=== PATIENT | female | born 1970 | race Caucasian/White ===

== ENCOUNTER 2017-02-02 12:40 | Emergency (ER) | payer BC ==
[2017-02-02] MEDS ORDERED: MECLIZINE HCL 25 MG TABLET PO ONE (13:05)
--- NOTE | 2017-02-02 13:07 | ER Document Report ---
ED Medical Screen (RME) - General Chief Complaint: Dizziness Stated Complaint: WEAKNESS Notes: 46-year-old female patient who had an [place] and stent placed in September this past year comes emergency room complaining of feeling lethargic, drained, and dizziness with head position changes today. Cardiac exam shows some nystagmus which is made worse when the patient looks up and down left and right rapidly. She also complains of a multitude of minor symptoms which make her think she may have MS. I have greeted and performed a rapid initial assessment of this patient. A comprehensive ED assessment and evaluation of the patient, analysis of test results and completion of the medical decision making process will be conducted by additional ED providers. TRAVEL OUTSIDE OF THE [place] IN LAST 30 DAYS: No - Related Data Allergies/Adverse Reactions: No Known Allergies Allergy (Verified 02/02/17 13:01) Past Medical History - Past Medical History Cardiac Medical History: Reports: Hx Coronary Artery Disease, Hx Heart Attack, Hx Hypercholesterolemia, Hx Hypertension Pulmonary Medical History: Reports: Hx Bronchitis, Hx Pneumonia Denies: Hx Tuberculosis Neurological Medical History: Reports: Hx Migraine Endocrine Medical History: Reports: Hx Diabetes Mellitus Type 2 Renal/ Medical History: Denies: Hx Peritoneal Dialysis Musculoskeltal Medical History: Reports Hx Arthritis, Reports Hx Musculoskeletal Deformity Psychiatric Medical History: Reports: Hx Anxiety, Hx Bipolar Disorder, Hx Depression, Hx Post Traumatic Stress Disorder Past Surgical History: Reports: Hx Cardiac Catheterization, Hx Gynecologic Surgery - D&C, Hx Pacemaker, Hx Tubal Ligation - 2007 - Immunizations Immunizations up to date: Yes Hx Diphtheria, Pertussis, Tetanus Vaccination: Yes - unknown Physical Exam - Vital signs Vitals: Temp Pulse Resp BP Pulse Ox 98 F 72 18 103/71 98 02/02/17 12:49 02/02/17 12:49 02/02/17 12:49 02/02/17 12:49 02/02/17 12:49 Course - Vital Signs Vital signs: Temp Pulse Resp BP Pulse Ox 98 F 72 18 103/71 98 02/02/17 12:49 02/02/17 12:49 02/02/17 12:49 02/02/17 12:49 02/02/17 12:49
[2017-02-02] MEDS ORDERED: NORMAL SALINE 1000 ML 1,000 ML IV PRN (14:28)
--- NOTE | 2017-02-02 14:31 | ER Document Report ---
ED General - General Chief Complaint: Dizziness Stated Complaint: WEAKNESS Time seen by provider: 14:29 Mode of Arrival: Ambulatory Information source: Patient Notes: This is a 46-year-old female with a history of coronary artery disease (status post [place], RCA stent in September 2016), dyslipidemia, chronic low back pain, bipolar affective disorder. The patient presents to the emergency room with lethargy, feeling very drained, dizziness, nausea. Patient denies chest pain. She does admit to constipation. On review of systems, the patient has had complaints of bilateral ear sensitivity, episodes of vertigo with gait and balance. Also, the patient does state that her primary care doctor recently referred her to a neurologist for an outpatient workup for MS. TRAVEL OUTSIDE OF THE [place] IN LAST 30 DAYS: No - HPI Onset: Last week Onset/Duration: Gradual Quality of pain: No pain Severity: None Pain Level: Denies Associated symptoms: denies: Chills, Fever, Shortness of breath Exacerbated by: Denies Relieved by: Denies Similar symptoms previously: Yes Recently seen / treated by doctor: Yes - Related Data Allergies/Adverse Reactions: No Known Allergies Allergy (Verified 02/02/17 13:01) Past Medical History - General Information source: Patient - Social History Smoking Status: Former Smoker Cigarette use (# per day): No - patient quit 4 months ago Chew tobacco use (# tins/day): No Smoking Education Provided: No Frequency of alcohol use: None Drug Abuse: None Lives with: Family Family History: Arthritis, CAD, CVA, DM, Hyperlipidemia, Hypertension, Malignancy Patient has suicidal ideation: No Patient has homicidal ideation: No - Past Medical History Cardiac Medical History: Reports: Hx Coronary Artery Disease, Hx Heart Attack, Hx Hypercholesterolemia, Hx Hypertension Pulmonary Medical History: Reports: Hx Bronchitis, Hx Pneumonia Denies: Hx Tuberculosis Neurological Medical History: Reports: Hx Migraine Endocrine Medical History: Reports: Hx Diabetes Mellitus Type 2 Renal/ Medical History: Denies: Hx Peritoneal Dialysis Musculoskeltal Medical History: Reports Hx Arthritis, Reports Hx Musculoskeletal Deformity Psychiatric Medical History: Reports: Hx Anxiety, Hx Bipolar Disorder, Hx Depression, Hx Post Traumatic Stress Disorder Past Surgical History: Reports: Hx Cardiac Catheterization, Hx Gynecologic Surgery - D&C, Hx Pacemaker, Hx Tubal Ligation - 2007 - Immunizations Immunizations up to date: Yes Hx Diphtheria, Pertussis, Tetanus Vaccination: Yes - unknown Hx Pneumococcal Vaccination: 12/17/11 Review of Systems - Review of Systems Constitutional: See HPI, Weakness EENT: See HPI Cardiovascular: See HPI Respiratory: No symptoms reported Gastrointestinal: No symptoms reported Genitourinary: No symptoms reported Female Genitourinary: No symptoms reported Musculoskeletal: See HPI Skin: No symptoms reported Hematologic/Lymphatic: No symptoms reported Neurological/Psychological: See HPI Physical Exam - Vital signs Vitals: Temp Pulse Resp BP Pulse Ox 98 F 72 18 103/71 98 02/02/17 12:49 02/02/17 12:49 02/02/17 12:49 02/02/17 12:49 02/02/17 12:49 Notes: Physical exam: GENERAL: 46-year-old female, alert and oriented 3, no acute distress. HEAD: Atraumatic, normocephalic. EYES: Pupils equal round and reactive to light, extraocular movements intact, sclera anicteric, conjunctiva are normal. ENT: TMs normal, nares patent, oropharynx clear without exudates. Moist mucous membranes. NECK: Normal range of motion, supple without lymphadenopathy or JVD. LUNGS: Breath sounds clear to auscultation bilaterally and equal. No wheezes rales or rhonchi. HEART: Regular rate and rhythm without murmurs, rubs or gallops. ABDOMEN: Soft, normoactive bowel sounds. No tenderness to palpation. No guarding, no rebound. No masses appreciated. EXTREMITIES: Normal range of motion, no pitting or edema. No clubbing or cyanosis. NEUROLOGICAL: Cranial nerves II through XII grossly intact. Normal speech, normal gait. PSYCH: Normal mood, normal affect. SKIN: Warm, Dry, normal turgor, no rashes or lesions noted. Course - Vital Signs Vital signs: Temp Pulse Resp BP Pulse Ox 98 F 72 13 129/84 H 98 02/02/17 12:49 02/02/17 12:49 02/02/17 18:30 02/02/17 18:30 02/02/17 18:30 - Laboratory Result Diagrams: 02/02/17 14:18 02/02/17 14:18 Laboratory results interpreted by me: 02/02/17 02/02/17 02/02/17 14:18 14:18 14:18 RDW 14.8 H VBG pH 7.28 L Chloride 108 H - EKG Interpretation by Me Rate: Normal Rhythm: NSR Additional EKG results interpreted by me: 02/02/17 14:33 EKG shows normal sinus rhythm with a ventricular rate of 66, poor R-wave progression, no acute ST-T wave changes. Discharge - Discharge Clinical Impression: dizziness Condition: Stable Disposition: HOME, SELF-CARE Instructions: Vertigo ([facility]), Dizziness ([facility]), Meclizine ([facility]) Additional Instructions: Recommendations: Rest, drink plenty of fluids, continue current medicines. Your anemia studies were good, so he could stop taking the ER: It may be contributing to constipation. Follow-up with a primary care physician: Fl[facility] has a [facility] family [facility] care clinic on [address]: [address] [place] [address] Also, recommend you follow-up with an ENT specialist for the vertigo: [facility] [address] [place] [address] Toll Free: Prescriptions: Meclizine HCl [Antivert 12.5 mg Tablet] 12.5 mg PO BID PRN #14 tab PRN Reason:
[2017-02-02 14:32] LABS: ABSOLUTE EOSINOPHILS # (AUTO) 0.5 10^3/uL (0.0-0.6); ABSOLUTE LYMPHOCYTES (AUTO) 2.8 10^3/uL (0.5-4.7); ABSOLUTE MONOCYTES (AUTO) 0.5 10^3/uL (0.1-1.4); ABSOLUTE NEUT (AUTO) 4.7 10^3/uL (1.7-8.2); BASOPHILS % (AUTO) 0.4 % (0-2); EOSINOPHILS % (AUTO) 5.4 % (0-6); HEMOGLOBIN 12.5 g/dL (12.0-15.5); HGB HCT DIFFERENCE 0.5; MEAN CORPUSCULAR HGB CONC 33.8 g/dL (32.0-36.0); MEAN CORPUSCULAR VOLUME 89 fl (80-97); RED BLOOD COUNT 4.17 10^6/uL (3.72-5.28); RED CELL DISTRIBUTION WIDTH 14.8 % (11.5-14.0); SEGMENTED NEUTROPHILS % (AUTO) 55.2 % (42-78); WHITE BLOOD COUNT 8.5 10^3/uL (4.0-10.5)
[2017-02-02 14:46] LABS: VENOUS BLOOD BASE EXCESS -4.2 mmol/L; VENOUS BLOOD HCO3 22.9 mmol/L (20-32); VENOUS BLOOD PCO2 49.8 mmHg (35-63); VENOUS BLOOD PH 7.28 (7.30-7.42)
[2017-02-02 14:52] LABS: ALANINE AMINOTRANSFERASE 25 U/L (9-52); ALBUMIN 3.9 g/dL (3.5-5.0); ALKALINE PHOSPHATASE 63 U/L (38-126); ANION GAP 11 (5-19); ASPARTATE AMINO TRANSFERASE 22 U/L (14-36); BILIRUBIN,DIRECT 0.1 mg/dL (0.0-0.4); BILIRUBIN,TOTAL 0.3 mg/dL (0.2-1.3); BLOOD UREA NITROGEN 7 mg/dL (7-20); CARBON DIOXIDE 24 mmol/L (22-30); CHLORIDE 108 mmol/L (98-107); CREATINE KINASE 64 U/L (30-135); CREATININE RESULT 0.77 mg/dL (0.52-1.25); GLUCOSE 88 mg/dL (75-110); POTASSIUM 3.8 mmol/L (3.6-5.0); SODIUM 143.4 mmol/L (137-145); TOTAL PROTEIN 6.5 g/dL (6.3-8.2)
[2017-02-02 15:04] LABS: CREATINE KINASE MB 0.62 ng/mL (<4.55); TROPONIN I < 0.012 ng/mL
[2017-02-02 16:04] LABS: APPEARANCE,URINE SLIGHTLY-CLOUDY; BILIRUBIN,URINE NEGATIVE (NEGATIVE); GLUCOSE, URINE NEGATIVE (NEGATIVE); KETONES,URINE NEGATIVE (NEGATIVE); LEUKOCYTE ESTERASE,URINE NEGATIVE (NEGATIVE); NITRITE,URINE NEGATIVE (NEGATIVE); PROTEIN,URINE NEGATIVE (NEGATIVE); URINE SPECIFIC GRAVITY 1.009; UROBILINOGEN,URINE NEGATIVE mg/dL (<2.0)
[2017-02-02 18:34] VITALS: BP 129/84
--- NOTE | 2017-02-02 20:09 | EKG REPORT ---
SEVERITY:- BORDERLINE ECG - SINUS RHYTHM BORDERLINE R WAVE PROGRESSION, ANTERIOR LEADS : Confirmed by: Viji Mosher MD 02-Feb-2017 20:07:52
== END 2017-02-02 18:53 | disposition home or self-care (01) ==
LOC: ER 12:40
DX: R42 Dizziness and giddiness (principal); K59.00 Constipation, unspecified; R11.0 Nausea; R53.83 Other fatigue; R53.1 Weakness; I25.10 Atherosclerotic heart disease of native coronary artery without angina pectoris; I25.2 Old myocardial infarction; I10 Essential (primary) hypertension; E11.9 Type 2 diabetes mellitus without complications; Z98.61 Coronary angioplasty status; Z87.891 Personal history of nicotine dependence; Z95.0 Presence of cardiac pacemaker
CPT/HCPCS: 93005; 99285; 96360; 36415; 82553; 82550; 85025; 82272; 80053; 81001; 84484; 82803; 83605; 70450; 71275; 93010; J7030

== ENCOUNTER 2017-02-07 22:24 | Emergency (ER) | payer BC ==
--- NOTE | 2017-02-07 22:40 | ER Document Report ---
ED Cardiac - General Chief Complaint: Chest Pain > 30 Stated Complaint: CHEST PAIN Information source: Patient Notes: The patient is a 47-year-old female, past medical history CAD s/p 1 stent in , bipolar, presents with left upper chest pain 3 patient to her left shoulder that started while she was having a bowel movement. She took one of her Percocet tens and a nitroglycerin with relief of her pain. EMS arrived and she was given 324 mg aspirin and 1 sublingual nitroglycerin prior to arrival. Patient states the pain is a pressure. She was seen in the emergency room 2 days ago for vertiginous symptoms and had a normal head CT and CTA chest. Patient is also having constipation over the past few days that she says occurs when she takes her Percocet. Denies back pain, numbness, tingling, shortness of breath, leg swelling, cough, hemoptysis, fevers, nausea or vomiting. TRAVEL OUTSIDE OF THE [place] IN LAST 30 DAYS: No - Related Data Allergies/Adverse Reactions: No Known Allergies Allergy (Verified 02/02/17 13:01) Past Medical History - General Information source: Patient - Social History Smoking Status: Current Every Day Smoker Family History: Arthritis, CAD, CVA, DM, Hyperlipidemia, Hypertension, Malignancy - Past Medical History Cardiac Medical History: Reports: Hx Coronary Artery Disease, Hx Heart Attack, Hx Hypercholesterolemia, Hx Hypertension Pulmonary Medical History: Reports: Hx Bronchitis, Hx Pneumonia Denies: Hx Tuberculosis Neurological Medical History: Reports: Hx Migraine Endocrine Medical History: Reports: Hx Diabetes Mellitus Type 2 Renal/ Medical History: Denies: Hx Peritoneal Dialysis Musculoskeltal Medical History: Reports Hx Arthritis, Reports Hx Musculoskeletal Deformity Psychiatric Medical History: Reports: Hx Anxiety, Hx Bipolar Disorder, Hx Depression, Hx Post Traumatic Stress Disorder Past Surgical History: Reports: Hx Cardiac Catheterization, Hx Gynecologic Surgery - D&C, Hx Pacemaker, Hx Tubal Ligation - 2007 - Immunizations Immunizations up to date: Yes Hx Diphtheria, Pertussis, Tetanus Vaccination: Yes - unknown Hx Pneumococcal Vaccination: 12/17/11 Review of Systems - Review of Systems Notes: REVIEW OF SYSTEMS: CONSTITUTIONAL: -fevers, -chills EENT: -eye pain, -difficulty swallowing, -nasal congestion CARDIOVASCULAR: +chest pain, -syncope. RESPIRATORY: -cough, -SOB GASTROINTESTINAL: -abdominal pain, -nausea, -vomiting, -diarrhea GENITOURINARY: -dysuria, -hematuria MUSCULOSKELETAL: -back pain, -neck pain SKIN: -rash or skin lesions. HEMATOLOGIC: -easy bruising or bleeding. LYMPHATIC: -swollen, enlarged glands. NEUROLOGICAL: -altered mental status or loss of consciousness, -headache, - neurologic symptoms PSYCHIATRIC: -anxiety, -depression. ALL OTHER SYSTEMS REVIEWED AND NEGATIVE. Physical Exam - Vital signs Vitals: Pulse Ox 96 02/07/17 22:29 - Notes Notes: PHYSICAL EXAMINATION: GENERAL: Well-appearing, well-nourished and in no acute distress. HEAD: Atraumatic, normocephalic. EYES: Pupils equal round and reactive to light, extraocular movements intact, sclera anicteric, conjunctiva are normal. ENT: nares patent, oropharynx clear without exudates. Moist mucous membranes. NECK: Normal range of motion, supple without lymphadenopathy LUNGS: Breath sounds clear to auscultation bilaterally and equal. No wheezes rales or rhonchi. HEART: Regular rate and rhythm without murmurs ABDOMEN: Soft, nontender, normoactive bowel sounds. No guarding, no rebound. No masses appreciated. EXTREMITIES: Normal range of motion, no pitting or edema. No cyanosis. NEUROLOGICAL: Cranial nerves grossly intact. Normal speech, normal gait. Normal sensory, motor, and reflex exams. PSYCH: Normal mood, normal affect. SKIN: Warm, Dry, normal turgor, no rashes or lesions noted. Course - Re-evaluation Re-evalutation: Patient appears well. EKG and 2 troponins are negative for acute ischemia. HEART score 3. Symptoms atypical for PE and she is PERC negative. And is also atypical for aortic dissection. Told her that she must follow-up with her primary care physician and window shade estimator today or tomorrow to have her symptoms rechecked and further evaluation with stress test. She had a bowel movement after using the Fleet enema in the ER. Told her to start a stool softener since she is on chronic narcotics. Given strict return precautions and she understands. - Vital Signs Vital signs: Temp Pulse Resp BP Pulse Ox 98.6 F 17 140/96 H 99 02/08/17 00:01 02/08/17 02:36 02/08/17 02:36 02/08/17 02:36 - Laboratory Result Diagrams: 02/07/17 22:40 02/07/17 22:40 Laboratory results interpreted by me: 02/07/17 02/07/17 22:40 22:40 RDW 14.8 H Glucose 117 H - Diagnostic Test Radiology reviewed: Image reviewed, Reports reviewed - EKG Interpretation by Me EKG shows normal: Sinus rhythm, [place], Intervals, QRS Complexes, ST-T Waves When compared to previous EKG there are: No significant change Discharge - Discharge Clinical Impression: Chest pain Qualifiers: Chest pain type: unspecified Qualified Code(s): R07.9 - Chest pain, unspecified Condition: Stable Disposition: HOME, SELF-CARE Additional Instructions: CHEST PAIN OF UNCLEAR CAUSE: The exact cause of your chest pain isn't clear. Fortunately, there is no evidence of a dangerous medical condition. Further testing may be required to find the source of the pain. Most often, we find that this pain is coming from the chest wall -- the muscles or rib joints in the chest. But chest pain can come from the lung and lung lining, the esophagus, the heart valves or heart lining, and even the stomach or gallbladder. Rest. Eat lightly until the pain is gone. We may prescribe medicine for pain and inflammation. You should call the physician immediately if the pain radiates to the shoulder, jaw or arms; if you start to run a fever or develop a cough; or if you develop shortness of breath, or other new or alarming symptoms. NORMAL EXAM AND WORKUP: At this time, your examination and workup show no significant abnormality. No significant abnormal physical findings were noted. All laboratory, EKG, and imaging (x-ray, CT scans, ultrasound) studies that were ordered show no significant abnormality. Although your examination and all studies that were ordered showed no significant abnormal finding, there are no examinations and no studies that are 100% accurate. There is always the possibility that some abnormality could exist and not be detected with physical examination or within the limits and capabilities of laboratory and other studies. You should return or follow up as you were instructed on your visit today for further evaluation if your symptoms do not resolve. CHEST WALL PAIN: Your chest pain may be coming from the chest wall. This is often caused by straining the muscles or joints in the chest during physical activity, direct trauma, coughing, or vigorous vomiting. Persons with arthritis are especially prone to this type of pain, due to inflammation of the cartilage joints near the breast bone. Occasionally, no cause can be found. Rest from strenuous physical activity. This kind of chest pain is usually made worse by movement of the chest. Depending on the symptoms, we may prescribe medicine for pain, muscle relaxation, and antiinflammatory effects. If the pain is new, and seems to be due to muscle strain, cold packs can help. Otherwise, apply gentle warmth to the painful area for 15 minutes every hour or two. You should call contact the doctor immediately if things change. Further evaluation is needed if you develop a fever or cough, if the nature of the pain changes, or if you become short of breath. ANGINA EPISODE: Your physician has diagnosed the pain you experienced as an episode of angina. Angina occurs when a portion of the heart muscle temporarily lacks oxygen. It does not cause any permanent heart damage, but serves as a warning. Hospitalization is not necessary now. Evaluation of your cardiac condition , and medical therapy for angina will be necessary. It's important you be sure to keep all appointments and take medication exactly as prescribed. Angina is usually treated with a type of "nitrate" medication. This is available as ointment, pills, or sublingual (under the tongue) tablets. Depending on your clinical situation, other medications may be added to help control angina. These may include beta blockers or calcium blockers. If episodes of angina are occurring with increased frequency, or if chest pain lasts longer than 15 minutes or does not respond to nitroglycerin, you must seek emergency medical care immediately. ASPIRIN: Aspirin has been shown to have a beneficial effect on blood circulation by reducing the clotting effect of platelets in the blood. These beneficial effects can be achieved by taking just a single baby (81 mg) aspirin a day. It is recommended that any person over the age of forty take a single baby aspirin every day for heart and brain circulation, unless you are allergic to aspirin or have some significant bleeding disorder. It is strongly recommended that people who have proven cardiac or blood circulation disturbances should take a baby aspirin every day. NITRATES: Nitroglycerin and related longer-acting nitrate medications are used to prevent or treat attacks of angina. These medicines dilate blood vessels, decreasing the work of the heart, and improving its supply of oxygen. Many different forms are available, including sublingual tablets (used under the tongue), sprays, skin patches, and long-acting pills. If the particular form of medication you have been given is not working well for you, contact your doctor. Long-acting forms: Take exactly as prescribed. Sudden stopping of medication can provoke increased attacks. Sublingual tabs or spray: A headache will usually occur with use. Sit or lie while waiting for the pain to go away. If angina doesn't respond to three doses (five minutes apart), call for emergency assistance. FOLLOW-UP CARE: If you have been referred to a physician for follow-up care, call the physician s office for an appointment as you were instructed or within the next two days. If you experience worsening or a significant change in your symptoms, notify the physician immediately or return to the Emergency Department at any time for re-evaluation. Referrals: ESEQUIEL ORO MD [ACTIVE STAFF] - Follow up as needed
[2017-02-07 23:02] LABS: ABSOLUTE EOSINOPHILS # (AUTO) 0.4 10^3/uL (0.0-0.6); ABSOLUTE MONOCYTES (AUTO) 0.6 10^3/uL (0.1-1.4); ABSOLUTE NEUT (AUTO) 5.1 10^3/uL (1.7-8.2); BASOPHILS % (AUTO) 0.5 % (0-2); EOSINOPHILS % (AUTO) 4.4 % (0-6); HEMATOCRIT 36.3 % (36.0-47.0); HEMOGLOBIN 12.3 g/dL (12.0-15.5); HGB HCT DIFFERENCE 0.6; LYMPHOCYTES % (AUTO) 32.4 % (13-45); MEAN CORPUSCULAR HEMOGLOBIN 29.9 pg (27.0-33.4); MEAN CORPUSCULAR VOLUME 88 fl (80-97); RED BLOOD COUNT 4.13 10^6/uL (3.72-5.28); RED CELL DISTRIBUTION WIDTH 14.8 % (11.5-14.0); SEGMENTED NEUTROPHILS % (AUTO) 55.7 % (42-78); WHITE BLOOD COUNT 9.2 10^3/uL (4.0-10.5)
[2017-02-07 23:15] LABS: ALANINE AMINOTRANSFERASE 33 U/L (9-52); ALBUMIN 3.9 g/dL (3.5-5.0); ALKALINE PHOSPHATASE 63 U/L (38-126); ANION GAP 13 (5-19); ASPARTATE AMINO TRANSFERASE 34 U/L (14-36); BILIRUBIN,DIRECT 0.1 mg/dL (0.0-0.4); BILIRUBIN,TOTAL 0.3 mg/dL (0.2-1.3); BLOOD UREA NITROGEN 9 mg/dL (7-20); CARBON DIOXIDE 23 mmol/L (22-30); CHLORIDE 107 mmol/L (98-107); CREATINE KINASE 77 U/L (30-135); CREATININE RESULT 0.68 mg/dL (0.52-1.25); GLUCOSE 117 mg/dL (75-110); LIPASE 32.8 U/L (23-300); SODIUM 143.1 mmol/L (137-145); TOTAL PROTEIN 6.7 g/dL (6.3-8.2)
[2017-02-07 23:26] LABS: TROPONIN I < 0.012 ng/mL
[2017-02-08] MEDS ORDERED: NA PHOS,M-B/NA PHOS,DI-BA (ADULT) 133 ML ENEMA PR ONE (01:37)
[2017-02-08 07:20] VITALS: BP 121/88
--- NOTE | 2017-02-08 07:48 | EKG REPORT ---
SEVERITY:- ABNORMAL ECG - SINUS RHYTHM ABNRM R PROG, CONSIDER ASMI OR LEAD PLACEMENT : Confirmed by: Ronnell Mccurdy 08-Feb-2017 07:48:10
== END 2017-02-08 06:35 | disposition home or self-care (01) ==
LOC: ER 22:24
DX: R07.9 Chest pain, unspecified (principal); F31.9 Bipolar disorder, unspecified; M25.512 Pain in left shoulder; F17.200 Nicotine dependence, unspecified, uncomplicated
CPT/HCPCS: 93005; 99285; 36415; 82550; 83690; 85025; 80076; 80048; 84484; 83880; 71010; 93010; J3490

== ENCOUNTER 2017-03-20 21:54 | Emergency (ER) | payer BC ==
[2017-03-20 22:14] LABS: ABSOLUTE BASOPHILS # (AUTO) 0.1 10^3/uL (0.0-0.2); ABSOLUTE EOSINOPHILS # (AUTO) 0.5 10^3/uL (0.0-0.6); ABSOLUTE LYMPHOCYTES (AUTO) 3.4 10^3/uL (0.5-4.7); ABSOLUTE MONOCYTES (AUTO) 0.6 10^3/uL (0.1-1.4); EOSINOPHILS % (AUTO) 5.7 % (0-6); HEMATOCRIT 36.9 % (36.0-47.0); HGB HCT DIFFERENCE -0.9; LYMPHOCYTES % (AUTO) 39.9 % (13-45); MEAN CORPUSCULAR HGB CONC 32.6 g/dL (32.0-36.0); MEAN CORPUSCULAR VOLUME 89 fl (80-97); MONOCYTES % (AUTO) 6.8 % (3-13); RED BLOOD COUNT 4.15 10^6/uL (3.72-5.28); RED CELL DISTRIBUTION WIDTH 15.2 % (11.5-14.0); SEGMENTED NEUTROPHILS % (AUTO) 46.6 % (42-78); WHITE BLOOD COUNT 8.5 10^3/uL (4.0-10.5)
[2017-03-20 22:34] LABS: ALANINE AMINOTRANSFERASE 50 U/L (9-52); ALBUMIN 3.9 g/dL (3.5-5.0); ALKALINE PHOSPHATASE 87 U/L (38-126); ANION GAP 12 (5-19); ASPARTATE AMINO TRANSFERASE 40 U/L (14-36); BILIRUBIN,DIRECT 0.3 mg/dL (0.0-0.4); BILIRUBIN,TOTAL 0.4 mg/dL (0.2-1.3); BLOOD UREA NITROGEN 9 mg/dL (7-20); CALCIUM 9.3 mg/dL (8.4-10.2); CARBON DIOXIDE 25 mmol/L (22-30); CHLORIDE 104 mmol/L (98-107); CREATINE KINASE 65 U/L (30-135); CREATININE RESULT 0.78 mg/dL (0.52-1.25); GLUCOSE 108 mg/dL (75-110); POTASSIUM 3.7 mmol/L (3.6-5.0); SODIUM 140.8 mmol/L (137-145); TOTAL PROTEIN 7.2 g/dL (6.3-8.2)
[2017-03-20 22:44] LABS: CREATINE KINASE MB 1.13 ng/mL (<4.55)
[2017-03-20 22:45] LABS: TROPONIN I < 0.012 ng/mL
[2017-03-20] MEDS ORDERED: NITROGLYCERIN 2% OINTMENT 1 GM PACKET TP ONE (23:06)
--- NOTE | 2017-03-20 23:16 | RADIOLOGY REPORT (SQ) ---
EXAM DESCRIPTION: CHEST SINGLE VIEW COMPLETED DATE/TIME: 03/20/2017 10:31 pm REASON FOR STUDY: cp COMPARISON: January 2017 EXAM PARAMETERS: NUMBER OF VIEWS: One view. TECHNIQUE: Single frontal radiographic view of the chest acquired. RADIATION DOSE: NA LIMITATIONS: None. FINDINGS: LUNGS AND PLEURA: No opacities, masses or pneumothorax. No pleural effusion. MEDIASTINUM AND HILAR STRUCTURES: No masses. Contour normal. HEART AND VASCULAR STRUCTURES: Heart normal in size. Normal vasculature. BONES: No acute findings. HARDWARE: None in the chest. OTHER: No other significant finding. IMPRESSION: NO ACUTE RADIOGRAPHIC FINDING IN THE CHEST. TECHNICAL DOCUMENTATION: JOB ID: [id number]
--- NOTE | 2017-03-20 23:53 | EKG REPORT ---
SEVERITY:- BORDERLINE ECG - SINUS RHYTHM BORDERLINE R WAVE PROGRESSION, ANTERIOR LEADS : Confirmed by: Ronnell Mccurdy 20-Mar-2017 23:52:59
[2017-03-21 01:49] VITALS: BP 102/73
--- NOTE | 2017-03-21 01:55 | ER Document Report ---
ED Cardiac - General Chief Complaint: Chest Pain Stated Complaint: CHEST PAIN Time Seen by Provider: 03/20/17 22:43 Notes: The patient is a 47-year-old female, past medical history hypertension, CAD, diabetes, anxiety, bipolar, PTSD, presents with left upper chest pain that started when she was at rest earlier today. She has had multiple episodes of this since her stent 7 months ago. She cannot find her nitro, but did take 324 mg aspirin prior to arrival. Her chest pain improved with nitro by EMS. Denies leg swelling, cough, nausea, vomiting, numbness, tingling, neck pain or back pain TRAVEL OUTSIDE OF THE [place] IN LAST 30 DAYS: No - Related Data Allergies/Adverse Reactions: No Known Allergies Allergy (Verified 03/20/17 22:12) Past Medical History - General Information source: Patient - Social History Smoking Status: Former Smoker Chew tobacco use (# tins/day): No Frequency of alcohol use: None Drug Abuse: None Family History: Arthritis, CAD, CVA, DM, Hyperlipidemia, Hypertension, Malignancy - Past Medical History Cardiac Medical History: Reports: Hx Coronary Artery Disease, Hx Heart Attack, Hx Hypercholesterolemia, Hx Hypertension Pulmonary Medical History: Reports: Hx Bronchitis, Hx Pneumonia Denies: Hx Tuberculosis Neurological Medical History: Reports: Hx Migraine Endocrine Medical History: Reports: Hx Diabetes Mellitus Type 2 Renal/ Medical History: Denies: Hx Peritoneal Dialysis Musculoskeltal Medical History: Reports Hx Arthritis, Reports Hx Musculoskeletal Deformity Psychiatric Medical History: Reports: Hx Anxiety, Hx Bipolar Disorder, Hx Depression, Hx Post Traumatic Stress Disorder Past Surgical History: Reports: Hx Cardiac Catheterization - with stents, Hx Gynecologic Surgery - D&C, Hx Pacemaker, Hx Tubal Ligation - Immunizations Immunizations up to date: Yes Hx Diphtheria, Pertussis, Tetanus Vaccination: Yes - unknown Hx Pneumococcal Vaccination: 12/17/11 Review of Systems - Review of Systems Notes: REVIEW OF SYSTEMS: CONSTITUTIONAL: -fevers, -chills EENT: -eye pain, -difficulty swallowing, -nasal congestion CARDIOVASCULAR: +chest pain, -syncope. RESPIRATORY: -cough, -SOB GASTROINTESTINAL: -abdominal pain, - nausea, -vomiting, -diarrhea GENITOURINARY: -dysuria, -hematuria MUSCULOSKELETAL: -back pain, -neck pain SKIN: -rash or skin lesions. HEMATOLOGIC: -easy bruising or bleeding. LYMPHATIC: -swollen, enlarged glands. NEUROLOGICAL: -altered mental status or loss of consciousness, -headache, - neurologic symptoms PSYCHIATRIC: -anxiety, -depression. ALL OTHER SYSTEMS REVIEWED AND NEGATIVE. Physical Exam - Vital signs Vitals: Temp 98.3 F 03/20/17 22:00 - Notes Notes: PHYSICAL EXAMINATION: GENERAL: Well-appearing, well-nourished and in no acute distress. HEAD: Atraumatic, normocephalic. EYES: Pupils equal round and reactive to light, extraocular movements intact, sclera anicteric, conjunctiva are normal. ENT: nares patent, oropharynx clear without exudates. Moist mucous membranes. NECK: Normal range of motion, supple without lymphadenopathy LUNGS: Breath sounds clear to auscultation bilaterally and equal. No wheezes rales or rhonchi. HEART: Regular rate and rhythm without murmurs ABDOMEN: Soft, nontender, normoactive bowel sounds. No guarding, no rebound. No masses appreciated. EXTREMITIES: Normal range of motion, no pitting or edema. No cyanosis. NEUROLOGICAL: Cranial nerves grossly intact. Normal speech, normal gait. Normal sensory and motor exams. PSYCH: Anxious SKIN: Warm, Dry, normal turgor, no rashes or lesions noted. Course - Re-evaluation Re-evalutation: Patient's chest pain resolved after nitro. She has nitro at home. 2 sets of troponins are negative and her EKG is unchanged. Her HEART score is 3. Symptoms are atypical for pulmonary embolism or aortic dissection at this time. 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 and to return to the ER if she has any worsening symptoms - Vital Signs Vital signs: Temp Pulse Resp BP Pulse Ox 97.6 F 13 102/73 92 03/21/17 01:55 03/21/17 01:31 03/21/17 01:31 03/21/17 01:31 - Laboratory Result Diagrams: 03/20/17 22:00 03/20/17 22:00 Laboratory results interpreted by me: 03/20/17 03/20/17 22:00 22:00 RDW 15.2 H AST 40 H - Diagnostic Test Radiology reviewed: Image reviewed, Reports reviewed Radiology results interpreted by me: CXR: NAD - EKG Interpretation by Me EKG shows normal: Sinus rhythm, [place], Intervals, QRS Complexes, ST-T Waves Rate: Normal When compared to previous EKG there are: No significant change Discharge - Discharge Clinical Impression: Chest pain Qualifiers: Chest pain type: unspecified Qualified Code(s): R07.9 - Chest pain, unspecified Condition: Stable Disposition: HOME, SELF-CARE Additional Instructions: CHEST PAIN OF UNCLEAR CAUSE: The exact cause of your chest pain isn't clear. Fortunately, there is no evidence of a dangerous medical condition. Further testing may be required to find the source of the pain. Most often, we find that this pain is coming from the chest wall -- the muscles or rib joints in the chest. But chest pain can come from the lung and lung lining, the esophagus, the heart valves or heart lining, and even the stomach or gallbladder. Rest. Eat lightly until the pain is gone. We may prescribe medicine for pain and inflammation. You should call the physician immediately if the pain radiates to the shoulder, jaw or arms; if you start to run a fever or develop a cough; or if you develop shortness of breath, or other new or alarming symptoms. NORMAL EXAM AND WORKUP: At this time, your examination and workup show no significant abnormality. No significant abnormal physical findings were noted. All laboratory, EKG, and imaging (x-ray, CT scans, ultrasound) studies that were ordered show no significant abnormality. Although your examination and all studies that were ordered showed no significant abnormal finding, there are no examinations and no studies that are 100% accurate. There is always the possibility that some abnormality could exist and not be detected with physical examination or within the limits and capabilities of laboratory and other studies. You should return or follow up as you were instructed on your visit today for further evaluation if your symptoms do not resolve. CHEST WALL PAIN: Your chest pain may be coming from the chest wall. This is often caused by straining the muscles or joints in the chest during physical activity, direct trauma, coughing, or vigorous vomiting. Persons with arthritis are especially prone to this type of pain, due to inflammation of the cartilage joints near the breast bone. Occasionally, no cause can be found. Rest from strenuous physical activity. This kind of chest pain is usually made worse by movement of the chest. Depending on the symptoms, we may prescribe medicine for pain, muscle relaxation, and antiinflammatory effects. If the pain is new, and seems to be due to muscle strain, cold packs can help. Otherwise, apply gentle warmth to the painful area for 15 minutes every hour or two. You should call contact the doctor immediately if things change. Further evaluation is needed if you develop a fever or cough, if the nature of the pain changes, or if you become short of breath. ANGINA EPISODE: Your physician has diagnosed the pain you experienced as an episode of angina. Angina occurs when a portion of the heart muscle temporarily lacks oxygen. It does not cause any permanent heart damage, but serves as a warning. Hospitalization is not necessary now. Evaluation of your cardiac condition , and medical therapy for angina will be necessary. It's important you be sure to keep all appointments and take medication exactly as prescribed. Angina is usually treated with a type of "nitrate" medication. This is available as ointment, pills, or sublingual (under the tongue) tablets. Depending on your clinical situation, other medications may be added to help control angina. These may include beta blockers or calcium blockers. If episodes of angina are occurring with increased frequency, or if chest pain lasts longer than 15 minutes or does not respond to nitroglycerin, you must seek emergency medical care immediately. ASPIRIN: Aspirin has been shown to have a beneficial effect on blood circulation by reducing the clotting effect of platelets in the blood. These beneficial effects can be achieved by taking just a single baby (81 mg) aspirin a day. It is recommended that any person over the age of forty take a single baby aspirin every day for heart and brain circulation, unless you are allergic to aspirin or have some significant bleeding disorder. It is strongly recommended that people who have proven cardiac or blood circulation disturbances should take a baby aspirin every day. NITRATES: Nitroglycerin and related longer-acting nitrate medications are used to prevent or treat attacks of angina. These medicines dilate blood vessels, decreasing the work of the heart, and improving its supply of oxygen. Many different forms are available, including sublingual tablets (used under the tongue), sprays, skin patches, and long-acting pills. If the particular form of medication you have been given is not working well for you, contact your doctor. Long-acting forms: Take exactly as prescribed. Sudden stopping of medication can provoke increased attacks. Sublingual tabs or spray: A headache will usually occur with use. Sit or lie while waiting for the pain to go away. If angina doesn't respond to three doses (five minutes apart), call for emergency assistance. FOLLOW-UP CARE: If you have been referred to a physician for follow-up care, call the physician s office for an appointment as you were instructed or within the next two days. If you experience worsening or a significant change in your symptoms, notify the physician immediately or return to the Emergency Department at any time for re-evaluation. Referrals: LINO BOONE MD [ACTIVE STAFF] - Follow up as needed
== END 2017-03-21 02:20 | disposition home or self-care (01) ==
LOC: ER 21:54
DX: R07.9 Chest pain, unspecified (principal); I25.10 Atherosclerotic heart disease of native coronary artery without angina pectoris; I25.2 Old myocardial infarction; I10 Essential (primary) hypertension; E11.9 Type 2 diabetes mellitus without complications; Z98.61 Coronary angioplasty status; Z87.891 Personal history of nicotine dependence; Z82.49 Family history of ischemic heart disease and other diseases of the circulatory system; Z87.01 Personal history of pneumonia (recurrent); Z95.0 Presence of cardiac pacemaker
CPT/HCPCS: 36415; 71010; 80053; 82550; 82553; 84484; 85025; 93005; 93010; 99285

== ENCOUNTER 2017-07-10 08:46 | Emergency (ER) | payer BC ==
[2017-07-10] MEDS ORDERED: NORMAL SALINE 1000 ML 1,000 ML IV ONE (10:30)
--- NOTE | 2017-07-10 10:30 | ER Document Report ---
ED Blood Pressure Problem - General Mode of Arrival: Ambulatory Information source: Patient TRAVEL OUTSIDE OF THE [place] IN LAST 30 DAYS: No - HPI Patient complains to provider of: Low blood pressure Onset: Other - chronic Similar symptoms previously: Yes Recently seen / treated by doctor: Yes <FILEMON HALLMAN - Last Filed: 07/10/17 10:34> <[email or web address] - Last Filed: 07/10/17 15:07> - General Chief Complaint: Blood Pressure Problem Stated Complaint: BLOOD PRESSURE PROBLEM Time Seen by Provider: 07/10/17 10:08 Notes: Patient is a 47 year old female who presents to the emergency department today secondary to hypotension at her pain management appointment today. Patient and family at bedside states that the patient has frequently been hypotensive in the past. Patient states she was seen at Dr. Pedraza's office today prior to arrival here for routine blood work but he "did not listen to her" and she wishes to be referred to another neurologist for her condition. Patient has a bizarre disorder with slurred speech and random jerking motions that have been going on for several years with no diagnosis. Patient was seen here less than one month ago for same the complaints. Patient states she has had these symptoms off and on for several years however they are "a little worse today". Patient does take narcotic pain medication, isosorbide, and nitroglycerin as needed however she has not taken any nitroglycerin today. Patient mentions she has had "brain pain". Patient complains of constipation consistent with her opiate dependence. Patient denies any new medications. (FILEMON HALLMAN) - Related Data Allergies/Adverse Reactions: No Known Allergies Allergy (Verified 07/10/17 08:51) Past Medical History - General Information source: Patient, Emergency Med Personnel, [facility] Records - Social History Smoking Status: Former Smoker Cigarette use (# per day): No Frequency of alcohol use: None Drug Abuse: None Lives with: Family Family History: Reviewed & Not Pertinent, Arthritis, CAD, CVA, DM, Hyperlipidemia, Hypertension, Malignancy - Past Medical History Cardiac Medical History: Reports: Hx Coronary Artery Disease, Hx Heart Attack, Hx Hypercholesterolemia, Hx Hypertension Pulmonary Medical History: Reports: Hx Bronchitis, Hx Pneumonia Neurological Medical History: Reports: Hx Migraine Endocrine Medical History: Reports: Hx Diabetes Mellitus Type 2 Musculoskeltal Medical History: Reports Hx Arthritis, Reports Hx Musculoskeletal Deformity Psychiatric Medical History: Reports: Hx Anxiety, Hx Bipolar Disorder, Hx Depression, Hx Post Traumatic Stress Disorder Past Surgical History: Reports: Hx Cardiac Catheterization - with stents, Hx Gynecologic Surgery - D&C, Hx Pacemaker, Hx Tubal Ligation - Immunizations Immunizations up to date: Yes Hx Diphtheria, Pertussis, Tetanus Vaccination: Yes - unknown Hx Pneumococcal Vaccination: 12/17/11 <FILEMON HALLMAN - Last Filed: 07/10/17 10:34> Review of Systems - Review of Systems Constitutional: No symptoms reported EENT: No symptoms reported Cardiovascular: No symptoms reported Respiratory: No symptoms reported Gastrointestinal: See HPI, Constipation Genitourinary: No symptoms reported Female Genitourinary: No symptoms reported Musculoskeletal: No symptoms reported Skin: No symptoms reported Hematologic/Lymphatic: No symptoms reported Neurological/Psychological: See HPI, Headaches, Speech impairment - chronic off and on for years, Tremor - chronic off and on for years -: Yes All other systems reviewed and negative <FILEMON HALLMAN - Last Filed: 07/10/17 10:34> Physical Exam <FILEMON HALLMAN - Last Filed: 07/10/17 10:34> <HOLLI KNIGHT - Last Filed: 07/10/17 15:07> - Vital signs Vitals: Temp Pulse Resp BP Pulse Ox 98.5 F 71 16 104/71 98 07/10/17 08:51 07/10/17 08:51 07/10/17 08:51 07/10/17 08:51 07/10/17 08:51 - Notes Notes: PHYSICAL EXAM GENERAL: Alert, interacts at baseline. No acute distress. HEAD: Normocephalic, atraumatic. EYES: Pupils are dilated but equal, round, and reactive to light. Extraocular movements intact. ENT: Oral mucosa moist, tongue midline. Fasciculation of tongue. NECK: Full range of motion. Supple. Trachea midline. LUNGS: Clear to auscultation bilaterally, no wheezes, rales, or rhonchi. No respiratory distress. HEART: Regular rate and rhythm. No murmurs, gallops, or rubs. ABDOMEN: Soft, non-tender. Non-distended. Bowel sounds present in all 4 quadrants. EXTREMITIES: Moves all 4 extremities spontaneously. No edema, radial and dorsalis pedis pulses 2/4 bilaterally. No cyanosis. NEUROLOGICAL: Alert and oriented x3. Slurred speech with mild stutter. Cranial nerves II through XII grossly intact. Biceps and patellar DTRs 2+ bilaterally. No focal neurological deficits. Random jerking motion of right upper extremity. PSYCH: Normal affect, normal mood. SKIN: Warm, dry, normal turgor. No rashes or lesions noted. (FILEMON HALLMAN) Course <FILEMON HALLMAN - Last Filed: 07/10/17 10:34> - Laboratory Result Diagrams: 07/10/17 11:21 07/10/17 11:21 <HOLLI KNIGHT - Last Filed: 07/10/17 15:07> - Re-evaluation Re-evalutation: 07/10/17 12:53 CBC grossly unremarkable, CMP grossly unremarkable, cardiac enzymes negative, CT scan of the head shows no acute process, EKG is nonischemic nor is there any ectopy. Interestingly the patient's stutter and slurred speech appears to wax and wane, when I walked into the room initially there was no evidence of stuttering or slurred speech, got worse during the examination, when I left and then came back to give her her results her stuttering slurred speech had resolved entirely and then came back partway through discussing her results with me. Patient is in agreement that it is a good thing that I have found no abnormalities on her testing today as it means she has not had a stroke and is not in kidney failure at this time however she understands that she will need to follow-up with her primary care physician and possibly another neurologist for the symptoms that have been going on intermittently for years and constantly for the past month. Patient's blood pressure has returned to normal after a liter of normal saline. (HOLLI KNIGHT) - Vital Signs Vital signs: Temp Pulse Resp BP Pulse Ox 98.5 F 71 13 113/79 100 07/10/17 08:51 07/10/17 08:51 07/10/17 11:00 07/10/17 12:32 07/10/17 12:32 - Laboratory Laboratory results interpreted by me: 07/10/17 07/10/17 11:21 11:21 RDW 15.7 H Chloride 109 H AST 39 H - EKG Interpretation by Me Additional EKG results interpreted by me: 07/10/17 12:53 EKG shows sinus bradycardia at a rate of 56, slow R-wave progression, no ST segment elevations or depressions, no T-wave inversions per my interpretation. ( HOLLI KNIGHT) Discharge <FILEMON HALLMAN - Last Filed: 07/10/17 10:34> <HOLLI KNIGHT - Last Filed: 07/10/17 15:07> - Discharge Clinical Impression: Chronic fatigue, Slurred speech Hypotension Qualifiers: Hypotension type: unspecified hypotension type Qualified Code(s): I95.9 - Hypotension, unspecified Condition: Stable Disposition: HOME, SELF-CARE Additional Instructions: Today I do not know what has been causing your intermittently slurred speech, fatigue, tremor and low blood pressure on and off for years. Today we did not find anything abnormal on your CAT scan, EKG or blood work. There was no evidence of stroke, liver failure or kidney failure. Your blood pressure got better with fluids. It is very important that you follow-up with your primary care physician and consider seeing another neurologist for a second opinion. Referrals: ERIC DUNLAP MD [Primary Care Provider] - Follow up as needed PASTORA HORNE MD [NO LOCAL MD] - Follow up as needed Scribe Attestation: 07/10/17 15:06 I personally performed the services described in the documentation, reviewed and edited the documentation which was dictated to the scribe in my presence, and it accurately records my words and actions. (HOLLI KNIGHT) Scribe Documentation - Scribe Written by Rachel:: Rachel Alexander, 07/10/2017 1045 acting as scribe for :: Michelle <FILEOMN HALLMAN - Last Filed: 07/10/17 10:34>
[2017-07-10 11:41] LABS: ABSOLUTE BASOPHILS # (AUTO) 0.1 10^3/uL (0.0-0.2); ABSOLUTE EOSINOPHILS # (AUTO) 0.4 10^3/uL (0.0-0.6); ABSOLUTE LYMPHOCYTES (AUTO) 3.1 10^3/uL (0.5-4.7); ABSOLUTE MONOCYTES (AUTO) 0.6 10^3/uL (0.1-1.4); ABSOLUTE NEUT (AUTO) 5.1 10^3/uL (1.7-8.2); BASOPHILS % (AUTO) 0.7 % (0-2); EOSINOPHILS % (AUTO) 4.6 % (0-6); HEMATOCRIT 36.4 % (36.0-47.0); HEMOGLOBIN 12.4 g/dL (12.0-15.5); HGB HCT DIFFERENCE 0.8; MEAN CORPUSCULAR HEMOGLOBIN 29.9 pg (27.0-33.4); MEAN CORPUSCULAR VOLUME 88 fl (80-97); MONOCYTES % (AUTO) 6.8 % (3-13); RED BLOOD COUNT 4.14 10^6/uL (3.72-5.28); RED CELL DISTRIBUTION WIDTH 15.7 % (11.5-14.0); SEGMENTED NEUTROPHILS % (AUTO) 54.9 % (42-78); WHITE BLOOD COUNT 9.3 10^3/uL (4.0-10.5)
--- NOTE | 2017-07-10 11:56 | RADIOLOGY REPORT (SQ) ---
EXAM DESCRIPTION: CT HEAD WITHOUT COMPLETED DATE/TIME: 07/10/2017 11:40 am REASON FOR STUDY: slurred speech COMPARISON: [address] head exams since 04/25/2008, most recently 02/02/2017 TECHNIQUE: Axial images acquired through the brain without intravenous contrast. Images reviewed wi th bone, brain and subdural windows. Images stored on PACS. All CT scanners at this facility use dose modulation, iterative reconstruction, and/or weight based d osing when appropriate to reduce radiation dose to as low as reasonably achievable (ALARA). [facility]: Dose Right [facility]: CareDose [facility]: Dose Right [facility]: Teradose 4D [facility]: Smart [employer] RADIATION DOSE: Up-to-date CT equipment and radiation dose reduction techniques were employed. CTDIv ol: 49.0 mGy. DLP: 783 mGy-cm. mGy. LIMITATIONS: None. FINDINGS: VENTRICLES: Normal size and contour. CEREBRUM: No masses. No hemorrhage. No midline shift. No evidence for acute infarction. Normal gra y/white matter differentiation. No areas of low density in the white matter. CEREBELLUM: No masses. No hemorrhage. No alteration of density. No evidence for acute infarction. EXTRAAXIAL SPACES: No fluid collections. No masses. ORBITS AND GLOBE: No intra- or extraconal masses. Normal contour of globe without masses. CALVARIUM: No fracture. PARANASAL SINUSES: No fluid or mucosal thickening. SOFT TISSUES: No mass or hematoma. OTHER: No other significant finding. IMPRESSION: NORMAL BRAIN CT WITHOUT CONTRAST. EVIDENCE OF ACUTE STROKE: NO. COMMENT: Quality ID # [id number]: Final reports with documentation of one or more dose reduction techniques (e.g., Automated exposure control, adjustment of the mA and/or kV according to patient size, use of iterative reconstruction technique) TECHNICAL DOCUMENTATION: JOB ID: [id number] [employer]- All Rights Reserved
[2017-07-10 12:12] LABS: ALANINE AMINOTRANSFERASE 29 U/L (9-52); ALBUMIN 3.9 g/dL (3.5-5.0); ALKALINE PHOSPHATASE 74 U/L (38-126); ANION GAP 10 (5-19); ASPARTATE AMINO TRANSFERASE 39 U/L (14-36); BILIRUBIN,DIRECT 0.2 mg/dL (0.0-0.4); BILIRUBIN,TOTAL 0.2 mg/dL (0.2-1.3); BLOOD UREA NITROGEN 7 mg/dL (7-20); CALCIUM 9.2 mg/dL (8.4-10.2); CARBON DIOXIDE 24 mmol/L (22-30); CHLORIDE 109 mmol/L (98-107); CREATINE KINASE 51 U/L (30-135); CREATINE KINASE MB 0.72 ng/mL (<4.55); CREATININE RESULT 0.73 mg/dL (0.52-1.25); GLUCOSE 100 mg/dL (75-110); SODIUM 143.1 mmol/L (137-145); TOTAL PROTEIN 6.9 g/dL (6.3-8.2)
[2017-07-10 12:13] LABS: TROPONIN I < 0.012 ng/mL
[2017-07-10 12:59] VITALS: BP 113/79
--- NOTE | 2017-07-10 21:05 | EKG REPORT ---
SEVERITY:- BORDERLINE ECG - SINUS RHYTHM BORDERLINE R WAVE PROGRESSION, ANTERIOR LEADS : Confirmed by: Viji Mosher MD 10-Jul-2017 21:04:13
== END 2017-07-10 19:31 | disposition home or self-care (01) ==
LOC: ER 08:46
DX: R53.82 Chronic fatigue, unspecified (principal); R47.81 Slurred speech; I95.9 Hypotension, unspecified; I25.10 Atherosclerotic heart disease of native coronary artery without angina pectoris; E78.00 Pure hypercholesterolemia, unspecified; I10 Essential (primary) hypertension; E11.9 Type 2 diabetes mellitus without complications; I25.2 Old myocardial infarction; Z98.51 Tubal ligation status; Z87.891 Personal history of nicotine dependence
CPT/HCPCS: 93005; 99285; 36415; 82553; 82550; 85025; 80053; 84484; 70450; 93010; J7030

== ENCOUNTER 2018-01-01 11:36 | Emergency (ER) | payer BC ==
[2018-01-01] MEDS ORDERED: NORMAL SALINE 1000 ML 1,000 ML IV ONE ×2 (12:02→13:16)
[2018-01-01 12:14] LABS: ABSOLUTE EOSINOPHILS # (AUTO) 0.4 10^3/uL (0.0-0.6); ABSOLUTE LYMPHOCYTES (AUTO) 2.7 10^3/uL (0.5-4.7); ABSOLUTE MONOCYTES (AUTO) 0.5 10^3/uL (0.1-1.4); ABSOLUTE NEUT (AUTO) 3.7 10^3/uL (1.7-8.2); BASOPHILS % (AUTO) 0.4 % (0-2); EOSINOPHILS % (AUTO) 5.6 % (0-6); HEMATOCRIT 35.8 % (36.0-47.0); HEMOGLOBIN 11.7 g/dL (12.0-15.5); LYMPHOCYTES % (AUTO) 36.3 % (13-45); MEAN CORPUSCULAR HEMOGLOBIN 29.1 pg (27.0-33.4); MEAN CORPUSCULAR HGB CONC 32.8 g/dL (32.0-36.0); MEAN CORPUSCULAR VOLUME 89 fl (80-97); MONOCYTES % (AUTO) 7.2 % (3-13); PLATELET COUNT 203 10^3/uL (150-450); RED BLOOD COUNT 4.03 10^6/uL (3.72-5.28); SEGMENTED NEUTROPHILS % (AUTO) 50.5 % (42-78); TOTAL CELLS COUNTED % (AUTO) 100 %; WHITE BLOOD COUNT 7.4 10^3/uL (4.0-10.5)
--- NOTE | 2018-01-01 12:17 | ER Document Report ---
ED General - General Chief Complaint: Low Blood Pressure Stated Complaint: WEAKNESS Time Seen by Provider: 01/01/18 11:53 Mode of Arrival: Ambulatory Information source: Patient Notes: 47 yr old female presents with complaints of feeling weak. Pt notes that she takes metoprolol, noted her pressure was low and her heart rate was in the 50s- 60. Pt notes she had some sob when this happened whihc has since improved. pt notes that for the past month she has also had epigastric pain like a Gremlin was in her stomach. Pt dneies any fevers or chills. TRAVEL OUTSIDE OF THE [place] IN LAST 30 DAYS: No - HPI Onset: Other Onset/Duration: Intermittent Quality of pain: Burning Severity: Mild Pain Level: 1 Associated symptoms: Shortness of breath, Weakness, Other Exacerbated by: Other Relieved by: Denies Similar symptoms previously: Yes Recently seen / treated by doctor: Yes - Patient seen recently with similar complaints - Related Data Allergies/Adverse Reactions: No Known Allergies Allergy (Verified 07/10/17 08:51) Past Medical History - Social History Smoking Status: Current Every Day Smoker Cigarette use (# per day): Yes Chew tobacco use (# tins/day): No Smoking Education Provided: No Family History: Reviewed & Not Pertinent, Arthritis, CAD, CVA, DM, Hyperlipidemia, Hypertension, Malignancy - Past Medical History Cardiac Medical History: Reports: Hx Coronary Artery Disease, Hx Heart Attack, Hx Hypercholesterolemia, Hx Hypertension Pulmonary Medical History: Reports: Hx Bronchitis, Hx Pneumonia Denies: Hx Tuberculosis Neurological Medical History: Reports: Hx Migraine Endocrine Medical History: Reports: Hx Diabetes Mellitus Type 2 Renal/ Medical History: Denies: Hx Peritoneal Dialysis Musculoskeltal Medical History: Reports Hx Arthritis, Reports Hx Musculoskeletal Deformity Psychiatric Medical History: Reports: Hx Anxiety, Hx Bipolar Disorder, Hx Depression, Hx Post Traumatic Stress Disorder Past Surgical History: Reports: Hx Cardiac Catheterization - with stents, Hx Gynecologic Surgery - D&C, Hx Pacemaker, Hx Tubal Ligation - Immunizations Immunizations up to date: Yes Hx Diphtheria, Pertussis, Tetanus Vaccination: Yes - unknown Hx Pneumococcal Vaccination: 12/17/11 Review of Systems - Review of Systems Notes: REVIEW OF SYSTEMS: CONSTITUTIONAL : Denies fever, chills, or sweats. Denies recent illness. EENT: Denies eye, ear, throat, or mouth pain or symptoms. Denies nasal or sinus congestion or discharge. Denies throat, tongue, or mouth swelling or difficulty swallowing. CARDIOVASCULAR: Denies chest pain. Denies palpitations or racing or irregular heart beat. Denies ankle edema. RESPIRATORY: Admits to shortness of breath GASTROINTESTINAL: Admits to epigastric abdominal pain GENITOURINARY: Denies difficulty urinating, painful urination, burning, frequency, blood in urine, or discharge. FEMALE GENITOURINARY: Denies vaginal bleeding, heavy or abnormal periods, irregular periods. Denies vaginal discharge or odor. MUSCULOSKELETAL: Denies back or neck pain or stiffness. Denies joint pain or swelling. SKIN: Denies rash, lesions or sores. HEMATOLOGIC : Denies easy bruising or bleeding. LYMPHATIC: Denies swollen, enlarged glands. NEUROLOGICAL: Admits to weakness PSYCHIATRIC: Denies anxiety or stress. Denies depression, suicidal ideation, or homicidal ideation. ALL OTHER SYSTEMS REVIEWED AND NEGATIVE. PHYSICAL EXAMINATION: GENERAL: Well-appearing, well-nourished and in no acute distress. HEAD: Atraumatic, normocephalic. EYES: Pupils equal round and reactive to light, extraocular movements intact, conjunctiva are normal. ENT: Nares patent, oropharynx clear without exudates. Moist mucous membranes. NECK: Normal range of motion, supple without lymphadenopathy LUNGS: Breath sounds clear to auscultation bilaterally and equal. No wheezes rales or rhonchi. HEART: Regular rate and rhythm without murmurs ABDOMEN: Soft, nontender, nondistended abdomen. No guarding, no rebound. No masses appreciated. Female : deferred Musculoskeletal: Normal range of motion, no pitting or edema. No cyanosis. NEUROLOGICAL: Baseline speech PSYCH: Normal mood, normal affect. SKIN: Warm, Dry, normal turgor, no rashes or lesions noted. Dictation was performed using [employer] voice recognition software Physical Exam - Vital signs Vitals: Resp Pulse Ox 23 H 98 01/01/18 11:55 01/01/18 11:55 Course - Re-evaluation Re-evalutation: 01/01/18 12:17 Patient's presentation is quite benign, she was given IV fluids and a blood pressure is improved I will give her some further fluids here expect lab work to be quite benign as well 01/01/18 14:05 Patient's blood pressure is improved it is now 106/78, she will be treated for gastric reflux as well. It appears patient takes quite a bit of pain medication at home After performing a Medical Screening Examination, I estimate there is LOW risk for RUPTURED ESOPHAGUS, PNEUMOTHORAX, PULMONARY EMBOLISM, ACUTE CORONARY SYNDROME, OR THORACIC AORTIC DISSECTION, thus I consider the discharge disposition reasonable. I have reevaluated this patient multiple times and no significant life threatening changes are noted. The patient and I have discussed the diagnosis and risks, and we agree with discharging home with close follow-up. We also discussed returning to the Emergency Department immediately if new or worsening symptoms occur. We have discussed the symptoms which are most concerning (e.g., bloody sputum, worsening pain or shortness of breath) that necessitate immediate return. - Vital Signs Vital signs: Temp Pulse Resp BP Pulse Ox 98.8 F 15 91/71 L 98 01/01/18 12:01 01/01/18 13:15 01/01/18 13:15 01/01/18 13:15 - Laboratory Result Diagrams: 01/01/18 11:06 01/01/18 11:06 Laboratory results interpreted by me: 01/01/18 01/01/18 11:06 11:06 Hgb 11.7 L Hct 35.8 L RDW 15.0 H Est GFR (Non-Af Amer) 58 L AST 50 H Discharge - Discharge Clinical Impression: Hypotension Qualifiers: Hypotension type: unspecified hypotension type Qualified Code(s): I95.9 - Hypotension, unspecified GERD (gastroesophageal reflux disease) Qualifiers: Esophagitis presence: with esophagitis Qualified Code(s): K21.0 - Gastro- esophageal reflux disease with esophagitis Condition: Stable Disposition: HOME, SELF-CARE Instructions: Reflux Disease (GERD) ([facility]) Prescriptions: Famotidine [Pepcid 20 mg Tablet] 20 mg PO DAILY #30 tablet Referrals: LUIS EDUARDO HANNA MD [Primary Care Provider] - Follow up tomorrow
[2018-01-01 12:24] LABS: ALANINE AMINOTRANSFERASE 49 U/L (9-52); ALKALINE PHOSPHATASE 44 U/L (38-126); ANION GAP 9 (5-19); ASPARTATE AMINO TRANSFERASE 50 U/L (14-36); BILIRUBIN,DIRECT 0.3 mg/dL (0.0-0.4); BILIRUBIN,TOTAL 0.3 mg/dL (0.2-1.3); BLOOD UREA NITROGEN 12 mg/dL (7-20); CALCIUM 9.4 mg/dL (8.4-10.2); CARBON DIOXIDE 24 mmol/L (22-30); CHLORIDE 107 mmol/L (98-107); GLUCOSE 94 mg/dL (75-110); SODIUM 139.9 mmol/L (137-145); TOTAL PROTEIN 6.8 g/dL (6.3-8.2)
[2018-01-01 12:25] LABS: POTASSIUM 3.7 mmol/L (3.6-5.0)
[2018-01-01 14:57] VITALS: BP 118/80
== END 2018-01-01 15:08 | disposition home or self-care (01) ==
LOC: ER 11:36
DX: I95.9 Hypotension, unspecified (principal); K21.0 Gastro-esophageal reflux disease with esophagitis; R53.1 Weakness; R10.13 Epigastric pain; R06.02 Shortness of breath; F17.210 Nicotine dependence, cigarettes, uncomplicated; I25.10 Atherosclerotic heart disease of native coronary artery without angina pectoris; I25.2 Old myocardial infarction; E11.9 Type 2 diabetes mellitus without complications; I10 Essential (primary) hypertension; Z79.899 Other long term (current) drug therapy; Z95.5 Presence of coronary angioplasty implant and graft
CPT/HCPCS: 99285; 96360; 36415; 85025; 80053; J7030

== ENCOUNTER 2018-01-22 21:48 | Observation (INO) | payer BC ==
[2018-01-22] MEDS ORDERED: METOCLOPRAMIDE HCL ORAL SOLN 10 MG/10 ML UDCUP PO ONE (23:32)
[2018-01-22] MEDS ORDERED: MAG HYDROX/AL HYDROX/SIMETH SUSP 30 ML UDCUP PO ONE (23:32)
--- NOTE | 2018-01-22 23:35 | ER Document Report ---
ED Medical Screen (RME) - General Chief Complaint: Chest Pain Stated Complaint: CHEST PAIN Time Seen by Provider: 01/22/18 23:21 Notes: Patient is a 47-year-old female presents emergency department with chief complaint of chest pain 2 today. Patient states that she sitting still watching TV both occurrences. The first one happened earlier this afternoon with a sharp stabbing pain into her left chest lasting less than 5 seconds resolved on its own. She states then she had earlier this evening approximately 1 hour prior to arrival of sharp stabbing pain radiating into her whole left chest and her shoulder. States that she took 4 baby aspirin and received 3 sublingual nitro from EMS and states that she is now pain-free. Past medical history significant for previous STEMI in 2014 and patient states that she has a 75% blockage another 1 of her arteries. States that she had a stress test in September that was allegedly negative Patient states that she is also on antibiotics for bronchitis. She has been taking doxycycline that was prescribed by a tele-med physician TRAVEL OUTSIDE OF THE [place] IN LAST 30 DAYS: No - Related Data Allergies/Adverse Reactions: No Known Allergies Allergy (Verified 07/10/17 08:51) Past Medical History - Social History Chew tobacco use (# tins/day): No Frequency of alcohol use: None Drug Abuse: None - Past Medical History Cardiac Medical History: Reports: Hx Coronary Artery Disease, Hx Heart Attack, Hx Hypercholesterolemia, Hx Hypertension Pulmonary Medical History: Reports: Hx Bronchitis, Hx Pneumonia Denies: Hx Tuberculosis Neurological Medical History: Reports: Hx Migraine Endocrine Medical History: Reports: Hx Diabetes Mellitus Type 2 Renal/ Medical History: Denies: Hx Peritoneal Dialysis Musculoskeltal Medical History: Reports Hx Arthritis, Reports Hx Musculoskeletal Deformity Psychiatric Medical History: Reports: Hx Anxiety, Hx Bipolar Disorder, Hx Depression, Hx Post Traumatic Stress Disorder Past Surgical History: Reports: Hx Cardiac Catheterization - with stents, Hx Gynecologic Surgery - D&C, Hx Pacemaker, Hx Tubal Ligation - Immunizations Immunizations up to date: Yes Hx Diphtheria, Pertussis, Tetanus Vaccination: Yes - unknown Physical Exam - Vital signs Vitals: Temp Pulse Resp BP Pulse Ox 98.1 F 84 18 130/95 H 99 01/22/18 22:50 01/22/18 22:50 01/22/18 22:50 01/22/18 22:50 01/22/18 22:50 - Notes Notes: PHYSICAL EXAM GENERAL: Alert, interacts well. LUNGS: Clear to auscultation bilaterally, no wheezes, rales, or rhonchi. No respiratory distress. HEART: Regular rate and rhythm. No murmurs, gallops, or rubs. ABDOMEN: Soft, nondistended, epigastric tenderness. No guarding, rebound, or rigidity.. Bowel sounds present in all 4 quadrants. EXTREMITIES: Moves all 4 extremities spontaneously. No edema, radial and dorsalis pedis pulses 2/4 bilaterally. No cyanosis. NEUROLOGICAL: Alert and oriented x4. Normal speech. PSYCH: Normal affect, normal mood. SKIN: Warm, dry, normal turgor. No rashes or lesions noted. Course - Vital Signs Vital signs: Temp Pulse Resp BP Pulse Ox 98.1 F 84 18 130/95 H 99 01/22/18 22:50 01/22/18 22:50 01/22/18 22:50 01/22/18 22:50 01/22/18 22:50 Doctor's Discharge - Discharge Referrals: LUIS EDUARDO HANNA MD [Primary Care Provider] - Follow up as needed
--- NOTE | 2018-01-22 23:36 | RADIOLOGY REPORT (SQ) ---
EXAM DESCRIPTION: CHEST SINGLE VIEW CLINICAL HISTORY: 47 years Female, cp COMPARISON: 6.5.17 NUMBER OF VIEWS/TECHNIQUE: 1/AP LIMITATIONS: None. FINDINGS: Normal lung volume, clear parenchyma, normal cardiac silhouette, and intact bony thorax. IMPRESSION: No acute cardiopulmonary findings.
[2018-01-22 23:54] LABS: ABSOLUTE BASOPHILS # (AUTO) 0.1 10^3/uL (0.0-0.2); ABSOLUTE EOSINOPHILS # (AUTO) 0.4 10^3/uL (0.0-0.6); ABSOLUTE LYMPHOCYTES (AUTO) 3.8 10^3/uL (0.5-4.7); ABSOLUTE MONOCYTES (AUTO) 0.6 10^3/uL (0.1-1.4); ABSOLUTE NEUT (AUTO) 6.5 10^3/uL (1.7-8.2); BASOPHILS % (AUTO) 0.6 % (0-2); EOSINOPHILS % (AUTO) 3.9 % (0-6); HEMATOCRIT 37.8 % (36.0-47.0); HEMOGLOBIN 12.7 g/dL (12.0-15.5); LYMPHOCYTES % (AUTO) 33.2 % (13-45); MEAN CORPUSCULAR HEMOGLOBIN 29.1 pg (27.0-33.4); MEAN CORPUSCULAR HGB CONC 33.6 g/dL (32.0-36.0); MEAN CORPUSCULAR VOLUME 87 fl (80-97); PLATELET COUNT 228 10^3/uL (150-450); RED BLOOD COUNT 4.35 10^6/uL (3.72-5.28); RED CELL DISTRIBUTION WIDTH 14.9 % (11.5-14.0); SEGMENTED NEUTROPHILS % (AUTO) 57.3 % (42-78); TOTAL CELLS COUNTED % (AUTO) 100 %; WHITE BLOOD COUNT 11.3 10^3/uL (4.0-10.5)
[2018-01-23 00:08] LABS: ALANINE AMINOTRANSFERASE 48 U/L (9-52); ALBUMIN 4.4 g/dL (3.5-5.0); ALKALINE PHOSPHATASE 58 U/L (38-126); ANION GAP 10 (5-19); ASPARTATE AMINO TRANSFERASE 49 U/L (14-36); BILIRUBIN,DIRECT 0.3 mg/dL (0.0-0.4); BILIRUBIN,TOTAL 0.4 mg/dL (0.2-1.3); BLOOD UREA NITROGEN 19 mg/dL (7-20); CALCIUM 9.7 mg/dL (8.4-10.2); CARBON DIOXIDE 26 mmol/L (22-30); CHLORIDE 101 mmol/L (98-107); CREATINE KINASE 288 U/L (30-135); GLUCOSE 89 mg/dL (75-110); POTASSIUM 4.1 mmol/L (3.6-5.0); SODIUM 137.4 mmol/L (137-145); TOTAL PROTEIN 7.2 g/dL (6.3-8.2)
[2018-01-23 00:19] LABS: CREATINE KINASE MB 3.48 ng/mL (<4.55)
[2018-01-23 00:20] LABS: TROPONIN I < 0.012 ng/mL
--- NOTE | 2018-01-23 00:40 | ER Document Report ---
ED General - General Chief Complaint: Chest Pain Stated Complaint: CHEST PAIN Time Seen by Provider: 01/22/18 23:21 TRAVEL OUTSIDE OF THE [place] IN LAST 30 DAYS: No - HPI Notes: Patient is a 47-year-old female with a history of coronary artery disease with previous OR in 2016 with one stent placement, remaining 75% blockage of another vessel, type 2 diabetes, hypertension, and tremors who presents to the ED complaining of 2 episodes of sharp chest pain today. Patient states that she did have an initial chest pain that lasted for several seconds while she was watching TV. Patient states that her symptoms at that time resolved on their own. Patient states that thereafter about 1 hour prior to arrival she did have another episode of sharp chest pain that radiated to her left shoulder, but did not resolve until she had taken 4 baby aspirin as well as 3 sublingual nitro treatments by EMS. Patient states that she has not had any recurrence of that chest pain. She had been eating and drinking without difficulties otherwise prior. She is urinating normally and having normal bowel movements. Patient states that she was placed on doxycycline for possible bronchitis within the last week, but states that she only has a mild cough. This was prescribed by a tele-med provider. Patient also reports having a negative stress test in September 2017. She denies any drug allergies. No other concerns or complaints at this time. Patient denies any smoking, IV drug use, alcohol intake, prolonged immobilization, recent surgery/trauma, previous DVT/PE, or hormone replacement. Denies any headache, fever, URI, sore throat, palpitations, syncope, shortness of breath, wheeze, dyspnea, abdominal pain, nausea/vomiting/ diarrhea, urinary retention, dysuria, hematuria, back pain, loss of control of bowel or bladder, numbness/tingling, saddle anesthesia, muscle paralysis/ weakness, or rash. - Related Data Allergies/Adverse Reactions: No Known Allergies Allergy (Verified 07/10/17 08:51) Past Medical History - Social History Smoking Status: Former Smoker Chew tobacco use (# tins/day): No Frequency of alcohol use: None Drug Abuse: None Family History: Reviewed & Not Pertinent, Arthritis, CAD, CVA, DM, Hyperlipidemia, Hypertension, Malignancy Patient has suicidal ideation: No Patient has homicidal ideation: No - Past Medical History Cardiac Medical History: Reports: Hx Coronary Artery Disease, Hx Heart Attack, Hx Hypercholesterolemia, Hx Hypertension Pulmonary Medical History: Reports: Hx Bronchitis, Hx Pneumonia Denies: Hx Tuberculosis Neurological Medical History: Reports: Hx Migraine Endocrine Medical History: Reports: Hx Diabetes Mellitus Type 2 Renal/ Medical History: Denies: Hx Peritoneal Dialysis Musculoskeltal Medical History: Reports Hx Arthritis, Reports Hx Musculoskeletal Deformity Psychiatric Medical History: Reports: Hx Anxiety, Hx Bipolar Disorder, Hx Depression, Hx Post Traumatic Stress Disorder Past Surgical History: Reports: Hx Cardiac Catheterization - with stents, Hx Gynecologic Surgery - D&C, Hx Pacemaker, Hx Tubal Ligation - Immunizations Immunizations up to date: Yes Hx Diphtheria, Pertussis, Tetanus Vaccination: Yes - unknown Hx Pneumococcal Vaccination: 12/17/11 Review of Systems - Review of Systems -: Yes All other systems reviewed and negative Physical Exam - Vital signs Vitals: Temp Pulse Resp BP Pulse Ox 98.1 F 84 18 130/95 H 99 01/22/18 22:50 01/22/18 22:50 01/22/18 22:50 01/22/18 22:50 01/22/18 22:50 - Notes Notes: PHYSICAL EXAMINATION: GENERAL: Well-appearing, well-nourished and in no acute distress. A&Ox4. Answers questions appropriately. HEAD: Atraumatic, normocephalic. EYES: Pupils equal round and reactive to light, extraocular movements intact, sclera anicteric, conjunctiva are normal. ENT: EAC clear b/l. TM's intact b/l without erythema, fluid, or perforation. Nares patent and without discharge. oropharynx clear without exudates. No tonsilar hypertrophy or erythema. Moist mucous membranes. No sinus tenderness. NECK: Normal range of motion, supple without lymphadenopathy Chest: non-tender. no flail chest. LUNGS: Breath sounds clear to auscultation bilaterally and equal. No wheezes rales or rhonchi. HEART: Regular rate and rhythm without murmurs, rubs, gallops. ABDOMEN: Soft, nontender, nondistended abdomen. No guarding, no rebound. No masses appreciated. Normal bowel sounds present. No CVA tenderness bilaterally. Musculoskeletal: FROM to passive/active. Strength 5+/5. Pranav neg b/l. Extremities: No cyanosis, clubbing, or edema b/l. Peripheral pulses 2+. Capillary refill less than 3 seconds. NEUROLOGICAL: Normal speech, normal gait. Normal sensory, motor exams PSYCH: Normal mood, normal affect. SKIN: Warm, Dry, normal turgor, no rashes or lesions noted. Course - Re-evaluation Re-evalutation: 01/23/18 03:09 Patient is an afebrile, well-hydrated, 47-year-old female who presents to the ED with chest pain, unspecified, since resolved. Vitals are acceptable. PE is otherwise unremarkable. CBC, CMP, cardiac enzymes 2/EKG were unremarkable for any acute pathology. Patient is tolerating p.o. without any difficulties. Pt has a heart score of 4 and PERC 0. 01/23/18 03:[address] Vogel who accepted patient for chest pain obs. Pt is in agreement with admit/plan. - Vital Signs Vital signs: Temp Pulse Resp BP Pulse Ox 98.1 F 84 18 130/95 H 99 01/22/18 22:50 01/22/18 22:50 01/22/18 22:50 01/22/18 22:50 01/22/18 22:50 - Laboratory Result Diagrams: 01/22/18 23:35 01/22/18 23:35 Laboratory results interpreted by me: 01/22/18 01/22/18 23:35 23:35 WBC 11.3 H RDW 14.9 H AST 49 H Creatine Kinase 288 H Discharge - Discharge Clinical Impression: Chest pain Qualifiers: Chest pain type: unspecified Qualified Code(s): R07.9 - Chest pain, unspecified Condition: Stable Disposition: ADMITTED OBSERVATION Admitting Provider: Hospitalist - Dr. Vogel Unit Admitted: Telemetry Referrals: LUIS EDUARDO HANNA MD [Primary Care Provider] - Follow up as needed
[2018-01-23] MEDS ORDERED: GLUCAGON,HUMAN RECOMB 1 MG INJ SUBCUT PRN (03:34)
[2018-01-23] MEDS ORDERED: ONDANSETRON HCL INJ/PF 4 MG/2 ML SDV IV PRN (03:34)
[2018-01-23] MEDS ORDERED: OXYCODONE-ACETAMINOPHEN 5-325 MG TABLET PO PRN (03:34)
[2018-01-23] MEDS ORDERED: DEXTROSE 40% GEL 15 GM TUBE PO PRN ×2 (03:34)
[2018-01-23] MEDS ORDERED: DEXTROSE 50%-WATER 25 GM/50 ML DISP.SYRIN IV PRN ×2 (03:34)
[2018-01-23] MEDS ORDERED: ZOLPIDEM TARTRATE 5 MG TABLET PO PRN (03:34)
--- NOTE | 2018-01-23 03:53 | PDOC H&P ---
History of Present Illness Admission Date/PCP: 01/23/18 03:25 LUIS EDUARDO HANNA MD History of Present Illness: RUDDY HAWK is a 47 year old female patient presents with chief complaint of chest pain. She states she was in her usual baseline state of health up until yesterday when she started to have sudden onset chest pain described as stabbing which lasts for a few seconds and subsided by itself without any intervention. She had another episode of chest pain which happened while she was watching TV this time it lingers and resolved after she took 3 doses of nitro and aspirin given by EMS. Patient has history of PA in 2016 and treated with stent placement. Patient denies that the chest pain was not associated with shortness of breath cough or diaphoresis but she endorses tachycardia. She denied any nausea, vomiting, diarrhea or urinary complaints. No history of headache, dizziness, blurring of vision or any seizure activity. Her last stress test was done 4 months ago in September 2017. Past Medical History Cardiac Medical History: Reports: Coronary Artery Disease, Myocardial Infarction , Hyperlipidema, Hypertension Pulmonary Medical History: Reports: Bronchitis, Pneumonia Denies: Tuberculosis Neurological Medical History: Reports: Migraine Endocrine Medical History: Reports: Diabetes Mellitus Type 2 Musculoskeltal Medical History: Reports: Arthritis Psychiatric Medical History: Reports: Bipolar Disorder, Depression, Post Traumatic Stress Disorder Past Surgical History Past Surgical History: Reports: Cardiac Catheterization - with stents, Pacemaker , Tubal Ligation Social History Smoking Status: Former Smoker Hx Recreational Drug Use: No Hx Prescription Drug Abuse: No Family History Family History: Reviewed & Not Pertinent, Arthritis, CAD, CVA, DM, Hyperlipidemia, Hypertension, Malignancy Parental Family History Reviewed: Yes Children Family History Reviewed: Yes Sibling(s) Family History Reviewed.: Yes Medication/Allergy Home Medications: Amitriptyline HCl [Elavil 50 Mg Tablet] 50 mg PO QHS 05/27/12 Metoprolol Succinate [Toprol XL 25 mg Tablet] 25 mg PO BID 05/27/12 Ibuprofen [Motrin 800 Mg Tablet] 800 mg PO BID PRN 10/25/12 Metaxalone [Skelaxin 800 mg Tablet] 800 mg PO TID 10/25/12 Topiramate [Topamax 25 Mg Tablet] 100 mg PO BID 10/25/12 Albuterol Sulfate [Ventolin Hfa] 2 puff IH Q4HP PRN #17 gm 12/04/12 Albuterol Sulfate [Ventolin Hfa] 2 puff IH Q4HP PRN #17 gm 08/30/13 Prednisone [Deltasone 10 mg Tablet] 10 mg PO ASDIR PRN #21 tablet 08/30/13 Promethazine HCl [Phenergan 25 mg Tablet] 25 mg PO Q6H PRN #15 tablet 09/04/13 Albuterol Sulfate [Proair HFA Inhalation Aerosol 8.5 gm MDI] 2 puff IH Q3HP PRN #1 mdi 09/15/14 Azithromycin [Zithromax Tri-Josh] 500 mg PO DAILY #1 pkg 09/15/14 Prednisone [Deltasone 20 mg Tablet] 40 mg PO DAILY #8 tablet 09/15/14 Meclizine HCl [Antivert 12.5 mg Tablet] 12.5 mg PO BID PRN #14 tab 02/02/17 Famotidine [Pepcid 20 mg Tablet] 20 mg PO DAILY #30 tablet 01/01/18 Allergies/Adverse Reactions: No Known Allergies Allergy (Verified 07/10/17 08:51) Review of Systems Constitutional: PRESENT: as per HPI Eyes: PRESENT: as per HPI Cardiovascular: PRESENT: as per HPI Respiratory: PRESENT: as per HPI Gastrointestinal: PRESENT: as per HPI Neurological: PRESENT: as per HPI Physical Exam Vital Signs: Temp Pulse Resp BP Pulse Ox 98.1 F 84 18 130/95 H 99 01/22/18 22:50 01/22/18 22:50 01/22/18 22:50 01/22/18 22:50 01/22/18 22:50 General appearance: PRESENT: no acute distress, cooperative Teeth exam: PRESENT: dental caries Respiratory exam: PRESENT: clear to auscultation juma. ABSENT: rales, rhonchi, wheezes Cardiovascular exam: PRESENT: tachycardia GI/Abdominal exam: PRESENT: normal bowel sounds, soft. ABSENT: distended, guarding, mass, organolmegaly, rebound, tenderness Results Impressions: Chest X-Ray 01/22/18 21:49 IMPRESSION: No acute cardiopulmonary findings. Assessment & Plan - Diagnosis (1) Chest pain Qualifiers: Ischemic chest pain type: unstable angina pectoris Is this a current diagnosis for this admission?: Yes Plan: Since patient has multiple risk factor including PA and stent placement, diabetes mellitus, hypertension, hyperlipidemia I think is appropriate to admit the patient for observation and trend her cardiac enzymes and stress test is more pink. We will continue home medications (2) Coronary artery disease Qualifiers: Coronary Disease-Associated Artery/Lesion type: [place] artery [place] vs. transplanted heart: [place] heart Is this a current diagnosis for this admission?: Yes Plan: Continue her home medications. (3) Hypertension Qualifiers: Hypertension type: essential hypertension Qualified Code(s): I10 - Essential (primary) hypertension Is this a current diagnosis for this admission?: Yes Plan: Controlled. Continue her home medication. (4) Diabetes 1.5, managed as type 2 Is this a current diagnosis for this admission?: Yes Plan: We will put her on sliding scale. And monitor blood sugar. - Time Critical Time spent with patient: 25-34 minutes Within: within 48 hours
[2018-01-23] MEDS: LANSOPRAZOLE 30 MG TAB.RAP.DR PO SCH (06:19)
[2018-01-23] MEDS: DOCUSATE SODIUM 100 MG CAPSULE PO SCH (11:06)
[2018-01-23] MEDS: TOPIRAMATE 100 MG TABLET PO SCH ×2 (11:07→21:23)
[2018-01-23] MEDS: ENOXAPARIN SODIUM INJ 40 MG/0.4 ML DISP.SYRIN SUBCUT SCH (11:09)
[2018-01-23] MEDS ORDERED: OXYCODONE HCL IR 5 MG TABLET PO ONE (12:30)
--- NOTE | 2018-01-23 13:02 | EKG REPORT ---
SEVERITY:- ABNORMAL ECG - SINUS RHYTHM PROBABLE INFERIOR INFARCT, AGE INDETERMINATE BORDERLINE R WAVE PROGRESSION, ANTERIOR LEADS : Confirmed by: Burak Dickens MD 23-Jan-2018 13:01:34
[2018-01-23] MEDS ORDERED: TIZANIDINE HCL 4 MG TABLET PO PRN (13:31)
[2018-01-23] MEDS ORDERED: ISOSORBIDE MONONITRATE 30 MG TAB.ER.24H PO ONE (14:00)
[2018-01-23] MEDS ORDERED: (PENDING PHARMACY ID) (Oxycodone Hcl/Acetaminophen [Oxycodone-Acetaminophen 10-325] 1 TAB) PO SCH (16:00)
[2018-01-23] MEDS ORDERED: PRIMIDONE 50 MG TABLET PO ONE (16:00)
[2018-01-23] MEDS: OXYCODONE-ACETAMINOPHEN 5-325 MG TABLET PO PRN ×2 (16:57→21:24)
[2018-01-23] MEDS: OXYCODONE HCL IR 5 MG TABLET PO PRN ×2 (16:57→21:24)
--- NOTE | 2018-01-23 17:50 | Progress Note ---
Provider Note Provider Note: Saw and examined patient today. She was admitted for chest pain. Doing better. Work up included troponins negative * 3 and no EKG changes. Long discussion with patient today who discussed increased stress at home ( particularly with ). I told her this this may be contributing to her chest pain (anxiety/stress). Will keep on oil scout. Pharmacologic stress test ordered for 01/24. If no additional CP, would cancel stress test and she had one 3-4 months ago and was normal. Continue medical management. Would consider agent for anxiety/stress (SSRI?) Likely discharge to home on 01/24
[2018-01-23] MEDS: TICAGRELOR 90 MG TABLET PO SCH (21:23)
[2018-01-23] MEDS: METOPROLOL TARTRATE 25 MG TABLET PO SCH (21:24)
[2018-01-23] MEDS ORDERED: AMITRIPTYLINE HCL 50 MG TABLET PO SCH (22:00)
[2018-01-23] MEDS ORDERED: ATORVASTATIN CALCIUM 80 MG TABLET PO SCH (22:00)
[2018-01-23] MEDS ORDERED: (PENDING PHARMACY ID) (Amitriptyline Hcl [Elavil 100 Mg Tablet] 100 MG) PO SCH (22:00)
[2018-01-24] MEDS: OXYCODONE HCL IR 5 MG TABLET PO PRN ×3 (01:36→13:56)
[2018-01-24] MEDS: OXYCODONE-ACETAMINOPHEN 5-325 MG TABLET PO PRN ×3 (01:36→13:56)
[2018-01-24] MEDS: LANSOPRAZOLE 30 MG TAB.RAP.DR PO SCH (06:04)
[2018-01-24 08:29] LABS: ABSOLUTE BASOPHILS # (AUTO) 0.1 10^3/uL (0.0-0.2); ABSOLUTE EOSINOPHILS # (AUTO) 0.4 10^3/uL (0.0-0.6); ABSOLUTE LYMPHOCYTES (AUTO) 3.6 10^3/uL (0.5-4.7); ABSOLUTE MONOCYTES (AUTO) 0.6 10^3/uL (0.1-1.4); ABSOLUTE NEUT (AUTO) 4.1 10^3/uL (1.7-8.2); BASOPHILS % (AUTO) 0.8 % (0-2); EOSINOPHILS % (AUTO) 4.6 % (0-6); HEMATOCRIT 36.5 % (36.0-47.0); HEMOGLOBIN 12.2 g/dL (12.0-15.5); LYMPHOCYTES % (AUTO) 41.1 % (13-45); MEAN CORPUSCULAR HEMOGLOBIN 29.2 pg (27.0-33.4); MEAN CORPUSCULAR HGB CONC 33.5 g/dL (32.0-36.0); MEAN CORPUSCULAR VOLUME 87 fl (80-97); PLATELET COUNT 214 10^3/uL (150-450); RED BLOOD COUNT 4.19 10^6/uL (3.72-5.28); RED CELL DISTRIBUTION WIDTH 15.1 % (11.5-14.0); SEGMENTED NEUTROPHILS % (AUTO) 46.5 % (42-78); TOTAL CELLS COUNTED % (AUTO) 100 %; WHITE BLOOD COUNT 8.7 10^3/uL (4.0-10.5)
[2018-01-24] MEDS ORDERED: ISOSORBIDE MONONITRATE 30 MG TAB.ER.24H PO SCH (10:00)
[2018-01-24] MEDS ORDERED: PRIMIDONE 50 MG TABLET PO SCH (10:00)
[2018-01-24] MEDS: ENOXAPARIN SODIUM INJ 40 MG/0.4 ML DISP.SYRIN SUBCUT SCH (10:14)
[2018-01-24] MEDS: TICAGRELOR 90 MG TABLET PO SCH (10:14)
[2018-01-24] MEDS: TOPIRAMATE 100 MG TABLET PO SCH (10:15)
[2018-01-24] MEDS: DOCUSATE SODIUM 100 MG CAPSULE PO SCH (10:15)
[2018-01-24] MEDS: METOPROLOL TARTRATE 25 MG TABLET PO SCH (10:16)
[2018-01-24 11:56] VITALS: BP 106/76
--- NOTE | 2018-01-24 12:29 | DRAGON STRESS TEST REPORT ---
INTRAVENOUS LEXISCAN CARDIOLITE STRESS TEST USING SINGLE PHOTON EMMISION COMPUTERIZED TOMOGRAPHIC. DATE OF PROCEDURE: January 24, 2018, INDICATION : Chest pain CARDIAC RISK FACTORS: Diabetes, hypertension RESTING EKG: Sinus rhythm with minor nonspecific baseline ST segment changes STRESS EKG: Mild worsening of ST segment depression of about 1 mm additional noted with LexiScan bolus. REASON FOR TERMINATION: Protocol. PROCEDURE REPORT: Baseline heart rate 64 beats per minute with blood pressure of 113/78. Patient had no significant complaints. Patient was bolused with Lexiscan 0.4 mg intravenously followed by saline bolus. Heart rate at 2 minutes post bolus 115 with a blood pressure of 130/73. 3 minutes post bolus heart rate 107 with blood pressure of 132/78. No significant EKG changes were noted. Patient had no significant complaints during the procedure or postprocedure. Patient injected with Aminophyllin 75 mg at 3 minutes or later after Lexiscan bolus. CONCLUSIONS: Normal EKG and hemodynamic response to IV LexiScan. NUCLEAR DATA: At rest the patient was given 12.98 millicuries of technetium 99 sestamibi injected intravenously. As per protocol rest gated SPECT images were obtained. On day of stress test, the patient was given intravenous LexiScan at a dose of 0.4 mg in 5 mL intravenously, followed by flush with normal saline. Subsequently the stress dose of 38.1 millicuries of technetium 99 sestamibi was injected intravenously. As per protocol stress gated images were obtained. NUCLEAR INTERPRETATION: Both raw and processed data were used for interpretation. Visual, qualitative, computer-generated quantitative data was used. There was good myocardial uptake of technetium compound. Motion artifact and soft tissue attenuations were noted. Increased visceral uptake was noted. No definitive areas of transient perfusion defect noted except for a small area of borderline decreased uptake in the distal inferolateral wall, SDS of 1. There were no corresponding wall motion abnormalities noted. Therefore felt to be not significant, No definitive areas of fixed perfusion defect or scars noted. EKG gated imaging showed LV EF at 60 %, rest and stress gated EF similar visually. T. I D. ratio was 0.95. Lung heart ratio noted to be within normal limits 0.42. No significant extracardiac and abnormal radiotracer activities were noted. RV free wall uptake was noted to be WNL. IMPRESSION: Also refer to comments under nuclear interpretation. Also test results needs to be interpreted in the context of pretest probability. 1. No definitive areas of transient perfusion defect noted. 2. There is no definitive scintigraphic evidence of myocardial infarction/scar. 3. EKG gated imaging shows left ventricular ejection fraction of approx. 60 %. No wall motion abnormalities were noted. 4. Mild increased ST segment changes were noted with pharmacologic stress agent. This could be increased heart rate rate related but can sometimes indicate obstructive CAD. Clinical correlation requested as occasionally single vessel disease or balanced ischemia could be missed. RECOMMENDATIONS: Aggressive risk factor modification and medical management. Further evaluation may be needed if continued symptoms or other high risk indicators are noted on clinical evaluation. Close cardiology follow-up is also recommended. Clinical correlation with echocardiogram derived ejection fraction. Inability to exercise by itself can lead to increased cardiovascular event risks. Consider cardiology consultation and or follow-up if clinically indicated. I am available for cardiology evaluation and consultation if requested by the bank accountant, unless patient already has a clinical pathologist. HERO
[2018-01-24] MEDS ORDERED: REGADENOSON INJ 0.4 MG/5 ML DISP.SYRIN IV ONE (14:18)
[2018-01-24] MEDS ORDERED: AMINOPHYLLINE INJ/PF 250 MG/10 ML SDV IV ONE (14:18)
--- NOTE | 2018-01-25 21:15 | PDOC DISCHARGE SUMMARY ---
General - Admit/Disc Date/PCP Admission Date/Primary Care Provider: 01/23/18 03:25 LUIS EDUARDO HANNA MD Discharge Date: 01/24/18 - Discharge Diagnosis (2) Coronary artery disease Is this a current diagnosis for this admission?: Yes (3) Diabetes 1.5, managed as type 2 Is this a current diagnosis for this admission?: Yes (4) Hypertension Is this a current diagnosis for this admission?: Yes - Additional Information Resuscitation Status: Full Code Discharge Diet: As Tolerated, Cardiac, Diabetic Discharge Activity: Activity As Tolerated Prescriptions: Sertraline HCl [Zoloft 50 mg Tablet] 50 mg PO DAILY #30 tablet Home Medications: Amitriptyline HCl [Elavil 100 mg Tablet] 100 mg PO QHS 01/23/18 Atorvastatin Calcium [Lipitor 80 mg Tablet] 80 mg PO QHS 01/23/18 Fenofibrate,Micronized [Fenofibrate] 130 mg PO DAILY 01/23/18 Furosemide [Lasix 20 mg Tablet] 20 mg PO DAILY 01/23/18 Isosorbide Mononitrate [Isosorbide Mononitrate ER] 30 mg PO DAILY 01/23/18 Metformin HCl [Glucophage 500 mg Tablet] 500 mg PO BIDBS 01/23/18 Metoprolol Tartrate [Lopressor 25 mg Tablet] 25 mg PO Q12 01/23/18 Omeprazole 20 mg PO BIDACBS 01/23/18 Oxycodone HCl/Acetaminophen [Oxycodone-Acetaminophen 10-325] 1 tab PO 5XD Primidone [Mysoline 50 mg Tablet] 50 mg PO BID 01/23/18 Ticagrelor [Brilinta] 90 mg PO Q12 01/23/18 Topiramate [Topamax 100 mg Tablet] 100 mg PO QAM 01/23/18 Topiramate [Topamax 100 mg Tablet] 200 mg PO QHS 01/23/18 Sertraline HCl [Zoloft 50 mg Tablet] 50 mg PO DAILY #30 tablet 01/24/18 History of Present Illness History of Present Illness: Patient admitted to 24 hours observation after presentation as in HPI below: "RUDDY HAWK is a 47 year old female patient presents with chief complaint of chest pain. She states she was in her usual baseline state of health up until yesterday when she started to have sudden onset chest pain described as stabbing which lasts for a few seconds and subsided by itself without any intervention. She had another episode of chest pain which happened while she was watching TV this time it lingers and resolved after she took 3 doses of nitro and aspirin given by EMS. Patient has history of ME in 2016 and treated with stent placement. Patient denies that the chest pain was not associated with shortness of breath cough or diaphoresis but she endorses tachycardia. She denied any nausea, vomiting, diarrhea or urinary complaints. No history of headache, dizziness, blurring of vision or any seizure activity. Her last stress test was done 4 months ago in September 2017." Hospital Course Hospital Course: Patient was admitted to 24 hours observation. She ruled out for ME with serial troponin 3. He had stress Cardiolite done that was negative for reversible ischemia. Patient reports a lot of social stressors. States she has lots of anxiety and used to be on SSRI. She will like to try SSRI again. She is being discharged home in stable condition, and Zoloft 50 mg daily added to her medications. She is to follow-up with her primary care physician within 1 week. She is also to follow-up with community coordinator for high school as as soon as possible. Educated on and encouraged lifestyle modification for her cardiac and general health. Physical Exam Vital Signs: Temp Pulse Resp BP Pulse Ox 97.9 F 82 18 106/76 99 01/24/18 14:44 01/24/18 14:44 01/24/18 14:44 01/24/18 14:44 01/24/18 14:44 Intake & Output 01/23/18 01/24/18 01/25/18 06:59 06:59 06:59 Intake Total 563 Balance 563 Weight 83.8 kg GEN: NAD, well-developed, well-nourished CV: RRR, NL S1S2 LUNGS: CTA bilaterally ABDOMEN Soft, NT, +BS EXTERMITIES: No e/c/c NEURO: Alert, oriented 3, nonfocal. Results Laboratory Results: 01/24/18 03:52 01/24/18 03:52 WBC 8.7 RBC 4.19 Hgb 12.2 Hct 36.5 MCV 87 MCH 29.2 MCHC 33.5 RDW 15.1 H Plt Count 214 Seg Neutrophils % 46.5 Lymphocytes % 41.1 Monocytes % 7.0 Eosinophils % 4.6 Basophils % 0.8 Absolute Neutrophils 4.1 Absolute Lymphocytes 3.6 Absolute Monocytes 0.6 Absolute Eosinophils 0.4 Absolute Basophils 0.1 01/23/18 01/24/18 06:06 03:52 Troponin I < 0.012 < 0.012 Impressions: Chest X-Ray 01/22/18 21:49 IMPRESSION: No acute cardiopulmonary findings. Qualifiers - * PATEINT BEING DISCHARGED WITH ANY OF THE FOLLOWING DIAGNOSIS?: No
== END 2018-01-24 15:59 | disposition home or self-care (01) ==
LOC: ER 21:48 → EH 01-23 03:25 → 5 01-23 12:36
PROVIDERS: ADMIT Internal Medicine; ATTEND Internal Medicine
DX: I25.10 Atherosclerotic heart disease of native coronary artery without angina pectoris (principal); E11.9 Type 2 diabetes mellitus without complications; I10 Essential (primary) hypertension; R00.0 Tachycardia, unspecified; F41.9 Anxiety disorder, unspecified; Z79.899 Other long term (current) drug therapy; I25.2 Old myocardial infarction; R05 Cough; K02.9 Dental caries, unspecified; Z87.01 Personal history of pneumonia (recurrent); Z79.84 Long term (current) use of oral hypoglycemic drugs; Z95.5 Presence of coronary angioplasty implant and graft; Z95.0 Presence of cardiac pacemaker; Z87.891 Personal history of nicotine dependence; Z82.49 Family history of ischemic heart disease and other diseases of the circulatory system
CPT/HCPCS: 93005; 99285; 96372; 36415 ×3; 82553; 82962; 82550; 85025 ×2; 80053; 84484 ×3; 93017; 71045; 78452; 93010; G0378 ×3; A9500; J2785; J3490 ×9; J1650 ×2; J0280; Q9969

== ENCOUNTER 2018-05-22 02:32 | Emergency (ER) | payer BC ==
[2018-05-22] MEDS ORDERED: ASPIRIN 81 MG TABLET, CHEWABLE PO ONE (04:26)
--- NOTE | 2018-05-22 04:39 | ER Document Report ---
ED Medical Screen (RME) - General Chief Complaint: Chest Pain Stated Complaint: CHEST PAIN Time Seen by Provider: 05/22/18 04:25 Mode of Arrival: Wheelchair Information source: Patient Notes: 48-year-old female patient presents with chief complaint of chest pain started at 1 AM while she was watching television. Patient reports earlier in the evening she got into a verbal argument with her . Patient reports the pain radiates from the left side of her chest into her left shoulder. Patient reports associated nausea, shortness of breath and diaphoresis. Patient reports history of myocardial infarction in 2016, patient received one stent at this time. Exam: Lung sounds clear to auscultation bilaterally No tenderness to palpation to chest wall. I have greeted and performed a rapid initial assessment of this patient. A comprehensive ED assessment and evaluation of the patient, analysis of test results and completion of the medical decision making process will be conducted by additional ED providers. Dictation of this chart was performed using voice recognition software; therefore, there may be some unintended grammatical errors. TRAVEL OUTSIDE OF THE [place] IN LAST 30 DAYS: No - Related Data Allergies/Adverse Reactions: No Known Allergies Allergy (Verified 01/23/18 08:25) Past Medical History - Past Medical History Cardiac Medical History: Reports: Hx Coronary Artery Disease, Hx Heart Attack, Hx Hypercholesterolemia, Hx Hypertension Pulmonary Medical History: Reports: Hx Bronchitis, Hx Pneumonia Denies: Hx Tuberculosis Neurological Medical History: Reports: Hx Migraine Endocrine Medical History: Reports: Hx Diabetes Mellitus Type 2 Renal/ Medical History: Denies: Hx Peritoneal Dialysis Musculoskeltal Medical History: Reports Hx Arthritis, Reports Hx Musculoskeletal Deformity Psychiatric Medical History: Reports: Hx Anxiety, Hx Bipolar Disorder, Hx Depression, Hx Post Traumatic Stress Disorder Past Surgical History: Reports: Hx Cardiac Catheterization - with stents, Hx Gynecologic Surgery - D&C, Hx Pacemaker, Hx Tubal Ligation - Immunizations Immunizations up to date: Yes Hx Diphtheria, Pertussis, Tetanus Vaccination: Yes - unknown History of Influenza Vaccine for 07/2017 - 12/2017 Season: No Physical Exam - Vital signs Vitals: Temp Pulse Resp BP Pulse Ox 97.9 F 77 16 116/83 98 05/22/18 02:35 05/22/18 02:35 05/22/18 02:35 05/22/18 02:35 05/22/18 02:35 Course - Vital Signs Vital signs: Temp Pulse Resp BP Pulse Ox 97.9 F 77 16 116/83 98 05/22/18 02:35 05/22/18 02:35 05/22/18 02:35 05/22/18 02:35 05/22/18 02:35 Doctor's Discharge - Discharge Referrals: LUIS EDUARDO HANNA MD [Primary Care Provider] - Follow up as needed
--- NOTE | 2018-05-22 05:26 | RADIOLOGY REPORT (SQ) ---
EXAM DESCRIPTION: XR CHEST 1 VIEW COMPLETED DATE/TME: 05/22/2018 04:26 CLINICAL HISTORY: 48 years Female, chest pain COMPARISON: 4.9.18 FINDINGS: Adequate lung volume, clear parenchyma, normal cardiac silhouette, and grossly intact bony thorax. IMPRESSION: No acute cardiopulmonary findings.
[2018-05-22 07:05] LABS: ABSOLUTE BASOPHILS # (AUTO) 0.1 10^3/uL (0.0-0.2); ABSOLUTE EOSINOPHILS # (AUTO) 0.5 10^3/uL (0.0-0.6); ABSOLUTE MONOCYTES (AUTO) 0.5 10^3/uL (0.1-1.4); ABSOLUTE NEUT (AUTO) 3.7 10^3/uL (1.7-8.2); BASOPHILS % (AUTO) 0.9 % (0-2); EOSINOPHILS % (AUTO) 6.5 % (0-6); HEMATOCRIT 36.1 % (36.0-47.0); HEMOGLOBIN 12.1 g/dL (12.0-15.5); LYMPHOCYTES % (AUTO) 38.7 % (13-45); MEAN CORPUSCULAR HEMOGLOBIN 29.9 pg (27.0-33.4); MEAN CORPUSCULAR HGB CONC 33.6 g/dL (32.0-36.0); MEAN CORPUSCULAR VOLUME 89 fl (80-97); PLATELET COUNT 221 10^3/uL (150-450); RED BLOOD COUNT 4.06 10^6/uL (3.72-5.28); RED CELL DISTRIBUTION WIDTH 15.2 % (11.5-14.0); SEGMENTED NEUTROPHILS % (AUTO) 47.9 % (42-78); TOTAL CELLS COUNTED % (AUTO) 100 %; WHITE BLOOD COUNT 7.6 10^3/uL (4.0-10.5)
[2018-05-22 07:20] LABS: ALANINE AMINOTRANSFERASE 43 U/L (9-52); ALBUMIN 4.1 g/dL (3.5-5.0); ALKALINE PHOSPHATASE 51 U/L (38-126); ANION GAP 10 (5-19); ASPARTATE AMINO TRANSFERASE 64 U/L (14-36); BILIRUBIN,DIRECT 0.2 mg/dL (0.0-0.4); BILIRUBIN,TOTAL 0.2 mg/dL (0.2-1.3); BLOOD UREA NITROGEN 17 mg/dL (7-20); CALCIUM 8.9 mg/dL (8.4-10.2); CARBON DIOXIDE 26 mmol/L (22-30); CHLORIDE 107 mmol/L (98-107); CREATINE KINASE 106 U/L (30-135); GLUCOSE 91 mg/dL (75-110); POTASSIUM 3.6 mmol/L (3.6-5.0); SODIUM 143.1 mmol/L (137-145); TOTAL PROTEIN 7.4 g/dL (6.3-8.2)
[2018-05-22 07:31] LABS: CREATINE KINASE MB 1.15 ng/mL (<4.55)
[2018-05-22 07:33] LABS: TROPONIN I < 0.012 ng/mL
--- NOTE | 2018-05-22 08:57 | ER Document Report ---
ED Cardiac - General Chief Complaint: Chest Pain Stated Complaint: CHEST PAIN Time Seen by Provider: 05/22/18 04:25 Mode of Arrival: Wheelchair Notes: This is a 48-year-old female patient emergency department chief complaint of chest pain. Patient states that she had a stent placed in 2015 and has not smoked since that time. States that she gets frequent chest pain. Was admitted to the hospital in January of this year for chest pain. Had a stress test performed which was negative. States that she had chest pain earlier this morning. Chest pain has since resolved. Denies any nausea or vomiting. No shortness of breath. No leg pain. No recent long trips or travel. No prior history of DVT or pulmonary embolism. TRAVEL OUTSIDE OF THE [place] IN LAST 30 DAYS: No - HPI Patient complains to provider of: Chest pain Chest pain location: Substernal Quality of pain: Sharp Severity now: None Severity at worst: Moderate Pain level currently: 0 Positive cardiac history: Yes - Related Data Allergies/Adverse Reactions: No Known Allergies Allergy (Verified 01/23/18 08:25) Past Medical History - General Information source: Patient - Social History Smoking Status: Former Smoker Frequency of alcohol use: None Drug Abuse: None Lives with: Family Family History: Reviewed & Not Pertinent, Arthritis, CAD, CVA, DM, Hyperlipidemia, Hypertension, Malignancy Patient has suicidal ideation: No Patient has homicidal ideation: No - Past Medical History Cardiac Medical History: Reports: Hx Coronary Artery Disease, Hx Heart Attack, Hx Hypercholesterolemia, Hx Hypertension Pulmonary Medical History: Reports: Hx Bronchitis, Hx Pneumonia Denies: Hx Tuberculosis Neurological Medical History: Reports: Hx Migraine Endocrine Medical History: Reports: Hx Diabetes Mellitus Type 2 Renal/ Medical History: Denies: Hx Peritoneal Dialysis Musculoskeletal Medical History: Reports Hx Arthritis, Reports Hx Musculoskeletal Deformity Psychiatric Medical History: Reports: Hx Anxiety, Hx Bipolar Disorder, Hx Depression, Hx Post Traumatic Stress Disorder Past Surgical History: Reports: Hx Cardiac Catheterization - with stents, Hx Gynecologic Surgery - D&C, Hx Pacemaker, Hx Tubal Ligation - Immunizations Immunizations up to date: Yes Hx Diphtheria, Pertussis, Tetanus Vaccination: Yes - unknown Hx Pneumococcal Vaccination: 12/17/11 Review of Systems - Review of Systems Notes: Constitutional: denies: Chills, Diaphoresis, Fever, Malaise, Weakness EENT: denies: Eye discharge, Blurred vision, Tearing, Double vision, Nose congestion, Nose discharge, Throat swelling, Mouth pain Cardiovascular: denies: Palpitations, Heart racing, Orthopnea, Dyspnea. Review of systems in the cardiovascular system positive for chest pain Respiratory: denies: Cough, Hurts to breathe, Wheezing, Shortness of breath Gastrointestinal: denies: Abdominal pain, Diarrhea, Nausea, Vomiting, Black stools Genitourinary: denies: Burning, Dysuria, Discharge, Frequency, Flank pain, Hematuria Musculoskeletal: denies: Joint pain, Joint swelling, Muscle pain, Muscle stiffness, back pain Hematologic/Lymphatic: denies: Anemia, Easy bleeding, Easy bruising, Blood clots Neurological/Psychological: denies: Confusion, Dementia, Depression, Loss of consciousness Physical Exam - Vital signs Vitals: Temp Pulse Resp BP Pulse Ox 97.9 F 77 16 116/83 98 05/22/18 02:35 05/22/18 02:35 05/22/18 02:35 05/22/18 02:35 05/22/18 02:35 Interpretation: Normal - General General appearance: Appears well, Alert - HEENT Head: Normocephalic, Atraumatic Eyes: Normal Pupils: PERRL - Respiratory Respiratory status: No respiratory distress Chest status: Nontender Breath sounds: Normal Chest palpation: Normal - Cardiovascular Rhythm: Regular Heart sounds: Normal auscultation Murmur: No - Abdominal Inspection: Normal Distension: No distension Bowel sounds: Normal Tenderness: Nontender Organomegaly: No organomegaly - Back Back: Normal, Nontender - Extremities General upper extremity: Normal inspection, Nontender, Normal color, Normal ROM , Normal temperature General lower extremity: Normal inspection, Nontender, Normal color, Normal ROM , Normal temperature, Normal weight bearing. No: Pranav's sign - Neurological Neuro grossly intact: Yes Cognition: Normal Orientation: AAOx4 [place] Coma Scale Eye Opening: Spontaneous [place] Coma Scale Verbal: Oriented [place] Coma Scale Motor: Obeys Commands [place] Coma Scale Total: 15 Speech: Normal Motor strength normal: LUE, RUE, LLE, RLE Sensory: Normal - Psychological Associated symptoms: Normal affect, Normal mood - Skin Skin Temperature: Warm Skin Moisture: Dry Skin Color: Normal Course - Re-evaluation Re-evalutation: 05/22/18 08:57 Laboratory 05/22/18 05/22/18 05/22/18 06:40 06:40 06:40 WBC 7.6 RBC 4.06 Hgb 12.1 Hct 36.1 MCV 89 MCH 29.9 MCHC 33.6 RDW 15.2 H Plt Count 221 Seg Neutrophils % 47.9 Lymphocytes % 38.7 Monocytes % 6.0 Eosinophils % 6.5 H Basophils % 0.9 Absolute Neutrophils 3.7 Absolute Lymphocytes 3.0 Absolute Monocytes 0.5 Absolute Eosinophils 0.5 Absolute Basophils 0.1 Sodium 143.1 Potassium 3.6 Chloride 107 Carbon Dioxide 26 Anion Gap 10 BUN 17 Creatinine 0.97 Est GFR ( Amer) > 60 Est GFR (Non-Af Amer) > 60 Glucose 91 Calcium 8.9 Total Bilirubin 0.2 Direct Bilirubin 0.2 Neonat Total Bilirubin Not Reportable Neonat Direct Bilirubin Not Reportable Neonat Indirect Bili Not Reportable AST 64 H ALT 43 Alkaline Phosphatase 51 Creatine Kinase 106 CK-MB (CK-2) 1.15 Troponin I < 0.012 Total Protein 7.4 Albumin 4.1 Chest X-Ray 05/22/18 04:26 IMPRESSION: No acute cardiopulmonary findings. 05/22/18 10:23 Patient has no chest pain at this time. 2 sets of cardiac troponins negative. Recent stress test 3 months ago which was normal. At this time will recommend following up with her talent acquisition coordinator. Will discharge at this time in stable condition. - Vital Signs Vital signs: Temp Pulse Resp BP Pulse Ox 97.9 F 77 25 H 105/74 94 05/22/18 08:01 05/22/18 02:35 05/22/18 08:01 05/22/18 07:01 05/22/18 08:01 - Laboratory Result Diagrams: 05/22/18 06:40 05/22/18 06:40 Laboratory results interpreted by me: 05/22/18 05/22/18 06:40 06:40 RDW 15.2 H Eosinophils % 6.5 H AST 64 H - EKG Interpretation by [place] EKG shows normal: Sinus rhythm, [place], Intervals, QRS Complexes, ST-T Waves When compared to previous EKG there are: No significant change Discharge - Discharge Clinical Impression: Stable angina Condition: Good Disposition: HOME, SELF-CARE Instructions: Angina Episode ([facility]), Nitrates ([facility]) Referrals: LUIS EDUARDO HANNA MD [Primary Care Provider] - Follow up as needed
[2018-05-22 10:42] VITALS: BP 107/80
--- NOTE | 2018-05-22 13:46 | EKG REPORT ---
SEVERITY:- BORDERLINE ECG - SINUS RHYTHM BORDERLINE R WAVE PROGRESSION, ANTERIOR LEADS BORDERLINE T WAVE ABNORMALITIES : Confirmed by: Viji Mosher MD 22-May-2018 13:45:34
== END 2018-05-22 10:44 | disposition home or self-care (01) ==
LOC: ER 02:32
DX: I25.119 Atherosclerotic heart disease of native coronary artery with unspecified angina pectoris (principal); R07.9 Chest pain, unspecified; Z95.5 Presence of coronary angioplasty implant and graft; Z87.891 Personal history of nicotine dependence; I25.2 Old myocardial infarction; I10 Essential (primary) hypertension; E11.9 Type 2 diabetes mellitus without complications
CPT/HCPCS: 36415; 71045; 80053; 82550; 82553; 84484; 85025; 93005; 93010; 99285

== ENCOUNTER 2018-09-14 02:14 | Observation (INO) | payer BC ==
[2018-09-14] MEDS ORDERED: NORMAL SALINE 1000 ML 1,000 ML IV ONE (02:45)
--- NOTE | 2018-09-14 02:54 | ER Document Report ---
ED General - General Chief Complaint: General Weakness Stated Complaint: DIZZY, PAINS IN RIGHT SHOULDER Time Seen by Provider: 09/14/18 02:31 TRAVEL OUTSIDE OF THE [place] IN LAST 30 DAYS: No - HPI Patient complains to provider of: "feeling off, dizzy" Notes: 48-year-old female with past medical history of acute myocardial infarction in 2016 status post stent placement, hypertension, coronary artery disease, type 2 diabetes, and tremors presents to the emergency department for dizziness and weakness that started this evening. States "I am not feeling myself", endorses dizziness times 3 days, endorses pain in her right shoulder blade consistent with her previous [place] that has subsided, heavy breathing not related to anxiety/ chest heaviness. She denies nausea, diaphoresis, chest pain. She also endorses decreased appetite, recent weight loss, and also dysuria. Last stress test was in January 2018 and was negative. Denies pain [address] Duran at [facility] is her caving guide. - Related Data Allergies/Adverse Reactions: No Known Allergies Allergy (Verified 09/14/18 02:27) Past Medical History - Social History Smoking Status: Unknown if Ever Smoked Chew tobacco use (# tins/day): No Frequency of alcohol use: None Drug Abuse: None Family History: Reviewed & Not Pertinent, Arthritis, CAD, CVA, DM, Hyperlipidemia, Hypertension, Malignancy Patient has suicidal ideation: No Patient has homicidal ideation: No - Past Medical History Cardiac Medical History: Reports: Hx Coronary Artery Disease, Hx Heart Attack, Hx Hypercholesterolemia, Hx Hypertension Pulmonary Medical History: Reports: Hx Bronchitis, Hx Pneumonia Denies: Hx Tuberculosis Neurological Medical History: Reports: Hx Migraine Endocrine Medical History: Reports: Hx Diabetes Mellitus Type 2 Renal/ Medical History: Denies: Hx Peritoneal Dialysis Musculoskeletal Medical History: Reports Hx Arthritis, Reports Hx Musculoskeletal Deformity Psychiatric Medical History: Reports: Hx Anxiety, Hx Bipolar Disorder, Hx Depression, Hx Post Traumatic Stress Disorder Past Surgical History: Reports: Hx Cardiac Catheterization - with stents, Hx Gynecologic Surgery - D&C, Hx Pacemaker, Hx Tubal Ligation - Immunizations Immunizations up to date: Yes Hx Diphtheria, Pertussis, Tetanus Vaccination: Yes - unknown Hx Pneumococcal Vaccination: 12/17/11 Review of Systems - Review of Systems Constitutional: See HPI EENT: See HPI Cardiovascular: See HPI Respiratory: See HPI Gastrointestinal: See HPI Genitourinary: See HPI Female Genitourinary: No symptoms reported Musculoskeletal: No symptoms reported Skin: No symptoms reported Hematologic/Lymphatic: No symptoms reported Neurological/Psychological: No symptoms reported Physical Exam - Vital signs Vitals: Temp 98.1 F 09/14/18 02:22 - Notes Notes: Reviewed vital signs and nursing note as charted by RN. CONSTITUTIONAL: Well-appearing, well-nourished, acting appropriately for age HEAD: Normocephalic, atraumatic, no swelling EYES: PERRL, Conjunctivae clear, no drainage, EOMI, no scleral icterus ENT: External ears without lesions, External auditory canal is patent, TMs without erythema, landmarks clear and well visualized, no rhinorrhea, Pharynx without erythema or lesions, no tonsillar hypertrophy, airway patent, mucous membranes pink and moist NECK: Supple, no cervical lymphadenopathy, no masses CARD: Regular rate and rhythm, no murmurs, no rubs, no gallops, capillary refill < 2 seconds, symmetric pulses RESP: The lungs are clear to auscultation bilaterally, no wheezing, no rales, no rhonchi. Respiratory rate and effort are normal, normal chest excursion. No respiratory distress, no retractions, no stridor, no nasal flaring, no accessory muscle use. ABD/GI: Normal bowel sounds, non-distended, soft, non-tender, no rebound, no guarding, no palpable organomegaly EXT: Normal ROM in all joints, non-tender to palpation, no effusions, no edema SKIN: Normal color for age and race, warm, dry, good turgor, no acute lesions noted NEURO: No facial asymmetry, moves all extremities equally, motor and sensory function intact Course - Re-evaluation Re-evalutation: 09/14/18 02:53 Patient is concerned because she has had a previous myocardial infarction in 2016 and her shoulder pain, dizziness, and overall is fatigued. Basic labs, urinalysis, chest x-ray, and a troponin has been ordered. Patient denied being in pain. 09/14/18 03:15 Chest x-ray reviewed patient rotated, no evidence of acute pathology. 09/14/18 03:40 Initial EKG negative, chest x-ray as above, initial troponin negative, heart score 4. Because of the patient's concerning history, her symptoms consistent with her previous [place], and a known lesion this patient is too high risk just to discharge home and I will request observation by the hospitalist. 09/14/18 03:[address] Mccabe hospitalist on-call. She agrees to admit the patient for observation. 09/14/18 03:52 - Vital Signs Vital signs: Temp Pulse Resp BP Pulse Ox 98.1 F 15 107/75 96 09/14/18 02:22 09/14/18 03:01 09/14/18 03:01 09/14/18 03:01 - Laboratory Result Diagrams: 09/14/18 02:51 09/14/18 02:25 Laboratory results interpreted by me: 09/14/18 02:25 RDW 15.0 H Discharge - Discharge Clinical Impression: Dizziness, Pain of left scapula, Chest discomfort Condition: Stable Disposition: ADMITTED OBSERVATION Admitting Provider: Hospitalist - Spoke with Dr. Mccabe Unit Admitted: Telemetry Referrals: LUIS EDAURDO HANNA MD [Primary Care Provider] - Follow up as needed
[2018-09-14 03:10] LABS: ABSOLUTE EOSINOPHILS # (AUTO) 0.3 10^3/uL (0.0-0.6); ABSOLUTE LYMPHOCYTES (AUTO) 2.9 10^3/uL (0.5-4.7); ABSOLUTE MONOCYTES (AUTO) 0.4 10^3/uL (0.1-1.4); ABSOLUTE NEUT (AUTO) 3.2 10^3/uL (1.7-8.2); BASOPHILS % (AUTO) 0.5 % (0-2); EOSINOPHILS % (AUTO) 3.8 % (0-6); HEMATOCRIT 36.3 % (36.0-47.0); HEMOGLOBIN 12.3 g/dL (12.0-15.5); LYMPHOCYTES % (AUTO) 42.8 % (13-45); MEAN CORPUSCULAR HEMOGLOBIN 30.1 pg (27.0-33.4); MEAN CORPUSCULAR HGB CONC 33.8 g/dL (32.0-36.0); MEAN CORPUSCULAR VOLUME 89 fl (80-97); MONOCYTES % (AUTO) 6.6 % (3-13); PLATELET COUNT 218 10^3/uL (150-450); RED BLOOD COUNT 4.08 10^6/uL (3.72-5.28); SEGMENTED NEUTROPHILS % (AUTO) 46.3 % (42-78); TOTAL CELLS COUNTED % (AUTO) 100 %; WHITE BLOOD COUNT 6.8 10^3/uL (4.0-10.5)
[2018-09-14 03:13] LABS: AMORPHOUS SEDIMENT,URINE TRACE /HPF; APPEARANCE,URINE SLIGHTLY-CLOUDY; BILIRUBIN,URINE NEGATIVE (NEGATIVE); COLOR,URINE STRAW; GLUCOSE, URINE NEGATIVE (NEGATIVE); KETONES,URINE NEGATIVE (NEGATIVE); LEUKOCYTE ESTERASE,URINE NEGATIVE (NEGATIVE); NITRITE,URINE NEGATIVE (NEGATIVE); PROTEIN,URINE NEGATIVE (NEGATIVE); URINE SPECIFIC GRAVITY 1.005; UROBILINOGEN,URINE NEGATIVE mg/dL (<2.0)
[2018-09-14 03:24] LABS: ALANINE AMINOTRANSFERASE 28 U/L (9-52); ALBUMIN 3.9 g/dL (3.5-5.0); ALKALINE PHOSPHATASE 52 U/L (38-126); ANION GAP 12 (5-19); ASPARTATE AMINO TRANSFERASE 33 U/L (14-36); BILIRUBIN,DIRECT 0.3 mg/dL (0.0-0.4); BILIRUBIN,TOTAL 0.3 mg/dL (0.2-1.3); BLOOD UREA NITROGEN 12 mg/dL (7-20); CALCIUM 9.6 mg/dL (8.4-10.2); CARBON DIOXIDE 25 mmol/L (22-30); CHLORIDE 106 mmol/L (98-107); GLUCOSE 96 mg/dL (75-110); LIPASE 26.3 U/L (23-300); POTASSIUM 3.9 mmol/L (3.6-5.0); TOTAL PROTEIN 6.6 g/dL (6.3-8.2)
--- NOTE | 2018-09-14 03:33 | RADIOLOGY REPORT (SQ) ---
EXAM DESCRIPTION: XR CHEST 1 VIEW COMPLETED DATE/TME: 09/14/2018 02:51 CLINICAL HISTORY: 48 years, Female, heavy breathing COMPARISON: 05/22/2018 chest x-ray NUMBER OF VIEWS: 1 TECHNIQUE: Portable upright chest LIMITATIONS: None. FINDINGS: Heart size is normal. Lungs are clear. No pneumothorax IMPRESSION: Negative chest copyright 2010 [employer] All Rights Reserved
[2018-09-14] MEDS ORDERED: NITROGLYCERIN 0.4 MG/TAB 25 TAB/BOTTLE SL ONE (03:38)
[2018-09-14] MEDS ORDERED: TEMAZEPAM 7.5 MG CAPSULE PO PRN (04:31)
[2018-09-14] MEDS ORDERED: PROMETHAZINE HCL INJ 25 MG/1 ML VIAL IV PRN (04:31)
[2018-09-14] MEDS ORDERED: GLUCAGON,HUMAN RECOMB 1 MG INJ SUBCUT PRN (04:31)
[2018-09-14] MEDS ORDERED: ACETAMINOPHEN 325 MG TABLET PO PRN (04:31)
[2018-09-14] MEDS ORDERED: DEXTROSE 40% GEL 15 GM TUBE PO PRN ×4 (04:31→04:39)
[2018-09-14] MEDS ORDERED: DEXTROSE 50%-WATER 25 GM/50 ML DISP.SYRIN IV PRN ×4 (04:31→04:39)
[2018-09-14] MEDS ORDERED: PROMETHAZINE HCL 25 MG SUPP.RECT PR PRN (04:31)
[2018-09-14] MEDS ORDERED: MAG HYDROX/AL HYDROX/SIMETH SUSP 30 ML UDCUP PO PRN (04:31)
[2018-09-14] MEDS ORDERED: NITROGLYCERIN 0.4 MG/TAB 25 TAB/BOTTLE SL PRN (04:35)
[2018-09-14] MEDS ORDERED: INSULIN LISPRO 100 UNIT/ML 3 ML VIAL SUBCUT PRN (04:39)
[2018-09-14] MEDS ORDERED: GLUCAGON,HUMAN RECOMB 1 MG INJ IM PRN (04:39)
--- NOTE | 2018-09-14 04:59 | PDOC H&P ---
History of Present Illness Admission Date/PCP: 09/14/18 03:59 LUIS EDUARDO HANNA MD Patient complains of: Chest pain History of Present Illness: RUDDY HAWK is a 48 year old female with medical history remarkable for myocardial infarction in 2016 with stent placed, diabetes mellitus, hypertension, hyperlipidemia. The patient tells me that she was laying in her bed the room were in the morning watching TV when suddenly started with right shoulder blade pain, felt like a bee sting, shortly after that he started with the left side chest pain, dull in nature, 5/10 in intensity, she tells me that the pain was not intense but she was afraid as when she had the GA she started feeling the same sensation in her shoulder blade. Symptoms were associated with shortness of breath, dizziness and generalized weakness. Denies nausea, vomiting, diaphoresis, abdominal pain, changes in her bowel movements or urine. Has decreased exertional tolerance secondary to shortness of breath and back pain, lower extremities edema for which she takes Lasix. Tells me Dr. Duran place her stent and she follows with aerospace stress engineer that does not remember the name. Last stress test was January 2018 back negative, and at that time she also came in with chest pain and was felt that was secondary to anxiety as she had many stressors at home. First set of troponins negative. Chest x-ray negative. EKG sinus rhythm with a ventricular rate of 67 bpm, acute ST elevations, ST depressions or T wave inversions. Past Medical History Cardiac Medical History: Reports: Coronary Artery Disease, Myocardial Infarction , Hyperlipidema, Hypertension Pulmonary Medical History: Reports: Bronchitis, Pneumonia Denies: Tuberculosis Neurological Medical History: Reports: Migraine Endocrine Medical History: Reports: Diabetes Mellitus Type 2 Musculoskeltal Medical History: Reports: Arthritis Psychiatric Medical History: Reports: Bipolar Disorder, Depression, Post Traumatic Stress Disorder Past Surgical History Past Surgical History: Reports: Cardiac Catheterization - with stents, Pacemaker , Tubal Ligation Social History Smoking Status: Unknown if Ever Smoked Frequency of Alcohol Use: None Hx Recreational Drug Use: No Drugs: None Hx Prescription Drug Abuse: No Family History Family History: Reviewed & Not Pertinent, Arthritis, CAD, CVA, DM, Hyperlipidemia, Hypertension, Malignancy Parental Family History Reviewed: Yes - As above Children Family History Reviewed: Yes Sibling(s) Family History Reviewed.: Yes Medication/Allergy Home Medications: Amitriptyline HCl [Elavil 100 mg Tablet] 100 mg PO QHS 01/23/18 Atorvastatin Calcium [Lipitor 80 mg Tablet] 80 mg PO QHS 01/23/18 Fenofibrate,Micronized [Fenofibrate] 130 mg PO DAILY 01/23/18 Furosemide [Lasix 20 mg Tablet] 20 mg PO DAILY 01/23/18 Isosorbide Mononitrate [Isosorbide Mononitrate ER] 30 mg PO DAILY 01/23/18 Metformin HCl [Glucophage 500 mg Tablet] 500 mg PO BIDBS 01/23/18 Metoprolol Tartrate [Lopressor 25 mg Tablet] 25 mg PO Q12 01/23/18 Omeprazole 20 mg PO BIDACBS 01/23/18 Oxycodone HCl/Acetaminophen [Oxycodone-Acetaminophen 10-325] 1 tab PO 5XD Primidone [Mysoline 50 mg Tablet] 50 mg PO BID 01/23/18 Ticagrelor [Brilinta] 90 mg PO Q12 01/23/18 Topiramate [Topamax 100 mg Tablet] 100 mg PO QAM 01/23/18 Topiramate [Topamax 100 mg Tablet] 200 mg PO QHS 01/23/18 Sertraline HCl [Zoloft 50 mg Tablet] 50 mg PO DAILY #30 tablet 01/24/18 Allergies/Adverse Reactions: No Known Allergies Allergy (Verified 09/14/18 02:27) Review of Systems Review of Systems: As outlined in the HPI, all others negative Physical Exam Vital Signs: Temp Pulse Resp BP Pulse Ox 98.1 F 15 107/75 96 09/14/18 02:22 09/14/18 03:01 09/14/18 03:01 09/14/18 03:01 Additional comments: General appearance: Well-developed, obese, alert and cooperative, and appears to be in no acute distress Head: Normocephalic Eyes: PEERL, EOMI, vision is grossly intact. Ears: External auditory canal and tympanic membranes clear, hearing grossly intact. Nose: No nasal discharge. Throat: Oral cavity and pharynx normal. No inflammation, swelling, exudate or lesions. Neck: Neck supple, nontender without lymphadenopathy, masses or thyromegaly. Cardiac: Normal S1 and S2. No S3, S4 or murmurs. Rhythm is regular. There is no cyanosis or pallor. Extremities are warm and well perfused. Capillary refill is less than 2 seconds. No carotid bruits. Thorax: No reproducible tenderness to palpation. Lungs: Clear to auscultation and percussion without rales, rhonchi, wheezing or diminished breath sounds. Not using accessory muscles. Abdomen: Positive bowel sounds. Soft. Nondistended, nontender. No guarding or rebound. No masses. No hepatosplenomegaly Extremities: No significant deformity or joint abnormality. No edema. Peripheral pulses intact. No varicosities. Neurological: Cranial nerves II through XII grossly intact. Strength and sensation symmetric and intact throughout. Reflexes 2+ throughout. Skin: Skin normal color, texture and turgor with no lesions or eruptions, warm and dry. Psychiatric: The mental examination revealed the patient was oriented to person , place, and time. The patient was able to demonstrate good judgment on recent , without hallucinations, abnormal affect or abnormal behaviors. Results Laboratory Results: 09/14/18 09/14/18 09/14/18 02:25 02:25 02:25 WBC 6.8 RBC 4.08 Hgb 12.3 Hct 36.3 MCV 89 MCH 30.1 MCHC 33.8 RDW 15.0 H Plt Count 218 Seg Neutrophils % 46.3 Lymphocytes % 42.8 Monocytes % 6.6 Eosinophils % 3.8 Basophils % 0.5 Absolute Neutrophils 3.2 Absolute Lymphocytes 2.9 Absolute Monocytes 0.4 Absolute Eosinophils 0.3 Absolute Basophils 0.0 Sodium 143.0 Potassium 3.9 Chloride 106 Carbon Dioxide 25 Anion Gap 12 BUN 12 Creatinine 0.89 Est GFR ( Amer) > 60 Est GFR (Non-Af Amer) > 60 Glucose 96 Calcium 9.6 Magnesium 1.7 Total Bilirubin 0.3 Direct Bilirubin 0.3 AST 33 ALT 28 Alkaline Phosphatase 52 Troponin I < 0.012 Total Protein 6.6 Albumin 3.9 Lipase 26.3 Urine Color Urine Appearance Urine pH Ur Specific [place] Urine Protein Urine Glucose (UA) Urine Blood Urine Nitrite Urine Bilirubin Urine Urobilinogen Ur Leukocyte Esterase Urine WBC (Auto) Urine RBC (Auto) Urine Bacteria (Auto) Squamous Epi Cells Auto Amorphous Sediment Auto Urine Mucus (Auto) Urine Ascorbic Acid 09/14/18 02:55 WBC RBC Hgb Hct MCV MCH MCHC RDW Plt Count Seg Neutrophils % Lymphocytes % Monocytes % Eosinophils % Basophils % Absolute Neutrophils Absolute Lymphocytes Absolute Monocytes Absolute Eosinophils Absolute Basophils Sodium Potassium Chloride Carbon Dioxide Anion Gap BUN Creatinine Est GFR ( Amer) Est GFR (Non-Af Amer) Glucose Calcium Magnesium Total Bilirubin Direct Bilirubin AST ALT Alkaline Phosphatase Troponin I Total Protein Albumin Lipase Urine Color STRAW Urine Appearance SLIGHTLY-CLOUDY Urine pH 8.0 Ur Specific [place] 1.005 Urine Protein NEGATIVE Urine Glucose (UA) NEGATIVE Urine Blood NEGATIVE Urine Nitrite NEGATIVE Urine Bilirubin NEGATIVE Urine Urobilinogen NEGATIVE Ur Leukocyte Esterase NEGATIVE Urine WBC (Auto) 1 Urine RBC (Auto) 0 Urine Bacteria (Auto) TRACE Squamous Epi Cells Auto 3 Amorphous Sediment Auto TRACE Urine Mucus (Auto) RARE Urine Ascorbic Acid NEGATIVE EKG Comments: Normal sinus rhythm with a ventricular rate of 67 bpm, no acute ST elevations, ST depressions or T wave inversions Impressions: Chest X-Ray 09/14/18 02:51 IMPRESSION: Negative chest copyright 2011 [employer]- All Rights Reserved Assessment & Plan - Diagnosis (1) Chest pain Qualifiers: Ischemic chest pain type: unstable angina pectoris Is this a current diagnosis for this admission?: Yes Plan: Patient comes with chest pain, concerns for unstable angina. Patient has multiple risk factors with a heart score of 4 and similar right shoulder blade pain than when she had a prior GA. We will keep the patient on telemetry monitoring, cycle cardiac enzymes x3, IV morphine and sublingual nitroglycerin as needed for chest pain. I will order pharmacological stress test as the patient is unable to do the treadmill. History of coronary artery disease with GA in 2016. (2) Diabetes 1.5, managed as type 2 Is this a current diagnosis for this admission?: Yes Plan: As patient will be n.p.o., keep Accu-Cheks every 6 hours with insulin lispro sliding scale and hypoglycemia protocol. (3) Hypertension Qualifiers: Hypertension type: essential hypertension Qualified Code(s): I10 - Essential (primary) hypertension Is this a current diagnosis for this admission?: Yes Plan: Resume home antihypertensive, patient on metoprolol. (4) DVT prophylaxis Is this a current diagnosis for this admission?: Yes Plan: Lovenox - Time Time Spent: 50 to 70 Minutes - Plan Summary Plan Summary: Case discussed with patient, agree with plan
[2018-09-14] MEDS: MORPHINE SULFATE 10 MG/ML INJ IV PRN ×4 (07:30→23:08)
[2018-09-14] MEDS: LANSOPRAZOLE 15 MG TAB.RAP.DR PO SCH ×2 (07:51→16:36)
[2018-09-14] MEDS: TOPIRAMATE 100 MG TABLET PO SCH (07:55)
--- NOTE | 2018-09-14 07:56 | EKG REPORT ---
SEVERITY:- BORDERLINE ECG - SINUS RHYTHM BORDERLINE R WAVE PROGRESSION, ANTERIOR LEADS : Confirmed by: Burak Dickens MD 14-Sep-2018 07:55:54
[2018-09-14] MEDS: OXYCODONE-ACETAMINOPHEN 5-325 MG TABLET PO PRN ×4 (08:31→20:55)
[2018-09-14] MEDS ORDERED: PRIMIDONE 50 MG TABLET PO SCH (10:00)
[2018-09-14] MEDS ORDERED: SERTRALINE HCL 50 MG TABLET PO SCH (10:00)
[2018-09-14] MEDS: FUROSEMIDE 20 MG TABLET PO SCH (10:00)
[2018-09-14] MEDS: METOPROLOL TARTRATE 25 MG TABLET PO SCH ×2 (11:55→21:57)
[2018-09-14] MEDS: ISOSORBIDE MONONITRATE 30 MG TAB.ER.24H PO SCH (12:15)
[2018-09-14] MEDS: PRIMIDONE 250 MG TABLET PO SCH ×3 (12:16→23:09)
[2018-09-14] MEDS: FENOFIBRATE NANOCRYSTALLIZED 145 MG TABLET PO SCH (12:20)
[2018-09-14] MEDS: TICAGRELOR 90 MG TABLET PO SCH ×2 (12:20→21:57)
[2018-09-14] MEDS: ENOXAPARIN SODIUM INJ 40 MG/0.4 ML DISP.SYRIN SUBCUT SCH (12:22)
--- NOTE | 2018-09-14 13:27 | PDOC PROGRESS REPORT ---
Subjective Progress Note for:: 09/14/18 Subjective:: 09/14/2018 1-year-old female with history of coronary artery disease status post SC in 2016, stent placement, diabetes mellitus hypertension hyperlipidemia came to the emergency room with complaints of sudden onset of right shoulder blade pain shortly after that she started having left-sided chest pain came to the emergency room for further evaluation right now she is complaining of severe back pain her main concern is the back pain at this moment she is requesting her Percocets. Reason For Visit: CHEST PAIN Physical Exam Vital Signs: Temp Pulse Resp BP Pulse Ox 98.4 F 53 L 17 100/70 99 09/14/18 11:30 09/14/18 11:30 09/14/18 11:30 09/14/18 11:30 09/14/18 11:30 Intake & Output 09/13/18 09/14/18 09/15/18 06:59 06:59 06:59 Weight 81.2 kg General appearance: PRESENT: no acute distress, mild distress Head exam: PRESENT: atraumatic Eye exam: PRESENT: PERRLA Mouth exam: PRESENT: moist Respiratory exam: PRESENT: clear to auscultation juma. ABSENT: rales, rhonchi, wheezes Cardiovascular exam: PRESENT: RRR. ABSENT: diastolic murmur, rubs, systolic murmur GI/Abdominal exam: PRESENT: normal bowel sounds, soft. ABSENT: distended, guarding, mass, organolmegaly, rebound, tenderness Neurological exam: PRESENT: alert, awake, oriented to person, oriented to place , oriented to time, oriented to situation, CN II-XII grossly intact. ABSENT: motor sensory deficit Psychiatric exam: PRESENT: appropriate affect, normal mood. ABSENT: homicidal ideation, suicidal ideation Results Laboratory Results: 09/14/18 09:20 Troponin I < 0.012 Impressions: Chest X-Ray 09/14/18 02:51 IMPRESSION: Negative chest copyright 2010 [employer]- All Rights Reserved Assessment & Plan - Diagnosis (1) Chest pain Qualifiers: Ischemic chest pain type: unstable angina pectoris Is this a current diagnosis for this admission?: Yes Plan: 09/14/2018 admitted for chest pain patient has multiple risk factors. Cardiac enzymes are negative so far she was scheduled for the stress test tomorrow. the troponin is 0.12. (2) Diabetes 1.5, managed as type 2 Is this a current diagnosis for this admission?: Yes Plan: 09/14/2018 I am going to put her on a cardiac/diabetic diet today. Because we are unable to do the stress test today. She is on Accu-Cheks every 6 hours with the lispro sliding scale and hypoglycemia protocol. Latest blood sugar is 96. (3) Hypertension Qualifiers: Hypertension type: essential hypertension Qualified Code(s): I10 - Essential (primary) hypertension Is this a current diagnosis for this admission?: Yes Plan: 09/14/2018 patient is on metoprolol at home. Patient's latest blood pressure is 100/50. She is also on Imdur. And is asymptomatic. - Time Time Spent with patient: 15-24 minutes Medications reviewed and adjusted accordingly: Yes Anticipated discharge: Home
[2018-09-14] MEDS ORDERED: OXYCODONE HCL IR 5 MG TABLET PO ONE (14:30)
[2018-09-14] MEDS: OXYCODONE HCL IR 5 MG TABLET PO PRN (20:54)
[2018-09-14] MEDS ORDERED: ATORVASTATIN CALCIUM 80 MG TABLET PO SCH (22:00)
[2018-09-14] MEDS ORDERED: AMITRIPTYLINE HCL 50 MG TABLET PO SCH (22:00)
[2018-09-14] MEDS ORDERED: TOPIRAMATE 100 MG TABLET PO SCH (22:00)
[2018-09-15] MEDS: OXYCODONE HCL IR 5 MG TABLET PO PRN ×4 (02:35→16:34)
[2018-09-15] MEDS: OXYCODONE-ACETAMINOPHEN 5-325 MG TABLET PO PRN ×4 (02:36→16:34)
[2018-09-15] MEDS: PRIMIDONE 250 MG TABLET PO SCH ×2 (06:37→12:15)
[2018-09-15] MEDS: LANSOPRAZOLE 15 MG TAB.RAP.DR PO SCH ×2 (08:24→16:34)
[2018-09-15] MEDS: TOPIRAMATE 100 MG TABLET PO SCH (08:24)
[2018-09-15] MEDS: ISOSORBIDE MONONITRATE 30 MG TAB.ER.24H PO SCH (10:08)
[2018-09-15] MEDS: FUROSEMIDE 20 MG TABLET PO SCH (10:08)
[2018-09-15] MEDS: TICAGRELOR 90 MG TABLET PO SCH (10:08)
[2018-09-15] MEDS: ENOXAPARIN SODIUM INJ 40 MG/0.4 ML DISP.SYRIN SUBCUT SCH (10:09)
[2018-09-15] MEDS: METOPROLOL TARTRATE 25 MG TABLET PO SCH (10:09)
[2018-09-15] MEDS: FENOFIBRATE NANOCRYSTALLIZED 145 MG TABLET PO SCH (10:09)
[2018-09-15] MEDS: MORPHINE SULFATE 10 MG/ML INJ IV PRN ×2 (10:17→14:12)
--- NOTE | 2018-09-15 15:04 | PDOC DISCHARGE SUMMARY ---
General - Admit/Disc Date/PCP Admission Date/Primary Care Provider: 09/14/18 03:59 LUIS EDUARDO HANNA MD Discharge Date: 09/15/18 - Discharge Diagnosis (1) Chest pain Is this a current diagnosis for this admission?: Yes Summary: 09/14/2018 admitted for chest pain patient has multiple risk factors. Cardiac enzymes are negative so far she was scheduled for the stress test tomorrow. the troponin is 0.12. 09/15/2018 patient was admitted with chest pain she has multiple risk factors cardiac enzymes are negative cardiology consult was done Dr. Mosher spoke to me and he advised to discharge the patient he is going to see the patient in his office in 1 week time. (2) Diabetes 1.5, managed as type 2 Is this a current diagnosis for this admission?: Yes Summary: 09/14/2018 I am going to put her on a cardiac/diabetic diet today. Because we are unable to do the stress test today. She is on Accu-Cheks every 6 hours with the lispro sliding scale and hypoglycemia protocol. Latest blood sugar is 96. 09/15/2018 patient is on a diabetic diet because of the week and unable to do the stress test. Her Accu-Cheks are stable. Latest blood sugar is 111. (3) Hypertension Is this a current diagnosis for this admission?: Yes Summary: 09/14/2018 patient is on metoprolol at home. Patient's latest blood pressure is 100/50. She is also on Imdur. And is asymptomatic. 09/15/2018 blood pressure today is 124/93. Patient is taking metoprolol at home. She is also him on Imdur. Advised her to continue the present medications at home. - Additional Information Resuscitation Status: Full Code Discharge Diet: As Tolerated, Cardiac Discharge Activity: Activity As Tolerated Home Medications: Amitriptyline HCl [Elavil 100 mg Tablet] 150 mg PO QHS 01/23/18 Atorvastatin Calcium [Lipitor 80 mg Tablet] 80 mg PO QHS 01/23/18 Fenofibrate,Micronized [Fenofibrate] 130 mg PO DAILY 01/23/18 Furosemide [Lasix 20 mg Tablet] 20 mg PO DAILY 01/23/18 Isosorbide Mononitrate [Isosorbide Mononitrate ER] 30 mg PO DAILY 01/23/18 Metformin HCl [Glucophage 500 mg Tablet] 500 mg PO BID 01/23/18 Metoprolol Tartrate [Lopressor 25 mg Tablet] 25 mg PO Q12 01/23/18 Omeprazole 20 mg PO BID 01/23/18 Oxycodone HCl/Acetaminophen [Oxycodone-Acetaminophen 10-325] 1 tab PO 5XDP PRN 01/23/18 Ticagrelor [Brilinta] 90 mg PO Q12 01/23/18 Topiramate [Topamax 100 mg Tablet] 100 mg PO QAM 01/23/18 Topiramate [Topamax 100 mg Tablet] 200 mg PO QHS 01/23/18 Primidone [Mysoline 250 mg Tablet] 125 mg PO QID 09/14/18 Tizanidine HCl [Zanaflex 4 mg Tablet] 2 mg PO Q8HP PRN 09/14/18 History of Present Illness History of Present Illness: RUDDY HAWK is a 48 year old female with medical history remarkable for myocardial infarction in 2016 with stent placed, diabetes mellitus, hypertension, hyperlipidemia. The patient tells me that she was laying in her bed the room were in the morning watching TV when suddenly started with right shoulder blade pain, felt like a bee sting, shortly after that he started with the left side chest pain, dull in nature, 5/10 in intensity, she tells me that the pain was not intense but she was afraid as when she had the ND she started feeling the same sensation in her shoulder blade. Symptoms were associated with shortness of breath, dizziness and generalized weakness. Denies nausea, vomiting, diaphoresis, abdominal pain, changes in her bowel movements or urine. Has decreased exertional tolerance secondary to shortness of breath and back pain, lower extremities edema for which she takes Lasix. Tells me Dr. Duran place her stent and she follows with heel pricker that does not remember the name. Last stress test was January 2018 back negative, and at that time she also came in with chest pain and was felt that was secondary to anxiety as she had many stressors at home. First set of troponins negative. Chest x-ray negative. EKG sinus rhythm with a ventricular rate of 67 bpm, acute ST elevations, ST depressions or T wave inversions. Physical Exam Vital Signs: Temp Pulse Resp BP Pulse Ox 97.4 F 85 20 124/93 H 98 09/15/18 12:54 09/15/18 12:54 09/15/18 12:54 09/15/18 12:54 09/15/18 12:54 Intake & Output 09/14/18 09/15/18 09/16/18 06:59 06:59 06:59 Intake Total 1120 Output Total 500 Balance 620 Weight 81.2 kg 82.5 kg General appearance: PRESENT: no acute distress Head exam: PRESENT: atraumatic Eye exam: PRESENT: PERRLA Mouth exam: PRESENT: moist Neck exam: PRESENT: carotid bruit Respiratory exam: PRESENT: clear to auscultation juma. ABSENT: rales, rhonchi, wheezes Cardiovascular exam: PRESENT: RRR. ABSENT: diastolic murmur, rubs, systolic murmur GI/Abdominal exam: PRESENT: normal bowel sounds, soft. ABSENT: distended, guarding, mass, organolmegaly, rebound, tenderness Rectal exam: PRESENT: deferred Extremities exam: PRESENT: full ROM. ABSENT: calf tenderness, clubbing, pedal edema Neurological exam: PRESENT: alert, altered, awake, oriented to time, oriented to situation Psychiatric exam: PRESENT: appropriate affect, normal mood. ABSENT: homicidal ideation, suicidal ideation Results Laboratory Results: 09/14/18 09/14/18 09/14/18 09:20 15:00 20:50 Troponin I < 0.012 < 0.012 < 0.012 Impressions: Chest X-Ray 09/14/18 02:51 IMPRESSION: Negative chest copyright 2011 [employer]- All Rights Reserved Qualifiers - * PATIENT BEING DISCHARGED WITH ANY OF THE FOLLOWING DIAGNOSIS: No VTE patient discharged on overlapping Therapy?: Yes
[2018-09-15 16:19] VITALS: BP 123/84
== END 2018-09-15 17:49 | disposition home or self-care (01) ==
LOC: ER 02:14 → EH 03:59 → 4N 06:24
PROVIDERS: ADMIT Internal Medicine; ATTEND Internal Medicine
DX: R07.9 Chest pain, unspecified (principal); E11.9 Type 2 diabetes mellitus without complications; I10 Essential (primary) hypertension; M25.511 Pain in right shoulder; E78.5 Hyperlipidemia, unspecified; I25.110 Atherosclerotic heart disease of native coronary artery with unstable angina pectoris; R06.02 Shortness of breath; M54.9 Dorsalgia, unspecified; R60.0 Localized edema; R42 Dizziness and giddiness; R53.1 Weakness; I25.2 Old myocardial infarction; E66.9 Obesity, unspecified; R25.1 Tremor, unspecified; R30.0 Dysuria; Z79.899 Other long term (current) drug therapy; Z79.84 Long term (current) use of oral hypoglycemic drugs; Z79.02 Long term (current) use of antithrombotics/antiplatelets; Z95.5 Presence of coronary angioplasty implant and graft; Z95.0 Presence of cardiac pacemaker; R63.4 Abnormal weight loss; R63.0 Anorexia; Z82.49 Family history of ischemic heart disease and other diseases of the circulatory system; Z68.33 Body mass index [BMI] 33.0-33.9, adult; Z23 Encounter for immunization
CPT/HCPCS: 93005; 99285; 96360; 36415; 82962 ×2; 83690; 83735; 85025; 80053; 81001; 84484; 71045; 90686; 93010; G0378 ×3; G0008; J3490 ×9; J2270 ×2; J1650 ×2; J7030; 90471

== ENCOUNTER 2018-09-22 17:02 | Observation (INO) | payer BC ==
[2018-09-22 17:15] LABS: ABSOLUTE EOSINOPHILS # (AUTO) 0.4 10^3/uL (0.0-0.6); ABSOLUTE LYMPHOCYTES (AUTO) 3.2 10^3/uL (0.5-4.7); ABSOLUTE MONOCYTES (AUTO) 0.5 10^3/uL (0.1-1.4); ABSOLUTE NEUT (AUTO) 3.5 10^3/uL (1.7-8.2); BASOPHILS % (AUTO) 0.6 % (0-2); EOSINOPHILS % (AUTO) 4.7 % (0-6); HEMATOCRIT 36.9 % (36.0-47.0); HEMOGLOBIN 12.5 g/dL (12.0-15.5); LYMPHOCYTES % (AUTO) 41.6 % (13-45); MEAN CORPUSCULAR HEMOGLOBIN 30.1 pg (27.0-33.4); MEAN CORPUSCULAR HGB CONC 33.9 g/dL (32.0-36.0); MEAN CORPUSCULAR VOLUME 89 fl (80-97); PLATELET COUNT 224 10^3/uL (150-450); RED BLOOD COUNT 4.16 10^6/uL (3.72-5.28); RED CELL DISTRIBUTION WIDTH 15.1 % (11.5-14.0); SEGMENTED NEUTROPHILS % (AUTO) 46.1 % (42-78); TOTAL CELLS COUNTED % (AUTO) 100 %; WHITE BLOOD COUNT 7.6 10^3/uL (4.0-10.5)
[2018-09-22 17:30] LABS: ALANINE AMINOTRANSFERASE 51 U/L (9-52); ALBUMIN 4.2 g/dL (3.5-5.0); ALKALINE PHOSPHATASE 53 U/L (38-126); ANION GAP 15 (5-19); ASPARTATE AMINO TRANSFERASE 63 U/L (14-36); BILIRUBIN,DIRECT 0.3 mg/dL (0.0-0.4); BILIRUBIN,TOTAL 0.4 mg/dL (0.2-1.3); BLOOD UREA NITROGEN 17 mg/dL (7-20); CALCIUM 9.4 mg/dL (8.4-10.2); CARBON DIOXIDE 22 mmol/L (22-30); CHLORIDE 104 mmol/L (98-107); CREATINE KINASE 92 U/L (30-135); GLUCOSE 99 mg/dL (75-110); POTASSIUM 4.4 mmol/L (3.6-5.0); SODIUM 140.8 mmol/L (137-145); TOTAL PROTEIN 7.4 g/dL (6.3-8.2)
[2018-09-22] MEDS ORDERED: NITROGLYCERIN 2% OINTMENT 1 GM PACKET TP ONE (17:30)
[2018-09-22] MEDS ORDERED: MORPHINE SULFATE 10 MG/ML INJ IV ONE (17:30)
[2018-09-22] MEDS ORDERED: ONDANSETRON HCL INJ/PF 4 MG/2 ML SDV IV ONE (17:30)
--- NOTE | 2018-09-22 17:32 | ER Document Report ---
ED General - General Chief Complaint: Chest Pain Stated Complaint: CHEST PAIN Time Seen by Provider: 09/22/18 17:18 Mode of Arrival: Medic Information source: Patient Notes: This is a 48-year-old female with a history of coronary artery disease (RCA stent, 2016), diabetes, hypertension who presents to the emergency room with left-sided chest pain associated with shortness of breath. Patient does have a recent admission for chest pain. She does have an appointment with her hay baler on November 05 (Dr. Duran in [place]). TRAVEL OUTSIDE OF THE [place] IN LAST 30 DAYS: No - HPI Onset: Just prior to arrival Onset/Duration: Sudden Quality of pain: Sharp Severity: Moderate Pain Level: 2 Associated symptoms: Chest pain, Shortness of breath. denies: Fever Exacerbated by: Denies Relieved by: Denies Similar symptoms previously: Yes Recently seen / treated by doctor: Yes - Related Data Allergies/Adverse Reactions: No Known Allergies Allergy (Verified 09/14/18 02:27) Past Medical History - General Information source: Patient - Social History Smoking Status: Never Smoker Cigarette use (# per day): No Chew tobacco use (# tins/day): No Frequency of alcohol use: None Drug Abuse: None Lives with: Family Family History: Reviewed & Not Pertinent, Arthritis, CAD, CVA, DM, Hyperlipidemia, Hypertension, Malignancy Patient has suicidal ideation: No Patient has homicidal ideation: No - Past Medical History Cardiac Medical History: Reports: Hx Coronary Artery Disease, Hx Heart Attack - 2016, Hx Hypercholesterolemia, Hx Hypertension Pulmonary Medical History: Reports: Hx Asthma - not sure, Hx Bronchitis, Hx Pneumonia Denies: Hx Tuberculosis Neurological Medical History: Reports: Hx Migraine, Hx Seizures Endocrine Medical History: Reports: Hx Diabetes Mellitus Type 2 Renal/ Medical History: Denies: Hx Peritoneal Dialysis GI Medical History: Reports: Hx Gastroesophageal Reflux Disease Musculoskeletal Medical History: Reports Hx Arthritis, Reports Hx Musculoskeletal Deformity Psychiatric Medical History: Reports: Hx Anxiety, Hx Bipolar Disorder, Hx Depression, Hx Post Traumatic Stress Disorder Past Surgical History: Reports: Hx Cardiac Catheterization - with stents, Hx Gynecologic Surgery - D&C, Hx Pacemaker, Hx Tubal Ligation - Immunizations Immunizations up to date: Yes Hx Diphtheria, Pertussis, Tetanus Vaccination: Yes - unknown Hx Pneumococcal Vaccination: 12/17/11 Review of Systems - Review of Systems Constitutional: denies: Chills, Fever EENT: No symptoms reported Cardiovascular: See HPI Respiratory: No symptoms reported Gastrointestinal: No symptoms reported Genitourinary: No symptoms reported Female Genitourinary: No symptoms reported Musculoskeletal: No symptoms reported Skin: No symptoms reported Hematologic/Lymphatic: No symptoms reported Neurological/Psychological: No symptoms reported Physical Exam - Vital signs Vitals: BP 102/79 09/22/18 17:05 Notes: Physical exam: GENERAL: She is alert and oriented x3, no acute distress. HEAD: Atraumatic, normocephalic. EYES: Pupils equal round and reactive to light, extraocular movements intact, sclera anicteric, conjunctiva are normal. ENT: TMs normal, nares patent, oropharynx clear without exudates. Moist mucous membranes. NECK: Normal range of motion, supple without obvious mass or JVD. LUNGS: Breath sounds clear to auscultation bilaterally and equal. No wheezes rales or rhonchi. HEART: Regular rate and rhythm without murmurs, rubs or gallops. ABDOMEN: Soft, normoactive bowel sounds. No tenderness to palpation. No guarding, no rebound. No masses appreciated. EXTREMITIES: Normal range of motion, no pitting or edema. No clubbing or cyanosis. NEUROLOGICAL: Cranial nerves II through XII grossly intact. Normal speech, moving all extremities. PSYCH: Normal mood, normal affect. SKIN: Warm, Dry, normal turgor, no rashes or lesions noted. Course - Vital Signs Vital signs: Temp Pulse Resp BP Pulse Ox 98.1 F 71 24 H 123/79 99 09/22/18 20:28 09/22/18 20:34 09/22/18 20:28 09/22/18 20:28 09/22/18 20:28 - Laboratory Result Diagrams: 09/22/18 16:40 09/22/18 16:40 Laboratory results interpreted by me: 09/22/18 09/22/18 16:40 16:40 RDW 15.1 H AST 63 H - Diagnostic Test Radiology reviewed: Image reviewed, Reports reviewed - Chest x-ray shows no infiltrates or effusions - EKG Interpretation by Me Rate: Normal Rhythm: NSR - EKG shows normal sinus rhythm with a ventral the rate of 63, no acute changes compared to EKG September 14, 2018 Discharge - Discharge Clinical Impression: chest pain Condition: Stable Disposition: ADMITTED INPATIENT Admitting Provider: Hospitalist - Dr Naylor Unit Admitted: Telemetry
--- NOTE | 2018-09-22 17:37 | RADIOLOGY REPORT (SQ) ---
EXAM DESCRIPTION: CHEST SINGLE VIEW COMPLETED DATE/TIME: 09/22/2018 5:26 pm REASON FOR STUDY: cp COMPARISON: 09/14/2018 EXAM PARAMETERS: NUMBER OF VIEWS: One view. TECHNIQUE: Single frontal radiographic view of the chest acquired. RADIATION DOSE: NA LIMITATIONS: None. FINDINGS: LUNGS AND PLEURA: No opacities, masses or pneumothorax. No pleural effusion. MEDIASTINUM AND HILAR STRUCTURES: No masses. Contour normal. HEART AND VASCULAR STRUCTURES: Heart normal in size. Normal vasculature. BONES: No acute findings. HARDWARE: None in the chest. OTHER: No other significant finding. IMPRESSION: NO ACUTE RADIOGRAPHIC FINDING IN THE CHEST. TECHNICAL DOCUMENTATION: JOB ID: [id number] [employer]- All Rights Reserved Reading location - IP/workstation name: [email or web address]
[2018-09-22 17:42] LABS: CREATINE KINASE MB 0.86 ng/mL (<4.55)
[2018-09-22 17:45] LABS: TROPONIN I < 0.012 ng/mL
[2018-09-22] MEDS ORDERED: IPRATROPIUM/ALBUTEROL 0.5-2.5 MG/3 ML AMPUL NEB PRN (18:04)
[2018-09-22] MEDS ORDERED: ACETAMINOPHEN 325 MG TABLET PO PRN (18:04)
[2018-09-22] MEDS: FUROSEMIDE 20 MG TABLET PO SCH (19:20)
[2018-09-22] MEDS: FENOFIBRATE NANOCRYSTALLIZED 145 MG TABLET PO SCH (19:20)
[2018-09-22] MEDS: FAMOTIDINE 20 MG TABLET PO SCH (21:43)
[2018-09-22] MEDS: GUAIFENESIN 600 MG TABLET.SA PO SCH (21:44)
[2018-09-22] MEDS: METOPROLOL TARTRATE 25 MG TABLET PO SCH (21:44)
[2018-09-22] MEDS: AMITRIPTYLINE HCL 50 MG TABLET PO SCH (21:44)
[2018-09-22] MEDS: ATORVASTATIN CALCIUM 20 MG TABLET PO SCH (21:45)
[2018-09-22] MEDS: TOPIRAMATE 100 MG TABLET PO SCH (21:46)
[2018-09-22] MEDS ORDERED: OXYCODONE HCL IR 5 MG TABLET PO ONE (23:00)
[2018-09-22] MEDS ORDERED: OXYCODONE-ACETAMINOPHEN 5-325 MG TABLET PO ONE (23:00)
[2018-09-23 05:53] LABS: HEMATOCRIT 36.1 % (36.0-47.0); HEMOGLOBIN 12.3 g/dL (12.0-15.5); MEAN CORPUSCULAR HEMOGLOBIN 30.2 pg (27.0-33.4); MEAN CORPUSCULAR HGB CONC 34.1 g/dL (32.0-36.0); MEAN CORPUSCULAR VOLUME 89 fl (80-97); PLATELET COUNT 204 10^3/uL (150-450); RED BLOOD COUNT 4.08 10^6/uL (3.72-5.28); WHITE BLOOD COUNT 6.5 10^3/uL (4.0-10.5)
[2018-09-23 06:16] LABS: ALANINE AMINOTRANSFERASE 39 U/L (9-52); ALBUMIN 3.8 g/dL (3.5-5.0); ALKALINE PHOSPHATASE 53 U/L (38-126); ANION GAP 10 (5-19); ASPARTATE AMINO TRANSFERASE 49 U/L (14-36); BILIRUBIN,DIRECT 0.3 mg/dL (0.0-0.4); BILIRUBIN,TOTAL 0.3 mg/dL (0.2-1.3); BLOOD UREA NITROGEN 17 mg/dL (7-20); CALCIUM 9.4 mg/dL (8.4-10.2); CARBON DIOXIDE 27 mmol/L (22-30); CHLORIDE 107 mmol/L (98-107); GLUCOSE 112 mg/dL (75-110); POTASSIUM 4.4 mmol/L (3.6-5.0); SODIUM 144.3 mmol/L (137-145); TOTAL PROTEIN 6.8 g/dL (6.3-8.2)
[2018-09-23] MEDS: ISOSORBIDE MONONITRATE 30 MG TAB.ER.24H PO SCH (09:16)
[2018-09-23] MEDS: FUROSEMIDE 20 MG TABLET PO SCH (09:16)
[2018-09-23] MEDS: METOPROLOL TARTRATE 25 MG TABLET PO SCH ×2 (09:16→21:04)
[2018-09-23] MEDS: FAMOTIDINE 20 MG TABLET PO SCH ×2 (09:17→21:05)
[2018-09-23] MEDS: ENOXAPARIN SODIUM INJ 40 MG/0.4 ML DISP.SYRIN SUBCUT SCH (09:17)
[2018-09-23] MEDS: GUAIFENESIN 600 MG TABLET.SA PO SCH ×2 (09:17→21:05)
[2018-09-23] MEDS: FENOFIBRATE NANOCRYSTALLIZED 145 MG TABLET PO SCH (09:17)
--- NOTE | 2018-09-23 09:50 | Progress Note ---
Provider Note Provider Note: This is a progress note for Ms. Stahl dictated by Subjective : Patient is a 48-year-old female, has a past medical history of coronary artery disease, had a stent placement in 2016, her instructor creeler in [place]. Patient admitted yesterday with chest pain to rule out VT He is feeling better today, no chest pain Physical exam: Patient looks well not in distress Vital signs : Blood pressure is 120/70, heart rate in 80s, pressure is 97.4 HEENT : Head normocephalic atraumatic equal round reactive to light and accommodation bilaterally Neck supple, good JVD, no megaly CVS : Regular rate and rhythm, murmur Chest : Lungs clear Abdomen : Soft nontender, no rebound organomegaly LL : Lower extremity no edema Lab : Reviewed ASSESMENT : 1. Chest pain rule out VT 2. CAD S/P stent placement 3. HTN : Controlled 4. Bipolar disorder PLAN : - Cardiac stress test on monday
[2018-09-23] MEDS ORDERED: PRIMIDONE 250 MG TABLET PO SCH (10:00)
--- NOTE | 2018-09-23 10:54 | EKG REPORT ---
SEVERITY:- ABNORMAL ECG - SINUS RHYTHM PROBABLE INFERIOR INFARCT, AGE INDETERMINATE BORDERLINE R WAVE PROGRESSION, ANTERIOR LEADS : Confirmed by: Ronnell Mccurdy 23-Sep-2018 10:53:38
[2018-09-23] MEDS: OXYCODONE HCL IR 5 MG TABLET PO PRN ×4 (10:55→20:43)
[2018-09-23] MEDS: OXYCODONE-ACETAMINOPHEN 5-325 MG TABLET PO PRN ×4 (10:56→20:44)
[2018-09-23] MEDS: TICAGRELOR 90 MG TABLET PO SCH ×2 (10:57→17:49)
[2018-09-23] MEDS: TIZANIDINE HCL 4 MG TABLET PO SCH (10:57)
[2018-09-23] MEDS: TOPIRAMATE 100 MG TABLET PO SCH ×2 (10:57→21:00)
--- NOTE | 2018-09-23 13:17 | HISTORY AND PHYSICAL E ---
History and Physical NAME: RUDDY HAWK : 1970 AGE: 48Y ADMITTED: 09/22/2018 ROOM: 317 CHIEF COMPLAINT: Chest pain. HISTORY OF THE PRESENT ILLNESS: The patient is a 48-year-old female who has a past medical history of myocardial infarction in 2016 status post stent placement, diabetes, hypertension, hyperlipidemia. She comes to the emergency room with chest pain and sternal pain radiating to her left jaw, acute shortness of breath, no nausea or vomiting. No alleviating or aggravating factors. Initial EKG did not show any ST elevation. Cardiac enzymes also unremarkable. Chest x-ray unremarkable. REVIEW OF SYSTEMS: GENERAL: No fever or chills. No nausea, no vomiting. HEENT: No headache or dizziness. EYES: No blurring of vision. EARS: He has no tinnitus, no vertigo. NOSE: No discharge from the nose. NECK: No pain or difficulty swallowing. RESPIRATORY: No cough. No wheezing. No hemoptysis. CARDIOVASCULAR: As in history of present illness. GASTROINTESTINAL: No nausea, no vomiting, no diarrhea, no constipation. GENITOURINARY: No urgency, no frequency, no dysuria, no hematuria. ENDOCRINE: No polyuria, polyphagia, polydipsia. HEMATOLOGIC: No anemia. No easy bruising. PAST MEDICAL HISTORY: Coronary artery disease with stent placement, hyperlipidemia, diabetes, depression, posttraumatic stress disorder. PAST SURGICAL HISTORY: Cardiac catheterization and stent placement, pacemaker placement, tubal ligation. SOCIAL HISTORY: Not a smoker or drinker. . Lives with her . FAMILY HISTORY: A strong family history of heart disease. HOME MEDICATION: 1. Amitriptyline 100 mg nightly. 2. Lipitor 80 mg daily. 3. Fenofibrate 150 mg daily. 4. Lasix 20 mg p.o. daily. 5. Imdur 50 mg p.o. daily. 6. Metformin 500 twice a day. 7. Metoprolol 25 twice a day. 8. Omeprazole 25 twice a day. 9. Oxycodone. 10. Brilinta 90 mg q. 12 hours. 11. Topamax 100 mg q. a.m. and 200 in p.m. 12. Sertraline (Zoloft) 50 mg daily. ALLERGIES: Not allergic to medications. PHYSICAL EXAMINATION: GENERAL: Patient lying in bed. Comfortable. Not in distress. VITAL SIGNS: Blood pressure 102/79, heart rate 70, saturation 99%, afebrile. HEENT: Normocephalic, atraumatic. Pupils equal, round, reactive to light and accommodation bilaterally. Extraocular movements intact. Ears: Tympanic membranes intact bilaterally. No discharge from the ears. No discharge from the nose. NECK: Supple. No increased JVD. No thyromegaly. No lymphadenopathy. CARDIOVASCULAR: Normal S1, S2. Regular rate. No murmur, no gallop. RESPIRATORY: Lungs clear. ABDOMEN: Soft. MUSCULOSKELETAL: No edema. NEUROLOGICAL: Awake, alert. SKIN: No rash. LABORATORY DATA: Sodium 140, potassium 4.4, chloride 104, white blood count 7.6, hemoglobin 12.5. ASSESSMENT AND PLAN: 1. Chest pain, rule out [place]. 2. History of coronary artery disease status post stent placement. 3. Diabetes. 4. Hypertension. 5. Hyperlipidemia. 6. Posttraumatic stress disorder. PLAN: 1. We will admit the patient to Telemetry. 2. Serial cardiac enzymes. 3. Continue beta dawn, metoprolol 25 twice a day, Brilinta, aspirin, nitroglycerine, morphine for pain. 4. We will order stress test on Monday. The patient already had stress test scheduled by Dr. Mosher in his office next week. 5. Code status FULL CODE. MEDICAL NECESSITY: Needs to stay for work up chest pain. TIME SPENT: 50 minutes. DICTATING PHYSICIAN: MARLON SEN M.D. [id number] PHY#: [id number] ID: [id number] JOB#: [id number] ACCT: [id number] cc:LUIS EDUARDO HANNA M.D. >
[2018-09-23] MEDS: PRIMIDONE 250 MG TABLET PO SCH ×2 (18:55→23:22)
[2018-09-23] MEDS: HALOPERIDOL LACTATE INJ 5 MG/1 ML VIAL IV PRN (20:44)
[2018-09-23] MEDS: AMITRIPTYLINE HCL 50 MG TABLET PO SCH (21:00)
[2018-09-23] MEDS: ATORVASTATIN CALCIUM 20 MG TABLET PO SCH (21:05)
[2018-09-23] MEDS ORDERED: PRIMIDONE 250 MG TABLET ONE (21:39)
[2018-09-24] MEDS: OXYCODONE-ACETAMINOPHEN 5-325 MG TABLET PO PRN ×4 (08:11→22:33)
[2018-09-24] MEDS: OXYCODONE HCL IR 5 MG TABLET PO PRN ×4 (08:11→22:33)
[2018-09-24] MEDS: ENOXAPARIN SODIUM INJ 40 MG/0.4 ML DISP.SYRIN SUBCUT SCH (10:17)
[2018-09-24] MEDS: METOPROLOL TARTRATE 25 MG TABLET PO SCH ×2 (10:17→21:31)
[2018-09-24] MEDS: FUROSEMIDE 20 MG TABLET PO SCH (10:17)
[2018-09-24] MEDS: ISOSORBIDE MONONITRATE 30 MG TAB.ER.24H PO SCH (10:17)
[2018-09-24] MEDS: GUAIFENESIN 600 MG TABLET.SA PO SCH ×2 (10:17→21:31)
[2018-09-24] MEDS: FENOFIBRATE NANOCRYSTALLIZED 145 MG TABLET PO SCH (10:17)
[2018-09-24] MEDS: FAMOTIDINE 20 MG TABLET PO SCH ×2 (10:17→21:31)
[2018-09-24] MEDS: PRIMIDONE 250 MG TABLET PO SCH ×4 (10:18→21:33)
[2018-09-24] MEDS: TIZANIDINE HCL 4 MG TABLET PO SCH (10:19)
[2018-09-24] MEDS: TICAGRELOR 90 MG TABLET PO SCH ×2 (10:19→17:39)
[2018-09-24] MEDS: TOPIRAMATE 100 MG TABLET PO SCH ×2 (10:19→21:33)
[2018-09-24] MEDS ORDERED: REGADENOSON INJ 0.4 MG/5 ML DISP.SYRIN IV ONE (14:44)
--- NOTE | 2018-09-24 17:01 | DRAGON STRESS TEST REPORT ---
Intravenous Lexiscan Cardiolite stress test using single photon emmision computerized tomography. Date of procedure: 09/24/2018. Ordering Provider: .Patient's status: Inpatient. Indication: Chest pain. Coronary risk factors: Age, diabetes mellitus, hypertension, dyslipidemia, and family history of coronary artery disease. Resting EKG: Sinus Rhythm. Diffuse minor nonspecific ST-T changes. Stress EKG: No changes of ischemia. The patient had no chest pain or discomfort, and there is no arrhythmias seen. Reason for termination: Protocol. Conclusions: Normal EKG and hemodynamic response to IV Lexiscan. Nuclear data: At rest the patient was given 12.09 millicuries of technetium 99m sestamibi injected intravenously. As per protocol rest non gated SPECT images were obtained. Subsequently the patient was given intravenous Lexiscan at a dose of 0.4 mg in 5 mL intravenously, followed by flush with normal saline. Subsequently the stress dose of 37.1 millicuries of technetium 99m sestamibi was injected intravenously. As per protocol stress gated images were obtained. Nuclear interpretation: Review of images showed that all segments of the myocardium had normal perfusion at rest, and normal perfusion post stress with IV Lexiscan. All segments of the myocardium had normal motion, contraction, and thickening by gated study. T. I D. ratio was normal at 1.11. Computer read rest, and stress left ventricular ejection fraction were 63 %, and 62 %, respectively. Conclusion: 1. There is no scintigraphic evidence of Lexiscan induced myocardial ischemia. 2. There is no scintigraphic evidence of myocardial infarction/scar. Recommendations: Aggressive risk factor modification, and treating the underlying co- morbidities. MTDD
[2018-09-24] MEDS: ATORVASTATIN CALCIUM 20 MG TABLET PO SCH (21:31)
[2018-09-24] MEDS: AMITRIPTYLINE HCL 50 MG TABLET PO SCH (21:31)
[2018-09-25] MEDS: HALOPERIDOL LACTATE INJ 5 MG/1 ML VIAL IV PRN (02:51)
[2018-09-25] MEDS: OXYCODONE HCL IR 5 MG TABLET PO PRN (09:16)
[2018-09-25] MEDS: OXYCODONE-ACETAMINOPHEN 5-325 MG TABLET PO PRN (09:16)
[2018-09-25] MEDS: FAMOTIDINE 20 MG TABLET PO SCH (09:17)
[2018-09-25] MEDS: TICAGRELOR 90 MG TABLET PO SCH (09:17)
[2018-09-25] MEDS: FENOFIBRATE NANOCRYSTALLIZED 145 MG TABLET PO SCH (09:17)
[2018-09-25] MEDS: GUAIFENESIN 600 MG TABLET.SA PO SCH (09:17)
[2018-09-25] MEDS: METOPROLOL TARTRATE 25 MG TABLET PO SCH (09:17)
[2018-09-25] MEDS: PRIMIDONE 250 MG TABLET PO SCH (09:17)
[2018-09-25] MEDS: FUROSEMIDE 20 MG TABLET PO SCH (09:17)
[2018-09-25] MEDS: TOPIRAMATE 100 MG TABLET PO SCH (09:17)
[2018-09-25] MEDS: ISOSORBIDE MONONITRATE 30 MG TAB.ER.24H PO SCH (09:17)
[2018-09-25] MEDS: ENOXAPARIN SODIUM INJ 40 MG/0.4 ML DISP.SYRIN SUBCUT SCH (09:18)
[2018-09-25] MEDS: TIZANIDINE HCL 4 MG TABLET PO SCH (09:18)
[2018-09-25 09:31] VITALS: BP 109/76
--- NOTE | 2018-09-25 14:37 | PDOC PROGRESS REPORT ---
Subjective Progress Note for:: 09/24/18 Subjective:: 48-year-old female admitted for chest pain going for the stress test today. Reason For Visit: CHEST PAIN Physical Exam Vital Signs: Temp Pulse Resp BP Pulse Ox 98.0 F 60 16 109/76 99 09/25/18 09:30 09/25/18 09:30 09/25/18 09:30 09/25/18 09:30 09/25/18 09:30 Intake & Output 09/24/18 09/25/18 09/26/18 06:59 06:59 06:59 Intake Total 1419 2964 Balance 1419 2964 Weight 81.3 kg 81.8 kg General appearance: PRESENT: no acute distress Head exam: PRESENT: atraumatic Eye exam: PRESENT: PERRLA Mouth exam: PRESENT: moist Neck exam: ABSENT: carotid bruit, JVD, lymphadenopathy, thyromegaly Respiratory exam: PRESENT: clear to auscultation juma. ABSENT: rales, rhonchi, wheezes Pulses: PRESENT: normal dorsalis pedis pul GI/Abdominal exam: PRESENT: normal bowel sounds, soft. ABSENT: distended, guarding, mass, organolmegaly, rebound, tenderness Extremities exam: PRESENT: full ROM. ABSENT: calf tenderness, clubbing, pedal edema Neurological exam: PRESENT: alert, awake, oriented to person, oriented to place , oriented to time, oriented to situation, CN II-XII grossly intact. ABSENT: motor sensory deficit Psychiatric exam: PRESENT: appropriate affect, normal mood. ABSENT: homicidal ideation, suicidal ideation Results Laboratory Results: 09/23/18 05:16 09/23/18 05:16 09/22/18 09/24/18 21:10 06:50 Troponin I < 0.012 < 0.012 Impressions: Chest X-Ray 09/22/18 17:03 IMPRESSION: NO ACUTE RADIOGRAPHIC FINDING IN THE CHEST. Assessment & Plan - Diagnosis (1) Chest pain Is this a current diagnosis for this admission?: Yes Plan: 09/24/2018 patient came in with chest pain cardiac enzymes are negative. She is going for the stress test today. (2) Coronary artery disease Is this a current diagnosis for this admission?: Yes Plan: 09/24/2018-patient has history of coronary artery disease status post stent placement. (3) Diabetes 1.5, managed as type 2 Is this a current diagnosis for this admission?: Yes Plan: 09/25/2018-patient's blood sugars are relatively controlled during this hospital stay. She is on insulin sliding scale. - Time Time Spent with patient: 15-24 minutes Medications reviewed and adjusted accordingly: Yes Anticipated discharge: Home
--- NOTE | 2018-09-25 14:56 | PDOC DISCHARGE SUMMARY ---
General - Admit/Disc Date/PCP Admission Date/Primary Care Provider: 09/22/18 18:04 LUIS EDUARDO HANNA MD Discharge Date: 09/25/18 - Discharge Diagnosis (1) Chest pain Is this a current diagnosis for this admission?: Yes Summary: 09/25/2018 patient was admitted for chest pain to rule out [place] patient has history of coronary artery disease with status post stent placement stress test was done yesterday was negative. (2) Coronary artery disease Is this a current diagnosis for this admission?: Yes Summary: 09/25/2018 patient has history of coronary artery disease status post stent. Stress test was negative. (3) Diabetes 1.5, managed as type 2 Is this a current diagnosis for this admission?: Yes Summary: 09/25/2018-patient has history of diabetes mellitus type 2 blood pressures are relatively stable during the hospital stay. (4) Hypertension Is this a current diagnosis for this admission?: Yes Summary: 09/25/2018 patient has history of hypertension and blood pressure today is 109/ 76. Stable hospital stay. - Additional Information Resuscitation Status: Full Code Discharge Diet: Cardiac Discharge Activity: Activity As Tolerated Home Medications: Amitriptyline HCl [Elavil 100 mg Tablet] 100 mg PO QHS 09/23/18 Aspirin [Aspirin 81 mg Chewable Tablet] 81 mg PO DAILY 09/23/18 Atorvastatin Calcium [Lipitor 80 mg Tablet] 80 mg PO DAILY 09/23/18 Cholecalciferol (Vitamin D3) [Vitamin D3] 400 unit PO DAILY 09/23/18 Cyanocobalamin (Vitamin B-12) [Vitamin B12] 1,000 mcg PO DAILY 09/23/18 Fenofibrate,Micronized [Fenofibrate] 130 mg PO DAILY 09/23/18 Furosemide [Lasix 20 mg Tablet] 20 mg PO DAILY 09/23/18 Iron 65 mg PO DAILY 09/23/18 Isosorbide Mononitrate [Imdur 30 mg Tablet.er] 30 mg PO DAILY 09/23/18 Meclizine HCl [Motion Sickness Relief] 25 mg PO DAILYP PRN 09/23/18 Metformin HCl [Glucophage 500 mg Tablet] 500 mg PO Q12 09/23/18 Metoprolol Tartrate [Lopressor 25 mg Tablet] 25 mg PO Q12 09/23/18 Omeprazole 20 mg PO BID 09/23/18 Oxycodone HCl/Acetaminophen [Oxycodone-Acetaminophen 10-325] 1 each PO 5XDP PRN 09/23/18 Polyethylene Glycol 3350 [Clearlax] 17 gm PO DAILYP PRN 09/23/18 Primidone [Mysoline 250 mg Tablet] 125 mg PO QID 09/23/18 Sennosides/Docusate Sodium [Stool Softener-Laxative Tablet] 1 each PO DAILYP PRN 09/23/18 Ticagrelor [Brilinta 90 mg Tablet] 90 mg PO Q12 09/23/18 Tizanidine HCl [Zanaflex 4 mg Tablet] 4 mg PO TIDP PRN 09/23/18 Topiramate [Topamax 100 Mg Tablet] 200 mg PO QPM 09/23/18 Topiramate [Topamax 100 mg Tablet] 100 mg PO QAM 09/23/18 History of Present Illness History of Present Illness: RUDDY HAWK is a 48 year old female With history of [place] in 2016 status post stent placement, diabetes mellitus, hypertension, hyperlipidemia, came to the emergency room with chest pain and sternal pain radiating to the left jaw associated with acute shortness of breath. Initial EKG showed did not show any ST elevation. Cardiac enzymes are negative. Chest x-ray was negative. Physical Exam Vital Signs: Temp Pulse Resp BP Pulse Ox 98.0 F 60 16 109/76 99 09/25/18 09:30 09/25/18 09:30 09/25/18 09:30 09/25/18 09:30 09/25/18 09:30 Intake & Output 09/24/18 09/25/18 09/26/18 06:59 06:59 06:59 Intake Total 1419 2964 Balance 1419 2964 Weight 81.3 kg 81.8 kg General appearance: PRESENT: no acute distress Head exam: PRESENT: atraumatic Eye exam: PRESENT: PERRLA Respiratory exam: PRESENT: clear to auscultation juma. ABSENT: rales, rhonchi, wheezes Cardiovascular exam: PRESENT: RRR. ABSENT: diastolic murmur, rubs, systolic murmur GI/Abdominal exam: PRESENT: normal bowel sounds, soft. ABSENT: distended, guarding, mass, organolmegaly, rebound, tenderness Neurological exam: PRESENT: alert, awake, oriented to person, oriented to place , oriented to time, oriented to situation, CN II-XII grossly intact. ABSENT: motor sensory deficit Psychiatric exam: PRESENT: appropriate affect, normal mood. ABSENT: homicidal ideation, suicidal ideation Results Laboratory Results: 09/23/18 05:16 09/23/18 05:16 09/22/18 09/24/18 21:10 06:50 Troponin I < 0.012 < 0.012 Impressions: Chest X-Ray 09/22/18 17:03 IMPRESSION: NO ACUTE RADIOGRAPHIC FINDING IN THE CHEST. Qualifiers - * PATIENT BEING DISCHARGED WITH ANY OF THE FOLLOWING DIAGNOSIS: No VTE patient discharged on overlapping Therapy?: Yes
== END 2018-09-25 11:26 | disposition home or self-care (01) ==
LOC: ER 17:02 → UNDOADMIN 17:50 → EH 17:50 → INTOOBSV 18:04 → EH 18:04 → 3W 20:21
PROVIDERS: ADMIT Internal Medicine; ATTEND Internal Medicine
DX: R07.9 Chest pain, unspecified (principal); I25.10 Atherosclerotic heart disease of native coronary artery without angina pectoris; E11.9 Type 2 diabetes mellitus without complications; I10 Essential (primary) hypertension; E78.5 Hyperlipidemia, unspecified; F31.9 Bipolar disorder, unspecified; I25.2 Old myocardial infarction; R06.02 Shortness of breath; F43.10 Post-traumatic stress disorder, unspecified; Z95.5 Presence of coronary angioplasty implant and graft; Z79.82 Long term (current) use of aspirin; Z79.899 Other long term (current) drug therapy; Z79.84 Long term (current) use of oral hypoglycemic drugs; Z95.0 Presence of cardiac pacemaker; Z82.49 Family history of ischemic heart disease and other diseases of the circulatory system
CPT/HCPCS: 93005; 99285; 36415 ×3; 82553; 82550; 85025; 85027; 80053 ×2; 84484 ×2; 93017; 71045; 78452; 93010; G0378 ×5; A9500; J2785; J3490 ×21; J1630 ×2; J2270; J1650 ×2; J2405; Q9969

== ENCOUNTER 2018-11-14 20:02 | Emergency (ER) | payer BC ==
[2018-11-14] MEDS ORDERED: ASPIRIN 81 MG TABLET, CHEWABLE PO ONE (21:29)
--- NOTE | 2018-11-14 21:54 | ER Document Report ---
ED Medical Screen (RME) - General Chief Complaint: Chest Pain Stated Complaint: CHEST PAIN Time Seen by Provider: 11/14/18 21:50 Primary Care Provider: LUIS EDUARDO HANNA MD [Primary Care Provider] - Follow up as needed Mode of Arrival: Ambulatory Information source: Patient Notes: 48-year-old female presented to ED for complaint of chest pain to the left-sided substernal going down the left arm. She states she was seen here in September and told that she had a negative EKG and then she went to follow-up at [facility] on 06 November and they placed a cardiac stent at that time. She states she started having chest pain again today with shortness of breath and difficulty breathing pain going down the left arm. She states she is very concerned because they stated last time that her EKG was okay and she still needed the stent. She states that the chest pain is getting worse to her central towards the left and down the left arm. Patient is alert and oriented speaking in full sentences respirations are regular and unlabored lungs are clear to auscultation O2 sat is 98%. I have greeted and performed a rapid initial assessment of this patient. A comprehensive ED assessment and evaluation of the patient, analysis of test results and completion of medical decision making process will be conducted by an additional ED providers. TRAVEL OUTSIDE OF THE [place] IN LAST 30 DAYS: No - Related Data Allergies/Adverse Reactions: No Known Allergies Allergy (Verified 09/14/18 02:27) Past Medical History - Past Medical History Cardiac Medical History: Reports: Hx Coronary Artery Disease, Hx Heart Attack - 2016, Hx Hypercholesterolemia, Hx Hypertension Pulmonary Medical History: Reports: Hx Asthma - not sure, Hx Bronchitis, Hx Pneumonia Denies: Hx Tuberculosis Neurological Medical History: Reports: Hx Migraine, Hx Seizures Endocrine Medical History: Reports: Hx Diabetes Mellitus Type 2 Renal/ Medical History: Denies: Hx Peritoneal Dialysis GI Medical History: Reports: Hx Gastroesophageal Reflux Disease Musculoskeltal Medical History: Reports Hx Arthritis, Reports Hx Musculoskeletal Deformity Psychiatric Medical History: Reports: Hx Anxiety, Hx Bipolar Disorder, Hx Depression, Hx Post Traumatic Stress Disorder Past Surgical History: Reports: Hx Cardiac Catheterization - with stents, Hx Gynecologic Surgery - D&C, Hx Pacemaker, Hx Tubal Ligation - Immunizations Immunizations up to date: Yes Hx Diphtheria, Pertussis, Tetanus Vaccination: Yes - unknown History of Influenza Vaccine for 07/2017 - 12/2017 Season: No Physical Exam - Vital signs Vitals: Temp Pulse Resp BP Pulse Ox 98.0 F 89 20 123/87 H 98 11/14/18 20:23 11/14/18 20:23 11/14/18 20:23 11/14/18 20:23 11/14/18 20:23 Course - Vital Signs Vital signs: Temp Pulse Resp BP Pulse Ox 98.0 F 89 20 123/87 H 98 11/14/18 20:23 11/14/18 20:23 11/14/18 20:23 11/14/18 20:23 11/14/18 20:23 Doctor's Discharge - Discharge Referrals: LUIS EDUARDO HANNA MD [Primary Care Provider] - Follow up as needed
[2018-11-14 22:22] LABS: ABSOLUTE BASOPHILS # (AUTO) 0.1 10^3/uL (0.0-0.2); ABSOLUTE EOSINOPHILS # (AUTO) 0.4 10^3/uL (0.0-0.6); ABSOLUTE MONOCYTES (AUTO) 0.4 10^3/uL (0.1-1.4); ABSOLUTE NEUT (AUTO) 4.6 10^3/uL (1.7-8.2); BASOPHILS % (AUTO) 0.9 % (0-2); EOSINOPHILS % (AUTO) 4.5 % (0-6); HEMATOCRIT 34.6 % (36.0-47.0); HEMOGLOBIN 11.8 g/dL (12.0-15.5); LYMPHOCYTES % (AUTO) 35.2 % (13-45); MEAN CORPUSCULAR HEMOGLOBIN 30.1 pg (27.0-33.4); MEAN CORPUSCULAR HGB CONC 34.3 g/dL (32.0-36.0); MEAN CORPUSCULAR VOLUME 88 fl (80-97); MONOCYTES % (AUTO) 5.2 % (3-13); PLATELET COUNT 235 10^3/uL (150-450); RED BLOOD COUNT 3.93 10^6/uL (3.72-5.28); RED CELL DISTRIBUTION WIDTH 15.2 % (11.5-14.0); SEGMENTED NEUTROPHILS % (AUTO) 54.2 % (42-78); TOTAL CELLS COUNTED % (AUTO) 100 %; WHITE BLOOD COUNT 8.6 10^3/uL (4.0-10.5)
[2018-11-14 22:41] LABS: ALANINE AMINOTRANSFERASE 30 U/L (9-52); ALBUMIN 4.3 g/dL (3.5-5.0); ALKALINE PHOSPHATASE 57 U/L (38-126); ANION GAP 10 (5-19); ASPARTATE AMINO TRANSFERASE 36 U/L (14-36); BILIRUBIN,DIRECT 0.2 mg/dL (0.0-0.4); BILIRUBIN,TOTAL 0.2 mg/dL (0.2-1.3); BLOOD UREA NITROGEN 16 mg/dL (7-20); CALCIUM 8.9 mg/dL (8.4-10.2); CARBON DIOXIDE 24 mmol/L (22-30); CHLORIDE 106 mmol/L (98-107); CREATINE KINASE 48 U/L (30-135); GLUCOSE 113 mg/dL (75-110); POTASSIUM 3.6 mmol/L (3.6-5.0); SODIUM 139.6 mmol/L (137-145); TOTAL PROTEIN 7.1 g/dL (6.3-8.2)
--- NOTE | 2018-11-14 22:47 | RADIOLOGY REPORT (SQ) ---
EXAM DESCRIPTION: XR CHEST 1 VIEW COMPLETED DATE/TME: 11/14/2018 21:29 CLINICAL HISTORY: 48 years Female, cp COMPARISON: None. NUMBER OF VIEWS/TECHNIQUE: 1/AP FINDINGS: Adequate lung volume, clear parenchyma, normal cardiac silhouette, and intact bony thorax. IMPRESSION: No acute cardiopulmonary findings.
[2018-11-14 22:53] LABS: CREATINE KINASE MB 0.25 ng/mL (<4.55)
[2018-11-14 22:54] LABS: TROPONIN I < 0.012 ng/mL
[2018-11-14] MEDS ORDERED: NITROGLYCERIN 2% OINTMENT 1 GM PACKET TP ONE (23:15)
--- NOTE | 2018-11-14 23:16 | ER Document Report ---
ED Cardiac - General Chief Complaint: Chest Pain Stated Complaint: CHEST PAIN Time Seen by Provider: 11/14/18 21:50 Primary Care Provider: LUIS EDUARDO HANNA MD [Primary Care Provider] - Follow up as needed Mode of Arrival: Ambulatory Notes: 48-year-old female to emergency department chief complaint of chest pain. Patient is one-week post stent placement by Dr. Duran at [facility]. Patient has another stent as well. First stent was in 2001. Patient states she has centralized chest pain. No shortness of breath. No fever no cough or other issues at this time. Patient states that she actually feels a little bit better at this time. TRAVEL OUTSIDE OF THE [place] IN LAST 30 DAYS: No - HPI Patient complains to provider of: Chest pain, Chest tightness Is the pain a: Chronic problem Quality of pain: Intermittent Severity now: Moderate Severity at worst: Moderate Cardiac risk factors: Hx MS Positive cardiac history: Yes Associated symptoms: None - Related Data Allergies/Adverse Reactions: No Known Allergies Allergy (Verified 09/14/18 02:27) Past Medical History - General Information source: Patient - Social History Smoking Status: Former Smoker Chew tobacco use (# tins/day): No Drug Abuse: None Family History: Reviewed & Not Pertinent, Arthritis, CAD, CVA, DM, Hyperlipidemia, Hypertension, Malignancy Patient has suicidal ideation: No Patient has homicidal ideation: No - Past Medical History Cardiac Medical History: Reports: Hx Coronary Artery Disease, Hx Heart Attack - 2016, Hx Hypercholesterolemia, Hx Hypertension Pulmonary Medical History: Reports: Hx Asthma - not sure, Hx Bronchitis, Hx Pneumonia Denies: Hx Tuberculosis Neurological Medical History: Reports: Hx Migraine, Hx Seizures Endocrine Medical History: Reports: Hx Diabetes Mellitus Type 2 Renal/ Medical History: Denies: Hx Peritoneal Dialysis GI Medical History: Reports: Hx Gastroesophageal Reflux Disease Musculoskeletal Medical History: Reports Hx Arthritis, Reports Hx Muscul oskeletal Deformity Psychiatric Medical History: Reports: Hx Anxiety, Hx Bipolar Disorder, Hx Depression, Hx Post Traumatic Stress Disorder Past Surgical History: Reports: Hx Cardiac Catheterization - with stents, Hx Gynecologic Surgery - D&C, Hx Pacemaker, Hx Tubal Ligation - Immunizations Immunizations up to date: Yes Hx Diphtheria, Pertussis, Tetanus Vaccination: Yes - unknown Hx Pneumococcal Vaccination: 12/17/11 Review of Systems - Review of Systems Notes: Constitutional: denies: Chills, Diaphoresis, Fever, Malaise, Weakness EENT: denies: Eye discharge, Blurred vision, Tearing, Double vision, Nose congestion, Nose discharge, Throat swelling, Mouth pain Cardiovascular: denies: Palpitations, Heart racing, Orthopnea, Dyspnea, +Chest pain Respiratory: denies: Cough, Hurts to breathe, Wheezing, Shortness of breath Gastrointestinal: denies: Abdominal pain, Diarrhea, Nausea, Vomiting, Black stools, bright red blood in stool Genitourinary: denies: Burning, Dysuria, Discharge, Frequency, Flank pain, Hematuria Musculoskeletal: denies: Joint pain, Joint swelling, Muscle pain, Muscle stiffness, back pain Hematologic/Lymphatic: denies: Anemia, Easy bleeding, Easy bruising, Blood clots Neurological/Psychological: denies: Confusion, Dementia, Depression, Loss of consciousness Skin: No lesions, no masses, no skin breakdown, no abscesses Physical Exam - Vital signs Vitals: Temp Pulse Resp BP Pulse Ox 98.0 F 89 20 123/87 H 98 11/14/18 20:23 11/14/18 20:23 11/14/18 20:23 11/14/18 20:23 11/14/18 20:23 Interpretation: Normal - General General appearance: Appears well, Alert - HEENT Head: Normocephalic, Atraumatic Eyes: Normal Pupils: PERRL - Respiratory Respiratory status: No respiratory distress Chest status: Nontender Breath sounds: Normal Chest palpation: Normal - Cardiovascular Rhythm: Regular Heart sounds: Normal auscultation Murmur: No - Abdominal Inspection: Normal Distension: No distension Bowel sounds: Normal Tenderness: Nontender Organomegaly: No organomegaly - Back Back: Normal, Nontender - Extremities General upper extremity: Normal inspection, Nontender, Normal color, Normal ROM, Normal temperature General lower extremity: Normal inspection, Nontender, Normal color, Normal ROM, Normal temperature, Normal weight bearing. No: Pranav's sign - Neurological Neuro grossly intact: Yes Cognition: Normal Orientation: AAOx4 [place] Coma Scale Eye Opening: Spontaneous [place] Coma Scale Verbal: Oriented [place] Coma Scale Motor: Obeys Commands [place] Coma Scale Total: 15 Speech: Normal Motor strength normal: LUE, RUE, LLE, RLE Sensory: Normal - Psychological Associated symptoms: Normal affect, Normal mood - Skin Skin Temperature: Warm Skin Moisture: Dry Skin Color: Normal Course - Re-evaluation Re-evalutation: 11/15/18 02:15 Patient has 2 sets of cardiac labs which are 4 hours apart which were normal with a normal EKG. Had a recent cardiac catheterization done within the last week. I find no convincing evidence that there is any kind of stent occlusion or failure. Patient is followed by quality review trainer. I do not believe this chest pain represents cardiac. I review of the records also reveals that she has had stress test which were negative. I will discharge at this time in stable co ndition. - Vital Signs Vital signs: Temp Pulse Resp BP Pulse Ox 98.0 F 89 16 116/83 96 11/14/18 20:23 11/14/18 20:23 11/15/18 02:00 11/15/18 02:00 11/15/18 02:00 - Laboratory Result Diagrams: 11/14/18 22:19 11/14/18 22:19 Laboratory results interpreted by me: 11/14/18 11/14/18 22:19 22:19 Hgb 11.8 L Hct 34.6 L RDW 15.2 H Glucose 113 H - EKG Interpretation by Ga EKG shows normal: Sinus rhythm, [place], Intervals, QRS Complexes, ST-T Waves Discharge - Discharge Clinical Impression: Angina at rest Condition: Good Disposition: HOME, SELF-CARE Instructions: Angina Episode ([facility]), Nitrates ([facility]) Additional Instructions: Follow-up with your quality review trainer. Everything looked fine today. There is no evidence that you are having a heart attack. In the event you have worsening symptoms, feel free to return Referrals: LUIS EDUARDO HANNA MD [Primary Care Provider] - Follow up as needed
[2018-11-14] MEDS ORDERED: OXYCODONE-ACETAMINOPHEN 5-325 MG TABLET PO ONE (23:57)
[2018-11-15 02:08] VITALS: BP 116/83
--- NOTE | 2018-11-15 07:48 | EKG REPORT ---
SEVERITY:- ABNORMAL ECG - SINUS RHYTHM PROBABLE INFERIOR INFARCT, AGE INDETERMINATE BORDERLINE R WAVE PROGRESSION, ANTERIOR LEADS LATERAL LEADS ARE ALSO INVOLVED : Confirmed by: Burak Dickens MD 15-Nov-2018 07:47:23
== END 2018-11-15 02:29 | disposition home or self-care (01) ==
LOC: ER 20:02
DX: I20.9 Angina pectoris, unspecified (principal); R07.9 Chest pain, unspecified; E78.00 Pure hypercholesterolemia, unspecified; I10 Essential (primary) hypertension; E11.9 Type 2 diabetes mellitus without complications; Z98.51 Tubal ligation status; Z95.0 Presence of cardiac pacemaker; I25.2 Old myocardial infarction
CPT/HCPCS: 36415; 71045; 80053; 82550; 82553; 84484; 85025; 93005; 93010; 99284

== ENCOUNTER 2018-12-18 18:53 | Emergency (ER) | payer BC ==
[2018-12-18] MEDS ORDERED: ASPIRIN 81 MG TABLET, CHEWABLE PO ONE (21:17)
--- NOTE | 2018-12-18 21:20 | ER Document Report ---
ED Medical Screen (RME) - General Chief Complaint: Chest Pain Stated Complaint: CHEST PAIN Time Seen by Provider: 12/18/18 21:17 Primary Care Provider: LUIS EDUARDO HANNA MD [Primary Care Provider] - Follow up as needed Notes: Patient is a 48-year-old female well-known to this emergency department for generalized chest pain. Patient does have extensive cardiac history with stent placements by drum maker in [place] Dr. Duran. Patient states around 1700 hrs. this evening she developed chest pain in the center of her chest intermittent radiating to the left arm. Patient states she did take 3 of her at home nitro which has eased to the pain. Patient's denying take any aspirin. Patient is denying shortness of breath, diaphoresis. States "my back is also hurting." Patient does have chronic back pain seen by pain management on oxycodone for lower back pain. Patient stating back pain is nothing abnormal. GENERAL: Alert, interacts well. No acute distress. LUNGS: Clear to auscultation bilaterally, no wheezes, rales, or rhonchi. No respiratory distress. HEART: Regular rate and rhythm. No murmur SKIN: Warm, dry, normal turgor. No rashes or lesions noted. I have greeted and performed a rapid initial assessment of this patient. A comprehensive ED assessment and evaluation of the patient, analysis of test results and completion of the medical decision making process will be conducted by additional ED providers. TRAVEL OUTSIDE OF THE [place] IN LAST 30 DAYS: No - Related Data Allergies/Adverse Reactions: No Known Allergies Allergy (Verified 09/14/18 02:27) Past Medical History - Past Medical History Cardiac Medical History: Reports: Hx Coronary Artery Disease, Hx Heart Attack - 2016, Hx Hypercholesterolemia, Hx Hypertension Pulmonary Medical History: Reports: Hx Asthma - not sure, Hx Bronchitis, Hx Pneumonia Denies: Hx Tuberculosis Neurological Medical History: Reports: Hx Migraine, Hx Seizures Endocrine Medical History: Reports: Hx Diabetes Mellitus Type 2 Renal/ Medical History: Denies: Hx Peritoneal Dialysis GI Medical History: Reports: Hx Gastroesophageal Reflux Disease Musculoskeltal Medical History: Reports Hx Arthritis, Reports Hx Musculoskeletal Deformity Psychiatric Medical History: Reports: Hx Anxiety, Hx Bipolar Disorder, Hx Depression, Hx Post Traumatic Stress Disorder Past Surgical History: Reports: Hx Cardiac Catheterization - with stents, Hx Gynecologic Surgery - D&C, Hx Pacemaker, Hx Tubal Ligation - Immunizations Immunizations up to date: Yes Hx Diphtheria, Pertussis, Tetanus Vaccination: Yes - unknown History of Influenza Vaccine for 07/2017 - 12/2017 Season: No Physical Exam - Vital signs Vitals: Temp Pulse Resp BP Pulse Ox 98 F 88 24 H 130/89 H 99 12/18/18 19:14 12/18/18 19:14 12/18/18 19:14 12/18/18 19:14 12/18/18 19:14 Course - Vital Signs Vital signs: Temp Pulse Resp BP Pulse Ox 98 F 88 24 H 130/89 H 99 12/18/18 19:14 12/18/18 19:14 12/18/18 19:14 12/18/18 19:14 12/18/18 19:14 Doctor's Discharge - Discharge Referrals: LUIS EDUARDO HANNA MD [Primary Care Provider] - Follow up as needed
--- NOTE | 2018-12-18 21:56 | RADIOLOGY REPORT (SQ) ---
EXAM DESCRIPTION: XR CHEST 1 VIEW COMPLETED DATE/TME: 12/18/2018 21:17 EXAM DESCRIPTION: CLINICAL HISTORY: CP COMPARISON: November 14, 2018 FINDINGS: Cardiac silhouette is within normal limits. There is no focal parenchymal or pleural disease. There is no acute osseous process visualized. IMPRESSION: No evidence of acute cardiopulmonary disease.
[2018-12-18 22:31] LABS: ABSOLUTE BASOPHILS # (AUTO) 0.1 10^3/uL (0.0-0.2); ABSOLUTE EOSINOPHILS # (AUTO) 0.3 10^3/uL (0.0-0.6); ABSOLUTE LYMPHOCYTES (AUTO) 2.5 10^3/uL (0.5-4.7); ABSOLUTE MONOCYTES (AUTO) 0.3 10^3/uL (0.1-1.4); ABSOLUTE NEUT (AUTO) 3.3 10^3/uL (1.7-8.2); BASOPHILS % (AUTO) 1.2 % (0-2); EOSINOPHILS % (AUTO) 4.4 % (0-6); HEMATOCRIT 36.6 % (36.0-47.0); HEMOGLOBIN 12.4 g/dL (12.0-15.5); LYMPHOCYTES % (AUTO) 38.9 % (13-45); MEAN CORPUSCULAR HEMOGLOBIN 29.9 pg (27.0-33.4); MEAN CORPUSCULAR HGB CONC 33.8 g/dL (32.0-36.0); MEAN CORPUSCULAR VOLUME 88 fl (80-97); PLATELET COUNT 227 10^3/uL (150-450); RED BLOOD COUNT 4.15 10^6/uL (3.72-5.28); RED CELL DISTRIBUTION WIDTH 15.5 % (11.5-14.0); SEGMENTED NEUTROPHILS % (AUTO) 50.5 % (42-78); TOTAL CELLS COUNTED % (AUTO) 100 %; WHITE BLOOD COUNT 6.5 10^3/uL (4.0-10.5)
[2018-12-18 22:44] LABS: INTERNATIONAL RATION (INR) 0.89; PROTHROMBIN TIME 12.5 SEC (11.4-15.4)
[2018-12-18 22:50] LABS: ALANINE AMINOTRANSFERASE 47 U/L (9-52); ALBUMIN 4.5 g/dL (3.5-5.0); ALKALINE PHOSPHATASE 72 U/L (38-126); ANION GAP 13 (5-19); ASPARTATE AMINO TRANSFERASE 74 U/L (14-36); BILIRUBIN,DIRECT 0.3 mg/dL (0.0-0.4); BILIRUBIN,TOTAL 0.3 mg/dL (0.2-1.3); BLOOD UREA NITROGEN 11 mg/dL (7-20); CALCIUM 10.2 mg/dL (8.4-10.2); CARBON DIOXIDE 24 mmol/L (22-30); CHLORIDE 106 mmol/L (98-107); CREATINE KINASE 108 U/L (30-135); GLUCOSE 85 mg/dL (75-110); POTASSIUM 3.8 mmol/L (3.6-5.0); SODIUM 142.8 mmol/L (137-145); TOTAL PROTEIN 7.7 g/dL (6.3-8.2)
[2018-12-18 23:02] LABS: CREATINE KINASE MB 1.58 ng/mL (<4.55)
[2018-12-18 23:09] LABS: TROPONIN I < 0.012 ng/mL
--- NOTE | 2018-12-18 23:52 | ER Document Report ---
ED Cardiac - General Chief Complaint: Chest Pain Stated Complaint: CHEST PAIN Time Seen by Provider: 12/18/18 21:17 Primary Care Provider: LUIS EDUARDO HANNA MD [Primary Care Provider] - Follow up as needed Notes: Patient is a 48-year-old female well-known to this emergency department for generalized chest pain. Patient does have extensive cardiac history with stent placements by casino duty manager in [place] Dr. Duran. Patient states around 1700 hrs. this evening she developed chest pain in the center of her chest int ermittent radiating to the left arm. Patient states she did take 3 of her at home nitro which has eased to the pain. Patient's denying take any aspirin. Patient is denying shortness of breath, diaphoresis. States "my back is also hurting." Patient does have chronic back pain seen by pain management on oxycodone for lower back pain. Patient stating back pain is nothing abnormal. TRAVEL OUTSIDE OF THE [place] IN LAST 30 DAYS: No - Related Data Allergies/Adverse Reactions: No Known Allergies Allergy (Verified 09/14/18 02:27) Past Medical History - General Information source: Patient - Social History Smoking Status: Former Smoker Family History: Reviewed & Not Pertinent, Arthritis, CAD, CVA, DM, Hyperlipidemia, Hypertension, Malignancy Patient has suicidal ideation: No Patient has homicidal ideation: No - Past Medical History Cardiac Medical History: Reports: Hx Coronary Artery Disease, Hx Heart Attack - 2016, Hx Hypercholesterolemia, Hx Hypertension Pulmonary Medical History: Reports: Hx Asthma - not sure, Hx Bronchitis, Hx Pneumonia Denies: Hx Tuberculosis Neurological Medical History: Reports: Hx Migraine, Hx Seizures Endocrine Medical History: Reports: Hx Diabetes Mellitus Type 2 Renal/ Medical History: Denies: Hx Peritoneal Dialysis GI Medical History: Reports: Hx Gastroesophageal Reflux Disease Musculoskeletal Medical History: Reports Hx Arthritis, Reports Hx Musculoskeletal Deformity Psychiatric Medical History: Reports: Hx Anxiety, Hx Bipolar Disorder, Hx Depression, Hx Post Traumatic Stress Disorder Past Surgical History: Reports: Hx Cardiac Catheterization - with stents, Hx Gynecologic Surgery - D&C, Hx Pacemaker, Hx Tubal Ligation - Immunizations Immunizations up to date: Yes Hx Diphtheria, Pertussis, Tetanus Vaccination: Yes - unknown Hx Pneumococcal Vaccination: 12/17/11 Review of Systems - Review of Systems Constitutional: No symptoms reported EENT: No symptoms reported Cardiovascular: See HPI Respiratory: No symptoms reported Gastrointestinal: No symptoms reported Genitourinary: No symptoms reported Female Genitourinary: No symptoms reported Musculoskeletal: See HPI Skin: No symptoms reported Hematologic/Lymphatic: No symptoms reported Neurological/Psychological: No symptoms reported Physical Exam - Vital signs Vitals: Temp Pulse Resp BP Pulse Ox 98 F 88 24 H 130/89 H 99 12/18/18 19:14 12/18/18 19:14 12/18/18 19:14 12/18/18 19:14 12/18/18 19:14 - Notes Notes: GENERAL: Alert, interacts well. No acute distress. HEAD: Normocephalic, atraumatic. EYES: Pupils equal, round, and reactive to light. Extraocular movements intact. ENT: Oral mucosa moist, tongue midline. NECK: Full range of motion. Supple. Trachea midline. LUNGS: Clear to auscultation bilaterally, no wheezes, rales, or rhonchi. No respiratory distress. HEART: Regular rate and rhythm. No murmur ABDOMEN: Soft, non-tender. Non-distended. Bowel sounds present in all 4 quadrants. EXTREMITIES: Moves all 4 extremities spontaneously. No edema, normal radial and dorsalis pedis pulses bilaterally. No cyanosis. BACK: no cervical, thoracic, lumbar midline tenderness. No saddle anesthesia, normal distal neurovascular exam. NEUROLOGICAL: Alert and oriented x3. Normal speech. PSYCH: Normal affect, normal mood. SKIN: Warm, dry, normal turgor. No rashes or lesions noted. Course - Re-evaluation Re-evalutation: Patient has been to this facility multiple times. In past reports it appears that patient did have a cardiac catheterization with stent placed in the middle of October of this year. Discussed this results with my attending Dr. Mixon who suggests reaching out to the patient's casino duty manager Dr. Duran. 12/18/18 23:[address] Duran at [facility], waiting for return phone call. 12/19/18 00:[address] Duran's office, awaiting return phone call. 12/19/18 00:22 Spoke with Myriam ANDRES who was oncall for Dr. Duran who reviewed the Pts charts and noted that she was seen in the office on 11/29/2018 for generalized chest pain. Was referred to pulmonology on 12/10/2018 she did see [employer] boat crewman's placed on doxycycline for bronchitis and sent for outpatient pulmonary function testing. She is recommending a delta troponin. Should that be negative she is confident that the patient can follow-up in their office tomorrow. Repeat troponin ordered for 3 hours after initial. 12/19/18 02:12 Patient's repeat troponin is also negative. Discussed with her that I have spoken with MCKENNA Ramos at Dr. Duran's office and they would like to see her tomorrow. She is agreeable discharge and this follow-up plan. Patient continues without any chest pain or pressure and is stable for discharge. - Vital Signs Vital signs: Temp Pulse Resp BP Pulse Ox 98.4 F 88 21 H 107/72 97 12/19/18 02:15 12/18/18 19:14 12/19/18 01:01 12/19/18 02:00 12/19/18 02:01 - Laboratory Result Diagrams: 12/18/18 21:50 12/18/18 21:50 Laboratory results interpreted by me: 12/18/18 12/18/18 21:50 21:50 RDW 15.5 H AST 74 H Discharge - Discharge Clinical Impression: Chest pain Qualifiers: Chest pain type: unspecified Qualified Code(s): R07.9 - Chest pain, unspecified Condition: Stable Disposition: HOME, SELF-CARE Instructions: Chest Pain of Unclear Cause ([facility]) Additional Instructions: As we discussed you have been seen and treated in the emergency department for your chest pain. I have spoken with a provider that works with your casino duty manager Dr. Duran. They would like to see you in their office tomorrow. They state if you are unable to go to [place] you can follow-up in the [place] office. Please make sure you follow-up with them or return to the emergency room should you develop any other chest pains or any other concerning symptoms. Referrals: LUIS EDUARDO HANNA MD [Primary Care Provider] - Follow up as needed
--- NOTE | 2018-12-19 01:33 | EKG REPORT ---
SEVERITY:- BORDERLINE ECG - SINUS RHYTHM BORDERLINE R WAVE PROGRESSION, ANTERIOR LEADS BORDERLINE T ABNORMALITIES, ANTERIOR LEADS : Confirmed by: Viji Mosher MD 19-Dec-2018 01:31:48
[2018-12-19 02:23] VITALS: BP 107/72
== END 2018-12-19 02:20 | disposition home or self-care (01) ==
LOC: ER 18:53
DX: R07.9 Chest pain, unspecified (principal); I25.10 Atherosclerotic heart disease of native coronary artery without angina pectoris; E78.00 Pure hypercholesterolemia, unspecified; I10 Essential (primary) hypertension; E11.9 Type 2 diabetes mellitus without complications; Z98.51 Tubal ligation status; Z95.0 Presence of cardiac pacemaker; I25.2 Old myocardial infarction
CPT/HCPCS: 36415; 71045; 80053; 82550; 82553; 84484; 85025; 85610; 93005; 93010; 99285

== ENCOUNTER 2019-01-08 23:40 | Emergency (ER) | payer BC ==
[2019-01-09] MEDS ORDERED: RINGERS SOLUTION,LACTATED 1,000 ML IV ONE (01:31)
[2019-01-09 02:37] LABS: ABSOLUTE EOSINOPHILS # (AUTO) 0.3 10^3/uL (0.0-0.6); ABSOLUTE LYMPHOCYTES (AUTO) 2.6 10^3/uL (0.5-4.7); ABSOLUTE MONOCYTES (AUTO) 0.4 10^3/uL (0.1-1.4); ABSOLUTE NEUT (AUTO) 3.1 10^3/uL (1.7-8.2); BASOPHILS % (AUTO) 0.5 % (0-2); EOSINOPHILS % (AUTO) 4.4 % (0-6); HEMATOCRIT 34.7 % (36.0-47.0); HEMOGLOBIN 11.9 g/dL (12.0-15.5); LYMPHOCYTES % (AUTO) 41.1 % (13-45); MEAN CORPUSCULAR HEMOGLOBIN 30.1 pg (27.0-33.4); MEAN CORPUSCULAR HGB CONC 34.5 g/dL (32.0-36.0); MEAN CORPUSCULAR VOLUME 87 fl (80-97); MONOCYTES % (AUTO) 6.3 % (3-13); PLATELET COUNT 207 10^3/uL (150-450); RED BLOOD COUNT 3.97 10^6/uL (3.72-5.28); SEGMENTED NEUTROPHILS % (AUTO) 47.7 % (42-78); TOTAL CELLS COUNTED % (AUTO) 100 %; WHITE BLOOD COUNT 6.4 10^3/uL (4.0-10.5)
[2019-01-09 03:00] LABS: A TYPE INFLUENZA AG NEGATIVE (NEGATIVE); B INFLUENZA AG NEGATIVE (NEGATIVE)
[2019-01-09 03:21] LABS: ALANINE AMINOTRANSFERASE 33 U/L (9-52); ALBUMIN 3.5 g/dL (3.5-5.0); ALKALINE PHOSPHATASE 47 U/L (38-126); ANION GAP 8 (5-19); ASPARTATE AMINO TRANSFERASE 41 U/L (14-36); BILIRUBIN,DIRECT 0.2 mg/dL (0.0-0.4); BILIRUBIN,TOTAL 0.2 mg/dL (0.2-1.3); BLOOD UREA NITROGEN 12 mg/dL (7-20); CALCIUM 9.5 mg/dL (8.4-10.2); CARBON DIOXIDE 27 mmol/L (22-30); CHLORIDE 105 mmol/L (98-107); GLUCOSE 104 mg/dL (75-110); POTASSIUM 3.6 mmol/L (3.6-5.0); SODIUM 139.9 mmol/L (137-145); TOTAL PROTEIN 6.1 g/dL (6.3-8.2)
--- NOTE | 2019-01-09 03:35 | RADIOLOGY REPORT (SQ) ---
EXAM DESCRIPTION: XR CHEST 2 VIEWS COMPLETED DATE/TME: 01/09/2019 01:30 CLINICAL HISTORY: 48 years Female, sob COMPARISON:12/18/2018 NUMBER OF VIEWS/TECHNIQUE: 2, Frontal, Lateral FINDINGS: Adequate lung volume, clear parenchyma, normal cardiac silhouette, and intact bony thorax. IMPRESSION: No acute cardiopulmonary findings.
--- NOTE | 2019-01-09 04:57 | ER Document Report ---
ED General - General Chief Complaint: Chest Congestion Stated Complaint: COUGH,CHEST DISCOMFORT,SHOULDER PAIN Time Seen by Provider: 01/09/19 01:29 Primary Care Provider: LUIS EDUARDO HANNA MD [Primary Care Provider] - Follow up as needed Notes: Patient is a 48-year-old female presents to the emergency department for gener alized cough, congestion, subjective fever for the last 48 hours. Patient states intermittently when she has a deep cough she feels as though her mucus is blood-tinged. Patient states she has generalized chest pain when she takes a deep breath or coughs. Past medical history: Coronary artery disease, hypertension, GERD, diabetes, hyperlipidemia Medications: Zanaflex, oxycodone, primidone, amitriptyline, isosorbide, omeprazole, Topamax, fenofibrate Allergies: None TRAVEL OUTSIDE OF THE [place] IN LAST 30 DAYS: No - Related Data Allergies/Adverse Reactions: No Known Allergies Allergy (Verified 09/14/18 02:27) Past Medical History - General Information source: Patient - Social History Smoking Status: Current Every Day Smoker Family History: Reviewed & Not Pertinent, Arthritis, CAD, CVA, DM, Hyperlipidemia, Hypertension, Malignancy Patient has suicidal ideation: No Patient has homicidal ideation: No - Past Medical History Cardiac Medical History: Reports: Hx Coronary Artery Disease, Hx Heart Attack - 2016, Hx Hypercholesterolemia, Hx Hypertension Pulmonary Medical History: Reports: Hx Asthma - not sure, Hx Bronchitis, Hx Pneumonia Denies: Hx Tuberculosis Neurological Medical History: Reports: Hx Migraine, Hx Seizures Endocrine Medical History: Reports: Hx Diabetes Mellitus Type 2 Renal/ Medical History: Denies: Hx Peritoneal Dialysis GI Medical History: Reports: Hx Gastroesophageal Reflux Disease Musculoskeletal Medical History: Reports Hx Arthritis, Reports Hx Musculoskeletal Deformity Psychiatric Medical History: Reports: Hx Anxiety, Hx Bipolar Disorder, Hx Depression, Hx Post Traumatic Stress Disorder Past Surgical History: Reports: Hx Cardiac Catheterization - with stents, Hx G ynecologic Surgery - D&C, Hx Pacemaker, Hx Tubal Ligation - Immunizations Immunizations up to date: Yes Hx Diphtheria, Pertussis, Tetanus Vaccination: Yes - unknown Hx Pneumococcal Vaccination: 12/17/11 Review of Systems - Review of Systems Constitutional: See HPI EENT: See HPI Cardiovascular: See HPI Respiratory: See HPI Gastrointestinal: No symptoms reported Genitourinary: No symptoms reported Female Genitourinary: No symptoms reported Musculoskeletal: No symptoms reported Skin: No symptoms reported Hematologic/Lymphatic: No symptoms reported Neurological/Psychological: No symptoms reported Physical Exam - Vital signs Vitals: Temp Pulse Resp BP Pulse Ox 98.1 F 95 16 106/80 95 01/08/19 23:49 01/08/19 23:49 01/08/19 23:49 01/08/19 23:49 01/08/19 23:49 - Notes Notes: GENERAL: Alert, interacts well. No acute distress. HEAD: Normocephalic, atraumatic. No frontal or maxillary sinus tenderness noted EYES: Pupils equal, round, and reactive to light. Extraocular movements intact. ENT: Oral mucosa moist, tongue midline. Nares patent, TM's intact, non erythematous, nonbulging bilaterally. Pharynx within normal limits no palatal petechiae or exudate noted. NECK: Full range of motion. Supple. Trachea midline. No lymphadenopathy appreciated LUNGS: Clear to auscultation bilaterally, no wheezes, rales, or rhonchi. No respiratory distress. HEART: Regular rate and rhythm. No murmur Chest: No crepitus felt, no erythema or ecchymosis noted anterior posterior chest wall. ABDOMEN: Soft, non-tender. Non-distended. Bowel sounds present in all 4 quadrant s. EXTREMITIES: Moves all 4 extremities spontaneously. No edema, normal radial and dorsalis pedis pulses bilaterally. No cyanosis. BACK: no cervical, thoracic, lumbar midline tenderness. No saddle anesthesia, normal distal neurovascular exam. NEUROLOGICAL: Alert and oriented x3. Normal speech. cranial nerves II through XII grossly intact. PSYCH: Normal affect, normal mood. SKIN: Warm, dry, normal turgor. No rashes or lesions noted. Course - Re-evaluation Re-evalutation: 01/09/19 04:54 Patient's labs reveal no signs of leukocytosis, no signs of electrolyte abnormalities, patient's influenza testing was negative, chest x-ray also negative for pneumonia, pneumothorax, rib fracture. Patient's lung sounds are clear and equal in all caban. Discussed likely diagnosis of upper respiratory infection and potential bronchitis. Discussed supportive treatments at home and close follow-up with her primary care provider and return precautions. Patient stable for discharge. - Vital Signs Vital signs: Temp Pulse Resp BP Pulse Ox 98.1 F 95 16 118/85 96 01/08/19 23:49 01/08/19 23:49 01/08/19 23:49 01/09/19 04:03 01/09/19 04:03 - Laboratory Result Diagrams: 01/09/19 02:28 01/09/19 02:57 Laboratory results interpreted by me: 01/09/19 01/09/19 02:28 02:57 Hgb 11.9 L Hct 34.7 L RDW 15.0 H AST 41 H Total Protein 6.1 L Discharge - Discharge Clinical Impression: Upper respiratory infection Qualifiers: URI type: unspecified viral URI Qualified Code(s): J06.9 - Acute upper respiratory infection, unspecified Condition: Stable Disposition: HOME, SELF-CARE Instructions: Upper Respiratory Illness ([facility]), Viral Syndrome ([facility]) Additional Instructions: As we discussed you have been seen and treated in the emergency department for an upper respiratory infection. Unfortunately these are caused by viruses and do not respond to antibiotics. Please make sure you are taking [id number] Tylenol Motrin for generalized body aches and fevers. Please take Coricidin HBP. This is a medication that is safe with your hypertension history. Please use nasal sprays as prescribed and stay well-hydrated. Please follow-up with your primary care provider in the next 24-48 hours. Please return to the emergency room should you have any other concerning symptoms. Prescriptions: Mometasone Furoate [Nasonex] 1 spray NS Q12 #1 spray.pump Referrals: LUIS EDUARDO HANNA MD [Primary Care Provider] - Follow up as needed
[2019-01-09 05:12] VITALS: BP 119/88
== END 2019-01-09 05:10 | disposition home or self-care (01) ==
LOC: ER 23:40
DX: J06.9 Acute upper respiratory infection, unspecified (principal); R09.89 Other specified symptoms and signs involving the circulatory and respiratory systems; I10 Essential (primary) hypertension; K21.9 Gastro-esophageal reflux disease without esophagitis; F17.200 Nicotine dependence, unspecified, uncomplicated; E78.00 Pure hypercholesterolemia, unspecified; E11.9 Type 2 diabetes mellitus without complications; Z98.51 Tubal ligation status; Z95.0 Presence of cardiac pacemaker; I25.2 Old myocardial infarction
CPT/HCPCS: 99283; 36415; 85025; 80053; 87804; 71046; J7120

== ENCOUNTER 2019-06-08 23:27 | Emergency (ER) | payer BC ==
--- NOTE | 2019-06-09 02:24 | ER Document Report ---
ED Cardiac - General Chief Complaint: Chest Pain Stated Complaint: CHEST PAIN Time Seen by Provider: 06/09/19 02:05 Primary Care Provider: LUIS EDUARDO HANNA MD [Primary Care Provider] - Follow up as needed Notes: Patient is a 49-year-old female that comes emergency department for chief complaint of chest pain. She states pain is in the left mid to upper part of her chest, she states that she has felt this intermittently for a while but tonight 3 hours prior to arrival she started having more noticeable pain in the area. Pain does come and go. She denies shortness of breath, nausea or vomiting, fever/chills. She states she did slip in the shower but she states he did not hit her head/back/chest, she landed on her buttocks. Patient follows with roadway technician Dr. Duran in [place], states she had a negative stress test in September but then a cardiac catheterization with stent in October. She has 2 stents. Patient came by EMS, she was given 324 mg of aspirin, patient took 1 sublingual nitroglycerin at home and that she is reporting to be chest pain- free. TRAVEL OUTSIDE OF THE [place] IN LAST 30 DAYS: No - Related Data Allergies/Adverse Reactions: No Known Allergies Allergy (Verified 09/14/18 02:27) Past Medical History - General Information source: Patient - Social History Smoking Status: Never Smoker Frequency of alcohol use: None Drug Abuse: None Lives with: Family Family History: Reviewed & Not Pertinent, Arthritis, CAD, CVA, DM, Hyperlipidemia, Hypertension, Malignancy - Past Medical History Cardiac Medical History: Reports: Hx Coronary Artery Disease, Hx Heart Attack - 2016, Hx Hypercholesterolemia, Hx Hypertension Pulmonary Medical History: Reports: Hx Asthma - not sure, Hx Bronchitis, Hx Pneumonia Denies: Hx Tuberculosis Neurological Medical History: Reports: Hx Migraine, Hx Seizures Endocrine Medical History: Reports: Hx Diabetes Mellitus Type 2 Renal/ Medical History: Denies: Hx Peritoneal Dialysis GI Medical History: Reports: Hx Gastroesophageal Reflux Disease Musculoskeletal Medical History: Reports Hx Arthritis, Reports Hx Musculoskeletal Deformity Psychiatric Medical History: Reports: Hx Anxiety, Hx Bipolar Disorder, Hx Depression, Hx Post Traumatic Stress Disorder Past Surgical History: Reports: Hx Cardiac Catheterization - with stents, Hx Gynecologic Surgery - D&C, Hx Pacemaker, Hx Tubal Ligation - Immunizations Immunizations up to date: Yes Hx Diphtheria, Pertussis, Tetanus Vaccination: Yes - unknown Hx Pneumococcal Vaccination: 12/17/11 Review of Systems - Review of Systems Constitutional: No symptoms reported EENT: No symptoms reported Cardiovascular: See HPI Respiratory: No symptoms reported Gastrointestinal: No symptoms reported Genitourinary: No symptoms reported Female Genitourinary: No symptoms reported Musculoskeletal: No symptoms reported Skin: No symptoms reported Hematologic/Lymphatic: No symptoms reported Neurological/Psychological: No symptoms reported Physical Exam - Vital signs Vitals: Temp Pulse Resp BP Pulse Ox 98.1 F 64 14 134/85 H 98 06/08/19 23:30 06/08/19 23:30 06/08/19 23:30 06/08/19 23:30 06/08/19 23:30 - Notes Notes: GENERAL: Alert, interacts well. No acute distress. HEAD: Normocephalic, atraumatic. EYES: Pupils equal, round, and reactive to light. Extraocular movements intact. ENT: Oral mucosa moist, tongue midline. Oropharynx unremarkable. Airway patent. NECK: Full range of motion. Supple. Trachea midline. LUNGS: Clear to auscultation bilaterally, no wheezes, rales, or rhonchi. No respiratory distress. HEART: Regular rate and rhythm. No murmur ABDOMEN: Soft, non-tender. Non-distended. EXTREMITIES: Moves all 4 extremities spontaneously. No edema, normal radial and dorsalis pedis pulses bilaterally. No cyanosis. BACK: no cervical, thoracic, lumbar midline tenderness. No saddle anesthesia, normal distal neurovascular exam. NEUROLOGICAL: Alert and oriented x3. Normal speech. Cranial nerves II through XII grossly intact. PSYCH: Normal affect, normal mood. SKIN: Warm, dry, normal turgor. No rashes or lesions noted. Course - Re-evaluation Re-evalutation: Patient tells me she has been having this pain along time. She states she can never tell if it is some other chest pain, heart pain, or heart damage. She states she wants to check this out to be sure. She does have a long medical history including cardiac stents. However she has also had a cardiac catheterization and stent performed earlier this year. Symptoms come and go randomly. Patient does not have chest pain on my evaluation. Patient speaks with a strange sluggish pattern. Alcohol is negative. Apparently this is chronic. CBC, chemistry unremarkable. Initial troponin negative. EKG without any ischemic changes. Chest x-ray unremarkable. Reevaluated patient. Patient states she does not have pain now but she did have a twinge of pain since I last saw her. This was short-lived and resolved. She request something for pain in case it comes back. She was provided with this. I had a long discussion with patient about options. Patient states that she saw her roadway technician within the past week and they told her they wanted to schedule a stress test for her based on the symptoms she was having because of her long cardiac history. She states that she is supposed to be calling them tomorrow. Second troponin will be performed, afterwards because symptoms have been going on for a while and she has had recent catheterization, recent evaluation, unchanged symptoms from prior when she saw cardiology and they are ready plan to do a stress test, she will be discharged to follow-up with her stress test. Patient states understanding and agreement with this plan. - Vital Signs Vital signs: Temp Pulse Resp BP Pulse Ox 98.1 F 64 14 134/85 H 98 06/08/19 23:30 06/08/19 23:30 06/08/19 23:30 06/08/19 23:30 06/08/19 23:30 - Laboratory Result Diagrams: 06/09/19 02:48 06/09/19 02:48 Laboratory results interpreted by me: 06/09/19 06/09/19 02:48 02:48 RBC 3.71 L Hgb 11.6 L Hct 34.8 L RDW 17.1 H Sodium 136.9 L AST 54 H - EKG Interpretation by Me Additional EKG results interpreted by me: EKG shows sinus rhythm at a rate of 66, QTC of 432, normal axis, no T wave inversions or ST segment changes in consecutive leads. Borderline flattened T waves inferiorly but no significant change from prior. Discharge - Discharge Clinical Impression: Chest pain of uncertain etiology Condition: Stable Disposition: HOME, SELF-CARE Additional Instructions: Call your roadway technician tomorrow and follow-up with your planned stress test. Return for any concerning symptoms including passing out, difficulty breathing, return your severe symptoms, or something is not right. Referrals: LUIS EDUARDO HANNA MD [Primary Care Provider] - Follow up as needed
[2019-06-09 03:00] LABS: ABSOLUTE EOSINOPHILS # (AUTO) 0.3 10^3/uL (0.0-0.6); ABSOLUTE LYMPHOCYTES (AUTO) 2.4 10^3/uL (0.5-4.7); ABSOLUTE MONOCYTES (AUTO) 0.4 10^3/uL (0.1-1.4); BASOPHILS % (AUTO) 0.7 % (0-2); EOSINOPHILS % (AUTO) 5.1 % (0-6); HEMATOCRIT 34.8 % (36.0-47.0); HEMOGLOBIN 11.6 g/dL (12.0-15.5); LYMPHOCYTES % (AUTO) 38.3 % (13-45); MEAN CORPUSCULAR HEMOGLOBIN 31.3 pg (27.0-33.4); MEAN CORPUSCULAR HGB CONC 33.4 g/dL (32.0-36.0); MEAN CORPUSCULAR VOLUME 94 fl (80-97); MONOCYTES % (AUTO) 7.1 % (3-13); PLATELET COUNT 226 10^3/uL (150-450); RED BLOOD COUNT 3.71 10^6/uL (3.72-5.28); RED CELL DISTRIBUTION WIDTH 17.1 % (11.5-14.0); SEGMENTED NEUTROPHILS % (AUTO) 48.8 % (42-78); TOTAL CELLS COUNTED % (AUTO) 100 %; WHITE BLOOD COUNT 6.1 10^3/uL (4.0-10.5)
[2019-06-09 03:23] LABS: ALCOHOL < 10 mg/dL (NONE DETECTED); ALKALINE PHOSPHATASE 44 U/L (38-126); ANION GAP 9 (5-19); ASPARTATE AMINO TRANSFERASE 54 U/L (14-36); BILIRUBIN,DIRECT 0.2 mg/dL (0.0-0.4); BILIRUBIN,TOTAL 0.2 mg/dL (0.2-1.3); BLOOD UREA NITROGEN 14 mg/dL (7-20); CALCIUM 9.9 mg/dL (8.4-10.2); CARBON DIOXIDE 26 mmol/L (22-30); CHLORIDE 102 mmol/L (98-107); GLUCOSE 103 mg/dL (75-110); POTASSIUM 4.3 mmol/L (3.6-5.0); TOTAL PROTEIN 6.6 g/dL (6.3-8.2)
--- NOTE | 2019-06-09 03:30 | RADIOLOGY REPORT (SQ) ---
EXAM DESCRIPTION: XR CHEST 1 VIEW COMPLETED DATE/TME: 06/09/2019 02:22 CLINICAL HISTORY: 49 years, Female, chest pain COMPARISON: 01/09/2019 chest NUMBER OF VIEWS: 1 TECHNIQUE: Portable chest LIMITATIONS: None. FINDINGS: The heart size is normal. The lungs are clear. No pneumothorax IMPRESSION: Negative chest copyright 2010 [employer]- All Rights Reserved
[2019-06-09] MEDS ORDERED: MORPHINE SULFATE 10 MG/ML INJ IV ONE (04:21)
[2019-06-09] MEDS ORDERED: ONDANSETRON HCL INJ/PF 4 MG/2 ML SDV IV ONE (04:21)
[2019-06-09 08:15] VITALS: BP 129/94
--- NOTE | 2019-06-09 09:33 | EKG REPORT ---
SEVERITY:- NORMAL ECG - SINUS RHYTHM : Confirmed by: Viji Mosher MD 09-Jun-2019 09:32:20
== END 2019-06-09 07:40 | disposition home or self-care (01) ==
LOC: ER 23:27
DX: R07.9 Chest pain, unspecified (principal); W18.2XXA Fall in (into) shower or empty bathtub, initial encounter
CPT/HCPCS: 93005; 36415; 80307; 85025; 80053; 84484; 71045; 93010; J2270; J2405; 96374; 96375; 99285

== ENCOUNTER 2019-06-24 08:03 | Emergency (ER) | payer BC ==
[2019-06-24] MEDS ORDERED: ASPIRIN 81 MG TABLET, CHEWABLE PO ONE (08:07)
[2019-06-24 08:35] LABS: ABSOLUTE EOSINOPHILS # (AUTO) 0.3 10^3/uL (0.0-0.6); ABSOLUTE LYMPHOCYTES (AUTO) 2.3 10^3/uL (0.5-4.7); ABSOLUTE MONOCYTES (AUTO) 0.5 10^3/uL (0.1-1.4); ABSOLUTE NEUT (AUTO) 2.9 10^3/uL (1.7-8.2); BASOPHILS % (AUTO) 0.8 % (0-2); EOSINOPHILS % (AUTO) 5.6 % (0-6); HEMATOCRIT 33.5 % (36.0-47.0); HEMOGLOBIN 11.4 g/dL (12.0-15.5); LYMPHOCYTES % (AUTO) 37.7 % (13-45); MEAN CORPUSCULAR HEMOGLOBIN 32.2 pg (27.0-33.4); MEAN CORPUSCULAR HGB CONC 34.1 g/dL (32.0-36.0); MEAN CORPUSCULAR VOLUME 94 fl (80-97); MONOCYTES % (AUTO) 7.9 % (3-13); PLATELET COUNT 242 10^3/uL (150-450); RED BLOOD COUNT 3.55 10^6/uL (3.72-5.28); TOTAL CELLS COUNTED % (AUTO) 100 %
[2019-06-24] MEDS ORDERED: ONDANSETRON HCL INJ/PF 4 MG/2 ML SDV IV ONE (08:39)
[2019-06-24] MEDS ORDERED: MORPHINE SULFATE 10 MG/ML INJ IV ONE ×2 (08:39→10:22)
--- NOTE | 2019-06-24 08:43 | ER Document Report ---
ED Cardiac - General Chief Complaint: Chest Pain Stated Complaint: CHEST PAIN Time Seen by Provider: 06/24/19 08:31 Primary Care Provider: LUIS EDUARDO HANNA MD [Primary Care Provider] - Follow up as needed Notes: History of Present Illness Chief Complaint: Chest pain 49 years old female with multiple medical history including chronic pain syndrome, multiple ED visits, was here recently few days ago. Presents with le ft sided chest pain since this morning 6:00. States she took 3 sublingual nitroglycerin which partially relieved. Pain was not associated with any left arm numbness tingling sensation nausea vomiting palpitation or diaphoresis. Denies any difficulty in breathing. Prior to arrival she took her oxycodone 10/325. Denies any fever chills cough or other constitutional symptoms. History obtained from patient Symptoms began: Today Onset: Gradual Timing: Constant, now gone Quality: "pain" Intensity: Moderate Location: [Precordial Radiation: None Migration: None Aggravating factors: None Relieving factors: None Major PE risk factors: None Major aortic dissection risk factors: None Review of Systems: All other systems negative as reviewed. CONSTITUTIONAL No fever, No chills, No sweats. EYES No eye pain. ENT No URI symptoms, No sore throat, No ear pain. CARDIOVASCULAR + chest pain, No palpitations, No edema. RESPIRATORY No Cough, No SOB, No wheezing. GASTROINTESTINAL No abdominal pain, No nausea, No diarrhea, No vomiting, No GI Bleeding. GENITOURINARY No UTI symptoms. MUSCULOSKELETAL No back pain, No calf swelling, No calf pain. SKIN No Rash. NEUROLOGIC No Headache Physical Exam CONSTITUTIONAL Vital signs reviewed, Patient appears comfortable, Alert and oriented X 3, Normal stature. Not seems to be in any acute distress HEAD Atraumatic, Normocephalic. EYES Eyes are normal to inspection, No discharge from eyes, Extraocular muscles intact, Sclera are normal, Conjunctiva are normal. ENT Ears normal to inspection, Nose examination normal, Posterior pharynx normal, Mouth normal to inspection. NECK Normal ROM, No jugular venous distention, No meningeal signs, no carotid bruit. RESPIRATORY CHEST Chest is nontender, Breath sounds normal, No respiratory distress. CARDIOVASCULAR RRR, No murmurs, Normal S1 S2, No rub, No gallop. ABDOMEN Abdomen is nontender, No pulsatile masses, No other masses, Bowel sounds normal, No distension, No peritoneal signs, No hernias. BACK There is no CVA Tenderness, There is no tenderness to palpation, Normal inspection. UPPER EXTREMITY Inspection normal, No cyanosis, No clubbing, No edema, 2+ radial pulses. LOWER EXTREMITY Inspection normal, No cyanosis, No clubbing, No edema, No calf tenderness, 2+ femoral pulses. NEURO No focal motor deficits, No focal sensory deficits, Speech normal. SKIN Skin is warm, Skin is dry, Skin is normal color. LYMPHATIC No adenopathy in neck. PSYCHIATRIC Normal affect. TRAVEL OUTSIDE OF THE [place] IN LAST 30 DAYS: No - HPI Patient complains to provider of: Chest pain Notes: Dictated - Related Data Allergies/Adverse Reactions: No Known Allergies Allergy (Verified 09/14/18 02:27) Past Medical History - General Information source: Patient - Social History Smoking Status: Former Smoker Cigarette use (# per day): No Chew tobacco use (# tins/day): No Smoking Education Provided: No Frequency of alcohol use: Occasional Drug Abuse: None Family History: Reviewed & Not Pertinent, Arthritis, CAD, CVA, DM, Hyperlipidemia, Hypertension, Malignancy - Past Medical History Cardiac Medical History: Reports: Hx Coronary Artery Disease, Hx Heart Attack - 2016, Hx Hypercholesterolemia, Hx Hypertension Pulmonary Medical History: Reports: Hx Asthma - not sure, Hx Bronchitis, Hx Pneumonia Denies: Hx Tuberculosis Neurological Medical History: Reports: Hx Migraine, Hx Seizures Endocrine Medical History: Reports: Hx Diabetes Mellitus Type 2 Renal/ Medical History: Denies: Hx Peritoneal Dialysis Malignancy Medical History: Denies: None, Hx Bone Cancer, Hx Brain Cancer, Hx Breast Cancer, Hx Cervical Cancer, Hx Colorectal Cancer, Hx Leukemia, Hx Liver Cancer, Hx Lung Cancer, Hx Lymphoma, Hx Ovarian Cancer, Hx Pancreatic Cancer, Hx Renal (Kidney) Cancer, Hx Skin Cancer, Other GI Medical History: Reports: Hx Gastroesophageal Reflux Disease Musculoskeletal Medical History: Reports Hx Arthritis, Reports Hx Musculoskeletal Deformity Psychiatric Medical History: Reports: Hx Anxiety, Hx Bipolar Disorder, Hx Depression, Hx Post Traumatic Stress Disorder Past Surgical History: Reports: Hx Cardiac Catheterization - with stents, Hx Gynecologic Surgery - D&C, Hx Pacemaker, Hx Tubal Ligation - Immunizations Immunizations up to date: Yes Hx Diphtheria, Pertussis, Tetanus Vaccination: Yes - unknown Hx Pneumococcal Vaccination: 12/17/11 Review of Systems - Review of Systems Notes: Dictated Physical Exam - Notes Notes: Dictated Course - Laboratory Result Diagrams: 06/24/19 08:22 06/24/19 08:22 Laboratory results interpreted by me: 06/24/19 06/24/19 08:22 08:22 RBC 3.55 L Hgb 11.4 L Hct 33.5 L RDW 16.0 H Alkaline Phosphatase 34 L - EKG Interpretation by Me EKG shows normal: Sinus rhythm - Sinus rhythm at a rate of 51 bpm, normal axis, no acute ST elevation ST depression Discharge - Discharge Clinical Impression: Chest wall pain Condition: Fair Disposition: HOME, SELF-CARE Instructions: Chest Wall Pain ([facility]) Referrals: LUIS EDUARDO HANNA MD [Primary Care Provider] - Follow up as needed
[2019-06-24 08:58] LABS: APPEARANCE,URINE CLEAR; BILIRUBIN,URINE NEGATIVE (NEGATIVE); COLOR,URINE YELLOW; GLUCOSE, URINE NEGATIVE (NEGATIVE); KETONES,URINE NEGATIVE (NEGATIVE); LEUKOCYTE ESTERASE,URINE NEGATIVE (NEGATIVE); NITRITE,URINE NEGATIVE (NEGATIVE); PROTEIN,URINE NEGATIVE (NEGATIVE); URINE SPECIFIC GRAVITY 1.009; UROBILINOGEN,URINE NEGATIVE mg/dL (<2.0)
[2019-06-24 09:01] LABS: ALBUMIN 3.8 g/dL (3.5-5.0); ALKALINE PHOSPHATASE 34 U/L (38-126); ANION GAP 8 (5-19); ASPARTATE AMINO TRANSFERASE 35 U/L (14-36); BILIRUBIN,DIRECT 0.4 mg/dL (0.0-0.4); BILIRUBIN,TOTAL 0.4 mg/dL (0.2-1.3); BLOOD UREA NITROGEN 14 mg/dL (7-20); CALCIUM 9.4 mg/dL (8.4-10.2); CARBON DIOXIDE 24 mmol/L (22-30); CHLORIDE 107 mmol/L (98-107); CREATINE KINASE 55 U/L (30-135); GLUCOSE 99 mg/dL (75-110); POTASSIUM 4.4 mmol/L (3.6-5.0); TOTAL PROTEIN 6.7 g/dL (6.3-8.2)
[2019-06-24 09:16] LABS: CREATINE KINASE MB < 0.22 ng/mL (<4.55); TROPONIN I < 0.012 ng/mL
[2019-06-24] MEDS ORDERED: OXYCODONE-ACETAMINOPHEN 5-325 MG TABLET PO ONE (13:22)
[2019-06-24 14:26] VITALS: BP 152/97
--- NOTE | 2019-06-24 14:46 | EKG REPORT ---
SEVERITY:- BORDERLINE ECG - SINUS RHYTHM BORDERLINE R WAVE PROGRESSION, ANTERIOR LEADS : Confirmed by: Viji Mosher MD 24-Jun-2019 14:46:05
== END 2019-06-24 14:28 | disposition home or self-care (01) ==
LOC: ER 08:03
DX: R07.89 Other chest pain (principal); I25.10 Atherosclerotic heart disease of native coronary artery without angina pectoris; E78.00 Pure hypercholesterolemia, unspecified; I10 Essential (primary) hypertension; E11.9 Type 2 diabetes mellitus without complications; I25.2 Old myocardial infarction; Z95.0 Presence of cardiac pacemaker; Z98.51 Tubal ligation status
CPT/HCPCS: 93005; 96376; 99285; 96374; 96375; 36415; 82553; 82550; 85025; 80053; 81001; 84484; 93010; J2270; J2405

== ENCOUNTER 2019-06-25 15:42 | Emergency (ER) | payer BC ==
[2019-06-25] MEDS ORDERED: LORAZEPAM 0.5 MG TABLET PO ONE (16:00)
[2019-06-25 16:14] LABS: ABSOLUTE BASOPHILS # (AUTO) 0.1 10^3/uL (0.0-0.2); ABSOLUTE EOSINOPHILS # (AUTO) 0.3 10^3/uL (0.0-0.6); ABSOLUTE LYMPHOCYTES (AUTO) 2.1 10^3/uL (0.5-4.7); ABSOLUTE MONOCYTES (AUTO) 0.4 10^3/uL (0.1-1.4); ABSOLUTE NEUT (AUTO) 3.7 10^3/uL (1.7-8.2); BASOPHILS % (AUTO) 0.9 % (0-2); EOSINOPHILS % (AUTO) 4.5 % (0-6); HEMATOCRIT 35.1 % (36.0-47.0); HEMOGLOBIN 11.8 g/dL (12.0-15.5); LYMPHOCYTES % (AUTO) 31.9 % (13-45); MEAN CORPUSCULAR HEMOGLOBIN 31.6 pg (27.0-33.4); MEAN CORPUSCULAR HGB CONC 33.8 g/dL (32.0-36.0); MEAN CORPUSCULAR VOLUME 94 fl (80-97); MONOCYTES % (AUTO) 6.8 % (3-13); PLATELET COUNT 253 10^3/uL (150-450); RED BLOOD COUNT 3.75 10^6/uL (3.72-5.28); RED CELL DISTRIBUTION WIDTH 16.1 % (11.5-14.0); SEGMENTED NEUTROPHILS % (AUTO) 55.9 % (42-78); TOTAL CELLS COUNTED % (AUTO) 100 %; WHITE BLOOD COUNT 6.6 10^3/uL (4.0-10.5)
[2019-06-25 16:18] LABS: APPEARANCE,URINE CLEAR; BILIRUBIN,URINE NEGATIVE (NEGATIVE); COLOR,URINE STRAW; GLUCOSE, URINE NEGATIVE (NEGATIVE); KETONES,URINE NEGATIVE (NEGATIVE); LEUKOCYTE ESTERASE,URINE NEGATIVE (NEGATIVE); NITRITE,URINE NEGATIVE (NEGATIVE); PROTEIN,URINE NEGATIVE (NEGATIVE); URINE SPECIFIC GRAVITY 1.004; UROBILINOGEN,URINE NEGATIVE mg/dL (<2.0)
[2019-06-25 16:32] LABS: ALBUMIN 4.1 g/dL (3.5-5.0); ALKALINE PHOSPHATASE 49 U/L (38-126); ANION GAP 11 (5-19); ASPARTATE AMINO TRANSFERASE 37 U/L (14-36); BILIRUBIN,DIRECT 0.2 mg/dL (0.0-0.4); BILIRUBIN,TOTAL 0.2 mg/dL (0.2-1.3); BLOOD UREA NITROGEN 13 mg/dL (7-20); CALCIUM 9.5 mg/dL (8.4-10.2); CARBON DIOXIDE 25 mmol/L (22-30); CHLORIDE 102 mmol/L (98-107); GLUCOSE 88 mg/dL (75-110); POTASSIUM 4.2 mmol/L (3.6-5.0); TOTAL PROTEIN 6.9 g/dL (6.3-8.2)
--- NOTE | 2019-06-25 16:35 | RADIOLOGY REPORT (SQ) ---
EXAM DESCRIPTION: CT HEAD WITHOUT COMPLETED DATE/TIME: 06/25/2019 4:27 pm REASON FOR STUDY: ams COMPARISON: 07/10/2017 TECHNIQUE: Axial images acquired through the brain without intravenous contrast. Images reviewed wi th bone, brain and subdural windows. Additional sagittal and coronal reconstructions were generated. Images stored on PACS. All CT scanners at this facility use dose modulation, iterative reconstruction, and/or weight based d osing when appropriate to reduce radiation dose to as low as reasonably achievable (ALARA). [facility]: Dose Right [facility]: CareDose [facility]: Dose Right [facility]: Teradose 4D [facility]: [employer] RADIATION DOSE: CT Rad equipment meets quality standard of care and radiation dose reduction techniq ues were employed. CTDIvol: 53.2 mGy. DLP: 991 mGy-cm. mGy. LIMITATIONS: None. FINDINGS: VENTRICLES: Normal size and contour. CEREBRUM: No masses. No hemorrhage. No midline shift. No evidence for acute infarction. Normal gra y/white matter differentiation. No areas of low density in the white matter. CEREBELLUM: No masses. No hemorrhage. No alteration of density. No evidence for acute infarction. EXTRAAXIAL SPACES: No fluid collections. No masses. ORBITS AND GLOBE: No intra- or extraconal masses. Normal contour of globe without masses. CALVARIUM: No fracture. PARANASAL SINUSES: No fluid or mucosal thickening. SOFT TISSUES: No mass or hematoma. OTHER: No other significant finding. IMPRESSION: NORMAL BRAIN CT WITHOUT CONTRAST. EVIDENCE OF ACUTE STROKE: NO. COMMENT: Quality ID # [id number]: Final reports with documentation of one or more dose reduction techniques (e.g., Automated exposure control, adjustment of the mA and/or kV according to patient size, use of iterative reconstruction technique) TECHNICAL DOCUMENTATION: JOB ID: [id number] [employer]- All Rights Reserved Reading location - IP/workstation name: [email or web address]
[2019-06-25] MEDS ORDERED: LORAZEPAM 1 MG TABLET ONE (16:40)
--- NOTE | 2019-06-25 17:06 | ER Document Report ---
ED General - General Chief Complaint: Slurred Speech Stated Complaint: ALTERED MENTAL STATUS Time Seen by Provider: 06/25/19 15:59 Primary Care Provider: LUIS EDUARDO HANNA MD [Primary Care Provider] - Follow up as needed Mode of Arrival: Medic Information source: Patient TRAVEL OUTSIDE OF THE [place] IN LAST 30 DAYS: No - HPI Notes: Patient is brought in by ambulance for altered mental status. Patient accompanied a relative to a doctor's office today. Personnel at the doctor's office felt the patient's speech was slurred so they called an ambulance. Ambulance personnel state that once the patient was in the back of the ambulance she began to speak normally. Patient states she has been stressed out and had an altercation with family today. She denies any other new symptoms. No new medications. is in the room and states that she has had a similar reaction before with stress. Patient states that she is having trouble speaking. The symptoms are currently constant. They are moderate. There is no known radiation of the symptoms. They seem to be worse with stress and better without stress. Patient also states she is having a headache. - Related Data Allergies/Adverse Reactions: No Known Allergies Allergy (Verified 09/14/18 02:27) Past Medical History - General Information source: Patient - Social History Smoking Status: Never Smoker Frequency of alcohol use: None Drug Abuse: None Family History: Reviewed & Not Pertinent, Arthritis, CAD, CVA, DM, Hyperlipidemia, Hypertension, Malignancy Patient has suicidal ideation: No Patient has homicidal ideation: No - Past Medical History Cardiac Medical History: Reports: Hx Coronary Artery Disease, Hx Heart Attack - 2016, Hx Hypercholesterolemia, Hx Hypertension Pulmonary Medical History: Reports: Hx Asthma - not sure, Hx Bronchitis, Hx Pneumonia Denies: Hx Tuberculosis Neurological Medical History: Reports: Hx Migraine, Hx Seizures Endocrine Medical History: Reports: Hx Diabetes Mellitus Type 2 Renal/ Medical History: Denies: Hx Peritoneal Dialysis Malignancy Medical History: Denies: Hx Bone Cancer, Hx Brain Cancer, Hx Breast Cancer, Hx Cervical Cancer, Hx Colorectal Cancer, Hx Leukemia, Hx Liver Cancer, Hx Lung Cancer, Hx Lymphoma, Hx Ovarian Cancer, Hx Pancreatic Cancer, Hx Renal (Kidney) Cancer, Hx Skin Cancer GI Medical History: Reports: Hx Gastroesophageal Reflux Disease Musculoskeletal Medical History: Reports Hx Arthritis, Reports Hx Muscul oskeletal Deformity Psychiatric Medical History: Reports: Hx Anxiety, Hx Bipolar Disorder, Hx Depression, Hx Post Traumatic Stress Disorder Past Surgical History: Reports: Hx Cardiac Catheterization - with stents, Hx Gynecologic Surgery - D&C, Hx Pacemaker, Hx Tubal Ligation - Immunizations Immunizations up to date: Yes Hx Diphtheria, Pertussis, Tetanus Vaccination: Yes - unknown Hx Pneumococcal Vaccination: 12/17/11 Review of Systems - Review of Systems Constitutional: denies: Chills, Fever Cardiovascular: denies: Chest pain, Dyspnea Respiratory: denies: Cough, Short of breath Neurological/Psychological: Anxiety, Weakness -: Yes All other systems reviewed and negative Physical Exam - Vital signs Vitals: Resp 22 H 06/25/19 15:53 Interpretation: Normal - General General appearance: Appears well, Alert - HEENT Head: Normocephalic, Atraumatic Eyes: Normal Pupils: PERRL - Respiratory Respiratory status: No respiratory distress Chest status: Nontender Breath sounds: Normal Chest palpation: Normal - Cardiovascular Rhythm: Regular Heart sounds: Normal auscultation Murmur: No - Abdominal Inspection: Normal Distension: No distension Bowel sounds: Normal Tenderness: Nontender Organomegaly: No organomegaly - Back Back: Normal, Nontender - Extremities General upper extremity: Normal inspection, Nontender, Normal color, Normal ROM, Normal temperature General lower extremity: Normal inspection, Nontender, Normal color, Normal ROM, Normal temperature, Normal weight bearing. No: Pranav's sign - Neurological Neuro grossly intact: Yes Cognition: Normal Orientation: AAOx4 Terry Coma Scale Eye Opening: Spontaneous Terry Coma Scale Verbal: Oriented Palm Coma Scale Motor: Obeys Commands Terry Coma Scale Total: 15 Speech: Other - Patient speaks in a stuttering manner. There is no significant slurring of the speech is more stuttering. She also is speaking in a childlike manner such that she is omitting certain parts of speech that makes her sentences choppy. Motor strength normal: LUE, RUE, LLE, RLE Sensory: Normal - Psychological Associated symptoms: Normal affect, Normal mood - Skin Skin Temperature: Warm Skin Moisture: Dry Skin Color: Normal Course - Re-evaluation Re-evalutation: 06/25/19 17:04 Patient reexamined just now. Speech is better stuttering is essentially gone. Patient still does have a manner speaking that is somewhat childish omitting certain parts of speech in the sentences. Vital signs are stable. Exam is otherwise unremarkable. No other obvious neuro deficits. Imaging and laboratories are unremarkable. - Vital Signs Vital signs: Temp Pulse Resp BP Pulse Ox 98.4 F 14 124/91 H 98 06/25/19 16:30 06/25/19 16:30 06/25/19 16:30 06/25/19 16:30 - Laboratory Result Diagrams: 06/25/19 15:53 06/25/19 15:53 Laboratory results interpreted by me: 06/25/19 06/25/19 15:53 15:53 Hgb 11.8 L Hct 35.1 L RDW 16.1 H AST 37 H - Diagnostic Test Radiology reviewed: Image reviewed, Reports reviewed Discharge - Discharge Clinical Impression: Anxiety reaction Condition: Stable Disposition: HOME, SELF-CARE Instructions: Anxiety ([facility]) Additional Instructions: Please call your doctor first thing in the morning to arrange follow-up. Referrals: LUIS EDUARDO HANNA MD [Primary Care Provider] - Follow up as needed
[2019-06-25 17:13] VITALS: BP 125/89
== END 2019-06-25 17:20 | disposition home or self-care (01) ==
LOC: ER 15:42
DX: F41.1 Generalized anxiety disorder (principal); F80.81 Childhood onset fluency disorder; R51 Headache; R53.1 Weakness; I25.10 Atherosclerotic heart disease of native coronary artery without angina pectoris; I10 Essential (primary) hypertension; E11.9 Type 2 diabetes mellitus without complications; Z95.5 Presence of coronary angioplasty implant and graft
CPT/HCPCS: 36415; 70450; 80053; 81001; 85025; 99285

== ENCOUNTER 2019-09-16 04:42 | Emergency (ER) | payer BC ==
[2019-09-16 05:01] VITALS: BP 115/76
--- NOTE | 2019-09-16 06:38 | ER Document Report ---
HPI - HPI Time Seen by Provider: 09/16/19 06:07 Pain Level: 3 Context: 49-year-old female presents to the emergency department with chief complaint of right shoulder pain for the past 2 months. Patient states that she is unable to extend the shoulder beyond 10 degrees and has pain with abduction and flexion. Patient states that she did see an orthopedist who diagnosed her with bursitis but the patient does not believe that and states that she saw "some space in b etween the bones" and feels that there is an overlooked injury. Patient has normal sensation and normal strength, denies any acute weakness, denies any other symptoms - REPRODUCTIVE Reproductive: DENIES: : - MUSCULOSKELETAL Musculoskeletal: REPORTS: Extremity pain - BUE Past Medical History - Social History Smoking Status: Current Every Day Smoker Frequency of alcohol use: Social Family History: Reviewed & Not Pertinent, Arthritis, CAD, CVA, DM, Hyperlipidemia, Hypertension, Malignancy Patient has suicidal ideation: No Patient has homicidal ideation: No - Past Medical History Cardiac Medical History: Reports: Hx Coronary Artery Disease, Hx Heart Attack - 2016, Hx Hypercholesterolemia, Hx Hypertension Pulmonary Medical History: Reports: Hx Asthma - not sure, Hx Bronchitis, Hx Pneumonia Denies: Hx Tuberculosis Neurological Medical History: Reports: Hx Migraine, Hx Seizures Endocrine Medical History: Reports: Hx Diabetes Mellitus Type 2 Renal/ Medical History: Denies: Hx Peritoneal Dialysis Malignancy Medical History: Denies: Hx Bone Cancer, Hx Brain Cancer, Hx Breast Cancer, Hx Cervical Cancer, Hx Colorectal Cancer, Hx Leukemia, Hx Liver Cancer, Hx Lung Cancer, Hx Lymphoma, Hx Ovarian Cancer, Hx Pancreatic Cancer, Hx Renal (Kidney) Cancer, Hx Skin Cancer GI Medical History: Reports: Hx Gastroesophageal Reflux Disease Musculoskeletal Medical History: Reports Hx Arthritis, Reports Hx Musculoskeletal Deformity Psychiatric Medical History: Reports: Hx Anxiety, Hx Bipolar Disorder, Hx De pression, Hx Post Traumatic Stress Disorder Past Surgical History: Reports: Hx Cardiac Catheterization - with stents, Hx Gynecologic Surgery - D&C, Hx Pacemaker, Hx Tubal Ligation - Immunizations Immunizations up to date: Yes Hx Diphtheria, Pertussis, Tetanus Vaccination: Yes - unknown Hx Pneumococcal Vaccination: 12/17/11 Vertical Provider Document - CONSTITUTIONAL Notes: PHYSICAL EXAMINATION: Reviewed vital signs and charting by RN GENERAL: Alert, interacts well. No acute distress. HEAD: Normocephalic, atraumatic. EYES: Pupils equal and round. Extraocular movements intact. ENT: Oral mucosa moist, tongue midline. NECK: Full range of motion. Trachea midline. LUNGS: Clear to auscultation bilaterally, no wheezes, rales, or rhonchi. No respiratory distress. HEART: Regular rate and rhythm. No murmur ABDOMEN: soft, non-tender. No distention. Bowel sounds present EXTREMITIES: Moves all 4 extremities spontaneously. Mild tenderness to palpation over the anterior shoulder along the bicipital groove. Strength, 2+ radial pulse, brisk cap refill PSYCH: Normal affect, normal mood. SKIN: Warm, dry, normal turgor. No rashes or lesions noted. - INFECTION CONTROL TRAVEL OUTSIDE OF THE [place] IN LAST 30 DAYS: No Course - Re-evaluation Re-evalutation: 09/16/19 06:34 Patient presents requesting reevaluation of a chronic injury to her right arm. Patient states that an orthopedist diagnosed her with bursitis but she does not believe that and she is requesting an x-ray because she thinks that it is either dislocated or there is "too much space" between the bones. I suspect that the patient has some type of a tendinitis or chronic muscular or ligamentous injury. I will give her referral information for Dr. Xiong pending x-ray. Patient is otherwise stable for discharge if x-ray is normal. 09/16/19 07:48 X-ray unremarkable. Most likely soft tissue or ligamentous injury. She is stable for discharge. - Vital Signs Vital signs: Temp Pulse Resp BP Pulse Ox 97.5 F 76 17 115/76 98 09/16/19 04:56 09/16/19 04:56 09/16/19 04:56 09/16/19 04:56 09/16/19 04:56 Discharge - Discharge Clinical Impression: Right shoulder pain Qualifiers: Chronicity: chronic Qualified Code(s): M25.511 - Pain in right shoulder Condition: Good Disposition: HOME, SELF-CARE Additional Instructions: You were seen in the emergency department for right shoulder pain. The x-ray did not show any evidence of fracture, dislocation, or excessive joint space. I have given you a sling so please wear that for comfort but be sure to attempt range of motion exercises so you do not get a frozen shoulder. I have given you information for orthopedics so please follow-up with them at your convenience. Please return to the emergency department if you lose function of the shoulder completely, you develop paralysis, your fingers or hand starts to turn purple or blue, or you have any other concerning symptoms. Referrals: LUIS EDUARDO HANNA MD [Primary Care Provider] - Follow up as needed
--- NOTE | 2019-09-16 07:36 | RADIOLOGY REPORT (SQ) ---
EXAM: X-ray shoulder one view CLINICAL DATA: 49-year-old female with right shoulder pain TECHNICAL DATA: One x-ray view of the right shoulder was performed on 09/16/2019 at 6:42 AM. COMPARISONS: None FINDINGS: There is no evidence of fracture or dislocation. There is no significant arthritis or degenerative change. No focal lytic or sclerotic bone lesions are seen. Bone mineralization is normal. No focal soft tissue abnormalities are identified. IMPRESSION: No evidence of acute osseous injury involving the right shoulder on this single projection.
== END 2019-09-16 07:49 | disposition home or self-care (01) ==
LOC: ER 04:42
DX: M25.511 Pain in right shoulder (principal); F17.200 Nicotine dependence, unspecified, uncomplicated; I25.10 Atherosclerotic heart disease of native coronary artery without angina pectoris; I25.2 Old myocardial infarction; I10 Essential (primary) hypertension; J45.909 Unspecified asthma, uncomplicated; E11.9 Type 2 diabetes mellitus without complications
CPT/HCPCS: 99283

== ENCOUNTER 2019-10-23 16:08 | Emergency (ER) | payer BC ==
--- NOTE | 2019-10-23 16:26 | ER Document Report ---
ED Medical Screen (RME) - General Chief Complaint: Altered Mental Status Stated Complaint: ALTERED MENTAL STATUS Time Seen by Provider: 10/23/19 16:21 Primary Care Provider: LUIS EDUARDO HANNA MD [Primary Care Provider] - Follow up as needed Notes: Patient is a 49-year-old female with a history of stroke, [place], chronic tremor and chronic back pain who presents to the emergency department with a chief complaint of slurred speech. Patient reports she has had a history of slurred speech and that this has been ongoing for multiple days. Patient also reports having difficulty walking. Patient reports she did go to her pain management doctor this afternoon as the oxycodone was not helping with her discomfort and they sent here for an evaluation for possible stroke. Patient reports she has been taking her medications as prescribed. Patient denies recent illness or fever. TRAVEL OUTSIDE OF THE [place] IN LAST 30 DAYS: No - Related Data Allergies/Adverse Reactions: No Known Allergies Allergy (Verified 09/14/18 02:27) Past Medical History - Past Medical History Cardiac Medical History: Reports: Hx Coronary Artery Disease, Hx Heart Attack - 2016, Hx Hypercholesterolemia, Hx Hypertension Pulmonary Medical History: Reports: Hx Asthma - not sure, Hx Bronchitis, Hx Pneumonia Denies: Hx Tuberculosis Neurological Medical History: Reports: Hx Migraine, Hx Seizures Endocrine Medical History: Reports: Hx Diabetes Mellitus Type 2 Renal/ Medical History: Denies: Hx Peritoneal Dialysis Malignancy Medical History: Denies: Hx Bone Cancer, Hx Brain Cancer, Hx Breast Cancer, Hx Cervical Cancer, Hx Colorectal Cancer, Hx Leukemia, Hx Liver Cancer, Hx Lung Cancer, Hx Lymphoma, Hx Ovarian Cancer, Hx Pancreatic Cancer, Hx Renal (Kidney) Cancer, Hx Skin Cancer GI Medical History: Reports: Hx Gastroesophageal Reflux Disease Musculoskeltal Medical History: Reports Hx Arthritis, Reports Hx Musculoskeletal Deformity Psychiatric Medical History: Reports: Hx Anxiety, Hx Bipolar Disorder, Hx Depression, Hx Post Traumatic Stress Disorder Past Surgical History: Reports: Hx Cardiac Catheterization - with stents, Hx Gynecologic Surgery - D&C, Hx Pacemaker, Hx Tubal Ligation - Immunizations Immunizations up to date: Yes Hx Diphtheria, Pertussis, Tetanus Vaccination: Yes - unknown Course - Re-evaluation Re-evalutation: 10/23/19 16:25 Patient speech is mixture of stuttering, slurred and slowed speech. No facial droop noted. I have greeted and performed a rapid initial assessment of this patient. A comprehensive ED assessment and evaluation of the patient, analysis of test results and completion of the medical decision making process will be conducted by additional ED providers. Doctor's Discharge - Discharge Referrals: LUIS EDUARDO HANNA MD [Primary Care Provider] - Follow up as needed
--- NOTE | 2019-10-23 16:50 | RADIOLOGY REPORT (SQ) ---
EXAM DESCRIPTION: CT HEAD WITHOUT COMPLETED DATE/TIME: 10/23/2019 4:40 pm REASON FOR STUDY: AMS, slurred speech COMPARISON: 06/25/2019. TECHNIQUE: Axial images acquired through the brain without intravenous contrast. Images reviewed wi th bone, brain and subdural windows. Additional sagittal and coronal reconstructions were generated. Images stored on PACS. All CT scanners at this facility use dose modulation, iterative reconstruction, and/or weight based d osing when appropriate to reduce radiation dose to as low as reasonably achievable (ALARA). [facility]: Dose Right [facility]: CareDose [facility]: Dose Right [facility]: Teradose 4D [facility]: [employer] RADIATION DOSE: CT Rad equipment meets quality standard of care and radiation dose reduction techniq ues were employed. CTDIvol: 53.2 mGy. DLP: 991 mGy-cm. mGy. LIMITATIONS: None. FINDINGS: VENTRICLES: Normal size and contour. CEREBRUM: No masses. No hemorrhage. No midline shift. No evidence for acute infarction. Normal gra y/white matter differentiation. No areas of low density in the white matter. CEREBELLUM: No masses. No hemorrhage. No alteration of density. No evidence for acute infarction. EXTRAAXIAL SPACES: No fluid collections. No masses. ORBITS AND GLOBE: No intra- or extraconal masses. Normal contour of globe without masses. CALVARIUM: No fracture. PARANASAL SINUSES: No fluid or mucosal thickening. SOFT TISSUES: No mass or hematoma. OTHER: No other significant finding. IMPRESSION: NORMAL BRAIN CT WITHOUT CONTRAST. EVIDENCE OF ACUTE STROKE: NO. COMMENT: Quality ID # [id number]: Final reports with documentation of one or more dose reduction techniques (e.g., Automated exposure control, adjustment of the mA and/or kV according to patient size, use of iterative reconstruction technique) TECHNICAL DOCUMENTATION: JOB ID: [id number] [employer]- All Rights Reserved Reading location - IP/workstation name: [email or web address]
[2019-10-23 17:07] LABS: ABSOLUTE BASOPHILS # (AUTO) 0.1 10^3/uL (0.0-0.2); ABSOLUTE EOSINOPHILS # (AUTO) 0.3 10^3/uL (0.0-0.6); ABSOLUTE LYMPHOCYTES (AUTO) 2.5 10^3/uL (0.5-4.7); ABSOLUTE MONOCYTES (AUTO) 0.4 10^3/uL (0.1-1.4); ABSOLUTE NEUT (AUTO) 5.4 10^3/uL (1.7-8.2); BASOPHILS % (AUTO) 0.6 % (0-2); EOSINOPHILS % (AUTO) 2.9 % (0-6); HEMATOCRIT 37.3 % (36.0-47.0); HEMOGLOBIN 12.6 g/dL (12.0-15.5); LYMPHOCYTES % (AUTO) 29.2 % (13-45); MEAN CORPUSCULAR HEMOGLOBIN 30.8 pg (27.0-33.4); MEAN CORPUSCULAR HGB CONC 33.6 g/dL (32.0-36.0); MEAN CORPUSCULAR VOLUME 92 fl (80-97); MONOCYTES % (AUTO) 4.8 % (3-13); PLATELET COUNT 240 10^3/uL (150-450); RED BLOOD COUNT 4.08 10^6/uL (3.72-5.28); RED CELL DISTRIBUTION WIDTH 15.9 % (11.5-14.0); SEGMENTED NEUTROPHILS % (AUTO) 62.5 % (42-78); TOTAL CELLS COUNTED % (AUTO) 100 %; WHITE BLOOD COUNT 8.6 10^3/uL (4.0-10.5)
--- NOTE | 2019-10-23 17:07 | RADIOLOGY REPORT (SQ) ---
EXAM DESCRIPTION: CHEST SINGLE VIEW COMPLETED DATE/TIME: 10/23/2019 4:59 pm REASON FOR STUDY: AMS, slurred speech COMPARISON: 06/09/2019. EXAM PARAMETERS: NUMBER OF VIEWS: One view. TECHNIQUE: Single frontal radiographic view of the chest acquired. RADIATION DOSE: NA LIMITATIONS: None. FINDINGS: LUNGS AND PLEURA: No opacities, masses or pneumothorax. No pleural effusion. MEDIASTINUM AND HILAR STRUCTURES: No masses. Contour normal. HEART AND VASCULAR STRUCTURES: Heart normal in size. Normal vasculature. BONES: No acute findings. HARDWARE: None in the chest. OTHER: No other significant finding. IMPRESSION: NO ACUTE RADIOGRAPHIC FINDING IN THE CHEST. TECHNICAL DOCUMENTATION: JOB ID: [id number] [employer]- All Rights Reserved Reading location - IP/workstation name: [email or web address]
[2019-10-23 17:18] LABS: INTERNATIONAL RATION (INR) 0.93; PROTHROMBIN TIME 12.5 SEC (11.4-15.4)
[2019-10-23 17:19] LABS: PARTIAL THROMBOPLASTIN TIME 23.8 SEC (23.5-35.8)
[2019-10-23 17:26] LABS: ALBUMIN 4.1 g/dL (3.5-5.0); ALKALINE PHOSPHATASE 60 U/L (38-126); ANION GAP 9 (5-19); ASPARTATE AMINO TRANSFERASE 27 U/L (14-36); BILIRUBIN,DIRECT 0.2 mg/dL (0.0-0.4); BILIRUBIN,TOTAL 0.2 mg/dL (0.2-1.3); BLOOD UREA NITROGEN 17 mg/dL (7-20); CALCIUM 9.2 mg/dL (8.4-10.2); CARBON DIOXIDE 23 mmol/L (22-30); CHLORIDE 109 mmol/L (98-107); GLUCOSE 96 mg/dL (75-110); TOTAL PROTEIN 7.2 g/dL (6.3-8.2)
--- NOTE | 2019-10-23 17:26 | ER Document Report ---
ED General - General Chief Complaint: Altered Mental Status Stated Complaint: ALTERED MENTAL STATUS Time Seen by Provider: 10/23/19 16:21 Primary Care Provider: LUIS EDUARDO HANNA MD [Primary Care Provider] - Follow up as needed TRAVEL OUTSIDE OF THE [place] IN LAST 30 DAYS: No - HPI Notes: 49f h/o reported CVA LA, chronic tremor and chronic back pain who was sent from pain clinic for their concern for CVA. She reports to me she has had for few days now slurred speech and difficulty walking. she confirms she was worked up in past for same problems w/ her very slowed exaggerated speech which she points out to me. says she'd made appt w/ her pain mgmt doctor this afternoon as the prior dose of oxycodone not working. she says they increased dolores dose to 10mg (IR) and her is picking up from pharmacy. denies any falls. says she feels like burden and her supports her fully since she can't work 2/2 disability for many years. regarding stressors recently, she says they have an older autistic child early teens (only child) who has just gotten in trouble for fighting at school and may not be able to cont going there. she wants to be there for him at the meeting, but she says doesn't want her there to have "to deal w/ both her and the son's issues, and that'd it'd be better if she just lets him go handle this". denies vision change. says she's had regular bm, no abd pain. no f/c/s. has been less interactive w/ family doesn't do much socially ,but functioning has been worse lately w/ her being more sad. denies jensen, vision change, neck pain. denies difficulty thinking of words rto say or understanding what's being said or focal weakness/clumsiness, imbalance. reports she has been taking her medications as prescribed. Patient denies recent illness or fever. - Related Data Allergies/Adverse Reactions: No Known Allergies Allergy (Verified 09/14/18 02:27) Past Medical History - General Information source: Patient, Relative - [facility], [facility] Records - Social History Smoking Status: Unknown if Ever Smoked Family History: Reviewed & Not Pertinent, Arthritis, CAD, CVA, DM, Hyperlipidemia, Hypertension, Malignancy - Past Medical History Cardiac Medical History: Reports: Hx Coronary Artery Disease, Hx Heart Attack - 2016, Hx Hypercholesterolemia, Hx Hypertension Pulmonary Medical History: Reports: Hx Asthma - not sure, Hx Bronchitis, Hx Pneumonia Denies: Hx Tuberculosis Neurological Medical History: Reports: Hx Migraine, Hx Seizures Endocrine Medical History: Reports: Hx Diabetes Mellitus Type 2 Renal/ Medical History: Denies: Hx Peritoneal Dialysis Malignancy Medical History: Denies: Hx Bone Cancer, Hx Brain Cancer, Hx Breast Cancer, Hx Cervical Cancer, Hx Colorectal Cancer, Hx Leukemia, Hx Liver Cancer, Hx Lung Cancer, Hx Lymphoma, Hx Ovarian Cancer, Hx Pancreatic Cancer, Hx Renal (Kidney) Cancer, Hx Skin Cancer GI Medical History: Reports: Hx Gastroesophageal Reflux Disease Musculoskeletal Medical History: Reports Hx Arthritis, Reports Hx Musculoskeletal Deformity Psychiatric Medical History: Reports: Hx Anxiety, Hx Bipolar Disorder, Hx Depression, Hx Post Traumatic Stress Disorder Past Surgical History: Reports: Hx Cardiac Catheterization - with stents, Hx Gynecologic Surgery - D&C, Hx Pacemaker, Hx Tubal Ligation - Immunizations Immunizations up to date: Yes Hx Diphtheria, Pertussis, Tetanus Vaccination: Yes - unknown Hx Pneumococcal Vaccination: 12/17/11 Review of Systems - Review of Systems Constitutional: No symptoms reported, See HPI, Weakness. denies: Weight gain, Weight loss, Recent illness EENT: No symptoms reported Cardiovascular: No symptoms reported Respiratory: No symptoms reported Gastrointestinal: No symptoms reported Genitourinary: No symptoms reported Female Genitourinary: No symptoms reported Musculoskeletal: No symptoms reported Skin: No symptoms reported Hematologic/Lymphatic: No symptoms reported Neurological/Psychological: No symptoms reported, Depression, Anxiety, Weakness, Speech impairment. denies: Confusion, Hallucinations, Sensory change, Homicidal ideation, Gait changes, Paralysis, Seizure, Lost consciousness, Headaches, Numbness, Suicidal ideation, Tingling, Tremor Physical Exam - Vital signs Vitals: Pulse Ox 95 10/23/19 16:22 Interpretation: Normal - General General appearance: Alert, Anxious In distress: None - obese, moaning, but talks in full sentences good eye contact becomes more engaged. - HEENT Head: Normocephalic, Atraumatic Eyes: Normal. No: Pale conjunctiva, Periorbital ecchymosis, Periorbital edema, Scleral icterus, Tears Conjunctiva: No: Injected, Purulent discharge Extraocular movements intact: Yes Eyelashes: Normal Pupils: PERRL Nerve palsy: No Visual caban normal: Yes Ears: Normal External canal: Normal Tympanic membrane: Normal Sinus: Normal Nasal: Normal Mouth/Lips: Normal Mucous membranes: Moist Neck: Normal, Supple. No: Carotid bruit, Lymphadenopathy, Meningismus, Subcutaneous emphysema, Thyromegally - Respiratory Respiratory status: No respiratory distress Chest status: Nontender Breath sounds: Normal Chest palpation: Normal - Cardiovascular Rhythm: Regular Heart sounds: Normal auscultation Murmur: No - Abdominal Inspection: Normal Distension: No distension Bowel sounds: Normal Tenderness: Nontender Organomegaly: No organomegaly - Back Back: Normal, Nontender - Extremities General upper extremity: Normal inspection, Nontender, Normal color, Normal ROM, Normal temperature General lower extremity: Normal inspection, Nontender, Normal color, Normal ROM, Normal temperature, Normal weight bearing. No: Pranav's sign - Neurological Neuro grossly intact: Yes Cognition: Normal Orientation: AAOx4 [place] Coma Scale Eye Opening: Spontaneous Terry Coma Scale Verbal: Oriented [place] Coma Scale Motor: Obeys Commands [place] Coma Scale Total: 15 Speech: Other - slow exagerrated speech appears volitional when speaking of something stressful initially but seems to forget to maintain at times during convo then restart once i bring up. not c/w motor or comprehension deficit. No: Dysarthria, Expressive aphasia, Receptive aphasia Cranial nerves: Normal Cerebellar coordination: Normal Motor strength normal: LUE, RUE, LLE, RLE Additional motor exam normals: No: Involuntary movements, Pronator drift, Weakness Sensory: Normal - Psychological Associated symptoms: Circumferential speech, Depressed - no si., Psychomotor depression, Tearful. No: Auditory hallucinations, Flat affect, Labile, Manic, Uncooperative - Skin Skin Temperature: Warm Skin Moisture: Dry Skin Color: Normal Course - Vital Signs Vital signs: Temp Pulse Resp BP Pulse Ox 98.2 F 72 11 L 119/81 95 10/23/19 16:41 10/23/19 18:46 10/23/19 22:01 10/23/19 22:01 10/23/19 22:01 - Laboratory Result Diagrams: 10/23/19 16:48 10/23/19 16:48 Laboratory results interpreted by me: 10/23/19 10/23/19 16:48 16:48 RDW 15.9 H Chloride 109 H Discharge - Discharge Clinical Impression: Acute stress reaction, Chronic pain associated with significant psychosocial dysfunction Condition: Poor Disposition: HOME, SELF-CARE Additional Instructions: I am worried about you going through a lot of stress right now, and want you to call your psychiatrist, pain management doctor and regular doctor for follow-u ps. I will ask the secondary social studies teacher to call you tomorrow to ensure we find out if we can possibly arrange a home health evaluation which would include physical therapy and/or occupational therapy which can assist in your pain syndrome. Chronic pain is very closely intertwined with stress in our lives. The main thing is to stay as functional as possible and try to continue doing things you find lester in even if you do not feel like doing them that day. Make sure you are taking a stool softener when you are on opiate medications as they will always cause constipation that can be improved with diet. You can use MiraLAX once a day drink a glass of fluid with 1 packet dissolved every day to keep stools soft can increase to 2 or 3 times a day as needed to keep stools soft and regular. I would suggest trying 650 acetaminophen to assist with baseline pain control. Along with other medications it can often help improve pain more so than other medications alone. Make sure you do not take more than 3000 mg of acetaminophen in any 24-hour. On your work-up though I am reassured you have no evidence of stroke or bleeding on your head CT. Your labs look great including your renal function and electrolytes. Your chest x-ray was normal and your EKG was normal. Referrals: LUIS EDUARDO HANNA MD [Primary Care Provider] - Follow up as needed
[2019-10-23 18:15] LABS: URINE AMPHETAMINES SCREEN NEGATIVE; URINE BENZODIAZEPINES SCREEN NEGATIVE; URINE COCAINE SCREEN NEGATIVE; URINE MARIJUANA (THC) SCREEN NEGATIVE; URINE METHADONE SCREEN NEGATIVE; URINE PHENCYCLIDINE SCREEN NEGATIVE
[2019-10-23 18:18] LABS: URINE BARBITURATES SCREEN UNCONFIRMED POSITIVE
[2019-10-23] MEDS ORDERED: HYDROMORPHONE HCL INJ/PF 2 MG/ML AMPULE IV ONE (20:22)
[2019-10-23] MEDS ORDERED: HYDROMORPHONE HCL 2 MG TABLET PO PRN (20:23)
[2019-10-23 22:38] VITALS: BP 119/81
--- NOTE | 2019-10-24 22:05 | EKG REPORT ---
SEVERITY:- BORDERLINE ECG - SINUS RHYTHM BORDERLINE R WAVE PROGRESSION, ANTERIOR LEADS BORDERLINE T ABNORMALITIES, INFERIOR LEADS : Confirmed by: Ronnell Mccurdy 24-Oct-2019 22:04:06
== END 2019-10-23 22:58 | disposition home or self-care (01) ==
LOC: ER 16:08
DX: F43.0 Acute stress reaction (principal); G89.4 Chronic pain syndrome; R41.82 Altered mental status, unspecified; R25.1 Tremor, unspecified; M54.9 Dorsalgia, unspecified; R47.81 Slurred speech; R26.2 Difficulty in walking, not elsewhere classified; Z79.899 Other long term (current) drug therapy; I25.10 Atherosclerotic heart disease of native coronary artery without angina pectoris; I25.2 Old myocardial infarction; J45.909 Unspecified asthma, uncomplicated; I10 Essential (primary) hypertension
CPT/HCPCS: 93005; 99285; 96374; 36415; 82962; 85025; 85610; 85730; 80053; 84484; 80307; 71045; 70450; 93010; J1170

== ENCOUNTER 2019-11-21 17:11 | Emergency (ER) | payer BC ==
--- NOTE | 2019-11-21 18:09 | ER Document Report ---
ED Fall - General Chief Complaint: Fall Stated Complaint: FALL Time Seen by Provider: 11/21/19 18:02 Primary Care Provider: LUIS EDUARDO HANNA MD [Primary Care Provider] - Follow up in 3-5 days Mode of Arrival: Ambulatory Information source: Patient Notes: 49-year-old female presented to ED after she fell at 2 PM. She went to sit on a swing and missed a swing and landed on her butt. She states she has pain and the left side of her back left scapula and lower back pain. She is a chronic pain tension on Percocet 10 mg. Patient is alert oriented respirations regular nonlabored walking with a even steady gait moving freely. TRAVEL OUTSIDE OF THE [place] IN LAST 30 DAYS: No - HPI Occurred: This afternoon Where: Home, Outdoors Context: Fell from standing - Fell missed the swing Associated symptoms: None Location of injury/pain: Back, Neck - Left neck, Shoulder Quality of pain: Achy Severity: Moderate Pain Level: 4 - Related data Allergies/Adverse Reactions: baclofen Adverse Reaction (Mild, Verified 11/21/19 18:03) falls Past Medical History - General Information source: Patient - Social History Smoking Status: Never Smoker Frequency of alcohol use: None Drug Abuse: None Lives with: Family Family History: Reviewed & Not Pertinent, Arthritis, CAD, CVA, DM, Hyperlipidemia, Hypertension, Malignancy Patient has suicidal ideation: No Patient has homicidal ideation: No - Past Medical History Cardiac Medical History: Reports: Hx Coronary Artery Disease, Hx Heart Attack - 2016, Hx Hypercholesterolemia, Hx Hypertension Pulmonary Medical History: Reports: Hx Asthma - not sure, Hx Bronchitis, Hx Pneumonia Denies: Hx Tuberculosis Neurological Medical History: Reports: Hx Migraine, Hx Seizures Endocrine Medical History: Reports: Hx Diabetes Mellitus Type 2 Renal/ Medical History: Reports: None. Denies: Hx Peritoneal Dialysis Malignancy Medical History: Reports: None GI Medical History: Reports: Hx Gastroesophageal Reflux Disease Musculoskeletal Medical History: Reports Hx Arthritis, Reports Hx Muscul oskeletal Deformity, Reports Hx Musculoskeletal Trauma Skin Medical History: Reports None Psychiatric Medical History: Reports: Hx Anxiety, Hx Bipolar Disorder, Hx Depression, Hx Post Traumatic Stress Disorder Traumatic Medical History: Reports: None Infectious Medical History: Reports: None Past Surgical History: Reports: Hx Cardiac Catheterization - with stents, Hx Coronary Stent - Is to, Hx Gynecologic Surgery - D&C, Hx Tubal Ligation - Immunizations Immunizations up to date: Yes Hx Diphtheria, Pertussis, Tetanus Vaccination: No - unknown History of Pneumococcal Vaccine: Yes Hx Pneumococcal Vaccination: 12/17/11 History of Influenza Vaccine for 07/2019 - 12/2019 Season: No Review of Systems - Review of Systems Constitutional: No symptoms reported EENT: No symptoms reported Cardiovascular: No symptoms reported Respiratory: No symptoms reported Gastrointestinal: No symptoms reported Genitourinary: No symptoms reported Female Genitourinary: No symptoms reported Musculoskeletal: Back pain, Joint pain - Scapula, Muscle pain, Neck pain Skin: No symptoms reported Hematologic/Lymphatic: No symptoms reported Neurological/Psychological: No symptoms reported -: Yes All other systems reviewed and negative Physical Exam - Vital signs Vitals: Temp Pulse Resp BP Pulse Ox 98.3 F 84 18 144/102 H 98 11/21/19 17:20 11/21/19 17:20 11/21/19 17:20 11/21/19 17:20 11/21/19 17:20 Interpretation: Normal - General General appearance: Appears well, Alert - HEENT Head: Normocephalic, Atraumatic Eyes: Normal Pupils: PERRL - Respiratory Respiratory status: No respiratory distress Chest status: Nontender Breath sounds: Normal Chest palpation: Normal - Cardiovascular Rhythm: Regular Heart sounds: Normal auscultation Murmur: No - Abdominal Inspection: Normal Distension: No distension Bowel sounds: Normal Tenderness: Nontender Organomegaly: No organomegaly - Back Back: Normal, Tender. No: Deformity/step-off, Vertebra tenderness, Scars - Extremities General upper extremity: Normal color, Normal ROM, Normal temperature General lower extremity: Normal inspection, Nontender, Normal color, Normal ROM, Normal temperature, Normal weight bearing. No: Pranav's sign Shoulder: Tender, Limited ROM - She states that the decrease in range of motion to both shoulders has been for a long time and this is not new - Neurological Neuro grossly intact: Yes Cognition: Normal Orientation: AAOx4 [place] Coma Scale Eye Opening: Spontaneous [place] Coma Scale Verbal: Oriented [place] Coma Scale Motor: Obeys Commands [place] Coma Scale Total: 15 Speech: Normal Motor strength normal: LUE, RUE, LLE, RLE Sensory: Normal - Psychological Associated symptoms: Normal affect, Normal mood - Skin Skin Temperature: Warm Skin Moisture: Dry Skin Color: Normal Course - Re-evaluation Re-evalutation: 11/21/19 20:48 This was a chronic pain patient who was moving freely lifting objects up and able to move her arms until I actually asked her to do range of motion. She walked with a even steady gait. She is on chronic pain management Percocet tens from her pain management doctor. When I discussed her x-rays with her and told her that she did not have any new bony abnormalities and she could take her pain management manic medications at home for her pain she colostomy out because this is a multiple curse [facility] the does not believe in giving anybody any pain medicine. I explained to her that she has narcotics at home she took 1 before coming in and she can take 1 as soon as she gets home. Patient was very angry and stated she would take her medicine when she got home - Vital Signs Vital signs: Temp Pulse Resp BP Pulse Ox 98.0 F 90 18 135/88 H 99 11/21/19 19:49 11/21/19 19:49 11/21/19 19:49 11/21/19 19:49 11/21/19 19:49 - Diagnostic Test Radiology reviewed: Image reviewed, Reports reviewed Discharge - Discharge Clinical Impression: Contusion of left shoulder, initial encounter Fall Qualifiers: Encounter type: initial encounter Qualified Code(s): W19.XXXA - Unspecified fall, initial encounter Cervical strain, acute Qualifiers: Encounter type: initial encounter Qualified Code(s): S16.1XXA - Strain of muscle, fascia and tendon at neck level, initial encounter Low back pain Qualifiers: Chronicity: acute Back pain laterality: left Sciatica presence: without sciatica Qualified Code(s): M54.5 - Low back pain Condition: Stable Disposition: HOME, SELF-CARE Additional Instructions: HEAD INJURY PRECAUTIONS: At this point, there is no evidence that your head injury is serious. Observation is necessary, however. Take only clear liquids for the first few hours, unless told otherwise by the doctor. If no pain medication was prescribed, you may take acetaminophen according to the directions on the bottle. Do not take any medication that may alter your level of alertness (unless you've discussed it with the doctor first). Limit activity for the first 24 hours. Bed rest is best. During the first 24 hours, check to see approximately every two to three hours that the patient is easily arousable, responds normally, and can perform common tasks such as walking without difficulty. Contact your doctor or go to the hospital if any of the following things occur: Persistent vomiting, difficulty in arousing the patient, worsening or continued headache, or failure to improve as expected. Head injuries can cause symptoms that persist for a few days or even a few weeks. NECK INJURY (CERVICAL STRAIN): You have a neck strain. This is an injury to the muscles and ligaments in the neck. There is no evidence of a fracture of the neck bones. Also, no injury to the spinal cord or nerve roots was detected. Usually, stiffness and pain INCREASE for the first 24-48 hours after the injury. The pain will gradually resolve and the neck will become more mobile. Most patients are back at work or school within a few days. Typically, complete healing takes about two or three weeks. The usual initial treatment is rest and cold packs. A neck collar may be placed to keep the muscles of the neck at rest. Antiinflammatory and muscle relaxing medication are often used to reduce the spasm and irritation. You should call the doctor, or go to the hospital, if you develop numbness or weakness in any extremity, problems with your bladder or bowel, or pain radiating down the arms. CONTUSION: Your injury has resulted in a contusion -- a crushing of the deep tissues. No injury to important structures was detected during the physician's exam. Contusions vary in the amount of pain they cause, and in the length of time required for healing. Typically, the area will become bruised, and will remain painful to touch for two or three weeks. However, most patients are back to working and playing within a few days. After the initial period of rest and cold-packs, your symptoms (together with the doctor's recommendations) will determine how rapidly you can get back to full activity. Usually this means "do what feels okay, but don't do things that hurt." If re-examination was recommended, it's important to follow up as instructed. Call the doctor or return any time if pain increases, if swelling becomes severe, if you develop numbness or weakness in an injured extremity, or if any other alarming symptoms occur. LOW BACK PAIN: Three out of every four people will have an episode of disabling back pain during their lifetime. Most commonly the pain is due to straining of the muscles and ligaments in the low back. Usual treatment includes: (1) Rest on a firm surface. Avoid lying on your stomach. (2) Ice pack the painful area. After a few days, gentle heat may be used intermittently to relax the area, or ice packs can be continued. (3) Medication may be needed -- muscle relaxers and antiinflammatory medicines are commonly used. (4) As the back improves, exercises are prescribed to strengthen the back and abdominal muscles. Your doctor will advise you on the proper care for your back at each stage in your recovery. You may be better in a few days -- or healing may take several weeks. If new symptoms of a "herniated disc" (radiation of pain, numbness, or tingling down the back of the leg or weakness in the leg) occur, you should be re-examined. Further testing may be necessary. USE OF TYLENOL (ACETAMINOPHEN): Acetaminophen may be taken for pain relief or fever control. It's much safer than aspirin, offering a wider range of "safe" dosages. It is safe during . Some brand names are Tylenol, Panadol, Datril, Anacin 3, Tempra, and Liquiprin. Acetaminophen can be repeated every four hours. The following are maximum recommended dosages: WEIGHT Dose Drops Elixir Chewable(80mg) (LBS.) drprs=droppers tsp=teaspoon 6 40 mg 0.4 ml (1/2) 6-11 80 mg 0.8 ml (full) tsp 1 tab 12-16 120 mg 1 1/2 drprs 3/4 tsp 1 1/2 tabs 17-23 160 mg 2 drprs 1 tsp 2 tabs 24-30 240 mg 3 drprs 1 1/2 tsp 3 tabs 30-35 320 mg 2 tsp 4 tabs 36-41 360 mg 2 1/4 tsp 4 1/2 tabs 42-47 400 mg 2 1/2 tsp 5 tabs 48-53 480 mg 3 tsp 6 tabs 54-59 520 mg 3 1/4 tsp 6 1/2 tabs 60-64 560 mg 3 1/2 tsp 7 tabs 65-70 600 mg 3 3/4 tsp 7 1/2 tabs 71-76 640 mg 4 tsp 8 tabs 77-82 720 mg 4 1/2 tsp 9 tabs 83-88 800 mg 5 tsp 10 tabs >89 pounds or adults 650 mg to 900 mg Acetaminophen can be repeated every four hours. Maximum dose not to exceed 4000 mg a day. These maximum recommended dosages are slightly higher than the dosages written on the product container, but these dosages are very safe and below the toxic dosage for acetaminophen. ICE PACKS: Apply ice packs frequently against the painful area. Many different schedules are recommended, such as "20 minutes on, 20 minutes off" or "one hour ice, two hours rest." If you need to work, you may need to go longer between ice treatments. You should plan to have the area ice packed AT LEAST one fourth of the time. The ice should be applied over the wrap, tape, or splint, or over a layer of cloth -- not directly against the skin. Some ice bags have a built-in cloth and can be put directly on the skin. WARM PACKS: After approximately two days, apply gentle heat (such as a heating pad or hot water bottle) for about 20 to 30 minutes about every two hours -- at least four times daily. Warmth and elevation will help you make a more rapid recovery, and will ease the pain considerably. Do not use HOT heat, and never apply heat for longer than 30 minutes. The continuous heat can invisibly damage skin and muscles -- even when no burn is seen on the surface. Damaged muscles can make you MORE sore. Exercise Program for the Shoulder Since the shoulder moves in so many directions, the joint attachment is weak. Muscles provide most of the stability to the shoulder. You must exercise your shoulder to prevent painful instability or stiffening. PASSIVE - These may be begun within a few days of the injury. While standing, lean forward, allowing the arm to hang down towards the floor. Move the arm in small circles while slowly twisting your chest towards and away from the hanging arm. Do this for one minute. ACTIVE - These may be performed when the doctor gives permission. Begin with the arms at the sides. Raise the arms forward (shoulder's width apart) until they reach shoulder level. Then slowly swing both arms back until they are aiming straight out away from each other. Then bring them forward again, and finally, lower them to your sides. Repeat 20 to 30 times. As you improve, put weights in your hands for the exercise. Start with one pound, and work up to 10 pounds. Never use more than is comfortable. Athletes may work up to 30 pounds. Stretching Exercises for the Back The physician has recommended that you begin stretching exercises for your back. These are often used even while the back is painful. However, you should notify the physician if the activities seem to increase your pain. PELVIC TILT: Lie flat on your back with knees bent. Tighten your stomach and buttock muscles so it flattens your lower back against the floor. Hold 10 seconds. Repeat 10 times, twice daily. KNEE RAISE: Lying on the back with knees bent, raise one knee to your chest, then the other. Hold both knees against the chest 10 seconds, then lower one knee at a time. Repeat 10 times, twice daily. PARTIAL TRUNK RAISE: Lie face down, arms at your sides. Keeping your waist on the floor, use your arms raise your chest up. Support yourself on your elbows for 30 seconds. Repeat twice daily, increasing the time to two minutes as you recover. Continue taking your normal chronic pain management medications. You do not need any new narcotics for your fall. There are no broken bones, there are no head injuries, please follow-up with your chronic pain management provider. FOLLOW-UP CARE: If you have been referred to a physician for follow-up care, call the physicians office for an appointment as you were instructed or within the next two days. If you experience worsening or a significant change in your symptoms, notify the physician immediately or return to the Emergency Department at any time for re-evaluation. Forms: Elevated Blood Pressure Referrals: LUIS EDUARDO HANNA MD [Primary Care Provider] - Follow up in 3-5 days
--- NOTE | 2019-11-21 18:50 | RADIOLOGY REPORT (SQ) ---
EXAM DESCRIPTION: CT HEAD WITHOUT COMPLETED DATE/TIME: 11/21/2019 5:24 pm REASON FOR STUDY: Fall headache on blood thinners COMPARISON: 10/23/2019 TECHNIQUE: Axial images acquired through the brain without intravenous contrast. Images reviewed wi th bone, brain and subdural windows. Images stored on PACS. All CT scanners at this facility use dose modulation, iterative reconstruction, and/or weight based d osing when appropriate to reduce radiation dose to as low as reasonably achievable (ALARA). [facility]: Dose Right [facility]: CareDose [facility]: Dose Right [facility]: Teradose 4D [facility]: Pixel Velocity RADIATION DOSE: CT Rad equipment meets quality standard of care and radiation dose reduction techniq ues were employed. CTDIvol: 53.2 mGy. DLP: 1044 mGy-cm. mGy. LIMITATIONS: None. FINDINGS: VENTRICLES: Normal size and contour. CEREBRUM: No masses. No hemorrhage. No midline shift. No evidence for acute infarction. Normal gra y/white matter differentiation. No areas of low density in the white matter. CEREBELLUM: No masses. No hemorrhage. No alteration of density. No evidence for acute infarction. EXTRAAXIAL SPACES: No fluid collections. No masses. ORBITS AND GLOBE: No intra- or extraconal masses. Normal contour of globe without masses. CALVARIUM: No fracture. PARANASAL SINUSES: No fluid or mucosal thickening. SOFT TISSUES: No mass or hematoma. OTHER: No other significant finding. IMPRESSION: No acute intracranial hemorrhage, mass, or evidence of acute territorial infarct. EVIDENCE OF ACUTE STROKE: NO. COMMENT: Quality ID # [id number]: Final reports with documentation of one or more dose reduction techniques (e.g., Automated exposure control, adjustment of the mA and/or kV according to patient size, use of iterative reconstruction technique) TECHNICAL DOCUMENTATION: JOB ID: [id number] [employer]- All Rights Reserved Reading location - IP/workstation name: [email or web address]
--- NOTE | 2019-11-21 18:53 | RADIOLOGY REPORT (SQ) ---
EXAM DESCRIPTION: SHOULDER LEFT 2 OR MORE VIEWS COMPLETED DATE/TIME: 11/21/2019 5:37 pm REASON FOR STUDY: Left shoulder left neck and low back pain COMPARISON: None. NUMBER OF VIEWS: Three views. TECHNIQUE: Internal rotation, external rotation, and Y view images acquired of the left shoulder. LIMITATIONS: None. FINDINGS: MINERALIZATION: Normal. BONES: No acute fracture. No worrisome bone lesions. JOINTS: No dislocation. VISUALIZED LUNGS AND RIBS: No pneumothorax. No rib fracture. SOFT TISSUES: No radiopaque foreign body. OTHER: No other significant finding. IMPRESSION: No acute fracture or dislocation of the left shoulder. TECHNICAL DOCUMENTATION: JOB ID: [id number] [employer]- All Rights Reserved Reading location - IP/workstation name: [email or web address]
--- NOTE | 2019-11-21 18:54 | RADIOLOGY REPORT (SQ) ---
EXAM DESCRIPTION: L SPINE WHOLE COMPLETED DATE/TIME: 11/21/2019 5:37 pm REASON FOR STUDY: Left shoulder left neck and low back pain COMPARISON: None. NUMBER OF VIEWS: Five views including obliques. TECHNIQUE: AP, lateral, oblique, and sacral radiographic images acquired of the lumbar spine. LIMITATIONS: None. FINDINGS: MINERALIZATION: Normal. SEGMENTATION: Normal. No transitional anatomy. ALIGNMENT: Normal. VERTEBRAE: Maintained height. No fracture or worrisome bone lesion. DISCS: Preserved height. No significant osteophytes or end plate irregularity. POSTERIOR ELEMENTS: Pedicles and facets are intact. No pars defect or posterior arch defects. HARDWARE: None in the spine. PARASPINAL SOFT TISSUES: Normal. PELVIS: Intact as visualized. No fractures or worrisome bone lesions. SI joints intact. OTHER: No other significant finding. IMPRESSION: No radiographic abnormality of the lumbar spine. TECHNICAL DOCUMENTATION: JOB ID: [id number] [employer]- All Rights Reserved Reading location - IP/workstation name: [email or web address]
--- NOTE | 2019-11-21 18:55 | RADIOLOGY REPORT (SQ) ---
EXAM DESCRIPTION: CERV SP 4 OR 5 VIEWS COMPLETED DATE/TIME: 11/21/2019 5:37 pm REASON FOR STUDY: Left shoulder left neck and low back pain COMPARISON: None. NUMBER OF VIEWS: Five views. TECHNIQUE: AP, lateral, obliques and odontoid radiographic images acquired of the cervical spine. LIMITATIONS: None. FINDINGS: MINERALIZATION: Normal. ALIGNMENT: Anatomic. VERTEBRAE: Vertebral bodies of normal height. DISCS: No significant osteophytes or sclerosis. Disc height maintained. FORAMINA: No osteophytes or foraminal narrowing. LATERAL AND POSTERIOR ELEMENTS: Facets, lateral masses and spinous processes without significant find ings. HARDWARE: None in the spine. SOFT TISSUES: No masses or calcifications. Lung apices clear. OTHER: No other significant finding. IMPRESSION: No radiographic abnormality of the cervical spine. TECHNICAL DOCUMENTATION: JOB ID: [id number] [employer]- All Rights Reserved Reading location - IP/workstation name: [email or web address]
[2019-11-21 20:09] VITALS: BP 135/88
== END 2019-11-21 19:50 | disposition home or self-care (01) ==
LOC: ER 17:11
DX: S40.012A Contusion of left shoulder, initial encounter (principal); S16.1XXA Strain of muscle, fascia and tendon at neck level, initial encounter; M54.5 Low back pain; W18.39XA Other fall on same level, initial encounter; Y93.89 Activity, other specified; Y92.007 Garden or yard of unspecified non-institutional (private) residence as the place of occurrence of the external cause; I25.10 Atherosclerotic heart disease of native coronary artery without angina pectoris; I10 Essential (primary) hypertension; E11.9 Type 2 diabetes mellitus without complications; G89.29 Other chronic pain; Z79.891 Long term (current) use of opiate analgesic; Z95.5 Presence of coronary angioplasty implant and graft
CPT/HCPCS: 70450; 72050; 72110; 99283

== ENCOUNTER 2019-11-26 13:05 | Emergency (ER) | payer BC ==
--- NOTE | 2019-11-26 14:11 | ER Document Report ---
ED Medical Screen (RME) - General Chief Complaint: Neck Pain >24hrs old Stated Complaint: NECK PAIN Time Seen by Provider: 11/26/19 14:03 Primary Care Provider: LUIS EDUARDO HANNA MD [Primary Care Provider] - Follow up as needed Mode of Arrival: Ambulatory Information source: Patient Notes: 49-year-old female with history of chronic back pain under pain management presents with complaints of shoulder pain neck pain head pain. Reports she fell when she was attempting to sit down on a swing approximately 1 week ago. She reports she still hurting from that. She also complains that when she tries to walk she is staggering. Reports she cannot walk right. No other complaints such as fever nausea vomiting diarrhea. Patient reports she does take oxycodone for her low back chronic pain but she has been unable to sleep for the past few days due to the pain. I have greeted and performed a rapid initial assessment of this patient. A comprehensive ED assessment and evaluation of the patient, analysis of test results and completion of the medical decision making process will be conducted by additional ED providers. TRAVEL OUTSIDE OF THE [place] IN LAST 30 DAYS: No - Related Data Allergies/Adverse Reactions: baclofen Adverse Reaction (Mild, Verified 11/26/19 14:02) falls Past Medical History - Past Medical History Cardiac Medical History: Reports: Hx Coronary Artery Disease, Hx Heart Attack - 2016, Hx Hypercholesterolemia, Hx Hypertension Pulmonary Medical History: Reports: Hx Asthma - not sure, Hx Bronchitis, Hx Pneumonia Denies: Hx Tuberculosis Neurological Medical History: Reports: Hx Migraine, Hx Seizures Endocrine Medical History: Reports: Hx Diabetes Mellitus Type 2 Renal/ Medical History: Denies: Hx Peritoneal Dialysis Malignancy Medical History: Denies: Hx Bone Cancer, Hx Brain Cancer, Hx Breast Cancer, Hx Cervical Cancer, Hx Colorectal Cancer, Hx Leukemia, Hx Liver Cancer, Hx Lung Cancer, Hx Lymphoma, Hx Ovarian Cancer, Hx Pancreatic Cancer, Hx Renal (Kidney) Cancer, Hx Skin Cancer GI Medical History: Reports: Hx Gastroesophageal Reflux Disease Musculoskeltal Medical History: Reports Hx Arthritis, Reports Hx Musculoskeletal Deformity, Reports Hx Musculoskeletal Trauma Psychiatric Medical History: Reports: Hx Anxiety, Hx Bipolar Disorder, Hx Depression, Hx Post Traumatic Stress Disorder Past Surgical History: Reports: Hx Cardiac Catheterization - with stents, Hx Coronary Stent - Is to, Hx Gynecologic Surgery - D&C, Hx Tubal Ligation - Immunizations Immunizations up to date: Yes Hx Diphtheria, Pertussis, Tetanus Vaccination: No - unknown Physical Exam - Vital signs Vitals: Temp Pulse Resp BP Pulse Ox 98.0 F 84 14 136/93 H 97 11/26/19 13:53 11/26/19 13:53 11/26/19 13:53 11/26/19 13:53 11/26/19 13:53 Course - Vital Signs Vital signs: Temp Pulse Resp BP Pulse Ox 98.0 F 84 14 136/93 H 97 11/26/19 13:53 11/26/19 13:53 11/26/19 13:53 11/26/19 13:53 11/26/19 13:53 Doctor's Discharge - Discharge Referrals: LUIS EDUARDO HANNA MD [Primary Care Provider] - Follow up as needed
[2019-11-26 15:31] LABS: ABSOLUTE BASOPHILS # (AUTO) 0.1 10^3/uL (0.0-0.2); ABSOLUTE EOSINOPHILS # (AUTO) 0.2 10^3/uL (0.0-0.6); ABSOLUTE LYMPHOCYTES (AUTO) 2.8 10^3/uL (0.5-4.7); ABSOLUTE MONOCYTES (AUTO) 0.5 10^3/uL (0.1-1.4); ABSOLUTE NEUT (AUTO) 4.5 10^3/uL (1.7-8.2); BASOPHILS % (AUTO) 0.8 % (0-2); EOSINOPHILS % (AUTO) 2.4 % (0-6); HEMATOCRIT 43.5 % (36.0-47.0); LYMPHOCYTES % (AUTO) 34.8 % (13-45); MEAN CORPUSCULAR HEMOGLOBIN 31.1 pg (27.0-33.4); MEAN CORPUSCULAR HGB CONC 34.5 g/dL (32.0-36.0); MEAN CORPUSCULAR VOLUME 90 fl (80-97); MONOCYTES % (AUTO) 5.9 % (3-13); PLATELET COUNT 298 10^3/uL (150-450); RED BLOOD COUNT 4.84 10^6/uL (3.72-5.28); RED CELL DISTRIBUTION WIDTH 15.7 % (11.5-14.0); SEGMENTED NEUTROPHILS % (AUTO) 56.1 % (42-78); TOTAL CELLS COUNTED % (AUTO) 100 %; WHITE BLOOD COUNT 7.9 10^3/uL (4.0-10.5)
[2019-11-26 15:34] LABS: AMORPHOUS SEDIMENT,URINE TRACE /HPF; APPEARANCE,URINE CLOUDY; BILIRUBIN,URINE NEGATIVE (NEGATIVE); COLOR,URINE YELLOW; GLUCOSE, URINE NEGATIVE (NEGATIVE); KETONES,URINE NEGATIVE (NEGATIVE); LEUKOCYTE ESTERASE,URINE LARGE (NEGATIVE); NITRITE,URINE NEGATIVE (NEGATIVE); PROTEIN,URINE NEGATIVE (NEGATIVE); URINE SPECIFIC GRAVITY 1.014; UROBILINOGEN,URINE NEGATIVE mg/dL (<2.0)
[2019-11-26 15:50] LABS: ALBUMIN 4.8 g/dL (3.5-5.0); ALKALINE PHOSPHATASE 75 U/L (38-126); ANION GAP 11 (5-19); ASPARTATE AMINO TRANSFERASE 33 U/L (14-36); BILIRUBIN,DIRECT 0.4 mg/dL (0.0-0.4); BILIRUBIN,TOTAL 0.4 mg/dL (0.2-1.3); BLOOD UREA NITROGEN 19 mg/dL (7-20); CALCIUM 10.2 mg/dL (8.4-10.2); CARBON DIOXIDE 27 mmol/L (22-30); CHLORIDE 100 mmol/L (98-107); GLUCOSE 108 mg/dL (75-110); POTASSIUM 4.7 mmol/L (3.6-5.0); TOTAL PROTEIN 8.3 g/dL (6.3-8.2)
[2019-11-26 15:54] LABS: URINE AMPHETAMINES SCREEN NEGATIVE; URINE BENZODIAZEPINES SCREEN NEGATIVE; URINE COCAINE SCREEN NEGATIVE; URINE MARIJUANA (THC) SCREEN NEGATIVE; URINE METHADONE SCREEN NEGATIVE; URINE PHENCYCLIDINE SCREEN NEGATIVE
[2019-11-26 15:56] LABS: URINE BARBITURATES SCREEN UNCONFIRMED POSITIVE
[2019-11-26] MEDS ORDERED: KETOROLAC TROMETHAMINE 60 MG/2 ML SDV IM ONE (17:25)
--- NOTE | 2019-11-26 18:01 | RADIOLOGY REPORT (SQ) ---
EXAM DESCRIPTION: CHEST 2 VIEWS COMPLETED DATE/TIME: 11/26/2019 5:52 pm REASON FOR STUDY: fall/pain COMPARISON: 10/23/2019 EXAM PARAMETERS: NUMBER OF VIEWS: 2 TECHNIQUE: Digital Frontal and Lateral radiographic views of the chest acquired. RADIATION DOSE: NA LIMITATIONS: none FINDINGS: LUNGS AND PLEURA: No opacities, masses or pneumothorax. No pleural effusion. MEDIASTINUM AND HILAR STRUCTURES: No masses or contour abnormalities. HEART AND VASCULAR STRUCTURES: Heart normal size. No evidence for failure. BONES: No acute findings. HARDWARE: None in the chest. OTHER: No other significant finding. IMPRESSION: NO ACUTE RADIOGRAPHIC FINDING IN THE CHEST. TECHNICAL DOCUMENTATION: JOB ID: [id number] [employer]- All Rights Reserved Reading location - IP/workstation name: [email or web address]
[2019-11-26] MEDS ORDERED: HYDROMORPHONE HCL INJ/PF 2 MG/ML AMPULE IM ONE (20:14)
--- NOTE | 2019-11-26 20:31 | RADIOLOGY REPORT (SQ) ---
EXAM DESCRIPTION: MR BRAIN WITHOUT IV CONTRAST COMPLETED DATE/TME: 11/26/2019 17:25 CLINICAL HISTORY: 49 years, Female, off balance/jensen/nml CT COMPARISON: None. TECHNIQUE: Images stored on PACS. LIMITATIONS: None. FINDINGS: Severe motion artifact No evidence of restricted diffusion. Menon-white differentiation is normal. Ventricles and extracerebral spaces are within normal limits for age. No evidence of mass lesion, positive mass effect or intracranial hemorrhage. Flow voids within [employer] [place], not well seen due to motion. Orbits and eyeballs are unremarkable. Paranasal sinuses and mastoid air cells appear grossly clear. IMPRESSION: Imaging is degraded by patient motion, with resultant artifact. The best possible images were obtained. This is significant artifact. No acute intracranial process is identified. copyright 2010 [employer]- All Rights Reserved
--- NOTE | 2019-11-26 21:30 | ER Document Report ---
ED General - General Chief Complaint: Neck and Upper Back Pain Stated Complaint: NECK PAIN Time Seen by Provider: 11/26/19 14:03 Primary Care Provider: LUIS EDUARDO HANNA MD [Primary Care Provider] - Follow up as needed Mode of Arrival: Ambulatory Information source: Patient TRAVEL OUTSIDE OF THE [place] IN LAST 30 DAYS: No - HPI Notes: Patient presents with pain in the neck shoulders headache and lower back. She states she had a fall several days ago she states she was seen here and was instructed if she is not any better to come back. She states she does not feel like she is any better so she has come back. She also states she is having trouble sleeping secondary to the pain. This pain in her shoulders is constant. It radiates across both shoulders. It is worse with movement and better with rest. It is a sharp and throbbing sensation. It is moderate to severe. She also states that she has been feeling like she is having trouble walking. - Related Data Allergies/Adverse Reactions: baclofen Adverse Reaction (Mild, Verified 11/26/19 14:02) falls Past Medical History - General Information source: Patient - Social History Smoking Status: Former Smoker Chew tobacco use (# tins/day): No Frequency of alcohol use: None Drug Abuse: None Family History: Reviewed & Not Pertinent, Arthritis, CAD, CVA, DM, Hyperlipidemia, Hypertension, Malignancy Patient has suicidal ideation: No Patient has homicidal ideation: No - Past Medical History Cardiac Medical History: Reports: Hx Coronary Artery Disease, Hx Heart Attack - 2016, Hx Hypercholesterolemia, Hx Hypertension Pulmonary Medical History: Reports: Hx Asthma, Hx Bronchitis, Hx Pneumonia Denies: Hx Tuberculosis Neurological Medical History: Reports: Hx Migraine, Hx Seizures Endocrine Medical History: Reports: Hx Diabetes Mellitus Type 2 Renal/ Medical History: Denies: Hx Peritoneal Dialysis Malignancy Medical History: Denies: Hx Bone Cancer, Hx Brain Cancer, Hx Breast Cancer, Hx Cervical Cancer, Hx Colorectal Cancer, Hx Leukemia, Hx Liver Cancer, Hx Lung Cancer, Hx Lymphoma, Hx Ovarian Cancer, Hx Pancreatic Cancer, Hx Renal (Kidney) Cancer, Hx Skin Cancer GI Medical History: Reports: Hx Gastroesophageal Reflux Disease Musculoskeletal Medical History: Reports Hx Arthritis, Reports Hx Musculoskeletal Deformity, Reports Hx Musculoskeletal Trauma Psychiatric Medical History: Reports: Hx Anxiety, Hx Bipolar Disorder, Hx Depression, Hx Post Traumatic Stress Disorder Past Surgical History: Reports: Hx Cardiac Catheterization - with stents, Hx Coronary Stent - Is to, Hx Gynecologic Surgery - D&C, Hx Tubal Ligation - Immunizations Immunizations up to date: Yes Hx Diphtheria, Pertussis, Tetanus Vaccination: No - unknown Hx Pneumococcal Vaccination: 12/17/11 Review of Systems - Review of Systems Constitutional: denies: Chills, Fever Cardiovascular: denies: Chest pain, Palpitations Gastrointestinal: denies: Abdominal pain, Vomiting -: Yes All other systems reviewed and negative Physical Exam - Vital signs Vitals: Temp Pulse Resp BP Pulse Ox 98.0 F 84 14 136/93 H 97 11/26/19 13:53 11/26/19 13:53 11/26/19 13:53 11/26/19 13:53 11/26/19 13:53 Interpretation: Normal - General General appearance: Appears well, Alert - HEENT Head: Normocephalic, Atraumatic Eyes: Normal Pupils: PERRL - Respiratory Respiratory status: No respiratory distress Chest status: Nontender Breath sounds: Normal Chest palpation: Normal - Cardiovascular Rhythm: Regular Heart sounds: Normal auscultation Murmur: No - Abdominal Inspection: Normal Distension: No distension Bowel sounds: Normal Tenderness: Nontender Organomegaly: No organomegaly - Back Back: Normal, Nontender - Extremities General upper extremity: Normal inspection, Nontender, Normal color, Normal ROM, Normal temperature General lower extremity: Normal inspection, Nontender, Normal color, Normal ROM, Normal temperature, Normal weight bearing. No: Pranav's sign - Neurological Neuro grossly intact: Yes Cognition: Normal Orientation: AAOx4 [place] Coma Scale Eye Opening: Spontaneous [place] Coma Scale Verbal: Oriented [place] Coma Scale Motor: Obeys Commands [place] Coma Scale Total: 15 Speech: Normal Cranial nerves: Normal Cerebellar coordination: No: Gait ataxia, Finger-nose rhombey Motor strength normal: LUE, RUE, LLE, RLE Additional motor exam normals: Equal executive secretary social welfare. No: Pronator drift Sensory: Normal - Psychological Associated symptoms: Normal affect, Normal mood - Skin Skin Temperature: Warm Skin Moisture: Dry Skin Color: Normal Course - Re-evaluation Re-evalutation: 11/26/19 21:27 Patient presents complaining of pain in multiple areas after a fall. I do not find any evidence of acute injuries. I reviewed all of the previous x-rays. I also added an MRI because she was complaining of some headache shoulder pain and feeling off balance. Patient would not sit still and cooperate with the MRI fully. However what was done shows no evidence of any significant abnormality. When I observe the patient's gait it appeared normal to me. I cannot find any abnormalities on exam neurologically. Patient is complaining some trouble sleeping I will try adding a diphenhydramine at night to see if this helps the patient and have her follow-up with her physician. - Vital Signs Vital signs: Temp Pulse Resp BP Pulse Ox 98.0 F 99 14 133/94 H 97 11/26/19 13:53 11/26/19 20:48 11/26/19 13:53 11/26/19 20:48 11/26/19 20:48 - Laboratory Result Diagrams: 11/26/19 14:58 11/26/19 14:58 Laboratory results interpreted by me: 11/26/19 11/26/19 11/26/19 14:58 14:58 14:58 RDW 15.7 H Total Protein 8.3 H Ur Leukocyte Esterase LARGE H - Diagnostic Test Radiology reviewed: Image reviewed, Reports reviewed Discharge - Discharge Clinical Impression: Headache Qualifiers: Headache type: unspecified Headache chronicity pattern: acute headache Intra ctability: intractable Qualified Code(s): R51 - Headache Insomnia Qualifiers: Insomnia type: unspecified Qualified Code(s): G47.00 - Insomnia, unspecified Shoulder pain, bilateral Qualifiers: Chronicity: acute Qualified Code(s): M25.511 - Pain in right shoulder; M25.512 - Pain in left shoulder Low back pain Qualifiers: Chronicity: acute Back pain laterality: bilateral Sciatica presence: without sciatica Qualified Code(s): M54.5 - Low back pain Condition: Stable Disposition: HOME, SELF-CARE Instructions: Insomnia ([facility]), Headache ([facility]) Additional Instructions: Please call your primary doctor first thing in the morning to arrange follow-up Prescriptions: Diphenhydramine HCl [Banophen] 25 mg PO QHS PRN 5 Days #5 tablet PRN Reason: Referrals: LUIS EDUARDO HANNA MD [Primary Care Provider] - Follow up tomorrow
[2019-11-27 05:20] VITALS: BP 135/98
== END 2019-11-26 21:50 | disposition home or self-care (01) ==
LOC: ER 13:05
DX: R51 Headache (principal); M54.2 Cervicalgia; M25.511 Pain in right shoulder; M25.512 Pain in left shoulder; M54.5 Low back pain; W19.XXXA Unspecified fall, initial encounter; W22.03XA Walked into furniture, initial encounter; G47.00 Insomnia, unspecified; I25.10 Atherosclerotic heart disease of native coronary artery without angina pectoris; I10 Essential (primary) hypertension; J45.909 Unspecified asthma, uncomplicated; E11.9 Type 2 diabetes mellitus without complications; Z87.891 Personal history of nicotine dependence; Z95.5 Presence of coronary angioplasty implant and graft
CPT/HCPCS: 99284; 96372; 36415; 85025; 80053; 81001; 80307; 70551; 71046; J1885; J1170

== ENCOUNTER 2020-01-06 12:19 | Emergency (ER) | payer BC ==
--- NOTE | 2020-01-06 12:44 | ER Document Report ---
ED Medical Screen (RME) - General Chief Complaint: General Weakness Stated Complaint: WEAKNESS Time Seen by Provider: 01/06/20 12:32 Primary Care Provider: LUIS EDUARDO HANNA MD [Primary Care Provider] - Follow up as needed Mode of Arrival: Ambulatory Information source: Patient Notes: The patient presents for multiple falls over the past 3 weeks. Patient reports falling twice in the past 3 days. Patient saw her primary doctor and was found to be hypotensive with standing of 84/58. Patient complains of generalized body aches. Patient states that whenever she is fallen she has hit her head on more than one occasion. Patient does take oxycodone and type standing although denies abusing these medications. Pt with a history of hypertension, CAD, diabetes. I have greeted and performed a rapid initial assessment of this patient. A comprehensive ED assessment and evaluation of the patient, analysis of test results and completion of the medical decision making process will be conducted by additional ED providers. TRAVEL OUTSIDE OF THE [place] IN LAST 30 DAYS: No - Related Data Allergies/Adverse Reactions: baclofen Adverse Reaction (Mild, Verified 01/06/20 12:33) falls Past Medical History - Social History Chew tobacco use (# tins/day): No Frequency of alcohol use: None Drug Abuse: None - Past Medical History Cardiac Medical History: Reports: Hx Coronary Artery Disease, Hx Heart Attack - 2016, Hx Hypercholesterolemia, Hx Hypertension Pulmonary Medical History: Reports: Hx Asthma, Hx Bronchitis, Hx Pneumonia Denies: Hx Tuberculosis Neurological Medical History: Reports: Hx Migraine, Hx Seizures Endocrine Medical History: Reports: Hx Diabetes Mellitus Type 2 Renal/ Medical History: Denies: Hx Peritoneal Dialysis Malignancy Medical History: Denies: Hx Bone Cancer, Hx Brain Cancer, Hx Breast Cancer, Hx Cervical Cancer, Hx Colorectal Cancer, Hx Leukemia, Hx Liver Cancer, Hx Lung Cancer, Hx Lymphoma, Hx Ovarian Cancer, Hx Pancreatic Cancer, Hx Renal (Kidney) Cancer, Hx Skin Cancer GI Medical History: Reports: Hx Gastroesophageal Reflux Disease Musculoskeltal Medical History: Reports Hx Arthritis, Reports Hx Musculoskeletal Deformity, Reports Hx Musculoskeletal Trauma Psychiatric Medical History: Reports: Hx Anxiety, Hx Bipolar Disorder, Hx Depression, Hx Post Traumatic Stress Disorder Past Surgical History: Reports: Hx Cardiac Catheterization - with stents, Hx Coronary Stent - Is to, Hx Gynecologic Surgery - D&C, Hx Tubal Ligation - Immunizations Immunizations up to date: Yes Hx Diphtheria, Pertussis, Tetanus Vaccination: No - unknown Physical Exam - General General appearance: Appears well, Alert Notes: Patient with slow deliberate speech, appears overmedicated - Cardiovascular Rhythm: Regular Heart sounds: S1 appreciated, S2 appreciated Doctor's Discharge - Discharge Referrals: LUIS EDUARDO HANNA MD [Primary Care Provider] - Follow up as needed
--- NOTE | 2020-01-06 13:12 | ER Document Report ---
ED Fall - General Chief Complaint: Fall Stated Complaint: WEAKNESS Time Seen by Provider: 01/06/20 12:32 Primary Care Provider: LUIS EDUARDO HANNA MD [Primary Care Provider] - Follow up in 3-5 days Mode of Arrival: Ambulatory Information source: Patient Notes: 49-year-old female presented to ED for multiple falls over the last couple months. She is stated in the [facility] area that it was 3 falls over 3 weeks but her first fall was in November 21 and her last fall was today. She has actually been over 2 months then. She states she is having pain in both shoulders and her buttocks. She is rested the weakness and pain is her normal chronic pain according to the patient. She states she falls more often than that but that anytime she is needed to come to the emergency room. She does take oxycodone for her chronic pain she states she always has low blood pressure when she gets up she has generalized body aches all of the time she has a history of high blood pressure coronary artery disease and diabetes. TRAVEL OUTSIDE OF THE [place] IN LAST 30 DAYS: No - HPI Occurred: This morning Where: Home, Indoors Context: Lost balance Associated symptoms: None Location of injury/pain: Buttocks, Head, Shoulder - Lateral Quality of pain: Achy Severity: Mild Pain Level: 2 - Related data Allergies/Adverse Reactions: baclofen Adverse Reaction (Mild, Verified 01/06/20 13:56) falls Past Medical History - General Information source: Patient - Social History Smoking Status: Former Smoker Chew tobacco use (# tins/day): No Frequency of alcohol use: None Drug Abuse: None Lives with: Family Family History: Arthritis, CAD, CVA, DM, Hyperlipidemia, Hypertension, Mir[place] gnancy Patient has suicidal ideation: No Patient has homicidal ideation: No - Past Medical History Cardiac Medical History: Reports: Hx Coronary Artery Disease, Hx Heart Attack - 2016, Hx Hypercholesterolemia, Hx Hypertension Pulmonary Medical History: Reports: Hx Asthma, Hx Bronchitis, Hx Pneumonia EENT Medical History: Reports: None Neurological Medical History: Reports: Hx Migraine, Hx Seizures Endocrine Medical History: Reports: Hx Diabetes Mellitus Type 2 Renal/ Medical History: Reports: None Malignancy Medical History: Reports: None GI Medical History: Reports: Hx Gastroesophageal Reflux Disease Musculoskeletal Medical History: Reports Hx Arthritis, Reports Hx Musculoskeletal Deformity, Reports Hx Musculoskeletal Trauma Skin Medical History: Reports None Psychiatric Medical History: Reports: Hx Anxiety, Hx Bipolar Disorder, Hx Depression, Hx Post Traumatic Stress Disorder Traumatic Medical History: Reports: None Past Surgical History: Reports: Hx Cardiac Catheterization - with stents, Hx Coronary Stent - Is to, Hx Gynecologic Surgery - D&C, Hx Tubal Ligation - Immunizations Immunizations up to date: Yes Hx Diphtheria, Pertussis, Tetanus Vaccination: No - unknown Hx Pneumococcal Vaccination: 12/17/11 Review of Systems - Review of Systems Constitutional: No symptoms reported EENT: No symptoms reported Cardiovascular: No symptoms reported Respiratory: No symptoms reported Gastrointestinal: No symptoms reported Genitourinary: No symptoms reported Female Genitourinary: No symptoms reported Musculoskeletal: Back pain, Joint pain - Both shoulders tender to palpation, Muscle pain, Muscle stiffness Skin: No symptoms reported Hematologic/Lymphatic: No symptoms reported Neurological/Psychological: No symptoms reported -: Yes All other systems reviewed and negative Physical Exam - Vital signs Vitals: Temp Pulse Resp BP Pulse Ox 97.8 F 88 16 109/84 98 01/06/20 12:29 01/06/20 12:29 01/06/20 12:29 01/06/20 12:29 01/06/20 12:29 Interpretation: Normal - General General appearance: Appears well, Alert - HEENT Head: Normocephalic, Atraumatic Eyes: Normal Pupils: PERRL - Respiratory Respiratory status: No respiratory distress Chest status: Nontender Breath sounds: Normal Chest palpation: Normal - Cardiovascular Rhythm: Regular Heart sounds: Normal auscultation Murmur: No - Abdominal Inspection: Normal Distension: No distension Bowel sounds: Normal Tenderness: Nontender Organomegaly: No organomegaly - Back Back: Normal, Nontender - Extremities General upper extremity: Normal inspection, Nontender, Normal color, Normal ROM, Normal temperature General lower extremity: Normal inspection, Nontender, Normal color, Normal ROM, Normal temperature, Normal weight bearing. No: Pranav's sign - Neurological Neuro grossly intact: Yes Cognition: Normal Orientation: AAOx4 [place] Coma Scale Eye Opening: Spontaneous [place] Coma Scale Verbal: Oriented [place] Coma Scale Motor: Obeys Commands [place] Coma Scale Total: 15 Speech: Normal Motor strength normal: LUE, RUE, LLE, RLE Sensory: Normal - Psychological Associated symptoms: Normal affect, Normal mood - Skin Skin Temperature: Warm Skin Moisture: Dry Skin Color: Normal Course - Re-evaluation Re-evalutation: 01/06/20 21:39 Discussed all x-rays with patient and written report of x-rays given to patient. All lab results were given to patient and written report for her to follow-up with her primary care doctor. Patient has chronic pain and uses chronic pain management and is frequently fallen due to the chronic pain management. Patient was encouraged to decrease the amount of her pain management medicine she is taking to prevent more falls. Patient was instructed to follow-up with her pain management and her primary doctor. Patient verbalized understanding and agreement with treatment plan. Patient was discharged home - Vital Signs Vital signs: Temp Pulse Resp BP Pulse Ox 97.8 F 88 15 119/94 H 99 01/06/20 12:29 01/06/20 12:29 01/06/20 15:40 01/06/20 15:40 01/06/20 15:40 - Laboratory Result Diagrams: 01/06/20 13:10 01/06/20 13:10 Laboratory results interpreted by me: 01/06/20 01/06/20 13:10 14:29 RDW 14.9 H Ur Leukocyte Esterase MODERATE H - Diagnostic Test Radiology reviewed: Image reviewed, Reports reviewed Discharge - Discharge Clinical Impression: Bilateral shoulder contusion Fall Qualifiers: Encounter type: initial encounter Qualified Code(s): W19.XXXA - Unspecified fall, initial encounter Contusion of buttock Qualifiers: Encounter type: initial encounter Qualified Code(s): S30.0XXA - Contusion of l ower back and pelvis, initial encounter Chronic pain Qualifiers: Chronic pain type: chronic pain syndrome Qualified Code(s): G89.4 - Chronic pain syndrome Condition: Stable Disposition: HOME, SELF-CARE Additional Instructions: Chronic Pain Control Stress, inactivity, and depression make pain more severe regardless of the cause of the pain. Stress and poor physical condition can cause pain such as headaches and backache. Relaxation: Rest in a quiet place with your eyes closed for 20 minutes twice daily. Concentrate on a pleasant image, or simply "feel" your breathing. Clear your mind. Stress management: Deal with your "stressors." Either take action, or eliminate the stressor from your life. Don't let things hang over you. Accept those things you can't change. Nutrition: Eat small, balanced meals -- don't skip, don't overeat. Meals should be high-carbohydrate, low-sugar, low-fat. Exercise: Exercise helps painful conditions and eases stress. Get 30 minutes of moderate exercise, five days a week. Do an activity that does not flare your pain. Precautions: Pain which continues to disrupt daily activities, or which changes in nature, requires a medical evaluation. Pain Clinic referral is a vailable. We do not manage chronic pain in the Emergency Department. We will try to appropriately help you through an acute flare of your chronic painful condition, but for on-going chronic pain that does not improve, you will need to see your private doctor or painting supervisor. We do not provide repeated medication management of chronic painful conditions. If you wish, we can provide the name of local pain management physicians. CONTUSION: Your injury has resulted in a contusion -- a crushing of the deep tissues. No injury to important structures was detected during the physician's exam. Contusions vary in the amount of pain they cause, and in the length of time required for healing. Typically, the area will become bruised, and will remain painful to touch for two or three weeks. However, most patients are back to working and playing within a few days. After the initial period of rest and cold-packs, your symptoms (together wi th the doctor's recommendations) will determine how rapidly you can get back to full activity. Usually this means "do what feels okay, but don't do things that hurt." If re-examination was recommended, it's important to follow up as instructed. Call the doctor or return any time if pain increases, if swelling becomes severe, if you develop numbness or weakness in an injured extremity, or if any other alarming symptoms occur. LOW BACK PAIN: Three out of every four people will have an episode of disabling back pain during their lifetime. Most commonly the pain is due to straining of the muscles and ligaments in the low back. Usual treatment includes: (1) Rest on a firm surface. Avoid lying on your stomach. (2) Ice pack the painful area. After a few days, gentle heat may be used intermittently to relax the area, or ice packs can be continued. (3) Medication may be needed -- muscle relaxers and antiinflammatory medicines are commonly used. (4) As the back improves, exercises are prescribed to strengthen the back and abdominal muscles. Your doctor will advise you on the proper care for your back at each stage in your recovery. You may be better in a few days -- or healing may take several weeks. If new symptoms of a "herniated disc" (radiation of pain, numbness, or tingling down the back of the leg or weakness in the leg) occur, you should be re-examined. Further testing may be necessary. USE OF TYLENOL (ACETAMINOPHEN): Acetaminophen may be taken for pain relief or fever control. It's much safer than aspirin, offering a wider range of "safe" dosages. It is safe during . Some brand names are Tylenol, Panadol, Datril, Anacin 3, Tempra, and Liquiprin. Acetaminophen can be repeated every four hours. The following are m aximum recommended dosages: WEIGHT Dose Drops Elixir Ch ewable(80mg) (LBS.) drprs=droppers tsp=teaspoon 6 40 mg 0.4 ml (1/2) 6-11 80 mg 0.8 ml (full) tsp 1 tab 12-16 120 mg 1 1/2 drprs 3/4 tsp 1 1/2 tabs 17-23 160 mg 2 drprs 1 tsp 2 tabs 24-30 240 mg 3 drprs 1 1/2 tsp 3 tabs 30-35 320 mg 2 tsp 4 tabs 36-41 360 mg 2 1/4 tsp 4 1/2 tabs 42-47 400 mg 2 1/2 tsp 5 tabs 48-53 480 mg 3 tsp 6 tabs 54-59 520 mg 3 1/4 tsp 6 1/2 tabs 60-64 560 mg 3 1/2 tsp 7 tabs 65-70 600 mg 3 3/4 tsp 7 1/2 tabs 71-76 640 mg 4 tsp 8 tabs 77-82 720 mg 4 1/2 tsp 9 tabs 83-88 800 mg 5 tsp 10 tabs >89 pounds or adults 650 mg to 900 mg Acetaminophen can be repeated every four hours. Maximum dose not to exceed 4000 mg a day. These maximum recommended dosages are slightly higher than the dosages written on the product container, but these dosages are very safe and below the toxic dosage for acetaminophen. ICE PACKS: Apply ice packs frequently against the painful area. Many different schedules are recommended, such as "20 minutes on, 20 minutes off" or "one hour ice, two hours rest." If you need to work, you may need to go longer between ice treatments. You should plan to have the area ice packed AT LEAST one fourth of the time. The ice should be applied over the wrap, tape, or splint, or over a layer of cloth -- not directly against the skin. Some ice bags have a built-in cloth and can be put directly on the skin. WARM PACKS: After approximately two days, apply gentle heat (such as a heating pad or hot water bottle) for about 20 to 30 minutes about every two hours -- at least four times daily. Warmth and elevation will help you make a more rapid recovery, and will ease the pain considerably. Do not use HOT heat, and never apply heat for longer than 30 minutes. The continuous heat can invisibly damage skin and muscles -- even when no burn is seen on the surface. Damaged muscles can make you MORE sore. ORAL NARCOTIC MEDICATION: You have been given a Percocet for pain control. Need to take your chronic pain management when she get home. This was just for while you were in the hospital you need to follow-up with your chronic pain management for further narcotics. This medication is a narcotic. It's best taken with food, as nausea can result if taken on an empty stomach. Don't operate machinery or drive within six hours of taking this medication. Do not combine this medicine with alcohol, or with any medication which can cause sedation (such as cold tablets or sleeping pills) unless you get permission from the physician. Narcotics tend to cause constipation. If possible, drink plenty of fluids and eat a diet high in fiber and fruits. FOLLOW-UP CARE: If you have been referred to a physician for follow-up care, call the physicians office for an appointment as you were instructed or within the next two days. If you experience worsening or a significant change in your symptoms, notify the physician immediately or return to the Emergency Department at any time for re-evaluation. Forms: Elevated Blood Pressure Referrals: LUIS EDUARDO HANNA MD [Primary Care Provider] - Follow up in 3-5 days
--- NOTE | 2020-01-06 13:35 | RADIOLOGY REPORT (SQ) ---
EXAM DESCRIPTION: CT HEAD WITHOUT COMPLETED DATE/TIME: 01/06/2020 1:23 pm REASON FOR STUDY: fall, head injury COMPARISON: 11/26/2019 TECHNIQUE: Axial images acquired through the brain without intravenous contrast. Images reviewed wit h bone, brain and subdural windows. Images stored on PACS. All CT scanners at this facility use dose modulation, iterative reconstruction, and/or weight based d osing when appropriate to reduce radiation dose to as low as reasonably achievable (ALARA). [facility]: Dose Right [facility]: CareDose [facility]: Dose Right [facility]: Teradose 4D [facility]: Smart [id number] RADIATION DOSE: CT Rad equipment meets quality standard of care and radiation dose reduction techniq ues were employed. CTDIvol: 53.2 mGy. DLP: 991 mGy-cm.. LIMITATIONS: None. FINDINGS: VENTRICLES: Normal size and contour. CEREBRUM: No masses. No hemorrhage. No midline shift. Age appropriate white matter. No evidence for a cute infarction. CEREBELLUM: No masses. No hemorrhage. No alteration of density. No evidence for acute infarction. EXTRA-AXIAL SPACES: No fluid collections. ORBITS AND GLOBE: No intra- or extraconal masses. Normal contour of globe without masses. CALVARIUM: No fracture. PARANASAL SINUSES: No fluid or mucosal thickening. SOFT TISSUES: No mass or hematoma. OTHER: No other significant finding. IMPRESSION: NO ACUTE INTRACRANIAL FINDINGS. EVIDENCE OF ACUTE STROKE: NO. TECHNICAL DOCUMENTATION: JOB ID: [id number] [place]-72 Quality ID # [id number]: Final reports with documentation of one or more dose reduction techniques (e.g., Au tomated exposure control, adjustment of the mA and/or kV according to patient size, use of iterative reconstruction technique) 2010 [employer]- All Rights Reserved Reading location - IP/workstation name: [email or web address]
[2020-01-06 13:40] LABS: ABSOLUTE EOSINOPHILS # (AUTO) 0.2 10^3/uL (0.0-0.6); ABSOLUTE LYMPHOCYTES (AUTO) 2.2 10^3/uL (0.5-4.7); ABSOLUTE MONOCYTES (AUTO) 0.5 10^3/uL (0.1-1.4); ABSOLUTE NEUT (AUTO) 4.5 10^3/uL (1.7-8.2); BASOPHILS % (AUTO) 0.6 % (0-2); EOSINOPHILS % (AUTO) 3.1 % (0-6); HEMATOCRIT 36.9 % (36.0-47.0); HEMOGLOBIN 12.9 g/dL (12.0-15.5); LYMPHOCYTES % (AUTO) 29.3 % (13-45); MEAN CORPUSCULAR HEMOGLOBIN 31.4 pg (27.0-33.4); MEAN CORPUSCULAR VOLUME 90 fl (80-97); MONOCYTES % (AUTO) 6.2 % (3-13); PLATELET COUNT 263 10^3/uL (150-450); RED CELL DISTRIBUTION WIDTH 14.9 % (11.5-14.0); SEGMENTED NEUTROPHILS % (AUTO) 60.8 % (42-78); TOTAL CELLS COUNTED % (AUTO) 100 %; WHITE BLOOD COUNT 7.4 10^3/uL (4.0-10.5)
[2020-01-06 13:50] LABS: ALBUMIN 4.1 g/dL (3.5-5.0); ALKALINE PHOSPHATASE 61 U/L (38-126); ANION GAP 10 (5-19); ASPARTATE AMINO TRANSFERASE 35 U/L (14-36); BILIRUBIN,DIRECT 0.3 mg/dL (0.0-0.4); BILIRUBIN,TOTAL 0.3 mg/dL (0.2-1.3); BLOOD UREA NITROGEN 14 mg/dL (7-20); CALCIUM 9.4 mg/dL (8.4-10.2); CARBON DIOXIDE 23 mmol/L (22-30); CHLORIDE 105 mmol/L (98-107); GLUCOSE 92 mg/dL (75-110); POTASSIUM 3.9 mmol/L (3.6-5.0); TOTAL PROTEIN 7.2 g/dL (6.3-8.2)
[2020-01-06 13:54] LABS: ALCOHOL < 10 mg/dL (NONE DETECTED)
--- NOTE | 2020-01-06 14:10 | RADIOLOGY REPORT (SQ) ---
EXAM DESCRIPTION: CHEST SINGLE VIEW COMPLETED DATE/TIME: 01/06/2020 1:55 pm REASON FOR STUDY: falls COMPARISON: 11/26/2019 TECHNIQUE: Single frontal radiographic view of the chest acquired. NUMBER OF VIEWS: One view. LIMITATIONS: None. FINDINGS: LUNGS AND PLEURA: No pneumothorax. No consolidation or pleural effusion. MEDIASTINUM AND HILAR STRUCTURES: Stable. HEART AND VASCULAR STRUCTURES: Stable. BONES: No acute findings. HARDWARE: None in the chest. OTHER: No other significant finding. IMPRESSION: NO ACUTE FINDINGS. TECHNICAL DOCUMENTATION: JOB ID: [id number] [place]-72 2010 [employer]- All Rights Reserved Reading location - IP/workstation name: [email or web address]
--- NOTE | 2020-01-06 14:13 | RADIOLOGY REPORT (SQ) ---
EXAM DESCRIPTION: SHOULDER BILAT 2 OR MORE VIEWS COMPLETED DATE/TIME: 01/06/2020 1:55 pm REASON FOR STUDY: Fall pain COMPARISON: None. NUMBER OF VIEWS: Six views. TECHNIQUE: Internal rotation, external rotation, and Y view images acquired of the right and left sh oulder. LIMITATIONS: None. FINDINGS: MINERALIZATION: Normal. BONES: No acute fracture. No worrisome bone lesions. JOINTS: No dislocation. VISUALIZED LUNGS AND RIBS: No pneumothorax. No rib fracture. SOFT TISSUES: No radiopaque foreign body. OTHER: No other significant finding. IMPRESSION: No acute findings. TECHNICAL DOCUMENTATION: JOB ID: [id number] [place]-72 2010 [employer]- All Rights Reserved Reading location - IP/workstation name: [email or web address]
--- NOTE | 2020-01-06 14:14 | RADIOLOGY REPORT (SQ) ---
EXAM DESCRIPTION: L SPINE WHOLE COMPLETED DATE/TIME: 01/06/2020 1:55 pm REASON FOR STUDY: fall pain COMPARISON: None. NUMBER OF VIEWS: Five views including obliques. TECHNIQUE: AP, lateral, oblique, and sacral radiographic images acquired of the lumbar spine. LIMITATIONS: None. FINDINGS: MINERALIZATION: Normal. SEGMENTATION: Normal. No transitional anatomy. ALIGNMENT: Normal. VERTEBRAE: Maintained height. No fracture or worrisome bone lesion. DISCS: Preserved height. No significant osteophytes or end plate irregularity. POSTERIOR ELEMENTS: Pedicles and facets are intact. No pars defect or posterior arch defects. HARDWARE: None in the spine. PARASPINAL SOFT TISSUES: Normal. PELVIS: Intact as visualized. No fractures or worrisome bone lesions. SI joints intact. OTHER: No other significant finding. IMPRESSION: No acute findings. TECHNICAL DOCUMENTATION: JOB ID: [id number] [place]-72 2010 [employer]- All Rights Reserved Reading location - IP/workstation name: [email or web address]
[2020-01-06 14:43] LABS: APPEARANCE,URINE SLIGHTLY-CLOUDY; BILIRUBIN,URINE NEGATIVE (NEGATIVE); COLOR,URINE YELLOW; GLUCOSE, URINE NEGATIVE (NEGATIVE); KETONES,URINE NEGATIVE (NEGATIVE); LEUKOCYTE ESTERASE,URINE MODERATE (NEGATIVE); NITRITE,URINE NEGATIVE (NEGATIVE); PROTEIN,URINE NEGATIVE (NEGATIVE); URINE SPECIFIC GRAVITY 1.011; UROBILINOGEN,URINE NEGATIVE mg/dL (<2.0)
[2020-01-06 15:01] LABS: URINE AMPHETAMINES SCREEN NEGATIVE; URINE BARBITURATES SCREEN UNCONFIRMED POSITIVE; URINE BENZODIAZEPINES SCREEN NEGATIVE; URINE COCAINE SCREEN NEGATIVE; URINE MARIJUANA (THC) SCREEN NEGATIVE; URINE METHADONE SCREEN NEGATIVE; URINE PHENCYCLIDINE SCREEN NEGATIVE
[2020-01-06] MEDS ORDERED: OXYCODONE-ACETAMINOPHEN 5-325 MG TABLET PO ONE (15:34)
[2020-01-06 15:43] VITALS: BP 119/94
--- NOTE | 2020-01-06 21:38 | EKG REPORT ---
SEVERITY:- BORDERLINE ECG - SINUS RHYTHM BORDERLINE T ABNORMALITIES, DIFFUSE LEADS : Confirmed by: Burak Dickens MD 06-Jan-2020 21:38:10
== END 2020-01-06 16:30 | disposition home or self-care (01) ==
LOC: ER 12:19
DX: S40.012A Contusion of left shoulder, initial encounter (principal); S40.011A Contusion of right shoulder, initial encounter; S30.0XXA Contusion of lower back and pelvis, initial encounter; G89.4 Chronic pain syndrome; W19.XXXA Unspecified fall, initial encounter; Z91.81 History of falling; R53.1 Weakness; I25.10 Atherosclerotic heart disease of native coronary artery without angina pectoris; E78.00 Pure hypercholesterolemia, unspecified; I10 Essential (primary) hypertension; E11.9 Type 2 diabetes mellitus without complications; Z98.51 Tubal ligation status; I25.2 Old myocardial infarction
CPT/HCPCS: 36415; 70450; 71045; 72110; 80053; 80307; 81001; 82962; 83735; 84484; 85025; 93005; 93010; 99284

== ENCOUNTER 2020-01-21 11:15 | Emergency (ER) | payer BC ==
--- NOTE | 2020-01-21 11:50 | ER Document Report ---
ED General - General Chief Complaint: Syncope Stated Complaint: POSSIBLE SYNCOPE Primary Care Provider: LUIS EDUARDO HANNA MD [Primary Care Provider] - Follow up as needed Notes: Patient is a 49-year-old white female with a past medical history significant for chronic neck and back pain, chronic bilateral arm pain, CAD with 2 stents and resting tachycardia on metoprolol 25 mg p.o. twice daily who presents to the emergency department with a chief complaint of pain after a fall. The patient states that her son was trying to help her up when he lost control of her and she fell to the ground. She landed on her back and neck. She denies hitting her head or any loss of consciousness. She states that she has her normal pains but is concerned about her neck and back specifically. Patient reports that she took 110 mg Percocet this morning along with her gabapentin, Lasix and metoprolol. She reports no other medications. Family reports that the patient often becomes severely somnolent with slurred speech after she takes her pain medicines. They state this is her baseline. Patient denies history of stroke. She denies any numbness tingling or weakness at this time. She is answering questions appropriately though does appear somnolent and has slurred speech. She also complained of some chest pain from earlier today but none at this time. No shortness of breath. TRAVEL OUTSIDE OF THE [place] IN LAST 30 DAYS: No - Related Data Allergies/Adverse Reactions: baclofen Adverse Reaction (Mild, Verified 01/06/20 13:56) falls Past Medical History - Social History Smoking Status: Unknown if Ever Smoked Family History: Arthritis, CAD, CVA, DM, Hyperlipidemia, Hypertension, Malignancy - Past Medical History Cardiac Medical History: Reports: Hx Coronary Artery Disease, Hx Heart Attack - 2016, Hx Hypercholesterolemia, Hx Hypertension Pulmonary Medical History: Reports: Hx Asthma, Hx Bronchitis, Hx Pneumonia Denies: Hx Tuberculosis Neurological Medical History: Reports: Hx Migraine, Hx Seizures Endocrine Medical History: Reports: Hx Diabetes Mellitus Type 2 Renal/ Medical History: Denies: Hx Peritoneal Dialysis Malignancy Medical History: Denies: Hx Bone Cancer, Hx Brain Cancer, Hx Breast Cancer, Hx Cervical Cancer, Hx Colorectal Cancer, Hx Leukemia, Hx Liver Cancer, Hx Lung Cancer, Hx Lymphoma, Hx Ovarian Cancer, Hx Pancreatic Cancer, Hx Renal (Kidney) Cancer, Hx Skin Cancer GI Medical History: Reports: Hx Gastroesophageal Reflux Disease Musculoskeletal Medical History: Reports Hx Arthritis, Reports Hx Musculoskeletal Deformity, Reports Hx Musculoskeletal Trauma Psychiatric Medical History: Reports: Hx Anxiety, Hx Bipolar Disorder, Hx Depression, Hx Post Traumatic Stress Disorder Past Surgical History: Reports: Hx Cardiac Catheterization - with stents, Hx Coronary Stent - Is to, Hx Gynecologic Surgery - D&C, Hx Tubal Ligation - Immunizations Immunizations up to date: Yes Hx Diphtheria, Pertussis, Tetanus Vaccination: No - unknown Hx Pneumococcal Vaccination: 12/17/11 Review of Systems - Review of Systems Musculoskeletal: Back pain, Muscle pain, Neck pain -: Yes All other systems reviewed and negative Physical Exam - Vital signs Vitals: Resp Pulse Ox 16 95 01/21/20 11:26 01/21/20 11:26 - General General appearance: Other - Somnolent appearing but easily arousable to verbal s timuli In distress: None - HEENT Head: Normocephalic, Atraumatic Eyes: Normal Conjunctiva: Normal Extraocular movements intact: Yes Pupils: PERRL Mucous membranes: Moist Neck: Other - Restrained in a cervical collar - Respiratory Respiratory status: No respiratory distress Chest status: Nontender Breath sounds: Normal Chest palpation: Normal - Cardiovascular Rhythm: Regular Heart sounds: Normal auscultation - Abdominal Inspection: Normal Distension: No distension Bowel sounds: Normal Tenderness: Nontender Organomegaly: No organomegaly - Extremities General upper extremity: Normal inspection, Nontender, Normal color, Normal ROM, Normal temperature, Other - Some prior scarring incidentally noted to the dorsal surface of the right forearm appears to be prior self-mutilation scars General lower extremity: Normal inspection, Nontender, Normal color, Normal ROM, Normal temperature, Normal weight bearing. No: Pranav's sign - Neurological Neuro grossly intact: Yes Cognition: Other - Somnolent Orientation: AAOx4 Terry Coma Scale Eye Opening: Spontaneous Terry Coma Scale Verbal: Oriented Terry Coma Scale Motor: Obeys Commands [place] Coma Scale Total: 15 Speech: Other - Slurred Cranial nerves: Normal. No: Facial palsy Cerebellar coordination: Other - Able to assess gait due to patient's pain and immobilization. No: Truncal ataxia Motor strength normal: LUE, RUE, LLE, RLE Additional motor exam normals: Equal iron piler. No: Pronator drift Sensory: Normal - Psychological Associated symptoms: Normal affect, Normal mood - Skin Skin Temperature: Warm Skin Moisture: Dry Skin Color: Normal Course - Re-evaluation Re-evalutation: 01/21/20 15:50 Patient's work-up largely unremarkable. Of note her UDS was negative for opiates which she is chronically prescribed. States that she has been taking them. She is awake, alert and oriented. She is stable and appropriate for discharge and outpatient follow-up. I counseled her regarding the importance of outpatient follow-up and advised that she call her pain management doctor for further care and management of any continued pain. I also advised that she return here or any ER immediately with any new, persistent or worsening symptoms. She verbalized understood and agreed. Patient blood pressure has i mproved after 2 L and is stable. 01/21/20 15:51 - Vital Signs Vital signs: Temp Pulse Resp BP Pulse Ox 98.0 F 53 L 13 98 01/21/20 11:50 01/21/20 11:50 01/21/20 15:00 01/21/20 15:00 - Laboratory Result Diagrams: 01/21/20 11:37 01/21/20 11:37 Laboratory results interpreted by me: 01/21/20 01/21/20 01/21/20 11:36 11:37 11:37 RBC 3.33 L Hgb 10.6 L Hct 30.2 L RDW 16.5 H Sodium 135.6 L POC Glucose 119 H AST 39 H Discharge - Discharge Clinical Impression: Pain of multiple sites Fall Qualifiers: Encounter type: initial encounter Qualified Code(s): W19.XXXA - Unspecified fall, initial encounter Low blood pressure Qualifiers: Hypotension type: unspecified hypotension type Qualified Code(s): I95.9 - Hypotension, unspecified Condition: Stable Disposition: HOME, SELF-CARE Instructions: Chronic Pain Control ([facility]) Additional Instructions: Follow-up with your regular doctor in 2 to 3 days for reevaluation. Return here or any ER immediately with any new, persistent or worsening symptoms. Referrals: LUIS EDUARDO HANNA MD [Primary Care Provider] - Follow up as needed
[2020-01-21 11:59] LABS: ABSOLUTE EOSINOPHILS # (AUTO) 0.3 10^3/uL (0.0-0.6); ABSOLUTE LYMPHOCYTES (AUTO) 2.2 10^3/uL (0.5-4.7); ABSOLUTE MONOCYTES (AUTO) 0.4 10^3/uL (0.1-1.4); ABSOLUTE NEUT (AUTO) 4.8 10^3/uL (1.7-8.2); BASOPHILS % (AUTO) 0.3 % (0-2); EOSINOPHILS % (AUTO) 3.8 % (0-6); HEMATOCRIT 30.2 % (36.0-47.0); HEMOGLOBIN 10.6 g/dL (12.0-15.5); LYMPHOCYTES % (AUTO) 28.2 % (13-45); MEAN CORPUSCULAR HGB CONC 35.2 g/dL (32.0-36.0); MEAN CORPUSCULAR VOLUME 91 fl (80-97); MONOCYTES % (AUTO) 5.6 % (3-13); PLATELET COUNT 253 10^3/uL (150-450); RED BLOOD COUNT 3.33 10^6/uL (3.72-5.28); RED CELL DISTRIBUTION WIDTH 16.5 % (11.5-14.0); SEGMENTED NEUTROPHILS % (AUTO) 62.1 % (42-78); TOTAL CELLS COUNTED % (AUTO) 100 %; WHITE BLOOD COUNT 7.8 10^3/uL (4.0-10.5)
[2020-01-21 12:03] LABS: INTERNATIONAL RATION (INR) 1.02; PARTIAL THROMBOPLASTIN TIME 25.4 SEC (23.5-35.8); PROTHROMBIN TIME 13.4 SEC (11.4-15.4)
[2020-01-21 12:19] LABS: ALBUMIN 3.6 g/dL (3.5-5.0); ALKALINE PHOSPHATASE 54 U/L (38-126); ANION GAP 9 (5-19); ASPARTATE AMINO TRANSFERASE 39 U/L (14-36); BILIRUBIN,TOTAL 0.2 mg/dL (0.2-1.3); BLOOD UREA NITROGEN 12 mg/dL (7-20); CARBON DIOXIDE 22 mmol/L (22-30); CHLORIDE 105 mmol/L (98-107); CREATINE KINASE 46 U/L (30-135); GLUCOSE 109 mg/dL (75-110); POTASSIUM 3.6 mmol/L (3.6-5.0); TOTAL PROTEIN 6.4 g/dL (6.3-8.2)
[2020-01-21 12:32] LABS: CREATINE KINASE MB 0.42 ng/mL (<4.55)
--- NOTE | 2020-01-21 12:32 | RADIOLOGY REPORT (SQ) ---
EXAM DESCRIPTION: CT HEAD WITHOUT IMAGES COMPLETED DATE/TIME: 01/21/2020 12:19 pm REASON FOR STUDY: fall COMPARISON: 01/06/2020 TECHNIQUE: Axial images acquired through the brain without intravenous contrast. Images reviewed wi th bone, brain and subdural windows. Additional sagittal and coronal reconstructions were generated. Images stored on PACS. All CT scanners at this facility use dose modulation, iterative reconstruction, and/or weight based d osing when appropriate to reduce radiation dose to as low as reasonably achievable (ALARA). [facility]: Dose Right [facility]: CareDose [facility]: Dose Right [facility]: Teradose 4D [facility]: [employer] RADIATION DOSE: CT Rad equipment meets quality standard of care and radiation dose reduction techniq ues were employed. CTDIvol: 48.8 mGy. DLP: 1031 mGy-cm. mGy. LIMITATIONS: None. FINDINGS: VENTRICLES: Normal size and contour. CEREBRUM: No masses. No hemorrhage. No midline shift. No evidence for acute infarction. Normal gra y/white matter differentiation. No areas of low density in the white matter. CEREBELLUM: No masses. No hemorrhage. No alteration of density. No evidence for acute infarction. EXTRAAXIAL SPACES: No fluid collections. No masses. ORBITS AND GLOBE: No intra- or extraconal masses. Normal contour of globe without masses. CALVARIUM: No fracture. PARANASAL SINUSES: No fluid or mucosal thickening. SOFT TISSUES: No mass or hematoma. OTHER: No other significant finding. IMPRESSION: NORMAL BRAIN CT WITHOUT CONTRAST. EVIDENCE OF ACUTE STROKE: NO. COMMENT: Quality ID # [id number]: Final reports with documentation of one or more dose reduction techniques (e.g., Automated exposure control, adjustment of the mA and/or kV according to patient size, use of iterative reconstruction technique) TECHNICAL DOCUMENTATION: JOB ID: [id number] 2010 [employer]- All Rights Reserved Reading location - IP/workstation name: [email or web address]
--- NOTE | 2020-01-21 12:33 | RADIOLOGY REPORT (SQ) ---
EXAM DESCRIPTION: CT CERVICAL SPINE WITHOUT IMAGES COMPLETED DATE/TIME: 01/21/2020 12:19 pm REASON FOR STUDY: fall COMPARISON: None. TECHNIQUE: Axial images acquired through the cervical spine without intravenous contrast. Images re viewed with lung, soft tissue and bone windows. Reconstructed coronal and sagittal MPR images review ed. Images stored on PACS. All CT scanners at this facility use dose modulation, iterative reconstruction, and/or weight based d osing when appropriate to reduce radiation dose to as low as reasonably achievable (ALARA). [facility]: Dose Right [facility]: CareDose [facility]: Dose Right [facility]: Teradose 4D [facility]: [employer] RADIATION DOSE: CT Rad equipment meets quality standard of care and radiation dose reduction techniq ues were employed. CTDIvol: 21.3 mGy. DLP: 588 mGy-cm. mGy. LIMITATIONS: None. FINDINGS: ALIGNMENT: Anatomic. MINERALIZATION: Normal. VERTEBRAL BODIES: No fractures or dislocation. DISCS: No significant disc disease. FACETS, LATERAL MASSES, POSTERIOR ELEMENTS: No fractures. No dislocation. No acute findings. HARDWARE: None in the spine. VISUALIZED RIBS: No fractures. LUNG APICES AND SOFT TISSUES: No significant or acute findings. OTHER: No other significant finding. IMPRESSION: NO ACUTE OR SIGNIFICANT FINDINGS IN THE CERVICAL SPINE. TECHNICAL DOCUMENTATION: JOB ID: [id number] Quality ID # [id number]: Final reports with documentation of one or more dose reduction techniques (e.g., Au tomated exposure control, adjustment of the mA and/or kV according to patient size, use of iterative reconstruction technique) 2010 [employer]- All Rights Reserved Reading location - IP/workstation name: [email or web address]
--- NOTE | 2020-01-21 12:34 | RADIOLOGY REPORT (SQ) ---
EXAM DESCRIPTION: CT THORACIC SPINE WITHOUT IMAGES COMPLETED DATE/TIME: 01/21/2020 12:19 pm REASON FOR STUDY: fall COMPARISON: None. TECHNIQUE: Axial images acquired through the thoracic spine without intravenous contrast. Images re viewed with lung, soft tissue and bone windows. Reconstructed coronal and sagittal MPR images review ed. Images stored on PACS. All CT scanners at this facility use dose modulation, iterative reconstruction, and/or weight based d osing when appropriate to reduce radiation dose to as low as reasonably achievable (ALARA). [facility]: Dose Right [facility]: CareDose [facility]: Dose Right [facility]: Teradose 4D [facility]: [employer] RADIATION DOSE: CT Rad equipment meets quality standard of care and radiation dose reduction techniq ues were employed. CTDIvol: 27.6 mGy. DLP: 1624 mGy-cm. mGy. LIMITATIONS: None. FINDINGS: VISUALIZED LUNGS: No acute opacities. No pneumothorax. SOFT TISSUES: No soft tissue swelling. No masses. VERTEBRAL BODIES: No fractures. No dislocation. No acute findings. DISCS: Degenerative disc disease at multiple levels. ALIGNMENT: Normal. TRANSVERSE PROCESSES, POSTERIOR ELEMENTS: Hypertrophic osteophytes at multiple levels. HARDWARE: None in the spine. VISUALIZED RIBS: No fractures. OTHER: No other significant finding. IMPRESSION: CHRONIC DEGENERATIVE CHANGES WITHOUT ACUTE FRACTURE. TECHNICAL DOCUMENTATION: JOB ID: [id number] Quality ID # [id number]: Final reports with documentation of one or more dose reduction techniques (e.g., Au tomated exposure control, adjustment of the mA and/or kV according to patient size, use of iterative reconstruction technique) 2010 [employer]- All Rights Reserved Reading location - IP/workstation name: [email or web address]
[2020-01-21 12:35] LABS: TROPONIN I < 0.012 ng/mL
--- NOTE | 2020-01-21 12:35 | RADIOLOGY REPORT (SQ) ---
EXAM DESCRIPTION: CT LUMBAR SPINE WITHOUT IMAGES COMPLETED DATE/TIME: 01/21/2020 12:21 pm REASON FOR STUDY: fall COMPARISON: None. TECHNIQUE: Axial images acquired through the lumbar spine without intravenous contrast. Images revi ewed with lung, soft tissue and bone windows. Reconstructed coronal and sagittal MPR images reviewed . All images stored on PACS. All CT scanners at this facility use dose modulation, iterative reconstruction, and/or weight based d osing when appropriate to reduce radiation dose to as low as reasonably achievable (ALARA). [facility]: Dose Right [facility]: CareDose [facility]: Dose Right [facility]: Teradose 4D [facility]: [employer] RADIATION DOSE: mGy. LIMITATIONS: None. FINDINGS: SEGMENTATION: Normal. No transitional anatomy. ALIGNMENT: Normal. VERTEBRAL BODIES: No fractures. No dislocation. No acute findings. DISCS: No significant protrusions. Study limited by lack of intrathecal contrast. PEDICLES, TRANSVERSE PROCESSES: No fractures. No dislocation. No acute findings. FACETS, POSTERIOR ELEMENTS: No fractures. No dislocation. No spinal stenosis. HARDWARE: None in the spine. VISUALIZED RIBS: No fractures. SOFT TISSUES: No significant or acute finding in adjacent soft tissues. OTHER: No other significant finding. IMPRESSION: NORMAL CT OF THE LUMBAR SPINE. TECHNICAL DOCUMENTATION: JOB ID: [id number] Quality ID # [id number]: Final reports with documentation of one or more dose reduction techniques (e.g., Au tomated exposure control, adjustment of the mA and/or kV according to patient size, use of iterative reconstruction technique) 2010 [employer]- All Rights Reserved Reading location - IP/workstation name: [email or web address]
[2020-01-21] MEDS: NORMAL SALINE 1000 ML 1,000 ML IV PRN ×2 (13:07→14:04)
[2020-01-21] MEDS ORDERED: KETOROLAC TROMETHAMINE INJ/PF 30 MG/1 ML SDV IV ONE (13:16)
--- NOTE | 2020-01-21 13:24 | RADIOLOGY REPORT (SQ) ---
EXAM DESCRIPTION: CHEST SINGLE VIEW IMAGES COMPLETED DATE/TIME: 01/21/2020 1:13 pm REASON FOR STUDY: cp COMPARISON: 01/06/2020 EXAM PARAMETERS: NUMBER OF VIEWS: One view. TECHNIQUE: Single frontal radiographic view of the chest acquired. RADIATION DOSE: NA LIMITATIONS: None. FINDINGS: LUNGS AND PLEURA: No opacities, masses or pneumothorax. No pleural effusion. MEDIASTINUM AND HILAR STRUCTURES: No masses. Contour normal. HEART AND VASCULAR STRUCTURES: Heart normal in size. Normal vasculature. BONES: No acute findings. HARDWARE: None in the chest. OTHER: No other significant finding. IMPRESSION: 1. No significant interval changes since the prior study dated 01/06/2020. No acute fin dings. TECHNICAL DOCUMENTATION: JOB ID: [id number] 2010 [employer]- All Rights Reserved Reading location - IP/workstation name: [email or web address]
[2020-01-21 14:48] LABS: APPEARANCE,URINE CLEAR; BILIRUBIN,URINE NEGATIVE (NEGATIVE); COLOR,URINE STRAW; GLUCOSE, URINE NEGATIVE (NEGATIVE); KETONES,URINE NEGATIVE (NEGATIVE); PROTEIN,URINE NEGATIVE (NEGATIVE); URINE SPECIFIC GRAVITY 1.005; UROBILINOGEN,URINE NEGATIVE mg/dL (<2.0)
[2020-01-21 15:04] LABS: URINE AMPHETAMINES SCREEN NEGATIVE; URINE BENZODIAZEPINES SCREEN NEGATIVE; URINE COCAINE SCREEN NEGATIVE; URINE MARIJUANA (THC) SCREEN NEGATIVE; URINE METHADONE SCREEN NEGATIVE; URINE PHENCYCLIDINE SCREEN NEGATIVE
[2020-01-21 15:13] LABS: URINE BARBITURATES SCREEN UNCONFIRMED POSITIVE
[2020-01-21 16:09] VITALS: BP 134/90
--- NOTE | 2020-01-21 22:00 | EKG REPORT ---
SEVERITY:- BORDERLINE ECG - SINUS RHYTHM LVH BY VOLTAGE BORDERLINE T ABNORMALITIES, INFERIOR LEADS : Confirmed by: Viji Mosher MD 21-Jan-2020 21:58:56
== END 2020-01-21 16:47 | disposition home or self-care (01) ==
LOC: ER 11:15
DX: I95.9 Hypotension, unspecified (principal); R55 Syncope and collapse; M54.9 Dorsalgia, unspecified; G89.29 Other chronic pain; M79.602 Pain in left arm; M79.601 Pain in right arm; W19.XXXA Unspecified fall, initial encounter; I25.10 Atherosclerotic heart disease of native coronary artery without angina pectoris; E78.00 Pure hypercholesterolemia, unspecified; I10 Essential (primary) hypertension; I25.2 Old myocardial infarction; Z98.51 Tubal ligation status
CPT/HCPCS: 93005; 99284; 96361; 96374; 36415; 82553; 82962; 82550; 85025; 85610; 85730; 80053; 81001; 84484; 80307; 71045; 70450; 72125; 72128; 72131; 93010; J1885; J7030

== ENCOUNTER 2020-02-08 04:18 | Emergency (ER) | payer BC ==
[2020-02-08 04:55] LABS: ABSOLUTE BASOPHILS # (AUTO) 0.1 10^3/uL (0.0-0.2); ABSOLUTE EOSINOPHILS # (AUTO) 0.3 10^3/uL (0.0-0.6); ABSOLUTE LYMPHOCYTES (AUTO) 1.9 10^3/uL (0.5-4.7); ABSOLUTE MONOCYTES (AUTO) 0.4 10^3/uL (0.1-1.4); ABSOLUTE NEUT (AUTO) 3.8 10^3/uL (1.7-8.2); BASOPHILS % (AUTO) 0.9 % (0-2); EOSINOPHILS % (AUTO) 4.1 % (0-6); HEMATOCRIT 33.5 % (36.0-47.0); HEMOGLOBIN 11.8 g/dL (12.0-15.5); LYMPHOCYTES % (AUTO) 29.3 % (13-45); MEAN CORPUSCULAR HEMOGLOBIN 32.5 pg (27.0-33.4); MEAN CORPUSCULAR HGB CONC 35.3 g/dL (32.0-36.0); MEAN CORPUSCULAR VOLUME 92 fl (80-97); MONOCYTES % (AUTO) 6.1 % (3-13); PLATELET COUNT 240 10^3/uL (150-450); RED BLOOD COUNT 3.64 10^6/uL (3.72-5.28); RED CELL DISTRIBUTION WIDTH 17.1 % (11.5-14.0); SEGMENTED NEUTROPHILS % (AUTO) 59.6 % (42-78); TOTAL CELLS COUNTED % (AUTO) 100 %; WHITE BLOOD COUNT 6.4 10^3/uL (4.0-10.5)
--- NOTE | 2020-02-08 05:10 | ER Document Report ---
ED General - General TRAVEL OUTSIDE OF THE U.S. IN LAST 30 DAYS: No <ABI CALVIN - Last Filed: 02/08/20 05:59> <BARBRA MCKEON - Last Filed: 02/08/20 08:45> - General Chief Complaint: Chest Pain > 30 Stated Complaint: CHEST PAIN Time Seen by Provider: 02/08/20 04:37 Primary Care Provider: LUIS EDUARDO HANNA MD [Primary Care Provider] - Follow up as needed Notes: 50-year-old female on chronic pain management with history of cardiac stents x2 presents to the emergency department via EMS with stabbing chest pain that occurred just prior to arrival. Patient states that she went into the bathroom, she was arguing with her , and then started having the pain. She had some dizziness and nausea. Did not have any shortness of breath or dyspnea on exertion. No lower extremity edema. Patient took nitroglycerin SL x3 at home, was given ASA 324 mg by EMS. Patient is not a smoker. (ABI CALVIN) - Related Data Allergies/Adverse Reactions: baclofen Adverse Reaction (Mild, Verified 01/06/20 13:56) falls Past Medical History - Social History Smoking Status: Former Smoker Frequency of alcohol use: None Drug Abuse: None Family History: Arthritis, CAD, CVA, DM, Hyperlipidemia, Hypertension, Malignancy Patient has suicidal ideation: No Patient has homicidal ideation: No - Past Medical History Cardiac Medical History: Reports: Hx Coronary Artery Disease, Hx Heart Attack - 2016, Hx Hypercholesterolemia, Hx Hypertension Pulmonary Medical History: Reports: Hx Asthma, Hx Bronchitis, Hx Pneumonia Denies: Hx Tuberculosis Neurological Medical History: Reports: Hx Migraine, Hx Seizures Endocrine Medical History: Reports: Hx Diabetes Mellitus Type 2 Renal/ Medical History: Denies: Hx Peritoneal Dialysis Malignancy Medical History: Denies: Hx Bone Cancer, Hx Brain Cancer, Hx Breast Cancer, Hx Cervical Cancer, Hx Colorectal Cancer, Hx Leukemia, Hx Liver Cancer, Hx Lung Cancer, Hx Lymphoma, Hx Ovarian Cancer, Hx Pancreatic Cancer, Hx Renal (Kidney) Cancer, Hx Skin Cancer GI Medical History: Reports: Hx Gastroesophageal Reflux Disease Musculoskeletal Medical History: Reports Hx Arthritis, Reports Hx Musculoskeletal Deformity, Reports Hx Musculoskeletal Trauma Psychiatric Medical History: Reports: Hx Anxiety, Hx Bipolar Disorder, Hx Depression, Hx Post Traumatic Stress Disorder Past Surgical History: Reports: Hx Cardiac Catheterization - with stents, Hx Coronary Stent - Is to, Hx Gynecologic Surgery - D&C, Hx Tubal Ligation - Immunizations Immunizations up to date: Yes Hx Diphtheria, Pertussis, Tetanus Vaccination: No - unknown Hx Pneumococcal Vaccination: 12/17/11 <ABI CALVIN - Last Filed: 02/08/20 05:59> Review of Systems - Review of Systems Constitutional: See HPI EENT: No symptoms reported Cardiovascular: See HPI Respiratory: See HPI Gastrointestinal: See HPI Genitourinary: No symptoms reported Female Genitourinary: No symptoms reported Musculoskeletal: No symptoms reported Skin: No symptoms reported Hematologic/Lymphatic: No symptoms reported Neurological/Psychological: No symptoms reported <ABI CALVIN - Last Filed: 02/08/20 05:59> Physical Exam <ABI CALVIN - Last Filed: 02/08/20 05:59> - Vital signs Vitals: Resp 27 H 02/08/20 04:22 - Notes Notes: PHYSICAL EXAMINATION: Reviewed vital signs and charting by RN GENERAL: Alert, interacts well. No acute distress. HEAD: Normocephalic, atraumatic. EYES: Pupils equal and round. Extraocular movements intact. ENT: Oral mucosa moist, tongue midline. NECK: Full range of motion. Trachea midline. LUNGS: Clear to auscultation bilaterally, no wheezes, rales, or rhonchi. No respiratory distress. No reproducible chest wall tenderness to palpation. HEART: Regular rate and rhythm. No murmur ABDOMEN: soft, non-tender. No distention. Bowel sounds present EXTREMITIES: Moves all 4 extremities spontaneously. No edema, No cyanosis. PSYCH: Normal affect, normal mood. SKIN: Warm, dry, normal turgor. No rashes or lesions noted. (ABI CALVIN) Course - Laboratory Result Diagrams: 02/08/20 04:45 02/08/20 04:45 <ABI ACLVIN - Last Filed: 02/08/20 05:59> - Laboratory Result Diagrams: 02/08/20 04:45 02/08/20 04:45 <BARBRA MCKEON - Last Filed: 02/08/20 08:45> - Re-evaluation Re-evalutation: 02/08/20 08:16 Report received on the patient. Awaiting second troponin. Screening lab work, chest x-ray, EKG did not show acute emergent abnormalities 02/08/20 08:44 Patient second troponin is negative. I did evaluate the patient. She states that she had onset of chest and arm discomfort last night after an argument with her . Patient is on chronic oxycodone at home. She states that she sees Dr. Duran cardiology. Her pain is somewhat reproducible with movement of her arms. She is otherwise in no distress. Will discharge home to follow-up with her seater assembler outpatient for stress test. Patient verbalizes understanding of this. Verbalized understanding of return instructions for worsening symptoms (BARBRA MCKEON) - Vital Signs Vital signs: Temp Pulse Resp BP Pulse Ox 98.7 F 15 109/55 L 96 02/08/20 07:47 02/08/20 07:21 02/08/20 08:01 02/08/20 08:01 - Laboratory Laboratory results interpreted by me: 02/08/20 02/08/20 04:45 04:45 RBC 3.64 L Hgb 11.8 L Hct 33.5 L RDW 17.1 H Chloride 108 H AST 46 H Discharge <ABI CALVIN - Last Filed: 02/08/20 05:59> <BARBRA MCKEON - Last Filed: 02/08/20 08:45> - Discharge Clinical Impression: Chest pain of unknown etiology Condition: Good Disposition: HOME, SELF-CARE Additional Instructions: You were seen today for chest pain. The exact cause of your pain is unclear. However, based on your cardiac enzyme testing, chest x-ray, and EKG it does not appear that it is from an immediately life-threatening cause at this time. Although your testing here is normal is critical that you follow-up with your primary care physician for continued evaluation of this chest pain and possible stress testing. I recommended you see your physician within the next 24-48 hours to be evaluated for consideration of a stress test. Please return to emergency department immediately if you have worsening of your chest pain, shortness of breath, vomiting, become unable to exert yourself due to pain or difficulty breathing, you pass out, or have any pain that radiates into your ar ms, jaw, or back. Please also return if you have any additional symptoms that are concerning to you. Referrals: LUIS EDUARDO HANNA MD [Primary Care Provider] - Follow up as needed
[2020-02-08] MEDS ORDERED: NITROGLYCERIN 0.4 MG/TAB 25 TAB/BOTTLE SL PRN (05:13)
[2020-02-08 05:23] LABS: ALKALINE PHOSPHATASE 51 U/L (38-126); ANION GAP 7 (5-19); ASPARTATE AMINO TRANSFERASE 46 U/L (14-36); BILIRUBIN,DIRECT 0.3 mg/dL (0.0-0.4); BILIRUBIN,TOTAL 0.6 mg/dL (0.2-1.3); BLOOD UREA NITROGEN 18 mg/dL (7-20); CALCIUM 9.1 mg/dL (8.4-10.2); CARBON DIOXIDE 25 mmol/L (22-30); CHLORIDE 108 mmol/L (98-107); CREATINE KINASE 73 U/L (30-135); GLUCOSE 106 mg/dL (75-110); POTASSIUM 4.8 mmol/L (3.6-5.0)
[2020-02-08 05:34] LABS: CREATINE KINASE MB 0.44 ng/mL (<4.55)
[2020-02-08 05:35] LABS: TROPONIN I < 0.012 ng/mL
--- NOTE | 2020-02-08 06:06 | RADIOLOGY REPORT (SQ) ---
EXAM DESCRIPTION: XR CHEST 1 VIEW COMPLETED DATE/TME: 02/08/2020 05:00 CLINICAL HISTORY: 50 years, Female, chest pain COMPARISON: 01/21/2020 NUMBER OF VIEWS: One TECHNIQUE: AP view the chest LIMITATIONS: None. FINDINGS: The lungs are clear. The heart is normal in size. There is no pneumothorax or pleural effusion. There is no acute fracture. IMPRESSION: No acute cardiopulmonary abnormality copyright 2011 [employer]- All Rights Reserved
[2020-02-08] MEDS ORDERED: MORPHINE SULFATE 10 MG/ML INJ IV ONE ×2 (07:09→07:35)
[2020-02-08 08:56] VITALS: BP 110/62
--- NOTE | 2020-02-09 11:08 | EKG REPORT ---
SEVERITY:- BORDERLINE ECG - SINUS RHYTHM BORDERLINE R WAVE PROGRESSION, ANTERIOR LEADS BORDERLINE T ABNORMALITIES, ANT-LAT LEADS : Confirmed by: Ronnell Mccurdy 09-Feb-2020 11:07:40
== END 2020-02-08 09:08 | disposition home or self-care (01) ==
LOC: ER 04:18
DX: R07.9 Chest pain, unspecified (principal); R42 Dizziness and giddiness; R11.0 Nausea; I25.10 Atherosclerotic heart disease of native coronary artery without angina pectoris; I10 Essential (primary) hypertension; I25.2 Old myocardial infarction; J45.909 Unspecified asthma, uncomplicated; E11.9 Type 2 diabetes mellitus without complications; G89.29 Other chronic pain; Z79.891 Long term (current) use of opiate analgesic; Z95.5 Presence of coronary angioplasty implant and graft; Z87.891 Personal history of nicotine dependence
CPT/HCPCS: 93005; 99285; 96374; 36415; 82553; 82550; 85025; 80053; 84484; 71045; 93010; J2270

== ENCOUNTER 2020-02-17 22:17 | Emergency (ER) | payer BC ==
--- NOTE | 2020-02-17 22:36 | ER Document Report ---
ED General - General Chief Complaint: Chest Pain Stated Complaint: CHEST PAIN, SHORTNESS OF BREATH, FEVER Time Seen by Provider: 02/17/20 22:32 Primary Care Provider: LUIS EDUARDO HANNA MD [Primary Care Provider] - Follow up as needed ARYAN CARRANZA MD [ACTIVE STAFF] - Follow up as needed Mode of Arrival: Medic Information source: Patient TRAVEL OUTSIDE OF THE [place] IN LAST 30 DAYS: No - HPI Onset: Other - earlier in the day starting around 3pm Onset/Duration: Gradual Quality of pain: Achy Severity: Severe Pain Level: 3 Associated symptoms: Body/muscle aches, Chest pain, Nonproductive cough, Fever, Headache, Weakness Exacerbated by: Denies Relieved by: Denies Similar symptoms previously: No Recently seen / treated by doctor: Yes - seen in the ER on 02/08/20 for chest pain Notes: 50 year old female with a history of CAD s/p stents, HTN, HLD, DM, Seizures, Migraines, Anxiety, Depression, Bipolar, PTSD here in the ER for fevers, chills, sweats, sore throat, cough, body aches, headache, and chest pain which all started around 3pm. The patient denies known sick contacts or recent travel. - Related Data Allergies/Adverse Reactions: baclofen Adverse Reaction (Mild, Verified 01/06/20 13:56) falls Past Medical History - General Information source: Patient - Social History Smoking Status: Current Every Day Smoker Frequency of alcohol use: None Drug Abuse: None Lives with: Spouse/Significant other Family History: Arthritis, CAD, CVA, DM, Hyperlipidemia, Hypertension, Malignancy - Past Medical History Cardiac Medical History: Reports: Hx Coronary Artery Disease, Hx Heart Attack - 2016, Hx Hypercholesterolemia, Hx Hypertension Pulmonary Medical History: Reports: Hx Asthma, Hx Bronchitis, Hx Pneumonia Denies: Hx Tuberculosis Neurological Medical History: Reports: Hx Migraine, Hx Seizures Endocrine Medical History: Reports: Hx Diabetes Mellitus Type 2 Renal/ Medical History: Denies: Hx Peritoneal Dialysis Malignancy Medical History: Denies: Hx Bone Cancer, Hx Brain Cancer, Hx Breast Cancer, Hx Cervical Cancer, Hx Colorectal Cancer, Hx Leukemia, Hx Liver Cancer, Hx Lung Cancer, Hx Lymphoma, Hx Ovarian Cancer, Hx Pancreatic Cancer, Hx Renal (Kidney) Cancer, Hx Skin Cancer GI Medical History: Reports: Hx Gastroesophageal Reflux Disease Musculoskeletal Medical History: Reports Hx Arthritis, Reports Hx Musculoskeletal Deformity, Reports Hx Musculoskeletal Trauma Psychiatric Medical History: Reports: Hx Anxiety, Hx Bipolar Disorder, Hx Depression, Hx Post Traumatic Stress Disorder Past Surgical History: Reports: Hx Cardiac Catheterization - with stents, Hx Coronary Stent - Is to, Hx Gynecologic Surgery - D&C, Hx Tubal Ligation - Immunizations Immunizations up to date: Yes Hx Diphtheria, Pertussis, Tetanus Vaccination: No - unknown Hx Pneumococcal Vaccination: 12/17/11 Review of Systems - Review of Systems Constitutional: Chills, Diaphoresis, Fever, Malaise, Weakness EENT: Throat pain Cardiovascular: Chest pain Respiratory: Cough Gastrointestinal: No symptoms reported Genitourinary: No symptoms reported Female Genitourinary: No symptoms reported Musculoskeletal: Other - body aches Skin: No symptoms reported Hematologic/Lymphatic: No symptoms reported Neurological/Psychological: Headaches -: Yes All other systems reviewed and negative Physical Exam - Vital signs Vitals: Temp 103.0 F H 02/17/20 22:18 - Notes Notes: GENERAL: Poorly groomed, well-nourished and in mild distress. HEAD: Atraumatic, normocephalic. EYES: Pupils equal round and reactive to light, extraocular movements intact, sclera anicteric, conjunctiva are normal. ENT: External ears normal, nares patent, posterior oropharynx erythematous but without exudates. Moist mucous membranes. NECK: Normal range of motion, supple without lymphadenopathy or JVD. LUNGS: Breath sounds clear to auscultation bilaterally and equal. No wheezes rales or rhonchi. HEART: Tachycardic, normal rhythm without murmurs, rubs or gallops. ABDOMEN: Soft, nontender, normoactive bowel sounds. No guarding, no rebound. No masses appreciated. EXTREMITIES: Normal range of motion, no pitting or edema. No clubbing or cyanosis. NEUROLOGICAL: Cranial nerves II through XII grossly intact. Normal speech, normal gait. PSYCH: Normal mood, normal affect. SKIN: Warm, Dry, normal turgor, no rashes or lesions noted. Course - Re-evaluation Re-evalutation: 02/18/20 00:23 The patient has a fever to 103 and she is tachycardic. Work up in the ER revealed she is Strep Throat positive and she may have a UTI. Patient was given IM Penicillin, PO bactrim, and IV fluids. Patient had already received Tylenol from EMS. The patient is also having some chest pains but this is a chronic issue for her. Patient's Trop is completely negative and her EKG looks similar to previous EKGs. Patient tested for COVID given her multiple comorbidities but chest xray is clear today. COVID testing pending. - Vital Signs Vital signs: Temp Pulse Resp BP Pulse Ox 103.0 F H 24 H 141/90 H 95 02/17/20 22:18 02/17/20 22:31 02/17/20 22:30 02/17/20 22:31 - Laboratory Result Diagrams: 02/17/20 21:40 02/17/20 21:40 Laboratory results interpreted by me: 02/17/20 02/17/20 02/17/20 21:40 21:40 22:50 Hct 35.4 L RDW 16.6 H Lymph % (Auto) 6.9 L Absolute Neuts (auto) 8.8 H Seg Neutrophils % 88.6 H Sodium 134.2 L Glucose 122 H AST 63 H Ur Leukocyte Esterase LARGE H - Diagnostic Test Radiology reviewed: Image reviewed, Reports reviewed - EKG Interpretation by [place] EKG shows normal: Sinus rhythm, [place], Intervals, QRS Complexes Additional EKG results interpreted by me: 02/17/20 22:[address] depression in V4-V5, T wave inversions in II, III, aVF, V6 Discharge - Discharge Clinical Impression: Strep pharyngitis UTI (urinary tract infection) Qualifiers: Urinary tract infection type: acute cystitis Hematuria presence: without hematuria Qualified Code(s): N30.00 - Acute cystitis without hematuria Condition: Stable Disposition: HOME, SELF-CARE Instructions: Strep Throat ([facility]), Urinary Tract Infection ([facility]) Additional Instructions: Drink plenty of fluids in the days to come. Take antibiotics (Bactrim) as prescribed for your UTI. You were treated for Strep Throat in the ER with a Penicillin shot. Follow up with your primary care doctor. If you dont have a primary care doctor, follow up with Dr. Carranza or the [facility]. Self quarantine for 14 days or until you get a negative COVID test result. Prescriptions: Sulfamethoxazole/Trimethoprim [Bactrim Ds Tablet] 1 each PO BID 3 Days #6 tablet Referrals: LUIS EDUARDO HANNA MD [Primary Care Provider] - Follow up as needed ARYAN CARRANZA MD [ACTIVE STAFF] - Follow up as needed
[2020-02-17 22:48] LABS: ABSOLUTE EOSINOPHILS # (AUTO) 0.1 10^3/uL (0.0-0.6); ABSOLUTE LYMPHOCYTES (AUTO) 0.7 10^3/uL (0.5-4.7); ABSOLUTE MONOCYTES (AUTO) 0.3 10^3/uL (0.1-1.4); ABSOLUTE NEUT (AUTO) 8.8 10^3/uL (1.7-8.2); BASOPHILS % (AUTO) 0.3 % (0-2); HEMATOCRIT 35.4 % (36.0-47.0); HEMOGLOBIN 12.4 g/dL (12.0-15.5); LYMPHOCYTES % (AUTO) 6.9 % (13-45); MEAN CORPUSCULAR HGB CONC 34.9 g/dL (32.0-36.0); MEAN CORPUSCULAR VOLUME 92 fl (80-97); MONOCYTES % (AUTO) 3.2 % (3-13); PLATELET COUNT 231 10^3/uL (150-450); RED BLOOD COUNT 3.86 10^6/uL (3.72-5.28); RED CELL DISTRIBUTION WIDTH 16.6 % (11.5-14.0); SEGMENTED NEUTROPHILS % (AUTO) 88.6 % (42-78); TOTAL CELLS COUNTED % (AUTO) 100 %; WHITE BLOOD COUNT 9.9 10^3/uL (4.0-10.5)
[2020-02-17 22:57] LABS: INTERNATIONAL RATION (INR) 0.98
[2020-02-17 23:04] LABS: ALBUMIN 4.6 g/dL (3.5-5.0); ALKALINE PHOSPHATASE 66 U/L (38-126); ANION GAP 10 (5-19); ASPARTATE AMINO TRANSFERASE 63 U/L (14-36); BILIRUBIN,TOTAL 0.4 mg/dL (0.2-1.3); BLOOD UREA NITROGEN 11 mg/dL (7-20); CALCIUM 9.3 mg/dL (8.4-10.2); CARBON DIOXIDE 23 mmol/L (22-30); CHLORIDE 101 mmol/L (98-107); GLUCOSE 122 mg/dL (75-110); POTASSIUM 3.8 mmol/L (3.6-5.0)
[2020-02-17 23:04] LABS: VENOUS BLOOD BASE EXCESS -1.6 mmol/L; VENOUS BLOOD HCO3 22.4 mmol/L (20-32); VENOUS BLOOD PCO2 35.7 mmHg (35-63); VENOUS BLOOD PH 7.42 (7.30-7.42)
[2020-02-17] MEDS ORDERED: NORMAL SALINE 1000 ML 1,000 ML IV ONE (23:08)
--- NOTE | 2020-02-17 23:49 | RADIOLOGY REPORT (SQ) ---
EXAM DESCRIPTION: X-RAY CHEST- One View CLINICAL HISTORY: Chest pain and shortness of breath COMPARISON: February 08, 2020 TECHNIQUE: Single view of the chest. FINDINGS: There are overlying EKG leads. There are no discrete air space infiltrates, pneumothoraces or pleural effusions. The pulmonary vascularity is normal. The cardiomediastinal silhouette is normal in size. No suspicious lytic or blastic osseous lesions are identified. IMPRESSION: There are no acute lung parenchymal findings.
[2020-02-17 23:58] LABS: APPEARANCE,URINE SLIGHTLY-CLOUDY; BILIRUBIN,URINE NEGATIVE (NEGATIVE); COLOR,URINE YELLOW; GLUCOSE, URINE NEGATIVE (NEGATIVE); KETONES,URINE NEGATIVE (NEGATIVE); LEUKOCYTE ESTERASE,URINE LARGE (NEGATIVE); NITRITE,URINE NEGATIVE (NEGATIVE); PROTEIN,URINE NEGATIVE (NEGATIVE); UROBILINOGEN,URINE NEGATIVE mg/dL (<2.0)
[2020-02-18] MEDS ORDERED: PENICILLIN G BENZATHINE 1.2 MILLION UNIT/2 ML DISP.SYRIN IM ONE (00:11)
[2020-02-18] MEDS ORDERED: NORMAL SALINE 1000 ML 1,000 ML IV ONE (00:13)
[2020-02-18 00:14] LABS: A TYPE INFLUENZA AG NEGATIVE (NEGATIVE); B INFLUENZA AG NEGATIVE (NEGATIVE)
[2020-02-18] MEDS ORDERED: SULFAMETHOXAZOLE/TRIMETHOPRIM 800-160 MG TABLET PO ONE (00:19)
[2020-02-18] MEDS ORDERED: KETOROLAC TROMETHAMINE INJ/PF 30 MG/1 ML SDV IV ONE (00:26)
[2020-02-18] MEDS ORDERED: METOCLOPRAMIDE HCL INJ/PF 10 MG/2 ML SDV IV ONE (02:09)
[2020-02-18] MEDS ORDERED: DIPHENHYDRAMINE HCL 50 MG/ML VIAL IV ONE (02:09)
[2020-02-18] MEDS ORDERED: BUTALB/ACETAMINOPHEN/CAFFEINE 1 TAB EACH PO ONE (02:11)
[2020-02-18 03:19] VITALS: BP 140/83
--- NOTE | 2020-02-18 08:04 | EKG REPORT ---
SEVERITY:- ABNORMAL ECG - SINUS TACHYCARDIA CONSIDER ANTERIOR INFARCT BORDERLINE ST DEPRESSION, DIFFUSE LEADS ABNORMAL T, CONSIDER ISCHEMIA, DIFFUSE LEADS : Confirmed by: Burak Dickens MD 18-Feb-2020 08:04:02
== END 2020-02-18 03:18 | disposition home or self-care (01) ==
LOC: ER 22:17
DX: J02.0 Streptococcal pharyngitis (principal); N30.00 Acute cystitis without hematuria; R51 Headache; R06.02 Shortness of breath; R50.9 Fever, unspecified; M79.10 Myalgia, unspecified site; R05 Cough; Z20.828 Contact with and (suspected) exposure to other viral communicable diseases
CPT/HCPCS: 93005; 99284; 96372; 96361; 96374; 96375; 36415; 87040; 87086; 87880; 83605; 85025; 85610; 87635; 80053; 81001; 84484; 82803; 87804; 83880; 71045; 93010; J3490; J1200; J1885; J2765; J0561; J7030

== ENCOUNTER 2020-04-14 01:20 | Emergency (ER) | payer BC ==
[2020-04-14 02:11] LABS: ABSOLUTE EOSINOPHILS # (AUTO) 0.3 10^3/uL (0.0-0.6); ABSOLUTE LYMPHOCYTES (AUTO) 2.4 10^3/uL (0.5-4.7); ABSOLUTE MONOCYTES (AUTO) 0.4 10^3/uL (0.1-1.4); ABSOLUTE NEUT (AUTO) 2.5 10^3/uL (1.7-8.2); BASOPHILS % (AUTO) 0.4 % (0-2); EOSINOPHILS % (AUTO) 5.1 % (0-6); HEMATOCRIT 32.7 % (36.0-47.0); HEMOGLOBIN 10.9 g/dL (12.0-15.5); LYMPHOCYTES % (AUTO) 42.7 % (13-45); MEAN CORPUSCULAR HEMOGLOBIN 31.1 pg (27.0-33.4); MEAN CORPUSCULAR HGB CONC 33.4 g/dL (32.0-36.0); MEAN CORPUSCULAR VOLUME 93 fl (80-97); PLATELET COUNT 184 10^3/uL (150-450); RED BLOOD COUNT 3.51 10^6/uL (3.72-5.28); RED CELL DISTRIBUTION WIDTH 16.1 % (11.5-14.0); SEGMENTED NEUTROPHILS % (AUTO) 44.8 % (42-78); TOTAL CELLS COUNTED % (AUTO) 100 %; WHITE BLOOD COUNT 5.6 10^3/uL (4.0-10.5)
[2020-04-14 02:33] LABS: ALBUMIN 3.4 g/dL (3.5-5.0); ALKALINE PHOSPHATASE 60 U/L (38-126); ANION GAP 5 (5-19); ASPARTATE AMINO TRANSFERASE 44 U/L (14-36); BILIRUBIN,TOTAL 0.1 mg/dL (0.2-1.3); BLOOD UREA NITROGEN 19 mg/dL (7-20); CALCIUM 8.7 mg/dL (8.4-10.2); CARBON DIOXIDE 24 mmol/L (22-30); CHLORIDE 110 mmol/L (98-107); CREATINE KINASE 62 U/L (30-135); GLUCOSE 122 mg/dL (75-110); POTASSIUM 3.4 mmol/L (3.6-5.0); TOTAL PROTEIN 6.1 g/dL (6.3-8.2)
[2020-04-14 02:38] LABS: INTERNATIONAL RATION (INR) 0.98
--- NOTE | 2020-04-14 02:41 | RADIOLOGY REPORT (SQ) ---
CLINICAL INDICATION: CHEST PAIN . TECHNIQUE: A single portable AP view was obtained of the chest at 0 224 hours. COMPARISON: February 17, 2020. FINDINGS: The cardiomediastinal silhouette is normal. The lungs are grossly clear. No evidence of effusion or pneumothorax. The visualized bones are unremarkable. IMPRESSION: No evidence of active intrathoracic disease. No adverse change
[2020-04-14 02:44] LABS: CREATINE KINASE MB 0.76 ng/mL (<4.55)
[2020-04-14 02:45] LABS: TROPONIN I < 0.012 ng/mL
--- NOTE | 2020-04-14 03:03 | ER Document Report ---
Entered by OVIDIO MACEDO SCRIBE 04/14/20 0231 Acting as scribe for:WELLINGTON TA DO ED General - General Chief Complaint: Chest Pain Stated Complaint: CHEST PAINS Time Seen by Provider: 04/14/20 02:21 Primary Care Provider: LUIS EDUARDO HANNA MD [Primary Care Provider] - Follow up as needed Mode of Arrival: Medic Information source: Patient, Emergency Med Personnel Notes: This 50 year old female patient with a history of CAD, AK, HTN, and HLD brought in by EMS from home presents to the ED today with complaints of chest pain for the last x14 hours. Patient describes the pain as a heaviness to the center of her chest that is constant and worsens in severity at times. Denies any worsening or relieving factors. She states that the pain is similar to her previous MIs. Denies any nausea or vomiting. EMS administered 324 mg Aspirin and x4 Nitroglycerin SL. Patient tested negative for COVID-19 on 02/18/2020. She notes that her PCP is Dr. Simental and her bus assistant is Dr. Duran at [facility]. TRAVEL OUTSIDE OF THE [place]. IN LAST 30 DAYS: No - Related Data Allergies/Adverse Reactions: baclofen Adverse Reaction (Mild, Verified 04/14/20 01:42) falls Past Medical History - General Information source: Patient, [facility] Records - Social History Smoking Status: Former Smoker Cigarette use (# per day): No Chew tobacco use (# tins/day): No Smoking Education Provided: No Frequency of alcohol use: None Drug Abuse: None Family History: Reviewed & Not Pertinent, Arthritis, CAD, CVA, DM, Hyperlipidemia, Hypertension, Malignancy Patient has suicidal ideation: No Patient has homicidal ideation: No - Past Medical History Cardiac Medical History: Reports: Hx Coronary Artery Disease, Hx Heart Attack - 2016, Hx Hypercholesterolemia, Hx Hypertension Pulmonary Medical History: Reports: Hx Asthma, Hx Bronchitis, Hx Pneumonia Neurological Medical History: Reports: Hx Migraine, Hx Seizures Endocrine Medical History: Reports: Hx Diabetes Mellitus Type 2 GI Medical History: Reports: Hx Gastroesophageal Reflux Disease Musculoskeletal Medical History: Reports Hx Arthritis, Reports Hx Musculoskeletal Deformity, Reports Hx Musculoskeletal Trauma Psychiatric Medical History: Reports: Hx Anxiety, Hx Bipolar Disorder, Hx Depression, Hx Post Traumatic Stress Disorder Past Surgical History: Reports: Hx Cardiac Catheterization - with stents, Hx Coronary Stent, Hx Dilation and Curettage, Hx Tubal Ligation - Immunizations Immunizations up to date: Yes Hx Diphtheria, Pertussis, Tetanus Vaccination: No - unknown Hx Pneumococcal Vaccination: 12/17/11 Review of Systems - Review of Systems Constitutional: No symptoms reported EENT: No symptoms reported Cardiovascular: See HPI, Chest pain Respiratory: No symptoms reported Gastrointestinal: See HPI. denies: Nausea, Vomiting Genitourinary: No symptoms reported Female Genitourinary: No symptoms reported Musculoskeletal: No symptoms reported Skin: No symptoms reported Hematologic/Lymphatic: No symptoms reported Neurological/Psychological: No symptoms reported -: Yes All other systems reviewed and negative Physical Exam - Vital signs Vitals: Temp Pulse Resp BP Pulse Ox 98.4 F 69 14 105/72 97 04/14/20 01:20 04/14/20 01:20 04/14/20 01:20 04/14/20 01:20 04/14/20 01:20 Interpretation: Normal - General General appearance: Alert In distress: None - HEENT Head: Normocephalic, Atraumatic Eyes: Normal Pupils: PERRL - Respiratory Respiratory status: No respiratory distress Chest status: Nontender Breath sounds: Normal Chest palpation: Normal - Cardiovascular Rhythm: Regular Heart sounds: Normal auscultation Murmur: No Friction rub: No Gallop: None auscultated - Abdominal Inspection: Obese Distension: No distension Bowel sounds: Normal Tenderness: Nontender - Abdomen soft Organomegaly: No organomegaly - Back Back: Normal, Nontender - Extremities General upper extremity: Normal inspection General lower extremity: Normal inspection. No: Edema - Neurological Neuro grossly intact: Yes Orientation: AAOx4 [place] Coma Scale Eye Opening: Spontaneous [place] Coma Scale Verbal: Oriented [place] Coma Scale Motor: Obeys Commands [place] Coma Scale Total: 15 - Psychological Associated symptoms: Normal affect, Normal mood - Skin Skin Temperature: Warm Skin Moisture: Dry Skin Color: Normal Course - Re-evaluation Re-evalutation: 04/14/20 05:52 MDM 50 year old female arrives with chest pain at rest. Work up is reassuring and pneumonia and pe and ptx all were considered but h and p does not support this. She is safe and stable for follow up. - Vital Signs Vital signs: Temp Pulse Resp BP Pulse Ox 98.4 F 69 14 124/78 100 04/14/20 01:20 04/14/20 01:20 04/14/20 05:01 04/14/20 05:01 04/14/20 05:01 - Laboratory Result Diagrams: 04/14/20 02:02 04/14/20 02:02 Laboratory results interpreted by me: 04/14/20 04/14/20 02:02 02:02 RBC 3.51 L Hgb 10.9 L Hct 32.7 L RDW 16.1 H Potassium 3.4 L Chloride 110 H Glucose 122 H Total Bilirubin 0.1 L AST 44 H Total Protein 6.1 L Albumin 3.4 L - Diagnostic Test Radiology reviewed: Reports reviewed - EKG Interpretation by Me EKG shows normal: Sinus rhythm Rate: Normal Rhythm: NSR - NSR NL [place] [address] elevation or depression my interpretation. Discharge - Discharge Clinical Impression: Chest pain Qualifiers: Chest pain type: unspecified Qualified Code(s): R07.9 - Chest pain, unspecified Coronary artery disease Qualifiers: Coronary Disease-Associated Artery/Lesion type: unspecified vessel or lesion type [place] vs. transplanted heart: [place] heart Associated angina: with unspecified angina Qualified Code(s): I25.119 - Atherosclerotic heart disease of [place] coronary artery with unspecified angina pectoris Hypertension Qualifiers: Hypertension type: unspecified Qualified Code(s): I10 - Essential (primary) hypertension Condition: Stable Disposition: HOME, SELF-CARE Instructions: Chest Pain of Unclear Cause ([facility]), Aspirin (Cardiac) ([facility]) Additional Instructions: Call your bus assistant for follow up. Take your medicine as directed. Please return here for chest pain, shortness of breath or other concerns. Referrals: LUIS EDUARDO HANNA MD [Primary Care Provider] - Follow up as needed I personally performed the services described in the documentation, reviewed and edited the documentation which was dictated to the scribe in my presence, and it accurately records my words and actions.
[2020-04-14] MEDS ORDERED: POTASSIUM CHLORIDE 20 MEQ PACKET PO ONE (03:53)
[2020-04-14] MEDS ORDERED: FENTANYL CITRATE INJ/PF 100 MCG/2 ML AMPUL IV ONE (04:54)
[2020-04-14] MEDS ORDERED: ONDANSETRON HCL INJ/PF 4 MG/2 ML SDV IV ONE (04:55)
--- NOTE | 2020-04-14 07:23 | ER Document Report ---
Doctor's Note Notes: 04/14/20 07:23 Patient was signed out to me by Dr. Bahena. She is pending her second troponin. He states if it remains negative, then to print the discharge instructions that he has left in the computer. He states that she was unwilling to stay and would follow-up with her primary care provider. The repeat troponin was undetectable, so the discharge instructions were printed. 04/14/20 13:34
[2020-04-14 07:31] VITALS: BP 112/81
--- NOTE | 2020-04-14 14:43 | EKG REPORT ---
SEVERITY:- BORDERLINE ECG - SINUS RHYTHM BORDERLINE R WAVE PROGRESSION, ANTERIOR LEADS BORDERLINE T ABNORMALITIES, DIFFUSE LEADS : Confirmed by: Viji Mosher MD 14-Apr-2020 14:43:13
== END 2020-04-14 07:31 | disposition home or self-care (01) ==
LOC: ER 01:20
DX: I25.119 Atherosclerotic heart disease of native coronary artery with unspecified angina pectoris (principal); I10 Essential (primary) hypertension; I25.2 Old myocardial infarction; J45.909 Unspecified asthma, uncomplicated; E11.9 Type 2 diabetes mellitus without complications; Z95.5 Presence of coronary angioplasty implant and graft; Z87.891 Personal history of nicotine dependence
CPT/HCPCS: 93005; 99285; 96374; 96375; 36415; 82553; 82550; 85025; 85610; 80053; 84484; 71045; 93010; J3010; J2405; J3490

== ENCOUNTER → 2020-04-16 | Outpatient (CLI) | payer OTHER ==
--- NOTE | 2020-04-16 11:38 | RADIOLOGY REPORT (SQ) ---
EXAM DESCRIPTION: WRIST RIGHT 3 VIEWS IMAGES COMPLETED DATE/TIME: 04/16/2020 11:29 am REASON FOR STUDY: PAIN IN RT WRIST M25.531 PAIN IN RIGHT WRIST COMPARISON: None. NUMBER OF VIEWS: Three views. TECHNIQUE: AP, lateral, and oblique radiographic images acquired of the right wrist. LIMITATIONS: None. FINDINGS: MINERALIZATION: Normal. BONES: No acute fracture or dislocation. No worrisome bone lesions. Normal alignment. Incidental n ote is made of mild degenerative changes at the thumb metacarpal phalangeal and interphalangeal joint s. SOFT TISSUES: No soft tissue swelling. No foreign body. OTHER: No other significant finding. IMPRESSION: No evidence of acute osseous injury or significant degenerative change of the wrist. Mi ld degenerative changes are seen at the thumb metacarpal phalangeal and interphalangeal joints. TECHNICAL DOCUMENTATION: JOB ID: [id number] 2010 [employer]- All Rights Reserved Reading location - IP/workstation name: [email or web address]
== END ==
LOC: OD 11:10
PROVIDERS: ATTEND Physician Assistant
DX: M19.031 Primary osteoarthritis, right wrist (principal); M25.531 Pain in right wrist

== ENCOUNTER 2020-04-18 00:53 | Emergency (ER) | payer OTHER ==
[2020-04-18] MEDS ORDERED: DEXTROSE 5%-WATER 250 ML with NOREPINEPHRINE BITARTRATE 4 MG IV PRN ×2 (01:08)
[2020-04-18] MEDS ORDERED: NOREPINEPHRINE BITARTRATE INJ/PF 4 MG/4 ML SDV IV ONE (01:10)
[2020-04-18 01:22] LABS: ABSOLUTE EOSINOPHILS # (AUTO) 0.3 10^3/uL (0.0-0.6); ABSOLUTE LYMPHOCYTES (AUTO) 2.8 10^3/uL (0.5-4.7); ABSOLUTE MONOCYTES (AUTO) 0.5 10^3/uL (0.1-1.4); ABSOLUTE NEUT (AUTO) 2.9 10^3/uL (1.7-8.2); BASOPHILS % (AUTO) 0.7 % (0-2); EOSINOPHILS % (AUTO) 4.8 % (0-6); HEMATOCRIT 30.9 % (36.0-47.0); HEMOGLOBIN 10.5 g/dL (12.0-15.5); LYMPHOCYTES % (AUTO) 42.6 % (13-45); MEAN CORPUSCULAR HEMOGLOBIN 31.3 pg (27.0-33.4); MEAN CORPUSCULAR HGB CONC 33.9 g/dL (32.0-36.0); MEAN CORPUSCULAR VOLUME 92 fl (80-97); MONOCYTES % (AUTO) 6.9 % (3-13); PLATELET COUNT 207 10^3/uL (150-450); RED BLOOD COUNT 3.34 10^6/uL (3.72-5.28); RED CELL DISTRIBUTION WIDTH 15.6 % (11.5-14.0); TOTAL CELLS COUNTED % (AUTO) 100 %; WHITE BLOOD COUNT 6.5 10^3/uL (4.0-10.5)
[2020-04-18 01:41] LABS: ALBUMIN 3.1 g/dL (3.5-5.0); ALKALINE PHOSPHATASE 45 U/L (38-126); ANION GAP 5 (5-19); ASPARTATE AMINO TRANSFERASE 71 U/L (14-36); BILIRUBIN,TOTAL 0.2 mg/dL (0.2-1.3); BLOOD UREA NITROGEN 23 mg/dL (7-20); CALCIUM 8.2 mg/dL (8.4-10.2); CARBON DIOXIDE 25 mmol/L (22-30); CHLORIDE 107 mmol/L (98-107); GLUCOSE 111 mg/dL (75-110); POTASSIUM 3.4 mmol/L (3.6-5.0)
[2020-04-18 01:42] LABS: ALCOHOL < 10 mg/dL (NONE DETECTED)
--- NOTE | 2020-04-18 02:57 | ER Document Report ---
Entered by OVIDIO MACEDO SCRIBE 04/18/20 0243 Acting as scribe for:MINA BARFIELD IV, MD ED General - General Chief Complaint: Low Blood Pressure Stated Complaint: SHORTNESS OF BREATH Time Seen by Provider: 04/18/20 02:27 Primary Care Provider: ISA MUNOZ PA-C [Primary Care Provider] - Follow up as needed Mode of Arrival: Medic Information source: Patient Notes: This 50 year old female patient with a history of CAD, [place], HTN, and HLD brought in by EMS from home presents to the ED today with complaints of left-sided chest pain with associated shortness of breath that started prior to arrival. Patient describes the pain as "hard" in nature that radiates down her RUE. She states that the pain lasted a "long time," but doesn't elaborate any further. She reports that she had a similar episode of chest pain at home that woke her up yesterday evening and that she took NTG with relief and went back to sleep. She was also seen here x4 days for the same thing and had a negative workup. She notes that she took all of her PM medications as prescribed, but they "affected me differently." Patient was noted to be hypotensive by EMS so they started a Levophed gtt at 2mcg/min. TRAVEL OUTSIDE OF THE [place] IN LAST 30 DAYS: No - Related Data Allergies/Adverse Reactions: baclofen Adverse Reaction (Mild, Verified 04/14/20 01:42) falls Past Medical History - General Information source: Patient, COUNT INCLUDES THE [facility] Records - Social History Smoking Status: Never Smoker Cigarette use (# per day): No Chew tobacco use (# tins/day): No Smoking Education Provided: No Family History: Reviewed & Not Pertinent, Arthritis, CAD, CVA, DM, Hyperlipidemia, Hypertension, Malignancy Patient has suicidal ideation: No Patient has homicidal ideation: No - Past Medical History Cardiac Medical History: Reports: Hx Coronary Artery Disease, Hx Heart Attack - 2016, Hx Hypercholesterolemia, Hx Hypertension Pulmonary Medical History: Reports: Hx Asthma, Hx Bronchitis, Hx Pneumonia Neurological Medical History: Reports: Hx Migraine, Hx Seizures Endocrine Medical History: Reports: Hx Diabetes Mellitus Type 2 GI Medical History: Reports: Hx Gastroesophageal Reflux Disease Musculoskeletal Medical History: Reports Hx Arthritis, Reports Hx Musculoskeletal Deformity, Reports Hx Musculoskeletal Trauma Psychiatric Medical History: Reports: Hx Anxiety, Hx Bipolar Disorder, Hx Depression, Hx Post Traumatic Stress Disorder Past Surgical History: Reports: Hx Cardiac Catheterization - with stents, Hx Coronary Stent, Hx Dilation and Curettage, Hx Gynecologic Surgery - D&C, Hx Tubal Ligation - Immunizations Immunizations up to date: Yes Hx Diphtheria, Pertussis, Tetanus Vaccination: No - unknown Hx Pneumococcal Vaccination: 12/17/11 Review of Systems - Review of Systems Constitutional: No symptoms reported EENT: No symptoms reported Cardiovascular: See HPI, Chest pain Respiratory: See HPI, Short of breath Gastrointestinal: No symptoms reported Genitourinary: No symptoms reported Female Genitourinary: No symptoms reported Musculoskeletal: See HPI, Other - RUE pain Skin: No symptoms reported Hematologic/Lymphatic: No symptoms reported Neurological/Psychological: No symptoms reported -: Yes All other systems reviewed and negative Physical Exam - Vital signs Vitals: Temp 98.8 F 04/18/20 00:53 - General General appearance: Alert In distress: None - HEENT Head: Normocephalic, Atraumatic Eyes: Normal Pupils: PERRL - Respiratory Respiratory status: No respiratory distress Chest status: Nontender Breath sounds: Normal Chest palpation: Normal - Cardiovascular Rhythm: Regular Heart sounds: Normal auscultation Murmur: No Friction rub: No Gallop: None auscultated - Abdominal Inspection: Normal Distension: No distension Bowel sounds: Normal Tenderness: Nontender - Abdomen soft Organomegaly: No organomegaly - Back Back: Normal, Nontender - Extremities General upper extremity: Normal inspection General lower extremity: Normal inspection - Neurological Neuro grossly intact: Yes Speech: Other - Slurred speech without any lateralizing neurological findings - Psychological Associated symptoms: Other - Odd affect - Skin Skin Temperature: Warm Skin Moisture: Dry Skin Color: Normal Course - Re-evaluation Re-evalutation: 04/18/20 05:32 Patient's blood pressure is now 115/74 with a heart rate of 73 O2 sats are 96% on room air. Results of ED MSE were communicated to patient. Emergency signs and symptoms, reasons to return to the emergency department discussed with patient. - Vital Signs Vital signs: Temp Pulse Resp BP Pulse Ox 98.8 F 14 132/85 H 100 04/18/20 00:55 04/18/20 04:47 04/18/20 04:47 04/18/20 04:47 - Laboratory Result Diagrams: 04/18/20 00:57 04/18/20 00:57 Laboratory results interpreted by me: 04/18/20 04/18/20 04/18/20 00:57 00:57 00:57 RBC 3.34 L Hgb 10.5 L Hct 30.9 L RDW 15.6 H Potassium 3.4 L BUN 23 H Glucose 111 H Calcium 8.2 L AST 71 H Total Protein 6.0 L Albumin 3.1 L Salicylates < 1.0 L Acetaminophen < 10 L - Diagnostic Test Radiology reviewed: Reports reviewed - EKG Interpretation by Me Additional EKG results interpreted by me: 04/18/20 05:33 EKG obtained on 04/18/2020 at 00 50 hours was interpreted by this MD. Findings: Sinus bradycardia, rate 46, normal axis, P waves are present, P waves preceding QRS complexes, QRS complexes appear narrow, there are no obvious patterns of ST segment elevation or depression present to suggest acute myocardial ischemia or infarction. Impression sinus bradycardia with nonspecific ST segments. Repeat EKG obtained on patient on 04/18/2020 at 0243 hrs. was interpreted by this MD. Findings: Sinus bradycardia, rate 52, normal axis, P waves preceding QRS complexes, QRS complexes appear narrow, there are no obvious patterns of ST s egment elevation or depression present to suggest acute myocardial ischemia or infarction. Impression: Sinus bradycardia with nonspecific ST segments. Discharge - Discharge Clinical Impression: Chest pain Qualifiers: Chest pain type: unspecified Qualified Code(s): R07.9 - Chest pain, unspecified Condition: Stable Disposition: HOME, SELF-CARE Additional Instructions: Return to the Emergency Department without delay if any worse. HOME CARE INSTRUCTIONS & INFORMATION: Thank you for choosing us for your medical needs. We hope you're satisfied with the care you received. After you leave, you must properly care for your problem and, at the same time, observe its progress. Any condition can change. Some illnesses can change rapidly over hours or days. If your condition worsens, return to the Emergency Department or see your physician promptly. ABOUT YOUR X-RAYS AND EKG'S: If you had an EKG or X-rays taken, they have been read by the Emergency Physician. The X-rays and EKG's will also be read by a Radiologist or Formal Service Waiter within 24 hours. If discrepancies are noted, you will be notified by telephone. Please be certain the ED has a correct telephone number & address where you can be reached. Also, realize that some fractures or abnormalities do not show up on initial X-rays. If your symptoms continue, see your physician. ABOUT YOUR LABORATORY TEST: If you had laboratory tests, the results have been reviewed by the Emergency Physician. Some test results (for example cultures) may not be available for several days. You will be contacted if any test result shows you need additional treatment. Please be certain the ED has a correct telephone number and address where you can be reached. ABOUT YOUR MEDICATIONS: You will receive instructions on how to take your me dicine on the prescription label you receive. Additional information may be provided by the Pharmacy. If you have questions afterwards, call the ED for clarification or further instructions. Some prescribed medications may cause drowsiness. Do not perform tasks such as driving a car or operating machinery without consulting your Pharmacist. If you feel you need a refill of pain medication, your condition will need re-evaluation. Please do not call for a refill of any medication. ABOUT YOUR SIGNATURE: Signature of this document acknowledges to followin. Understanding that you received emergency treatment and that you may be released before al medical problems are known or treated. Please be certain the ED has a correct phone number & address where you can be reached. 2. Acknowledgement that you will arrange for follow-up care as recommended. 3. Authorization for the Emergency Physician to provide information to your follow-up Physician in order to maximize your care. AT ANY TIME, IF YOUR SYMPTOMS CHANGE SIGNIFICANTLY OR WORSEN OR YOU DEVELOP NEW SYMPTOMS, RETURN TO THE EMERGENCY DEPARTMENT IMMEDIATELY FOR RE-EVALUATION. OUR GOAL IS TO PROVIDE EXCELLENT MEDICAL CARE! WE HOPE THAT WE HAVE MET YOUR EXPECTATIONS DURING YOUR EMERGENCY DEPARTMENT VISIT AND THAT YOU FEEL YOU HAVE RECEIVED EXCELLENT CARE! Chest Pain of Unclear Cause The exact cause of your chest pain isn't clear. Fortunately, there is no evidence of a dangerous medical condition. Further testing may be required to find the source of the pain. Most often, we find that this pain is coming from the chest wall -- the muscles or rib joints in the chest. But chest pain can come from the lung and lung lining, the esophagus, the heart valves or heart lining, and even the stomach or gallbladder. Rest. Eat lightly until the pain is gone. We may prescribe medicine for pain and inflammation. You should call the physician immediately if the pain radiates to the shoulder, jaw or arms; if you start to run a fever or develop a cough; or if you develop shortness of breath, or other new or alarming symptoms. Referrals: ISA MUNOZ PA-C [Primary Care Provider] - 04/20/20 I personally performed the services described in the documentation, reviewed and edited the documentation which was dictated to the scribe in my presence, and it accurately records my words and actions.
[2020-04-18] MEDS ORDERED: NORMAL SALINE 1000 ML 1,000 ML IV ONE (02:58)
[2020-04-18 03:30] LABS: APPEARANCE,URINE SLIGHTLY-CLOUDY; BILIRUBIN,URINE NEGATIVE (NEGATIVE); COLOR,URINE YELLOW; GLUCOSE, URINE NEGATIVE (NEGATIVE); KETONES,URINE NEGATIVE (NEGATIVE); LEUKOCYTE ESTERASE,URINE NEGATIVE (NEGATIVE); NITRITE,URINE NEGATIVE (NEGATIVE); PROTEIN,URINE NEGATIVE (NEGATIVE); URINE SPECIFIC GRAVITY 1.011; UROBILINOGEN,URINE NEGATIVE mg/dL (<2.0)
[2020-04-18 03:36] LABS: ACETAMINOPHEN < 10 ug/mL (10-30); SALICYLATE < 1.0 mg/dL (2.0-20.0)
[2020-04-18 03:44] LABS: URINE AMPHETAMINES SCREEN NEGATIVE; URINE BENZODIAZEPINES SCREEN NEGATIVE; URINE COCAINE SCREEN NEGATIVE; URINE MARIJUANA (THC) SCREEN NEGATIVE; URINE METHADONE SCREEN NEGATIVE; URINE PHENCYCLIDINE SCREEN NEGATIVE
--- NOTE | 2020-04-18 03:47 | RADIOLOGY REPORT (SQ) ---
EXAM DESCRIPTION: XR CHEST 1 VIEW COMPLETED DATE/TME: 04/18/2020 03:01 CLINICAL HISTORY: 50 years, Female, dyspnea, chest pain COMPARISON: 04/14/2020 NUMBER OF VIEWS: One TECHNIQUE: AP upright image of the chest LIMITATIONS: None. FINDINGS: The lungs are clear. The heart is normal in size. There is no pneumothorax or pleural effusion. There is no intraperitoneal free air. The bones are unremarkable. IMPRESSION: No acute cardiopulmonary abnormality copyright 2010 [employer]- All Rights Reserved
[2020-04-18 03:54] LABS: URINE BARBITURATES SCREEN UNCONFIRMED POSITIVE
[2020-04-18] MEDS ORDERED: HYDROCODONE/ACETAMINOPHEN 5-325 MG TABLET PO ONE (05:00)
[2020-04-18 05:40] VITALS: BP 115/74
--- NOTE | 2020-04-18 12:06 | EKG REPORT ---
SEVERITY:- BORDERLINE ECG - SINUS BRADYCARDIA BORDERLINE T WAVE ABNORMALITIES : Confirmed by: Viji Mosher MD 18-Apr-2020 12:05:55
--- NOTE | 2020-04-18 12:06 | EKG REPORT ---
SEVERITY:- NORMAL ECG - SINUS RHYTHM : Confirmed by: Viji Mosher MD 18-Apr-2020 12:05:50
== END 2020-04-18 05:53 | disposition home or self-care (01) ==
LOC: ER 00:53
DX: R07.9 Chest pain, unspecified (principal); R00.1 Bradycardia, unspecified; I25.10 Atherosclerotic heart disease of native coronary artery without angina pectoris; I25.2 Old myocardial infarction; M79.621 Pain in right upper arm; R47.81 Slurred speech; Z82.49 Family history of ischemic heart disease and other diseases of the circulatory system; Z95.5 Presence of coronary angioplasty implant and graft; Z79.899 Other long term (current) drug therapy
CPT/HCPCS: 93005; 99285; 96361; 96365; 36415; 80307 ×4; 83735; 85025; 80053; 81001; 84484; 71045; 93010; J3490; J7060; J7030

== ENCOUNTER 2020-05-12 10:32 | Observation (INO) | payer OTHER ==
[2020-05-12] MEDS ORDERED: NORMAL SALINE 1000 ML 1,000 ML IV ONE ×2 (10:37)
[2020-05-12 11:14] LABS: ABSOLUTE BASOPHILS # (AUTO) 0.1 10^3/uL (0.0-0.2); ABSOLUTE EOSINOPHILS # (AUTO) 0.2 10^3/uL (0.0-0.6); ABSOLUTE LYMPHOCYTES (AUTO) 2.5 10^3/uL (0.5-4.7); ABSOLUTE MONOCYTES (AUTO) 0.4 10^3/uL (0.1-1.4); ABSOLUTE NEUT (AUTO) 2.9 10^3/uL (1.7-8.2); BASOPHILS % (AUTO) 0.9 % (0-2); EOSINOPHILS % (AUTO) 3.7 % (0-6); HEMATOCRIT 33.1 % (36.0-47.0); HEMOGLOBIN 11.1 g/dL (12.0-15.5); LYMPHOCYTES % (AUTO) 40.6 % (13-45); MEAN CORPUSCULAR HEMOGLOBIN 30.7 pg (27.0-33.4); MEAN CORPUSCULAR HGB CONC 33.6 g/dL (32.0-36.0); MEAN CORPUSCULAR VOLUME 91 fl (80-97); MONOCYTES % (AUTO) 7.1 % (3-13); PLATELET COUNT 178 10^3/uL (150-450); RED BLOOD COUNT 3.62 10^6/uL (3.72-5.28); SEGMENTED NEUTROPHILS % (AUTO) 47.7 % (42-78); TOTAL CELLS COUNTED % (AUTO) 100 %; WHITE BLOOD COUNT 6.1 10^3/uL (4.0-10.5)
[2020-05-12 11:23] LABS: INTERNATIONAL RATION (INR) 0.99; PROTHROMBIN TIME 13.1 SEC (11.4-15.4)
[2020-05-12 11:33] LABS: ALBUMIN 3.3 g/dL (3.5-5.0); ALKALINE PHOSPHATASE 57 U/L (38-126); ANION GAP 6 (5-19); ASPARTATE AMINO TRANSFERASE 43 U/L (14-36); BILIRUBIN,TOTAL 0.2 mg/dL (0.2-1.3); BLOOD UREA NITROGEN 23 mg/dL (7-20); CALCIUM 8.8 mg/dL (8.4-10.2); CARBON DIOXIDE 24 mmol/L (22-30); CHLORIDE 106 mmol/L (98-107); GLUCOSE 104 mg/dL (75-110); TOTAL PROTEIN 6.1 g/dL (6.3-8.2)
[2020-05-12 11:35] LABS: POTASSIUM 4.2 mmol/L (3.6-5.0)
[2020-05-12 12:02] LABS: VENOUS BLOOD BASE EXCESS -2.9 mmol/L; VENOUS BLOOD HCO3 24.1 mmol/L (20-32); VENOUS BLOOD PCO2 52.4 mmHg (35-63); VENOUS BLOOD PH 7.28 (7.30-7.42)
[2020-05-12 12:06] LABS: APPEARANCE,URINE CLEAR; BILIRUBIN,URINE NEGATIVE (NEGATIVE); COLOR,URINE STRAW; GLUCOSE, URINE NEGATIVE (NEGATIVE); KETONES,URINE NEGATIVE (NEGATIVE); PROTEIN,URINE NEGATIVE (NEGATIVE); URINE SPECIFIC GRAVITY 1.004; UROBILINOGEN,URINE NEGATIVE mg/dL (<2.0)
--- NOTE | 2020-05-12 13:25 | ER Document Report ---
ED Blood Pressure Problem - General Chief Complaint: Low Blood Pressure Stated Complaint: BLOOD PRESSURE ISSUES Time Seen by Provider: 05/12/20 10:37 Primary Care Provider: ISA MUNOZ PA-C [Primary Care Provider] - Follow up as needed Mode of Arrival: Medic Information source: Patient, Emergency Med Personnel TRAVEL OUTSIDE OF THE [place] IN LAST 30 DAYS: No - HPI Notes: Patient was sent from pain management with altered mental status and abnormal vital signs. She was brought in by ambulance. Ambulance states in route she was bradycardic in the 40s. She also had a blood pressure in the 70s. She was talkative but somnolent for them. Patient states that she does take a beta- dawn as well as opioid pain medication. She denies taking "extra" or taking her meds and away other than prescribed. She states over the last several days she has not had any type of cough cold congestion. She states she has had her chronic back pain. No vomiting or diarrhea. She denies any pain at this time other than her chronic back pain. No significant shortness of breath. No known covid exposures. - Related Data Allergies/Adverse Reactions: baclofen Adverse Reaction (Mild, Verified 05/12/20 11:15) falls Past Medical History - General Information source: Patient - Social History Smoking Status: Never Smoker Family History: Reviewed & Not Pertinent, Arthritis, CAD, CVA, DM, Hyperlipidemia, Hypertension, Malignancy - Past Medical History Cardiac Medical History: Reports: Hx Coronary Artery Disease, Hx Heart Attack - 2016, Hx Hypercholesterolemia, Hx Hypertension Pulmonary Medical History: Reports: Hx Asthma, Hx Bronchitis, Hx Pneumonia Denies: Hx Tuberculosis Neurological Medical History: Reports: Hx Migraine, Hx Seizures Endocrine Medical History: Reports: Hx Diabetes Mellitus Type 2 Renal/ Medical History: Denies: Hx Peritoneal Dialysis Malignancy Medical History: Denies: Hx Bone Cancer, Hx Brain Cancer, Hx Breast Cancer, Hx Cervical Cancer, Hx Colorectal Cancer, Hx Leukemia, Hx Liver Cancer, Hx Lung Cancer, Hx Lymphoma, Hx Ovarian Cancer, Hx Pancreatic Cancer, Hx Renal (Kidney) Cancer, Hx Skin Cancer GI Medical History: Reports: Hx Gastroesophageal Reflux Disease Musculoskeletal Medical History: Reports Hx Arthritis, Reports Hx Musculoskeletal Deformity, Reports Hx Musculoskeletal Trauma Psychiatric Medical History: Reports: Hx Anxiety, Hx Bipolar Disorder, Hx Depression, Hx Post Traumatic Stress Disorder Past Surgical History: Reports: Hx Cardiac Catheterization - with stents, Hx Coronary Stent, Hx Dilation and Curettage, Hx Gynecologic Surgery - D&C, Hx Tubal Ligation - Immunizations Immunizations up to date: Yes Hx Diphtheria, Pertussis, Tetanus Vaccination: No - unknown Hx Pneumococcal Vaccination: 12/17/11 Review of Systems - Review of Systems Constitutional: Weakness. denies: Chills, Fever Cardiovascular: denies: Chest pain, Palpitations Respiratory: denies: Cough, Short of breath -: Yes All other systems reviewed and negative Physical Exam - Vital signs Vitals: Pulse Ox 97 05/12/20 10:33 Interpretation: Hypotensive, Bradycardic - General General appearance: Alert, Lethargic - HEENT Head: Normocephalic, Atraumatic Eyes: Normal Pupils: PERRL - Respiratory Respiratory status: No respiratory distress Chest status: Nontender Breath sounds: Normal Chest palpation: Normal - Cardiovascular Rhythm: Bradycardia Heart sounds: Normal auscultation Murmur: No Pulses: Decreased: Carotid, Absent: Radial - Abdominal Inspection: Normal Distension: No distension Bowel sounds: Normal Tenderness: Nontender Organomegaly: No organomegaly - Back Back: Normal, Nontender - Extremities General upper extremity: Normal inspection, Nontender, Normal color, Normal ROM, Normal temperature General lower extremity: Normal inspection, Nontender, Normal color, Normal ROM, Normal temperature, Normal weight bearing. No: Pranav's sign - Neurological Neuro grossly intact: Yes Cognition: Normal Orientation: AAOx4 Terry Coma Scale Eye Opening: Spontaneous [place] Coma Scale Verbal: Oriented Terry Coma Scale Motor: Obeys Commands Terry Coma Scale Total: 15 Speech: Normal Motor strength normal: LUE, RUE, LLE, RLE Sensory: Normal - Psychological Associated symptoms: Normal affect, Normal mood - Skin Skin Temperature: Warm Skin Moisture: Dry Skin Color: Normal Course - Re-evaluation Re-evalutation: 05/12/20 13:23 On arrival patient is hypotensive bradycardic and somewhat somnolent. She does take a beta-dawn and an opioid. It appears she may have 1 or both of these in her system and a quantity that is too much. She denies taking extra however she does appear to have a toxicity of 1 or both of these medicines. Sepsis has not been completely ruled out but seems unlikely has patient has had no symptoms, no fever, no elevated white blood cell count. She will be admitted for an observation at this time. UA is somewhat equivocal but I will hold off on antibiotics at this time. - Vital Signs Vital signs: Temp Pulse Resp BP Pulse Ox 97.7 F 48 L 10 L 98/61 L 100 05/12/20 11:11 05/12/20 11:11 05/12/20 13:01 05/12/20 13:01 05/12/20 13:01 - Laboratory Result Diagrams: 05/12/20 10:40 05/12/20 10:40 Laboratory results interpreted by me: 05/12/20 05/12/20 05/12/20 10:40 10:40 11:35 RBC 3.62 L Hgb 11.1 L Hct 33.1 L RDW 15.0 H VBG pH 7.28 L Sodium 135.6 L BUN 23 H Lactic Acid AST 43 H Total Protein 6.1 L Albumin 3.3 L Leukocyte Esterase Rfl 05/12/20 05/12/20 11:35 11:35 RBC Hgb Hct RDW VBG pH Sodium BUN Lactic Acid 0.6 L AST Total Protein Albumin Leukocyte Esterase Rfl LARGE H - EKG Interpretation by Me EKG shows normal: Sinus rhythm Rate: Bradycardia - 48 Rhythm: NSR Preemption/QRS: No: Right axis deviation, Left axis deviation Critical Care Note - Critical Care Note Total time excluding time spent on procedures (mins): 40 Comments: 40 minutes of critical care time were spent on this bradycardic hypotensive patient. This was spent doing multiple reexaminations. There is spent talking with multiple consultants. It is spent reviewing labs and old records. Discharge - Discharge Clinical Impression: Bradycardia, Hypercapnemia, Lethargy Hypotension Qualifiers: Hypotension type: hypotension due to drug Qualified Code(s): I95.2 - Hypotension due to drugs Condition: Serious Disposition: ADMITTED OBSERVATION Admitting Provider: Cristhian (Hospitalist) Unit Admitted: IMCU Referrals: ISA MUNOZ PA-C [Primary Care Provider] - Follow up as needed
[2020-05-12 13:52] LABS: URINE AMPHETAMINES SCREEN NEGATIVE; URINE BARBITURATES SCREEN UNCONFIRMED POSITIVE; URINE BENZODIAZEPINES SCREEN NEGATIVE; URINE COCAINE SCREEN NEGATIVE; URINE MARIJUANA (THC) SCREEN NEGATIVE; URINE METHADONE SCREEN NEGATIVE; URINE PHENCYCLIDINE SCREEN NEGATIVE
[2020-05-12] MEDS ORDERED: ACETAMINOPHEN 325 MG TABLET PO PRN (13:54)
--- NOTE | 2020-05-12 14:09 | PDOC H&P ---
History of Present Illness Admission Date/PCP: 05/12/20 13:35 ISA MUNOZ PA-C Patient complains of: Referred from the pain clinic for low blood pressures. History of Present Illness: RUDDY HAWK is a 50 year old female history of chronic pain syndrome, h ypertension,diabetes mellitus, depression referred from pain clinic with low blood pressures and low heart rate. As per the EMS records heart rate in the 40s, blood pressure systolic is in the 70s. In the emergency room patient was given IV fluids. Patient is receiving blood pressure medications including beta-blockers at home. Patient is also on chronic pain medications oxycodone. Although this may be contributing factors for hypotension and bradycardia. Heart rate is improved to 70 now blood pressure is 110/60. Patient agreed to stay in the hospital overnight for further evaluation. Past Medical History Cardiac Medical History: Reports: Coronary Artery Disease, Myocardial Infarction - 2016, Hyperlipidema, Hypertension Pulmonary Medical History: Reports: Asthma, Bronchitis, Pneumonia Denies: Tuberculosis Neurological Medical History: Reports: Migraine, Seizures Endocrine Medical History: Reports: Diabetes Mellitus Type 2 Malignancy Medical History: Denies: Bone Cancer, Brain Cancer, Breast Cancer, Cervical Cancer, Colorectal Cancer, Leukemia, Liver Cancer, Lung Cancer, Lymphoma, Ovarian Cancer, Pancreatic Cancer, Renal (Kidney) Cancer, Skin Cancer GI Medical History: Reports: Gastroesophageal Reflux Disease Musculoskeltal Medical History: Reports: Arthritis Psychiatric Medical History: Reports: Bipolar Disorder, Depression, Post Traumatic Stress Disorder Past Surgical History Past Surgical History: Reports: Cardiac Catheterization - with stents, Coronary Stent, Tubal Ligation Social History Smoking Status: Never Smoker Frequency of Alcohol Use: None Hx Recreational Drug Use: No Drugs: None Hx Prescription Drug Abuse: No - Advance Directive Resuscitation Status: Full Code Family History Family History: Reviewed & Not Pertinent, Arthritis, CAD, CVA, DM, Hyperlipidemia, Hypertension, Malignancy Parental Family History Reviewed: Yes - Family history of hypertension Children Family History Reviewed: Yes Sibling(s) Family History Reviewed.: Yes Medication/Allergy Home Medications: Amitriptyline HCl [Elavil 100 mg Tablet] 100 mg PO QHS 09/23/18 Aspirin [Aspirin 81 mg Chewable Tablet] 81 mg PO DAILY 09/23/18 Atorvastatin Calcium [Lipitor 80 mg Tablet] 80 mg PO DAILY 09/23/18 Cholecalciferol (Vitamin D3) [Vitamin D3] 400 unit PO DAILY 09/23/18 Cyanocobalamin (Vitamin B-12) [Vitamin B12] 1,000 mcg PO DAILY 09/23/18 Fenofibrate,Micronized [Fenofibrate] 130 mg PO DAILY 09/23/18 Furosemide [Lasix 20 mg Tablet] 20 mg PO DAILY 09/23/18 Iron 65 mg PO DAILY 09/23/18 Isosorbide Mononitrate [Imdur 30 mg Tablet.er] 30 mg PO DAILY 09/23/18 Meclizine HCl [Motion Sickness Relief] 25 mg PO DAILYP PRN 09/23/18 Metformin HCl [Glucophage 500 mg Tablet] 500 mg PO Q12 09/23/18 Metoprolol Tartrate [Lopressor 25 mg Tablet] 25 mg PO Q12 09/23/18 Omeprazole 20 mg PO BID 09/23/18 Oxycodone HCl/Acetaminophen [Oxycodone-Acetaminophen 10-325] 1 each PO 5XDP PRN 09/23/18 Polyethylene Glycol 3350 [Clearlax] 17 gm PO DAILYP PRN 09/23/18 Primidone [Mysoline 250 mg Tablet] 125 mg PO QID 09/23/18 Sennosides/Docusate Sodium [Stool Softener-Laxative Tablet] 1 each PO DAILYP PRN 09/23/18 Ticagrelor [Brilinta 90 mg Tablet] 90 mg PO Q12 09/23/18 Tizanidine HCl [Zanaflex 4 mg Tablet] 4 mg PO TIDP PRN 09/23/18 Topiramate [Topamax 100 Mg Tablet] 200 mg PO QPM 09/23/18 Topiramate [Topamax 100 mg Tablet] 100 mg PO QAM 09/23/18 Mometasone Furoate [Nasonex] 1 spray NS Q12 #1 spray.pump 01/09/19 Diphenhydramine HCl [Banophen] 25 mg PO QHS PRN 5 Days #5 tablet 11/26/19 Sulfamethoxazole/Trimethoprim [Bactrim Ds Tablet] 1 each PO BID 3 Days #6 tablet 02/18/20 Allergies/Adverse Reactions: baclofen Adverse Reaction (Mild, Verified 05/12/20 11:15) falls Review of Systems Constitutional: ABSENT: fever(s), headache(s), night sweats, weakness Eyes: ABSENT: visual disturbances Ears: ABSENT: hearing changes Nose, Mouth, and Throat: ABSENT: sore throat Cardiovascular: ABSENT: orthropnea, palpitations Respiratory: ABSENT: dyspnea, hemoptysis Gastrointestinal: ABSENT: heartburn, hematemesis Genitourinary: ABSENT: dysuria, hematuria Musculoskeletal: ABSENT: deformity Integumentary: ABSENT: lesions, pruritus Neurological: ABSENT: focal weakness Psychiatric: ABSENT: anxiety, depression, homidical ideation, suicidal ideation Endocrine: ABSENT: cold intolerance, heat intolerance, polydipsia, polyuria Physical Exam Vital Signs: Temp Pulse Resp BP Pulse Ox 97.7 F 48 L 19 119/58 L 98 05/12/20 11:11 05/12/20 11:11 05/12/20 13:41 05/12/20 13:41 05/12/20 13:41 Intake & Output 05/11/20 05/12/20 05/13/20 06:59 06:59 06:59 Intake Total 1999 Balance 1999 Weight 77.111 kg General appearance: PRESENT: no acute distress Head exam: PRESENT: atraumatic Eye exam: PRESENT: PERRLA Mouth exam: PRESENT: moist, tongue midline Neck exam: ABSENT: carotid bruit, JVD, lymphadenopathy, thyromegaly Respiratory exam: PRESENT: decreased breath sounds Cardiovascular exam: PRESENT: RRR. ABSENT: diastolic murmur, rubs, systolic murmur GI/Abdominal exam: PRESENT: normal bowel sounds, soft. ABSENT: distended, guarding, mass, organolmegaly, rebound, tenderness Rectal exam: PRESENT: deferred Extremities exam: PRESENT: full ROM. ABSENT: calf tenderness, clubbing, pedal edema Neurological exam: PRESENT: alert, awake, oriented to person, oriented to place, oriented to time, oriented to situation, CN II-XII grossly intact. ABSENT: motor sensory deficit Psychiatric exam: PRESENT: appropriate affect, normal mood. ABSENT: homicidal ideation, suicidal ideation Results Laboratory Results: 05/12/20 10:40 05/12/20 10:40 05/12/20 05/12/20 05/12/20 10:40 10:40 11:35 WBC 6.1 RBC 3.62 L Hgb 11.1 L Hct 33.1 L MCV 91 MCH 30.7 MCHC 33.6 RDW 15.0 H Plt Count 178 Seg Neutrophils % 47.7 VBG pH 7.28 L VBG pCO2 52.4 VBG HCO3 24.1 VBG Base Excess -2.9 Sodium 135.6 L Potassium 4.2 Chloride 106 Carbon Dioxide 24 Anion Gap 6 BUN 23 H Creatinine 0.77 Est GFR ( Amer) > 60 Glucose 104 Lactic Acid Calcium 8.8 Total Bilirubin 0.2 AST 43 H Alkaline Phosphatase 57 Total Protein 6.1 L Albumin 3.3 L Urine Color Urine Appearance Urine pH Ur Specific [place] Urine Protein Urine Glucose (UA) Urine Ketones Urine Blood Urine RBC (Auto) 05/12/20 05/12/20 11:35 11:35 WBC RBC Hgb Hct MCV MCH MCHC RDW Plt Count Seg Neutrophils % VBG pH VBG pCO2 VBG HCO3 VBG Base Excess Sodium Potassium Chloride Carbon Dioxide Anion Gap BUN Creatinine Est GFR ( Amer) Glucose Lactic Acid 0.6 L Calcium Total Bilirubin AST Alkaline Phosphatase Total Protein Albumin Urine Color STRAW Urine Appearance CLEAR Urine pH 5.0 Ur Specific [place] 1.004 Urine Protein NEGATIVE Urine Glucose (UA) NEGATIVE Urine Ketones NEGATIVE Urine Blood NEGATIVE Urine RBC (Auto) 05/12/20 10:40 Troponin I < 0.012 Assessment and Plan - Diagnosis (1) Bradycardia Is this a current diagnosis for this admission?: Yes Plan: 05/12-patient came in with heart rate in the 40sheart rate is in the 70s. Patient is on beta-blockers at home which is on hold. Plan is to place her observation overnight. Repeat EKG was requested. Initial EKG shows sinus bradycardia. (2) Hypotension Qualifiers: Hypotension type: hypotension due to drug Qualified Code(s): I95.2 - Hypotension due to drugs Is this a current diagnosis for this admission?: Yes Plan: 05/12/2020-as per the EMS systolic blood pressure in the 70s. At the time of arrival systolic blood pressure in the 90s given IV fluids. Latest blood pressure systolics 110. Hypertension may be secondary to medications including pain medications and antihypertensives. (3) Hypercapnemia Is this a current diagnosis for this admission?: Yes Plan: 05/12/2020-in the ABG PCO2 slightly elevated may be secondary to underlying COPD versus use of pain medications on a chronic basis. (4) Coronary artery disease Qualifiers: Coronary Disease-Associated Artery/Lesion type: unspecified vessel or lesion type [place] vs. transplanted heart: [place] heart Associated angina: with unspecified angina Qualified Code(s): I25.119 - Atherosclerotic heart disease of [place] coronary artery with unspecified angina pectoris Is this a current diagnosis for this admission?: No Plan: 05/12/2020-patient has history of coronary artery disease denies any chest pains today. Initial troponin is negative. EKG within normal limits except for bradycardia. - Time Anticipated Discharge Disposition: Home, Self Care Anticipated Discharge: within 24 hours
[2020-05-12] MEDS: HEPARIN SOD (PORCINE) 5,000 UNIT/ML 1 ML VIAL SUBCUT SCH ×2 (14:54→22:03)
[2020-05-12] MEDS: NORMAL SALINE 1000 ML 1,000 ML IV PRN (14:54)
[2020-05-12] MEDS: ONDANSETRON HCL INJ/PF 4 MG/2 ML SDV IV PRN (21:14)
[2020-05-12] MEDS: PRIMIDONE 250 MG TABLET PO SCH (22:03)
[2020-05-12] MEDS: TICAGRELOR 90 MG TABLET PO SCH (22:04)
[2020-05-13] MEDS: NORMAL SALINE 1000 ML 1,000 ML IV PRN (04:41)
[2020-05-13] MEDS: HEPARIN SOD (PORCINE) 5,000 UNIT/ML 1 ML VIAL SUBCUT SCH (05:16)
[2020-05-13] MEDS ORDERED: PANTOPRAZOLE SODIUM 20 MG TABLET.DR PO SCH (06:00)
[2020-05-13 07:22] LABS: ABSOLUTE EOSINOPHILS # (AUTO) 0.3 10^3/uL (0.0-0.6); ABSOLUTE LYMPHOCYTES (AUTO) 1.9 10^3/uL (0.5-4.7); ABSOLUTE MONOCYTES (AUTO) 0.3 10^3/uL (0.1-1.4); ABSOLUTE NEUT (AUTO) 3.2 10^3/uL (1.7-8.2); BASOPHILS % (AUTO) 0.7 % (0-2); EOSINOPHILS % (AUTO) 4.5 % (0-6); HEMATOCRIT 37.2 % (36.0-47.0); HEMOGLOBIN 12.5 g/dL (12.0-15.5); LYMPHOCYTES % (AUTO) 32.4 % (13-45); MEAN CORPUSCULAR HEMOGLOBIN 30.3 pg (27.0-33.4); MEAN CORPUSCULAR HGB CONC 33.6 g/dL (32.0-36.0); MEAN CORPUSCULAR VOLUME 90 fl (80-97); PLATELET COUNT 163 10^3/uL (150-450); RED BLOOD COUNT 4.13 10^6/uL (3.72-5.28); RED CELL DISTRIBUTION WIDTH 15.4 % (11.5-14.0); SEGMENTED NEUTROPHILS % (AUTO) 56.4 % (42-78); TOTAL CELLS COUNTED % (AUTO) 100 %; WHITE BLOOD COUNT 5.7 10^3/uL (4.0-10.5)
[2020-05-13 07:40] LABS: ALBUMIN 3.9 g/dL (3.5-5.0); ALKALINE PHOSPHATASE 65 U/L (38-126); ANION GAP 6 (5-19); ASPARTATE AMINO TRANSFERASE 44 U/L (14-36); BILIRUBIN,TOTAL 0.2 mg/dL (0.2-1.3); BLOOD UREA NITROGEN 18 mg/dL (7-20); CALCIUM 9.4 mg/dL (8.4-10.2); CARBON DIOXIDE 23 mmol/L (22-30); CHLORIDE 110 mmol/L (98-107); CHOLESTEROL 211.65 mg/dL (0-200); GLUCOSE 108 mg/dL (75-110); POTASSIUM 4.3 mmol/L (3.6-5.0); TOTAL PROTEIN 6.9 g/dL (6.3-8.2); TRIGLYCERIDES 278 mg/dL (<150)
[2020-05-13 07:51] LABS: DIRECT LDL 92 mg/dL (<100)
[2020-05-13 07:52] LABS: VLDL CHOLESTEROL 55.6 mg/dL (10-31)
[2020-05-13] MEDS ORDERED: TOPIRAMATE 100 MG TABLET PO SCH ×3 (08:00→18:00)
--- NOTE | 2020-05-13 08:40 | EKG REPORT ---
SEVERITY:- BORDERLINE ECG - SINUS RHYTHM BORDERLINE R WAVE PROGRESSION, ANTERIOR LEADS BORDERLINE T ABNORMALITIES, INFERIOR LEADS : Confirmed by: Viji Mosher MD 13-May-2020 08:40:09
--- NOTE | 2020-05-13 08:40 | EKG REPORT ---
SEVERITY:- BORDERLINE ECG - SINUS BRADYCARDIA BORDERLINE R WAVE PROGRESSION, ANTERIOR LEADS : Confirmed by: Viji Mosher MD 13-May-2020 08:40:14
[2020-05-13] MEDS: TICAGRELOR 90 MG TABLET PO SCH (09:44)
[2020-05-13] MEDS: PRIMIDONE 250 MG TABLET PO SCH (09:45)
[2020-05-13] MEDS ORDERED: ATORVASTATIN CALCIUM 80 MG TABLET PO SCH (10:00)
[2020-05-13] MEDS ORDERED: CEFTRIAXONE 1 GM/D5W RTU 1 GM/50 ML RTUPB IV SCH (10:00)
[2020-05-13] MEDS ORDERED: DOCUSATE SODIUM 100 MG CAPSULE PO SCH (10:00)
[2020-05-13] MEDS ORDERED: FENOFIBRATE NANOCRYSTALLIZED 145 MG TABLET PO SCH (10:00)
[2020-05-13] MEDS ORDERED: (PENDING PHARMACY ID) (Fenofibrate,Micronized [Fenofibrate] 130 MG) PO SCH (10:00)
[2020-05-13] MEDS: ONDANSETRON HCL INJ/PF 4 MG/2 ML SDV IV PRN (10:22)
[2020-05-13] MEDS ORDERED: MORPHINE SULFATE 10 MG/ML INJ IV PRN (11:08)
[2020-05-13 12:32] VITALS: BP 138/96
--- NOTE | 2020-05-13 12:55 | PDOC DISCHARGE SUMMARY ---
Impression - Admit/DC Date/PCP Admission Date/Primary Care Provider: 05/12/20 13:35 ISA MUNOZ PA-C Discharge Date: 05/13/20 - Additional Information Resuscitation Status: Full Code Discharge Diet: Cardiac Discharge Activity: Activity As Tolerated Referrals: STEPHANIE HERRERA MD [NO LOCAL MD] - 05/26/20 3:00 pm Prescriptions: Fluconazole 200 mg PO ONCE 1 Days #1 tablet Home Medications: Amitriptyline HCl [Elavil 100 mg Tablet] 50 mg PO QHS 09/23/18 Atorvastatin Calcium [Lipitor 80 mg Tablet] 80 mg PO DAILY 09/23/18 Fenofibrate,Micronized [Fenofibrate] 130 mg PO DAILY 09/23/18 Furosemide [Lasix 20 mg Tablet] 20 mg PO DAILY 09/23/18 Isosorbide Mononitrate [Imdur 30 mg Tablet.er] 30 mg PO DAILY 09/23/18 Metoprolol Tartrate [Lopressor 25 mg Tablet] 25 mg PO Q12 09/23/18 Oxycodone HCl/Acetaminophen [Oxycodone-Acetaminophen 10-325] 1 each PO 5XDP PRN 09/23/18 Primidone [Mysoline 250 mg Tablet] 125 mg PO QID 09/23/18 Ticagrelor [Brilinta 90 mg Tablet] 90 mg PO Q12 09/23/18 Tizanidine HCl [Zanaflex 4 mg Tablet] 6 mg PO TIDP PRN 09/23/18 Topiramate [Topamax 100 mg Tablet] 200 mg PO QAM 09/23/18 Topiramate [Topamax 100 mg Tablet] 200 mg PO QPM 09/23/18 Pregabalin 150 mg PO Q8 05/12/20 Fluconazole 200 mg PO ONCE 1 Days #1 tablet 05/13/20 History of Present Illiness History of Present Illness: RUDDY HAWK is a 50 year old female history of chronic pain syndrome, hypertension,diabetes mellitus, depression referred from pain clinic with low blood pressures and low heart rate. As per the EMS records heart rate in the 40s, blood pressure systolic is in the 70s. In the emergency room patient was given IV fluids. Patient is receiving blood pressure medications including beta-blockers at home. Patient is also on chronic pain medications oxycodone. Although this may be contributing factors for hypotension and bradycardia. Heart rate is improved to 70 now blood pressure is 110/60. Patient agreed to stay in the hospital overnight for further evaluation. Hospital Course Hospital Course: BP and pulse improved with fluids and holding some of her meds Physical Exam Vital Signs: Temp Pulse Resp BP Pulse Ox 98.6 F 80 18 138/96 H 100 05/13/20 12:15 05/13/20 12:15 05/13/20 12:15 05/13/20 12:15 05/13/20 12:15 Intake & Output 05/12/20 05/13/20 05/14/20 06:59 06:59 06:59 Intake Total 3240 236 Balance 3240 236 Weight 79.6 kg General appearance: PRESENT: no acute distress Respiratory exam: PRESENT: clear to auscultation juma, symmetrical, unlabored. ABSENT: rales, rhonchi, tachypnea, wheezes Cardiovascular exam: PRESENT: RRR, +S1, +S2. ABSENT: bradycardia, diastolic murmur, irregular rhythm, systolic murmur, tachycardia GI/Abdominal exam: PRESENT: normal bowel sounds, soft. ABSENT: distended, guarding, tenderness Rectal exam: PRESENT: deferred Gentrourinary exam: ABSENT: indwelling catheter Results Laboratory Results: WBC 5.7 10^3/uL (4.0-10.5) 05/13/20 06:27 RBC 4.13 10^6/uL (3.72-5.28) 05/13/20 06:27 Hgb 12.5 g/dL (12.0-15.5) 05/13/20 06:27 Hct 37.2 % (36.0-47.0) 05/13/20 06:27 MCV 90 fl (80-97) 05/13/20 06:27 MCH 30.3 pg (27.0-33.4) 05/13/20 06:27 MCHC 33.6 g/dL (32.0-36.0) 05/13/20 06:27 RDW 15.4 % (11.5-14.0) H 05/13/20 06:27 Plt Count 163 10^3/uL (150-450) 05/13/20 06:27 Lymph % (Auto) 32.4 % (13-45) 05/13/20 06:27 [place] % (Auto) 6.0 % (3-13) 05/13/20 06:27 Eos % (Auto) 4.5 % (0-6) 05/13/20 06:27 Baso % (Auto) 0.7 % (0-2) 05/13/20 06:27 Absolute Neuts (auto) 3.2 10^3/uL (1.7-8.2) 05/13/20 06:27 Absolute Lymphs (auto) 1.9 10^3/uL (0.5-4.7) 05/13/20 06:27 Absolute Monos (auto) 0.3 10^3/uL (0.1-1.4) 05/13/20 06: Absolute Eos (auto) 0.3 10^3/uL (0.0-0.6) 05/13/20 06: Absolute Basos (auto) 0.0 10^3/uL (0.0-0.2) 05/13/20 06: Seg Neutrophils % 56.4 % (42-78) 05/13/20 06:27 PT 13.1 SEC (11.4-15.4) 05/12/20 10:40 INR 0.99 05/12/20 10:40 VBG pH 7.28 (7.30-7.42) L 05/12/20 11:35 VBG pCO2 52.4 mmHg (35-63) 05/12/20 11:35 VBG HCO3 24.1 mmol/L (20-32) 05/12/20 11:35 VBG Base Excess -2.9 mmol/L 05/12/20 11:35 Sodium 138.7 mmol/L (137-145) 05/13/20 06:27 Potassium 4.3 mmol/L (3.6-5.0) 05/13/20 06:27 Chloride 110 mmol/L (98-107) H 05/13/20 06:27 Carbon Dioxide 23 mmol/L (22-30) 05/13/20 06:27 Anion Gap 6 (5-19) 05/13/20 06:27 BUN 18 mg/dL (7-20) 05/13/20 06:27 Creatinine 0.70 mg/dL (0.52-1.25) 05/13/20 06:27 Est GFR ( Amer) > 60 (>60) 05/13/20 06:27 Est GFR (MDRD) Non-Af > 60 (>60) 05/13/20 06:27 Glucose 108 mg/dL (75-110) 05/13/20 06:27 Hemoglobin A1c % 5.1 % (4.7-6.0) 05/13/20 06:27 Lactic Acid 1.9 mmol/L (0.7-2.1) 05/12/20 16:59 Calcium 9.4 mg/dL (8.4-10.2) 05/13/20 06:27 Magnesium 1.9 mg/dL (1.6-2.3) 05/13/20 06:27 Total Bilirubin 0.2 mg/dL (0.2-1.3) 05/13/20 06:27 Direct Bilirubin 0.0 mg/dL (0.0-0.4) 05/13/20 06:27 Neonat Total Bilirubin Not Reportable 05/13/20 06:27 Neonat Direct Bilirubin Not Reportable 05/13/20 06:27 Neonat Indirect Bili Not Reportable 05/13/20 06:27 AST 44 U/L (14-36) H 05/13/20 06:27 ALT 28 U/L (<35) 05/13/20 06:27 Alkaline Phosphatase 65 U/L (38-126) 05/13/20 06:27 Troponin I < 0.012 ng/mL 05/12/20 10:40 NT-Pro-B Natriuret Pep 239 pg/mL (<125) H 05/13/20 06:27 Total Protein 6.9 g/dL (6.3-8.2) 05/13/20 06:27 Albumin 3.9 g/dL (3.5-5.0) 05/13/20 06:27 Triglycerides 278 mg/dL (<150) H 05/13/20 06:27 Cholesterol 211.65 mg/dL (0-200) H 05/13/20 06:27 LDL Cholesterol Direct 92 mg/dL (<100) 05/13/20 06:27 VLDL Cholesterol 55.6 mg/dL (10-31) H 05/13/20 06:27 HDL Cholesterol 68 mg/dL (>40) 05/13/20 06:27 TSH 3.62 uIU/mL (0.47-4.68) 05/13/20 06:27 Urine Color STRAW 05/12/20 11:35 Urine Appearance CLEAR 05/12/20 11:35 Urine pH 5.0 (5.0-9.0) 05/12/20 11:35 Ur Specific [place] 1.004 05/12/20 11:35 Urine Protein NEGATIVE mg/dL (NEGATIVE) 05/12/20 11:35 Urine Glucose (UA) NEGATIVE mg/dL (NEGATIVE) 05/12/20 11:35 Urine Ketones NEGATIVE mg/dL (NEGATIVE) 05/12/20 11:35 Urine Blood NEGATIVE (NEGATIVE) 05/12/20 11:35 Urine Nitrite (Reflex) NEGATIVE (NEGATIVE) 05/12/20 11:35 Urine Bilirubin NEGATIVE (NEGATIVE) 05/12/20 11:35 Urine Urobilinogen NEGATIVE mg/dL (<2.0) 05/12/20 11:35 Leukocyte Esterase Rfl LARGE (NEGATIVE) H 05/12/20 11:35 Urine RBC (Auto) 7 /HPF 05/12/20 11:35 U Hyaline Cast (Auto) 4 /LPF 05/12/20 11:35 Urine Bacteria (Auto) TRACE /HPF 05/12/20 11:35 Urine WBC (Reflex) 5 /HPF 05/12/20 11:35 Squamous Epi Cells Auto 2 /HPF 05/12/20 11:35 Urine Mucus (Auto) RARE /LPF 05/12/20 11:35 Urine Ascorbic Acid NEGATIVE (NEGATIVE) 05/12/20 11:35 Urine Opiates Screen NEGATIVE 05/12/20 11:35 Urine Methadone Screen NEGATIVE 05/12/20 11:35 Ur Barbiturates Screen UNCONFIRMED POSITIVE 05/12/20 11:35 Ur Phencyclidine Scrn NEGATIVE 05/12/20 11:35 Ur Amphetamines Screen NEGATIVE 05/12/20 11:35 U Benzodiazepines Scrn NEGATIVE 05/12/20 11:35 Urine Cocaine Screen NEGATIVE 05/12/20 11:35 U Marijuana (THC) Screen NEGATIVE 05/12/20 11:35 05/12/20 05/13/20 10:40 06:27 Troponin I < 0.012 NT-Pro-B Natriuret Pep 239 H Plan Health Concerns: not maintaining hydration and likely needs meds adjusted Plan of Treatment: decrease beta dawn and take furosemide qod until she sees cardiology Goals: medication adjustments to avoid similar situation Time Spent: Greater than 30 Minutes Stroke Is this a Stroke Patient?: No Acute Heart Failure - Is this a Heart Failure Patient?: No
== END 2020-05-13 14:08 | disposition home or self-care (01) ==
LOC: ER 10:32 → EH 13:35 → 3W 15:50
PROVIDERS: ADMIT Internal Medicine; ATTEND Hospitalist
DX: R00.1 Bradycardia, unspecified (principal); G89.4 Chronic pain syndrome; I10 Essential (primary) hypertension; E11.9 Type 2 diabetes mellitus without complications; F32.9 Major depressive disorder, single episode, unspecified; I95.2 Hypotension due to drugs; R06.89 Other abnormalities of breathing; I25.119 Atherosclerotic heart disease of native coronary artery with unspecified angina pectoris; Z79.899 Other long term (current) drug therapy
CPT/HCPCS: 93005 ×2; 99291; 96360; 36415 ×2; 87040; 87086; 83605; 83735; 84443; 85025 ×2; 85610; 87077; 80053 ×2; 81001; 84484; 80307; 83036; 82803; 80061; 87150 ×26; 83880; 93010; G0378 ×3; J1644; J2270; J3490 ×4; J2405 ×2; J7030 ×2; J0696

== ENCOUNTER 2020-06-03 21:24 | Inpatient (IN) | payer OTHER ==
[2020-06-03 23:36] LABS: PROTHROMBIN TIME 12.4 SEC (11.4-15.4)
[2020-06-03 23:37] LABS: PARTIAL THROMBOPLASTIN TIME 21.7 SEC (23.5-35.8)
[2020-06-03 23:45] LABS: ALBUMIN 4.2 g/dL (3.5-5.0); ALKALINE PHOSPHATASE 81 U/L (38-126); ANION GAP 9 (5-19); ASPARTATE AMINO TRANSFERASE 48 U/L (14-36); BILIRUBIN,DIRECT 0.1 mg/dL (0.0-0.4); BILIRUBIN,TOTAL 0.3 mg/dL (0.2-1.3); BLOOD UREA NITROGEN 13 mg/dL (7-20); CALCIUM 9.5 mg/dL (8.4-10.2); CARBON DIOXIDE 23 mmol/L (22-30); CHLORIDE 108 mmol/L (98-107); CREATINE KINASE 74 U/L (30-135); GLUCOSE 94 mg/dL (75-110); POTASSIUM 4.3 mmol/L (3.6-5.0); TOTAL PROTEIN 7.4 g/dL (6.3-8.2)
[2020-06-03 23:50] LABS: ABSOLUTE BASOPHILS # (AUTO) 0.1 10^3/uL (0.0-0.2); ABSOLUTE EOSINOPHILS # (AUTO) 0.3 10^3/uL (0.0-0.6); ABSOLUTE LYMPHOCYTES (AUTO) 2.8 10^3/uL (0.5-4.7); ABSOLUTE MONOCYTES (AUTO) 0.5 10^3/uL (0.1-1.4); ABSOLUTE NEUT (AUTO) 3.3 10^3/uL (1.7-8.2); BASOPHILS % (AUTO) 0.9 % (0-2); EOSINOPHILS % (AUTO) 4.1 % (0-6); HEMOGLOBIN 13.2 g/dL (12.0-15.5); LYMPHOCYTES % (AUTO) 40.8 % (13-45); MEAN CORPUSCULAR HEMOGLOBIN 31.2 pg (27.0-33.4); MEAN CORPUSCULAR HGB CONC 34.8 g/dL (32.0-36.0); MEAN CORPUSCULAR VOLUME 90 fl (80-97); MONOCYTES % (AUTO) 6.6 % (3-13); PLATELET COUNT 219 10^3/uL (150-450); RED BLOOD COUNT 4.24 10^6/uL (3.72-5.28); SEGMENTED NEUTROPHILS % (AUTO) 47.6 % (42-78); TOTAL CELLS COUNTED % (AUTO) 100 %
[2020-06-04 00:13] LABS: APPEARANCE,URINE SLIGHTLY-CLOUDY; BILIRUBIN,URINE NEGATIVE (NEGATIVE); COLOR,URINE STRAW; GLUCOSE, URINE NEGATIVE (NEGATIVE); KETONES,URINE NEGATIVE (NEGATIVE); LEUKOCYTE ESTERASE,URINE LARGE (NEGATIVE); NITRITE,URINE NEGATIVE (NEGATIVE); PROTEIN,URINE NEGATIVE (NEGATIVE); URINE SPECIFIC GRAVITY 1.006; UROBILINOGEN,URINE NEGATIVE mg/dL (<2.0)
[2020-06-04 00:27] LABS: URINE AMPHETAMINES SCREEN NEGATIVE; URINE BENZODIAZEPINES SCREEN NEGATIVE; URINE COCAINE SCREEN NEGATIVE; URINE MARIJUANA (THC) SCREEN NEGATIVE; URINE METHADONE SCREEN NEGATIVE; URINE PHENCYCLIDINE SCREEN NEGATIVE
[2020-06-04 00:30] LABS: URINE BARBITURATES SCREEN UNCONFIRMED POSITIVE
--- NOTE | 2020-06-04 01:06 | RADIOLOGY REPORT (SQ) ---
EXAM DESCRIPTION: CT HEAD WITHOUT IV CONTRAST COMPLETED DATE/TME: 06/03/2020 23:21 CLINICAL HISTORY: dysarthria, tremor COMPARISON: 01/21/2020 TECHNIQUE: Axial CT of the head obtained from the skull apex to the skull base without contrast. FINDINGS: No acute intracranial hemorrhage identified. No mass, mass effect, shift of the midline, abnormal extra-axial fluid collection or CT evidence of acute ischemic change identified. The ventricular system is unremarkable. No acute abnormalities of the supratentorial white matter, basal ganglia, cerebellum, or brainstem. The visualized paranasal sinuses and the mastoids are relatively well aerated. No skull fracture identified. Visualized orbits and globes are unremarkable. Atherosclerotic calcification of the intracranial internal carotid arteries. IMPRESSION: 1. No acute intracranial abnormality identified. This exam was performed according to our departmental dose-optimization program, which includes automated exposure control, adjustment of the mA and/or kV according to patient size and/or use of iterative reconstruction technique.
--- NOTE | 2020-06-04 01:25 | RADIOLOGY REPORT (SQ) ---
EXAM DESCRIPTION: XR CHEST 1 VIEW COMPLETED DATE/TME: 06/03/2020 23:21 CLINICAL HISTORY: 50 years, Female, dysarthria, tremor COMPARISON: 04/18/2020 chest NUMBER OF VIEWS: 1 TECHNIQUE: Portable chest LIMITATIONS: None. FINDINGS: Heart size normal. Lungs clear. No pneumothorax IMPRESSION: Negative chest copyright 2011 [employer]- All Rights Reserved
[2020-06-04] MEDS ORDERED: ACETAMINOPHEN 325 MG TABLET PO ONE (01:51)
[2020-06-04] MEDS ORDERED: ASPIRIN 325 MG TABLET PO ONE (03:10)
[2020-06-04] MEDS ORDERED: ONDANSETRON HCL INJ/PF 4 MG/2 ML SDV IV ONE (03:10)
--- NOTE | 2020-06-04 03:11 | ER Document Report ---
ED General - General Chief Complaint: Medical Complaint Stated Complaint: ABNORMAL BEHAVIOR Time Seen by Provider: 06/03/20 22:22 Primary Care Provider: ISA MUNOZ PA-C [Primary Care Provider] - Follow up as needed TRAVEL OUTSIDE OF THE [place] IN LAST 30 DAYS: No - HPI Notes: Patient is a 50-year-old female who presents to the emergency department for evaluation. History is obtained in large part from patient's friend, on the phone. Evidently the patient has had difficulty speaking for about a week. She has had difficulty speaking in the past, but this is much worse and more exaggerated. Evidently earlier today they went to [facility]. On the way home she started "slumping over" to the left. Patient states she has a headache. She has had some nausea but no emesis. She states she had a neurologist in the past, but nothing was found, but again her symptoms are much more profound. She also states her tremors have been worse, which again are not new. Evidently at some point she was also complaining of left-sided chest pain. She cannot really describe it for me, states it was in her left chest and radiated into her left arm. She had some associated nausea with that as well. She was given nitroglycerin without any help. She follows with neurology at [facility]. - Related Data Allergies/Adverse Reactions: baclofen Adverse Reaction (Mild, Verified 05/12/20 11:15) falls Home Medications: Aspirin, atorvastatin, Brilinta, Lasix, isosorbide mononitrate, metformin, metoprolol, omeprazole, primidone, GaviLAX, oxycodone, tizanidine, topiramate Past Medical History - General Information source: Patient, Friend - Social History Smoking Status: Never Smoker Frequency of alcohol use: None Drug Abuse: None Family History: Arthritis, CAD, CVA, DM, Hyperlipidemia, Hypertension, Malignancy Patient has homicidal ideation: No - Past Medical History Cardiac Medical History: Reports: Hx Coronary Artery Disease, Hx Heart Attack - 2016, Hx Hypercholesterolemia, Hx Hypertension Pulmonary Medical History: Reports: Hx Asthma, Hx Bronchitis, Hx Pneumonia Denies: Hx Tuberculosis Neurological Medical History: Reports: Hx Migraine, Hx Seizures Endocrine Medical History: Reports: Hx Diabetes Mellitus Type 2 Renal/ Medical History: Denies: Hx Peritoneal Dialysis Malignancy Medical History: Denies: Hx Bone Cancer, Hx Brain Cancer, Hx Breast Cancer, Hx Cervical Cancer, Hx Colorectal Cancer, Hx Leukemia, Hx Liver Cancer, Hx Lung Cancer, Hx Lymphoma, Hx Ovarian Cancer, Hx Pancreatic Cancer, Hx Renal (Kidney) Cancer, Hx Skin Cancer GI Medical History: Reports: Hx Gastroesophageal Reflux Disease Musculoskeletal Medical History: Reports Hx Arthritis, Reports Hx Musculo skeletal Deformity, Reports Hx Musculoskeletal Trauma Psychiatric Medical History: Reports: Hx Anxiety, Hx Bipolar Disorder, Hx Depression, Hx Post Traumatic Stress Disorder Past Surgical History: Reports: Hx Cardiac Catheterization - with stents, Hx Coronary Stent, Hx Dilation and Curettage, Hx Gynecologic Surgery - D&C, Hx Tubal Ligation - Immunizations Immunizations up to date: Yes Hx Diphtheria, Pertussis, Tetanus Vaccination: No - unknown Hx Pneumococcal Vaccination: 12/17/11 Review of Systems - Review of Systems Constitutional: Weakness EENT: No symptoms reported Cardiovascular: See HPI Respiratory: No symptoms reported Gastrointestinal: See HPI Musculoskeletal: No symptoms reported Skin: No symptoms reported Neurological/Psychological: See HPI Physical Exam - Vital signs Vitals: Resp Pulse Ox 11 L 98 06/03/20 21:38 06/03/20 21:38 - Notes Notes: Vital signs reviewed, please refer to chart. Head is normocephalic, atraumatic. Pupils equal round, reactive to light. Neck is supple without meningismus. Heart is regular rate and rhythm. Lungs are clear to auscultation bilaterally. Abdomen is soft, nontender, normoactive bowel sounds throughout. Extremities without cyanosis, clubbing. Posterior calves are nontender. Peripheral pulses are equal. Skin is warm and dry. Patient is awake, alert, oriented x3. Patient with significant dysarthria and a mild expressive aphasia noted. She does exhibit stuttering. When I asked her to close her eyes, she flutters them, but did not do that at any other point during my examination. Strength is plus 4 out of 5 bilateral upper and lower extremities. Sensation is intact. Reflexes symmetrical. Intact [id number], rapid alternating movements, [id number]. Course - Re-evaluation Re-evalutation: 06/04/20 03:15 Patient presents to the emergency department for evaluation. She complained of dysarthria and stuttering, increased tremor, expressive aphasia. The symptoms of all been present for several days, and thereby the patient is not a TPA candidate she also complained of chest pain. Her. EKG shows no signs of ST elevation. She had [address] scan was unremarkable, laboratory investigations were unremarkable for any acute abnormality that would contribute to her symptoms. The patient has had difficulty speaking like this in the past, and has been diagnosed as a possible stress reaction, but she states this is worse than it has ever been. She was able to communicate to me through typing on her phone. I am concerned, however, that the patient may need significant PT/OT if this is her baseline from a possible stroke. I am unable to perform MRI at this time. I will speak to Dr. Robbins regarding admission. 06/04/20 03:[address] Robbins. Again, I am unsure as to the etiology of her expres sive aphasia and dysarthria, but do believe a more rapid MRI and PT OT evaluation is appropriate in this patient. Dr. Robbins agrees to admit the patient. - Vital Signs Vital signs: Temp Pulse Resp BP Pulse Ox 97.6 F 16 148/99 H 96 06/04/20 03:20 06/04/20 03:01 06/04/20 03:00 06/04/20 03:01 - Laboratory Result Diagrams: 06/03/20 21:58 06/03/20 21:58 Laboratory results interpreted by me: 06/03/20 06/03/20 06/03/20 21:34 21:58 21:58 RDW 15.0 H APTT 21.7 L Chloride AST Ur Leukocyte Esterase LARGE H 06/03/20 21:58 RDW APTT Chloride 108 H AST 48 H Ur Leukocyte Esterase - Diagnostic Test Radiology reviewed: Reports reviewed Radiology results interpreted by me: 06/04/20 03:17 Chest X-Ray 06/03/20 23:21 IMPRESSION: Negative chest copyright 2010 [employer]- All Rights Reserved Head CT 06/03/20 23:21 IMPRESSION: 1. No acute intracranial abnormality identified. This exam was performed according to our departmental dose-optimization program, which includes automated exposure control, adjustment of the mA and/or kV according to patient size and/or use of iterative reconstruction technique. - EKG Interpretation by Me Additional EKG results interpreted by me: 06/04/20 03:18 Sinus mechanism with rate of 75 bpm. Normal axis and intervals. Nonspecific ST changes, but no acute changes concerning for acute infarction. When compared to prior study performed on May 12, 2020, there was no significant change. Discharge - Discharge Clinical Impression: Dysarthria, Expressive aphasia Chest pain Qualifiers: Chest pain type: unspecified Qualified Code(s): R07.9 - Chest pain, unspecified Condition: Stable Disposition: ADMITTED INPATIENT Admitting Provider: Itzel (Hospitalist) Unit Admitted: IMCU Referrals: ISA MUNOZ PA-C [Primary Care Provider] - Follow up as needed
[2020-06-04] MEDS ORDERED: DEXTROSE 40% GEL 15 GM TUBE PO PRN ×2 (04:23)
[2020-06-04] MEDS ORDERED: MAG HYDROX/AL HYDROX/SIMETH SUSP 30 ML UDCUP PO PRN (04:23)
[2020-06-04] MEDS ORDERED: GLUCAGON,HUMAN RECOMB 1 MG INJ IM PRN (04:23)
[2020-06-04] MEDS ORDERED: MAGNESIUM HYDROXIDE SUSP 30 ML UDCUP PO PRN (04:23)
[2020-06-04] MEDS ORDERED: DEXTROSE 50%-WATER 25 GM/50 ML DISP.SYRIN IV PRN ×2 (04:23)
[2020-06-04] MEDS ORDERED: ACETAMINOPHEN 325 MG TABLET PO PRN (04:33)
[2020-06-04] MEDS ORDERED: METOPROLOL TARTRATE PF/INJ 5 MG/5 ML SDV IV PRN (04:33)
[2020-06-04] MEDS ORDERED: HYDRALAZINE HCL INJ/PF 20 MG/1 ML SDV IV PRN (04:33)
[2020-06-04] MEDS ORDERED: MORPHINE SULFATE 10 MG/ML INJ IV PRN ×2 (04:33→04:43)
[2020-06-04] MEDS ORDERED: MELATONIN 5 MG TABLET PO PRN (04:33)
[2020-06-04] MEDS ORDERED: GUAIFENESIN SYRP 200 MG/10 ML UDC PO PRN (04:33)
[2020-06-04] MEDS: HEPARIN SOD (PORCINE) 5,000 UNIT/ML 1 ML VIAL SUBCUT SCH ×3 (06:02→22:07)
[2020-06-04] MEDS: MORPHINE SULFATE 10 MG/ML INJ IV PRN ×4 (06:17→18:27)
--- NOTE | 2020-06-04 06:31 | PDOC H&P ---
History of Present Illness Admission Date/PCP: 06/04/20 03:51 ISA MUNOZ PA-C Patient complains of: Chest pain History of Present Illness: RUDDY HAWK is a 50 year old female who presented to the emergency room with acute chest pain. She has been suffering from dysarthria, expressive aphasia and tremors for about 1 week and has difficulty relating her history, however with the help of her friend, describes the sudden onset of severe "pain" in her left chest while in the car returning from [facility]. The pain in her chest was accompanied by nausea without emesis and radiated down her left arm. The chest pain was associated with a headache and "slumping over to her left side" at the onset of pain. She denies other associated or accompanying signs and symptoms. The pain was not improved with nitroglycerin x1. She admits prior similar episodes of chest pain related to her cardiac disease. She also admits several prior episodes of dysarthria with expressive aphasia and tremors, however her current episode has lasted longer and is more severe than those prior. She has not identified any aggravating or ameliorating factors for her chest pain. In the emergency room her initial cardiac enzymes and EKG evaluation showed no evidence of acute myocardial ischemia or injury. A CT scan of her head was negative for stroke. Patient was subsequently admitted to the hospital for further evaluation and treatment. Past Medical History Cardiac Medical History: Reports: Coronary Artery Disease, Myocardial Infarction - 2016, Hyperlipidema, Hypertension Denies: Atrial Fibrillation, Congestive Heart Failure, DVT, Pulmonary Embolism Pulmonary Medical History: Reports: Asthma, Bronchitis, Pneumonia Denies: Tuberculosis EENT Medical History: Denies: Cataracts, Ears - Hearing aids Neurological Medical History: Reports: Migraine, Seizures, Other - Episodic dysarthria, expressive aphasia and tremors of uncertain etiology Denies: Hemorrhagic CVA, Ischemic CVA Endocrine Medical History: Reports: Diabetes Mellitus Type 2, Obesity Denies: Diabetes Mellitus Type 1, Hyperthyroidism, Hypothyroidism Renal/ Medical History: Denies: Chronic Kidney Disease, Nephrolithiasis Malignancy Medical History: Reports: None GI Medical History: Reports: Gastroesophageal Reflux Disease Denies: Cirrhosis, Hepatitis, Peptic Ulcer Disease Musculoskeltal Medical History: Reports: Arthritis Denies: Fibromyalgia Skin Medical History: Denies: Eczema, Psoriasis Psychiatric Medical History: Reports: Bipolar Disorder, Depression, Post Traumatic Stress Disorder Denies: Alcohol Dependency, Substance Abuse, Tobacco Dependency Traumatic Medical History: Reports: None Hematology: Denies: Anemia, Bleeding Tendencies Infectious Medical History: Reports: None Past Surgical History Past Surgical History: Reports: Cardiac Catheterization, Coronary Stent, Tubal Ligation Social History Information Source: Patient, Friend Lives with: Spouse/Significant other Smoking Status: Never Smoker Electronic Cigarette use?: No Frequency of Alcohol Use: None Hx Recreational Drug Use: No Drugs: None Hx Prescription Drug Abuse: No - Advance Directive Resuscitation Status: Full Code Surrogate healthcare decision maker:: Brice Hawk Family History Family History: Arthritis, CAD, CVA, DM, Hyperlipidemia, Hypertension, Malignancy Parental Family History Reviewed: Yes Children Family History Reviewed: No Sibling(s) Family History Reviewed.: Yes Medication/Allergy Home Medications: Amitriptyline HCl [Elavil 100 mg Tablet] 50 mg PO QHS 09/23/18 Atorvastatin Calcium [Lipitor 80 mg Tablet] 80 mg PO DAILY 09/23/18 Fenofibrate,Micronized [Fenofibrate] 130 mg PO DAILY 09/23/18 Furosemide [Lasix 20 mg Tablet] 20 mg PO DAILY 09/23/18 Isosorbide Mononitrate [Imdur 30 mg Tablet.er] 30 mg PO DAILY 09/23/18 Metoprolol Tartrate [Lopressor 25 mg Tablet] 25 mg PO Q12 09/23/18 Oxycodone HCl/Acetaminophen [Oxycodone-Acetaminophen 10-325] 1 each PO 5XDP PRN 09/23/18 Primidone [Mysoline 250 mg Tablet] 125 mg PO QID 09/23/18 Ticagrelor [Brilinta 90 mg Tablet] 90 mg PO Q12 09/23/18 Tizanidine HCl [Zanaflex 4 mg Tablet] 6 mg PO TIDP PRN 09/23/18 Topiramate [Topamax 100 mg Tablet] 200 mg PO QAM 09/23/18 Topiramate [Topamax 100 mg Tablet] 200 mg PO QPM 09/23/18 Pregabalin 150 mg PO Q8 05/12/20 Fluconazole 200 mg PO ONCE 1 Days #1 tablet 05/13/20 Allergies/Adverse Reactions: baclofen Adverse Reaction (Mild, Verified 05/12/20 11:15) falls Review of Systems Constitutional: PRESENT: as per HPI, headache(s). ABSENT: chills, fever(s) Eyes: ABSENT: visual disturbances, other - Eye pain Ears: ABSENT: hearing changes, other - Ear pain Nose, Mouth, and Throat: PRESENT: as per HPI, headache(s). ABSENT: sore throat Cardiovascular: PRESENT: as per HPI, chest pain. ABSENT: palpitations Respiratory: ABSENT: cough, dyspnea Gastrointestinal: PRESENT: as per HPI, nausea. ABSENT: abdominal pain, constipation, diarrhea, vomiting Genitourinary: ABSENT: dysuria, hematuria Musculoskeletal: ABSENT: joint swelling, muscle weakness Integumentary: ABSENT: pruritus, rash Neurological: PRESENT: as per HPI, abnormal speech, tremor(s). ABSENT: confusion, convulsions, focal weakness, memory loss, syncope Psychiatric: ABSENT: anxiety, depression Endocrine: ABSENT: cold intolerance, heat intolerance Hematologic/Lymphatic: ABSENT: easy bleeding, easy bruising Allergic/Immunologic: ABSENT: seasonal rhinorrhea Physical Exam Vital Signs: Temp Pulse Resp BP Pulse Ox 97.6 F 16 148/99 H 96 06/04/20 03:20 06/04/20 03:01 06/04/20 03:00 06/04/20 03:01 Intake & Output 06/02/20 06/03/20 06/04/20 23:59 23:59 23:59 Weight 81.647 kg General appearance: PRESENT: no acute distress, cooperative, obese Head exam: PRESENT: atraumatic, normocephalic Eye exam: PRESENT: conjunctiva pink. ABSENT: conjunctival injection, scleral icterus Ear exam: PRESENT: normal external ear exam. ABSENT: bleeding, drainage Mouth exam: PRESENT: dry mucosa, neck supple Neck exam: ABSENT: thyromegaly, tracheal deviation Respiratory exam: PRESENT: clear to auscultation juma, symmetrical, unlabored Cardiovascular exam: PRESENT: RRR. ABSENT: clicks, gallop, rubs Pulses: PRESENT: normal radial pulses, normal dorsalis pedis pul Vascular exam: PRESENT: normal capillary refill. ABSENT: pallor GI/Abdominal exam: PRESENT: normal bowel sounds, soft. ABSENT: tenderness Rectal exam: PRESENT: deferred Extremities exam: ABSENT: joint swelling, pedal edema Musculoskeletal exam: ABSENT: deformity, dislocation Neurological exam: PRESENT: alert, oriented to person, oriented to place, oriented to time, oriented to situation, CN II-XII grossly intact, aphasic - Mild expressive aphasia, other - Dysarthria, variably present mild tremor. ABSENT: motor sensory deficit Psychiatric exam: PRESENT: appropriate affect, normal mood Skin exam: PRESENT: dry, intact, warm. ABSENT: jaundice, rash, urticaria Results Laboratory Results: 06/03/20 21:58 06/03/20 21:58 06/03/20 06/03/20 06/03/20 21:34 21:58 21:58 WBC 7.0 RBC 4.24 Hgb 13.2 Hct 38.0 MCV 90 MCH 31.2 MCHC 34.8 RDW 15.0 H Plt Count 219 Seg Neutrophils % 47.6 Sodium 140.1 Potassium 4.3 Chloride 108 H Carbon Dioxide 23 Anion Gap 9 BUN 13 Creatinine 0.75 Est GFR ( Amer) > 60 Glucose 94 Calcium 9.5 Total Bilirubin 0.3 AST 48 H Alkaline Phosphatase 81 Total Protein 7.4 Albumin 4.2 Urine Color STRAW Urine Appearance SLIGHTLY-CLOUDY Urine pH 6.0 Ur Specific [place] 1.006 Urine Protein NEGATIVE Urine Glucose (UA) NEGATIVE Urine Ketones NEGATIVE Urine Blood NEGATIVE Urine Nitrite NEGATIVE Ur Leukocyte Esterase LARGE H Urine WBC (Auto) 24 06/03/20 06/03/20 06/04/20 21:58 21:58 02:14 Creatine Kinase 74 Troponin I < 0.012 < 0.012 Impressions: Chest X-Ray 06/03/20 23:21 IMPRESSION: Negative chest copyright 2011 [employer]- All Rights Reserved Head CT 06/03/20 23:21 IMPRESSION: 1. No acute intracranial abnormality identified. This exam was performed according to our departmental dose-optimization program, which includes automated exposure control, adjustment of the mA and/or kV according to patient size and/or use of iterative reconstruction technique. Assessment and Plan - Diagnosis (1) Chest pain Qualifiers: Chest pain type: unspecified Qualified Code(s): R07.9 - Chest pain, uns pecified Is this a current diagnosis for this admission?: Yes (2) Expressive aphasia Is this a current diagnosis for this admission?: Yes (3) Dysarthria Is this a current diagnosis for this admission?: Yes (4) Tremor Is this a current diagnosis for this admission?: Yes (5) Coronary artery disease Qualifiers: Coronary Disease-Associated Artery/Lesion type: [place] artery [place] vs. tr ansplanted heart: [place] heart Associated angina: with unspecified angina Qualified Code(s): I25.119 - Atherosclerotic heart disease of [place] coronary artery with unspecified angina pectoris Is this a current diagnosis for this admission?: Yes (6) Hypertension Qualifiers: Hypertension type: essential hypertension Qualified Code(s): I10 - Essential (primary) hypertension Is this a current diagnosis for this admission?: Yes (7) Diabetes mellitus type 2 in obese Is this a current diagnosis for this admission?: Yes - Plan Summary Summary: Patient will be admitted to the medical floor where she will receive routine s upportive and symptomatic cares. Serial cardiac enzymes will be obtained and a cardiology consultation with Dr. Cotter will be ordered. An MRI of the head as well as an MRA of the head and a carotid Doppler study will be obtained. Patient will receive morphine sulfate 2 to 4 mg IV every 2 hours as needed for pain. She will receive Ativan 1 mg IV every 4 hours as needed for anxiety or restlessness. Her usual home medications will be restarted, if appropriate, as soon as her dedication list has been verified and reconciled. CBCs, metabolic profiles and additional laboratory and/or radiographic evaluations will be obtained as appropriate. Before meals and at bedtime Accu-Cheks will be pe rformed with sliding scale insulin for treating hyperglycemia and a hypoglycemic protocol in place. The patient will be placed on a cardiac and diabetic restricted diet. PT, OT speech therapy consultations will be obtained. - Time Time Spent with patient: 15-24 minutes Medications reviewed and adjusted accordingly: Yes Anticipated Discharge Disposition: Home, Self Care Anticipated Discharge Timeframe: within 72 hours - Inpatient Certification Based on my medical assessment, after consideration of the patient's comorbidities, presenting symptoms, or acuity I expect that the services needed warrant INPATIENT care.: Yes I certify that my determination is in accordance with my understanding of Medicare's requirements for reasonable and necessary INPATIENT services [42 CFR 412.3e].: Yes Medical Necessity: Significant Comorbidiites Make Outpatient Treatment Too Risky, Need Close Monitoring Due to Risk of Patient Decompensation, Need For Continuous Telemetry Monitoring, Risk of Complication if Not Cared For in Hospital, Risk of Diagnosis Which Will Require Inpatient Eval/Care/Monitoring
[2020-06-04] MEDS: INSULIN LISPRO 100 UNIT/ML 3 ML VIAL SUBCUT SCH ×4 (08:47→22:11)
--- NOTE | 2020-06-04 09:54 | EKG REPORT ---
SEVERITY:- BORDERLINE ECG - SINUS RHYTHM BORDERLINE T ABNORMALITIES, INFERIOR LEADS : Confirmed by: Ronnell Mccurdy 04-Jun-2020 09:53:37
[2020-06-04 10:15] LABS: TROPONIN I < 0.012 ng/mL
[2020-06-04] MEDS: ISOSORBIDE MONONITRATE 30 MG TAB.ER.24H PO SCH (10:26)
[2020-06-04] MEDS: FAMOTIDINE 20 MG TABLET PO SCH ×2 (10:26→22:05)
[2020-06-04] MEDS: DOCUSATE SODIUM 100 MG CAPSULE PO SCH ×2 (10:26→18:29)
[2020-06-04] MEDS: METOPROLOL TARTRATE 25 MG TABLET PO SCH ×2 (10:26→22:06)
[2020-06-04] MEDS: TICAGRELOR 90 MG TABLET PO SCH ×2 (10:27→22:12)
[2020-06-04] MEDS: LORAZEPAM INJ 2 MG/1 ML VIAL IV PRN ×2 (12:56→22:09)
--- NOTE | 2020-06-04 14:05 | PDOC CONSULTATION ---
Consultation Consult Date: 06/04/20 Provider Consulted: MICHELLE TALBOT Consult reason:: Chest pain History of Present Illness Admission Date/PCP: 06/04/20 03:51 ISA MUNOZ PA-C History of Present Illness: RUDDY HAWK is a 50 year old female 50-year-old for whom a cardiology consultation has been requested for reported chest pain. Although further details are not very clear due to patient being nonverbal with dysarthria documentation supports that she had history of myocardial infarction in 2016. She is also noted to have systemic hypertension and dyslipidemia. At the time of my evaluation patient denies chest pain and reports only headache. CT scan in the emergency room was negative for CVA. Limited review of systems on account of dysarthria. Patient indicates that she is having headache. It is difficult to obtain a full review of systems on account of patient's dysarthria and poor ability to communicate. Family history is noted to be positive for CAD and stroke. Family history is as documented in the chart. Verbal confirmation was difficult. Past Medical History Cardiac Medical History: Reports: Coronary Artery Disease, Myocardial Infarction - 2016, Hyperlipidema, Hypertension Denies: Atrial Fibrillation, Congestive Heart Failure, DVT, Pulmonary Embolism Pulmonary Medical History: Reports: Asthma, Bronchitis, Pneumonia Denies: Tuberculosis EENT Medical History: Denies: Cataracts, Ears - Hearing aids Neurological Medical History: Reports: Migraine, Seizures, Other - Episodic dysarthria, expressive aphasia and tremors of uncertain etiology Denies: Hemorrhagic CVA, Ischemic CVA Endocrine Medical History: Reports: Diabetes Mellitus Type 2, Obesity Denies: Diabetes Mellitus Type 1, Hyperthyroidism, Hypothyroidism Renal/ Medical History: Denies: Chronic Kidney Disease, Nephrolithiasis Malignancy Medical History: Reports: None Denies: Bone Cancer, Brain Cancer, Breast Cancer, Cervical Cancer, Colorectal Cancer, Leukemia, Liver Cancer, Lung Cancer, Lymphoma, Ovarian Cancer, Pancreatic Cancer, Renal (Kidney) Cancer, Skin Cancer GI Medical History: Reports: Gastroesophageal Reflux Disease Denies: Cirrhosis, Hepatitis, Peptic Ulcer Disease Musculoskeltal Medical History: Reports: Arthritis Denies: Fibromyalgia Skin Medical History: Denies: Eczema, Psoriasis Psychiatric Medical History: Reports: Bipolar Disorder, Depression, Post Traumatic Stress Disorder Denies: Alcohol Dependency, Substance Abuse, Tobacco Dependency Traumatic Medical History: Reports: None Hematology: Denies: Anemia, Bleeding Tendencies Infectious Medical History: Reports: None Past Surgical History Past Surgical History: Reports: Cardiac Catheterization, Coronary Stent, Tubal Ligation Social History Lives with: Spouse/Significant other Smoking Status: Never Smoker Electronic Cigarette use?: No Number of Years Smokin Last Time Smoked: 2013 Frequency of Alcohol Use: None Hx Recreational Drug Use: No Drugs: None Hx Prescription Drug Abuse: No - Advance Directive Resuscitation Status: Full Code Family History Family History: Arthritis, CAD, CVA, DM, Hyperlipidemia, Hypertension, Malignancy Parental Family History Reviewed: Yes - Coronary artery disease and CVA reported Children Family History Reviewed: NA Sibling(s) Family History Reviewed.: NA Medication/Allergy Home Medications: Atorvastatin Calcium [Lipitor 80 mg Tablet] 80 mg PO QHS 09/23/18 Fenofibrate,Micronized [Fenofibrate] 130 mg PO DAILY 09/23/18 Furosemide [Lasix 20 mg Tablet] 20 mg PO DAILY 09/23/18 Isosorbide Mononitrate [Imdur 30 mg Tablet.er] 30 mg PO DAILY 09/23/18 Metoprolol Tartrate [Lopressor 25 mg Tablet] 12.5 mg PO Q12 09/23/18 Oxycodone HCl/Acetaminophen [Oxycodone-Acetaminophen 10-325] 1 each PO 5XDP PRN 09/23/18 Primidone [Mysoline 250 mg Tablet] 375 mg PO QID 09/23/18 Tizanidine HCl [Zanaflex 4 mg Tablet] 4 mg PO TIDP PRN 09/23/18 Topiramate [Topamax 100 mg Tablet] 200 mg PO Q12 09/23/18 Aspirin [Ecotrin 81 mg EC Tablet] 81 mg PO DAILY 06/04/20 Allergies/Adverse Reactions: baclofen Adverse Reaction (Mild, Verified 05/12/20 11:15) falls Review of Systems ROS unobtainable: Other - Limited review of systems on account of dysarthria and difficulty communicating. Constitutional: PRESENT: as per HPI Cardiovascular: PRESENT: chest pain Respiratory: ABSENT: as per HPI, cough, dyspnea, hemoptysis, sputum, other Neurological: PRESENT: other - Complains of headache Physical Exam Vital Signs: Temp Pulse Resp BP Pulse Ox 97.5 F 52 L 17 114/78 98 06/04/20 11:18 06/04/20 11:18 06/04/20 11:18 06/04/20 11:20 11:18 Intake & Output 06/03/20 06/04/20 06/05/20 06:59 06:59 06:59 Intake Total 260 444 Balance 260 444 Weight 75.2 kg General appearance: PRESENT: no acute distress, cooperative, obese, well- nourished Head exam: PRESENT: atraumatic, normocephalic Eye exam: PRESENT: conjunctiva pink, EOMI Mouth exam: PRESENT: moist Respiratory exam: PRESENT: clear to auscultation juma, symmetrical, unlabored Cardiovascular exam: PRESENT: RRR, +S1, +S2 Pulses: PRESENT: normal radial pulses GI/Abdominal exam: PRESENT: soft Rectal exam: PRESENT: deferred Neurological exam: PRESENT: alert, awake, oriented to person, oriented to place, other - Dysarthria. Speech abnormality. Psychiatric exam: PRESENT: appropriate affect Skin exam: PRESENT: dry, intact Results Laboratory Results: 06/03/20 21:58 06/03/20 21:58 06/03/20 06/03/20 06/03/20 21:34 21:58 21:58 WBC 7.0 RBC 4.24 Hgb 13.2 Hct 38.0 MCV 90 MCH 31.2 MCHC 34.8 RDW 15.0 H Plt Count 219 Seg Neutrophils % 47.6 Sodium 140.1 Potassium 4.3 Chloride 108 H Carbon Dioxide 23 Anion Gap 9 BUN 13 Creatinine 0.75 Est GFR ( Amer) > 60 Glucose 94 Calcium 9.5 Total Bilirubin 0.3 AST 48 H Alkaline Phosphatase 81 Total Protein 7.4 Albumin 4.2 Urine Color STRAW Urine Appearance SLIGHTLY-CLOUDY Urine pH 6.0 Ur Specific [place] 1.006 Urine Protein NEGATIVE Urine Glucose (UA) NEGATIVE Urine Ketones NEGATIVE Urine Blood NEGATIVE Urine Nitrite NEGATIVE Ur Leukocyte Esterase LARGE H Urine WBC (Auto) 24 06/03/20 06/03/20 06/03/20 21:58 21:58 21:58 Creatine Kinase 74 75 CK-MB (CK-2) Troponin I < 0.012 06/04/20 06/04/20 06/04/20 02:14 02:14 09:00 Creatine Kinase 59 CK-MB (CK-2) 0.79 Troponin I < 0.012 Cancelled 06/04/20 09:00 Creatine Kinase CK-MB (CK-2) 0.50 Troponin I < 0.012 EKG Comments: Twelve-lead EKG 06/03/2020. Independently reviewed by me. Sinus rhythm, normal AV conduction, QTC is 452 ms. Borderline T wave abnormalities in the inferior leads Chest x-ray 06/03/2020 Negative for any acute abnormality Head CT 06/03/2020 No acute intracranial abnormality Troponin less than 0.122 Impressions: Chest X-Ray 06/03/20 23:21 IMPRESSION: Negative chest copyright 2010 [employer]- All Rights Reserved Head CT 06/03/20 23:21 IMPRESSION: 1. No acute intracranial abnormality identified. This exam was performed according to our departmental dose-optimization program, which includes automated exposure control, adjustment of the mA and/or kV according to patient size and/or use of iterative reconstruction technique. Assessment & Plan - Diagnosis (1) Chest pain Qualifiers: Chest pain type: unspecified Qualified Code(s): R07.9 - Chest pain, unspecified Is this a current diagnosis for this admission?: Yes Plan: Presently the patient is not complaining of chest pain EKG is not diagnostic of myocardial ischemia Cardiac biomarkers are negative Would refrain from work-up of this reported symptom as there has been difficulty in communicating with the patient. Only active symptom presently reported by the patient is headache There is documentation the patient had prior myocardial infarction. But the present time do not feel strongly that she requires additional re-stratification Given reported coronary artery disease would continue medical therapy as feasible consisting of aspirin statin and beta-dawn. Continue metoprolol tartrate 25 mg twice daily Continue atorvastatin 80 mg daily Patient is on Brilinta 90 mg twice daily She is also on Imdur 30 mg daily. Would recommend continuing those medications (2) Dysarthria Is this a current diagnosis for this admission?: Yes Plan: MRI has been performed Neurology input probably is ideal
--- NOTE | 2020-06-04 14:18 | RADIOLOGY REPORT (SQ) ---
EXAM DESCRIPTION: MRI HEAD WITHOUT IMAGES COMPLETED DATE/TIME: 06/04/2020 2:06 pm REASON FOR STUDY: dysarthria COMPARISON: 11/26/2019 TECHNIQUE: Multiplanar imaging includes non-contrasted T1, T2, FLAIR, and Diffusion with ADC map seq uences. Images stored on PACS. LIMITATIONS: None. FINDINGS: ANATOMY: No anomalies. Normal vascular flow voids. Pituitary fossa normal. CSF SPACES: Normal in size and contour. No hemorrhage. CEREBRUM: Occasional high-signal intensity lesions periventricular white matter on FLAIR imaging with distribution suggesting chronic micro-vascular ischemic change. Sulci and gyri normal in size and c ontour. No evidence of hemorrhage, mass or extraaxial fluid collection. POSTERIOR FOSSA: No signal alteration. No hemorrhage. No edema, masses or mass effect. Internal deny tory canals, cerebello-pontine angles, mastoids normal. DIFFUSION: Negative for acute or sub-acute infarction. ORBITS: No masses. Globes normal. PARANASAL SINUSES: No fluid levels. Mucosa normal. OTHER: No other significant finding. IMPRESSION: No acute findings. EVIDENCE OF ACUTE STROKE: NO. TECHNICAL DOCUMENTATION: JOB ID: [id number] 2010 [employer]- All Rights Reserved Reading location - IP/workstation name: [email or web address]
--- NOTE | 2020-06-04 14:19 | RADIOLOGY REPORT (SQ) ---
EXAM DESCRIPTION: MRA HEAD WITHOUT IMAGES COMPLETED DATE/TIME: 06/04/2020 2:06 pm REASON FOR STUDY: dysarthria COMPARISON: None. TECHNIQUE: Axial 3-D [id number] acquisition imaging performed through the brain in the area of t he [place] of [place]. Images reformatted using 3-D MIPS. LIMITATIONS: None. FINDINGS: SOURCE IMAGES: No unexpected findings on source images. No large masses. 3-D MIP: No aneurysm. No occlusions. No significant stenosis. OTHER: No other significant finding. IMPRESSION: NORMAL MRA OF THE [place] OF [place]. TECHNICAL DOCUMENTATION: JOB ID: [id number] 2010 [employer]- All Rights Reserved Reading location - IP/workstation name: [email or web address]
[2020-06-04 15:56] LABS: CREATINE KINASE MB 0.41 ng/mL (<4.55)
[2020-06-04 16:02] LABS: TROPONIN I < 0.012 ng/mL
[2020-06-04] MEDS: ATORVASTATIN CALCIUM 80 MG TABLET PO SCH (18:29)
--- NOTE | 2020-06-04 18:42 | Progress Note ---
Provider Note Provider Note: Patient admitted by box spinner Laboratory and imaging results reviewed Cardiology consultation reviewed Patient was personally examined by me Continue current plan of care
--- NOTE | 2020-06-04 19:20 | RADIOLOGY REPORT (SQ) ---
EXAM DESCRIPTION: CAROTID DOPPLER IMAGES COMPLETED DATE/TIME: 06/04/2020 4:42 pm REASON FOR STUDY: Dysarthria, TIA COMPARISON: None. TECHNIQUE: Grayscale ultrasound, Doppler velocity and spectra, and color Doppler images acquired of the extra-cranial carotid and vertebral arteries. Images stored on PACS. LIMITATIONS: None. FINDINGS: RIGHT CAROTID CCA Velocities: Within normal limits. ICA Velocities Peak systolic 0.45 m/s. End diastolic 0.19 m/s. Proximal ICA/CCA peak systolic ratio 1.3. Spectra normal. No significant plaque. LEFT CAROTID CCA Velocities: Within normal limits. ICA Velocities Peak systolic 0.43 m/s. End diastolic 0.12 m/s. Proximal ICA/CCA peak systolic ratio 1.0. Spectra normal. No significant plaque. VERTEBRAL ARTERIES: Antegrade flow. Normal waveforms. SUBCLAVIAN ARTERIES: Not imaged. OTHER: No other significant finding. IMPRESSION: NO HEMODYNAMICALLY SIGNIFICANT STENOSIS. COMMENT: Quality ID #[id number]: Velocity criteria are extrapolated from the diameter data as defined by t he Society of Radiologists in Ultrasound Consensus Conference. Radiology 2003: 229; 340-346. TECHNICAL DOCUMENTATION: JOB ID: [id number] [employer]- All Rights Reserved Reading location - IP/workstation name: [email or web address]
[2020-06-05 05:24] LABS: HEMATOCRIT 40.3 % (36.0-47.0); HEMOGLOBIN 13.5 g/dL (12.0-15.5); MEAN CORPUSCULAR HEMOGLOBIN 29.8 pg (27.0-33.4); MEAN CORPUSCULAR HGB CONC 33.6 g/dL (32.0-36.0); MEAN CORPUSCULAR VOLUME 89 fl (80-97); PLATELET COUNT 176 10^3/uL (150-450); RED BLOOD COUNT 4.54 10^6/uL (3.72-5.28); RED CELL DISTRIBUTION WIDTH 14.7 % (11.5-14.0); WHITE BLOOD COUNT 6.4 10^3/uL (4.0-10.5)
[2020-06-05] MEDS: HEPARIN SOD (PORCINE) 5,000 UNIT/ML 1 ML VIAL SUBCUT SCH ×3 (05:28→22:15)
[2020-06-05] MEDS: MORPHINE SULFATE 10 MG/ML INJ IV PRN ×5 (05:29→22:16)
[2020-06-05 05:43] LABS: ANION GAP 10 (5-19); BLOOD UREA NITROGEN 17 mg/dL (7-20); CALCIUM 9.6 mg/dL (8.4-10.2); CARBON DIOXIDE 23 mmol/L (22-30); CHLORIDE 106 mmol/L (98-107); CHOLESTEROL 215.33 mg/dL (0-200); GLUCOSE 105 mg/dL (75-110); POTASSIUM 3.9 mmol/L (3.6-5.0); TRIGLYCERIDES 337 mg/dL (<150)
[2020-06-05 05:53] LABS: DIRECT LDL 110 mg/dL (<100)
[2020-06-05 05:57] LABS: VLDL CHOLESTEROL 67.4 mg/dL (10-31)
[2020-06-05] MEDS: METOPROLOL TARTRATE 25 MG TABLET PO SCH ×2 (09:17→22:14)
[2020-06-05] MEDS: FAMOTIDINE 20 MG TABLET PO SCH ×2 (09:17→22:14)
[2020-06-05] MEDS: ISOSORBIDE MONONITRATE 30 MG TAB.ER.24H PO SCH (09:17)
[2020-06-05] MEDS: TICAGRELOR 90 MG TABLET PO SCH ×2 (09:18→22:14)
[2020-06-05] MEDS: DOCUSATE SODIUM 100 MG CAPSULE PO SCH ×2 (09:18→18:23)
[2020-06-05] MEDS: ONDANSETRON HCL INJ/PF 4 MG/2 ML SDV IV PRN ×2 (09:27→22:18)
[2020-06-05] MEDS: INSULIN LISPRO 100 UNIT/ML 3 ML VIAL SUBCUT SCH ×4 (09:28→22:41)
--- NOTE | 2020-06-05 11:24 | XCELERA REPORT ---
[address] [address] Transthoracic Echocardiogram Report Name: RUDDY HAWK Age: 50 yrs Gender: Female : 1970 [facility]: 06/04/2020 02:29 PM History: PHILIPP Weight: 180 lb Procedure: A complete two-dimensional transthoracic echocardiogram was performed (2D, M-mode, spectral and color flow Doppler). The study was technically difficult with many images being suboptimal in quality. Reason For Study: Dysarthria, TIA Previous Evaluation: No previous studies were available. History: TIA. Ordering Physician: CRISTY ECHEVERRIA Performed By: Rosie Mayers Interpretation Summary Left ventricular systolic function is normal. The Ejection Fraction estimate is 55-60% The right ventricle is normal in size and function. There is a trace amount of mitral regurgitation There is no aortic valve stenosis There is a trace amount of tricuspid regurgitation Doppler findings do not suggest pulmonary hypertension. There is no pericardial effusion. MMode/2D Measurements & Calculations RVDd: 2.7 cm LVIDd: 4.9 cm FS: 37.4 % Ao root diam: 2.7 cm IVSd: 1.00 cm LVIDs: 3.1 cm EDV(Teich): 114.5 ml LVPWd: 1.1 cm ESV(Teich): 37.6 ml Ao root area: 5.8 cm2 EF(Teich): 67.2 % Doppler Measurements & Calculations MV E max mary: MV dec slope: Ao V2 max: LV V1 max P.1 cm/sec 88.5 cm/sec 2.5 mmHg MV A max mary: 327.5 cm/sec2 Ao max PG: LV V1 max: 63.6 cm/sec MV dec time: 0.22 sec 3.1 mmHg 78.9 cm/sec MV E/A: 1.1 PI end-d mary: TR max mary: 77.8 cm/sec 181.9 cm/sec TR max P.2 mmHg Left Ventricle The left ventricle is grossly normal size. There is mild to moderate concentric left ventricular hypertrophy. Left ventricular systolic function is normal. The Ejection Fraction estimate is 55-60%. Doppler measurements suggest pseudonormalized left ventricular relaxation, which is associated with grade II/IV or mild to moderate diastolic dysfunction. No regional wall motion abnormalities noted. Right Ventricle The right ventricle is normal in size and function. Atria The right atrium is normal. The left atrium is borderline dilated. The interatrial septum is intact with no evidence for an atrial septal defect. There is no Doppler evidence for an interatrial shunt. Mitral Valve The mitral valve is grossly normal. There is no evidence of mitral valve prolapse. There is no mitral valve stenosis. There is a trace amount of mitral regurgitation. Aortic Valve The aortic valve is trileaflet. The aortic valve is normal in structure and function. The aortic valve opens well. There is no aortic valve stenosis. No aortic regurgitation is present. Tricuspid Valve The tricuspid valve is normal in structure and function. There is a trace amount of tricuspid regurgitation. Tricuspid regurgitation jet envelope not well defined to measure RV systolic pressure accurately. Doppler findings do not suggest pulmonary hypertension. Pulmonic Valve The pulmonic valve is not well seen, but is grossly normal. There is no pulmonic valvular stenosis. There is a trace amount of pulmonic regurgitation. Great Vessels The aortic root is normal size. The inferior vena cava was not well visualized. Effusions There is no pericardial effusion. : CRISTY ECHEVERRIA Anil
[2020-06-05] MEDS: LORAZEPAM INJ 2 MG/1 ML VIAL IV PRN ×2 (16:13→23:22)
[2020-06-05] MEDS: ATORVASTATIN CALCIUM 80 MG TABLET PO SCH (18:18)
--- NOTE | 2020-06-05 21:15 | PDOC PROGRESS REPORT ---
Subjective Progress Note for:: 06/05/20 Subjective:: Patient aphasic. When asked questions she writes notes in response which make perfect sense. She also writes questions. Reason For Visit: LLE CELLULITIUS, LYME DISEASE Physical Exam Vital Signs: Temp Pulse Resp BP Pulse Ox 98.6 F 94 20 116/88 H 97 06/05/20 19:25 06/05/20 19:25 06/05/20 19:25 06/05/20 19:25 06/05/20 19:25 Intake & Output 06/04/20 06/05/20 06/06/20 06:59 06:59 06:59 Intake Total 260 1460 1080 Balance 260 1460 1080 Weight 75.2 kg 76.3 kg General appearance: PRESENT: no acute distress, cooperative, well-developed, well-nourished Head exam: PRESENT: atraumatic, normocephalic Eye exam: PRESENT: conjunctiva pink. ABSENT: scleral icterus Mouth exam: PRESENT: moist, tongue midline Neck exam: ABSENT: JVD Respiratory exam: PRESENT: clear to auscultation juma, symmetrical, unlabored. ABSENT: accessory muscle use Cardiovascular exam: PRESENT: RRR, +S1, +S2 Pulses: PRESENT: normal carotid pulses, normal radial pulses, +1 pedal pulses bilateral Vascular exam: PRESENT: normal capillary refill GI/Abdominal exam: PRESENT: normal bowel sounds, soft. ABSENT: distended, tenderness Rectal exam: PRESENT: deferred Extremities exam: ABSENT: calf tenderness, pedal edema Neurological exam: PRESENT: alert, altered - Patient has expressive aphasia. When asked questions she makes as and gestures. She also writes answers to questions on paper. When asked questions her answers are appropriate. She is able to state who she is where she is what time it is and why she is here., awake, aphasic, other - Patient has intentional tremor of extremities Psychiatric exam: PRESENT: anxious. ABSENT: agitated, appropriate affect Skin exam: PRESENT: dry, normal color, warm Results Laboratory Results: 06/05/20 05:04 06/05/20 05:04 06/05/20 06/05/20 06/05/20 05:04 05:04 05:04 WBC 6.4 RBC 4.54 Hgb 13.5 Hct 40.3 MCV 89 MCH 29.8 MCHC 33.6 RDW 14.7 H Plt Count 176 Sodium 138.5 Potassium 3.9 Chloride 106 Carbon Dioxide 23 Anion Gap 10 BUN 17 Creatinine 0.64 Est GFR ( Amer) > 60 Glucose 105 Calcium 9.6 Magnesium 1.9 Triglycerides 337 H Cholesterol 215.33 H LDL Cholesterol Direct 110 H VLDL Cholesterol 67.4 H HDL Cholesterol 59 TSH 3.27 06/03/20 06/03/20 06/03/20 21:58 21:58 21:58 Creatine Kinase 74 75 CK-MB (CK-2) Troponin I < 0.012 06/04/20 06/04/20 06/04/20 02:14 02:14 09:00 Creatine Kinase 59 CK-MB (CK-2) 0.79 Troponin I < 0.012 Cancelled 06/04/20 06/04/20 06/04/20 09:00 15:16 15:16 Creatine Kinase 52 CK-MB (CK-2) 0.50 0.41 Troponin I < 0.012 < 0.012 Impressions: Chest X-Ray 06/03/20 23:21 IMPRESSION: Negative chest copyright 2011 [employer]- All Rights Reserved Head CT 06/03/20 23:21 IMPRESSION: 1. No acute intracranial abnormality identified. This exam was performed according to our departmental dose-optimization program, which includes automated exposure control, adjustment of the mA and/or kV according to patient size and/or use of iterative reconstruction technique. Brain MRI with MRA 06/04/20 00:00 IMPRESSION: NORMAL MRA OF THE [place]. Head MRI 06/04/20 00:00 IMPRESSION: No acute findings. EVIDENCE OF ACUTE STROKE: NO. Carotid Doppler Study 06/04/20 04:23 IMPRESSION: NO HEMODYNAMICALLY SIGNIFICANT STENOSIS. Assessment and Plan - Diagnosis (1) Expressive aphasia Is this a current diagnosis for this admission?: Yes Plan: Extensive neurological work-up negative (2) Tremor Is this a current diagnosis for this admission?: Yes Plan: As noted above extensive neurological work-up negative Etiology of tremor unclear (3) Coronary artery disease Qualifiers: Coronary Disease-Associated Artery/Lesion type: [place] artery [place] vs. transplanted heart: [place] heart Associated angina: with unspecified angina Qualified Code(s): I25.119 - Atherosclerotic heart disease of [place] coronary artery with unspecified angina pectoris Is this a current diagnosis for this admission?: Yes Plan: Continue ASA 81 mg p.o. daily Continue isosorbide mononitrate 30 mg p.o. daily Continue metoprolol tartrate 25 mg p.o. every 12 hours Patient was placed on ticagrelor 90 mg p.o. every 12 hours based on home medications which were pulled in from [facility]&P, it does not appear based on patient's [employer] medication reconciliation that she was on this medication - continue for now Pharmacy contacted and requested that they contact the patient's pharmacy to verify her home medications (4) Hypertension Qualifiers: Hypertension type: essential hypertension Qualified Code(s): I10 - Essential (primary) hypertension Is this a current diagnosis for this admission?: Yes Plan: Adequate BP control Medications as noted above (5) Dyslipidemia Is this a current diagnosis for this admission?: Yes Plan: Continue atorvastatin 80 mg p.o. daily Continue fenofibrate 130 mg p.o. daily (6) Bipolar depression Is this a current diagnosis for this admission?: Yes Plan: With patient's history of bipolar disorder there is most certainly question as to whether her aphasia could represent a conversion disorder It does not appear that there is an organic origin to her symptoms - Plan Summary Summary: Once patient's medications have been reviewed by the pharmacy and they contact the patient's outpatient pharmacy to identify which medications are being consistently filled her medications will be reviewed and she will be placed back on appropriate medication. At this time we will continue the medications that she is on. Given the concern for psychiatric origins of her aphasia I do not believe that asking the patient what medication she is on is a reliable or safe approach. - Time Time Spent with patient: 25-34 minutes Medications reviewed and adjusted accordingly: Yes Anticipated Discharge Disposition: TBD Anticipated Discharge Timeframe: TBD
[2020-06-05] MEDS: TOPIRAMATE 100 MG TABLET PO SCH (22:14)
[2020-06-06] MEDS: MORPHINE SULFATE 10 MG/ML INJ IV PRN ×4 (05:01→17:38)
[2020-06-06] MEDS: ONDANSETRON HCL INJ/PF 4 MG/2 ML SDV IV PRN ×2 (05:01→17:45)
[2020-06-06] MEDS: HEPARIN SOD (PORCINE) 5,000 UNIT/ML 1 ML VIAL SUBCUT SCH ×3 (05:05→22:02)
[2020-06-06] MEDS: INSULIN LISPRO 100 UNIT/ML 3 ML VIAL SUBCUT SCH ×4 (09:22→22:31)
[2020-06-06] MEDS: DOCUSATE SODIUM 100 MG CAPSULE PO SCH ×2 (09:41→17:34)
[2020-06-06] MEDS: ISOSORBIDE MONONITRATE 30 MG TAB.ER.24H PO SCH (09:42)
[2020-06-06] MEDS: FUROSEMIDE 20 MG TABLET PO SCH (09:42)
[2020-06-06] MEDS: ASPIRIN 81 MG TABLET, ENT COATED PO SCH (09:42)
[2020-06-06] MEDS: FAMOTIDINE 20 MG TABLET PO SCH ×2 (09:45→22:03)
[2020-06-06] MEDS: TICAGRELOR 90 MG TABLET PO SCH (09:45)
[2020-06-06] MEDS: FENOFIBRATE NANOCRYSTALLIZED 145 MG TABLET PO SCH (09:46)
[2020-06-06] MEDS: TOPIRAMATE 100 MG TABLET PO SCH ×2 (09:47→23:23)
[2020-06-06] MEDS ORDERED: (PENDING PHARMACY ID) (Fenofibrate,Micronized [Fenofibrate] 130 MG) PO SCH (10:00)
[2020-06-06] MEDS ORDERED: METOPROLOL TARTRATE 25 MG TABLET PO ONE (11:00)
[2020-06-06] MEDS: LORAZEPAM INJ 2 MG/1 ML VIAL IV PRN ×2 (11:17→21:56)
[2020-06-06] MEDS: METOPROLOL TARTRATE 25 MG TABLET PO SCH ×2 (11:24→22:03)
--- NOTE | 2020-06-06 16:29 | PDOC PROGRESS REPORT ---
Subjective Progress Note for:: 06/06/20 Subjective:: She remains a phasic. Today she is tearful Reason For Visit: LLE CELLULITIUS, LYME DISEASE Physical Exam Vital Signs: Temp Pulse Resp BP Pulse Ox 98.5 F 74 18 105/76 95 06/06/20 11:27 06/06/20 11:27 06/06/20 11:27 06/06/20 11:27 06/06/20 11:27 Intake & Output 06/05/20 06/06/20 06/07/20 06:59 06:59 06:59 Intake Total 1460 1340 120 Output Total 850 300 Balance 1460 490 -180 Weight 76.3 kg 76.5 kg General appearance: PRESENT: no acute distress, cooperative, well-developed, well-nourished Head exam: PRESENT: atraumatic, normocephalic Eye exam: PRESENT: conjunctiva pink. ABSENT: scleral icterus Mouth exam: PRESENT: moist, tongue midline Neck exam: ABSENT: JVD Respiratory exam: PRESENT: clear to auscultation juma, symmetrical, unlabored. ABSENT: accessory muscle use Cardiovascular exam: PRESENT: RRR, +S1, +S2 Pulses: PRESENT: normal carotid pulses, normal radial pulses, +1 pedal pulses bilateral Vascular exam: PRESENT: normal capillary refill GI/Abdominal exam: PRESENT: normal bowel sounds, soft. ABSENT: distended, tenderness Rectal exam: PRESENT: deferred Extremities exam: ABSENT: calf tenderness, pedal edema Neurological exam: PRESENT: alert, awake, other - Patient continues to have flynn bal expressive aphasia. She communicates using her telephone and paper and pencil fluently and understands all conversation. She continues to have intentional tremor of all 4 extremities. Psychiatric exam: PRESENT: anxious. ABSENT: agitated Skin exam: PRESENT: dry, normal color, warm Results Laboratory Results: 06/05/20 05:04 06/05/20 05:04 06/03/20 06/03/20 06/03/20 21:58 21:58 21:58 Creatine Kinase 74 75 CK-MB (CK-2) Troponin I < 0.012 06/04/20 06/04/20 06/04/20 02:14 02:14 09:00 Creatine Kinase 59 CK-MB (CK-2) 0.79 Troponin I < 0.012 Cancelled 06/04/20 06/04/2020 09:00 15:16 15:16 Creatine Kinase 52 CK-MB (CK-2) 0.50 0.41 Troponin I < 0.012 < 0.012 Impressions: Chest X-Ray 06/03/20 23:21 IMPRESSION: Negative chest copyright 2010 [employer]- All Rights Reserved Head CT 06/03/20 23:21 IMPRESSION: 1. No acute intracranial abnormality identified. This exam was performed according to our departmental dose-optimization program, which includes automated exposure control, adjustment of the mA and/or kV according to patient size and/or use of iterative reconstruction technique. Brain MRI with MRA 06/04/20 00:00 IMPRESSION: NORMAL MRA OF [place]. Head MRI 06/04/20 00:00 IMPRESSION: No acute findings. EVIDENCE OF ACUTE STROKE: NO. Carotid Doppler Study 06/04/20 04:23 IMPRESSION: NO HEMODYNAMICALLY SIGNIFICANT STENOSIS. Assessment and Plan - Diagnosis (1) Expressive aphasia Is this a current diagnosis for this admission?: Yes Plan: Extensive neurological work-up negative Will request psychiatry to evaluate the patient (2) Tremor Is this a current diagnosis for this admission?: Yes Plan: As noted above extensive neurological work-up negative Etiology of tremor unclear Patient will need an outpatient neurology work-up (3) Coronary artery disease Qualifiers: Coronary Disease-Associated Artery/Lesion type: [place] artery [place] vs. transplanted heart: [place] heart Associated angina: with unspecified angina Qualified Code(s): I25.119 - Atherosclerotic heart disease of [place] coronary artery with unspecified angina pectoris Is this a current diagnosis for this admission?: Yes Plan: Patient denies any chest pain/pressure or shortness of breath Continue ASA 81 mg p.o. daily Continue isosorbide mononitrate 30 mg p.o. daily Continue metoprolol tartrate decreased to 12.5 mg p.o. every 12 hours is her home dose Patient was placed on ticagrelor 90 mg p.o. every 12 hours based on home medications which were pulled in from H&P, pharmacy verified her medications with her pharmacy and she last picked this medication up 2 months ago - patient states that she was taken off this medication thus it will be stopped (4) Hypertension Qualifiers: Hypertension type: essential hypertension Qualified Code(s): I10 - Essential (primary) hypertension Is this a current diagnosis for this admission?: Yes Plan: Adequate BP control Medications as noted above (5) Dyslipidemia Is this a current diagnosis for this admission?: Yes Plan: Continue atorvastatin 80 mg p.o. daily Continue fenofibrate 130 mg p.o. daily (6) Bipolar depression Is this a current diagnosis for this admission?: Yes Plan: With patient's history of bipolar disorder there is most certainly question as to whether her aphasia could represent a conversion disorder It does not appear that there is an organic origin to her symptoms As noted above psychiatry has been consulted - Time Time Spent with patient: 15-24 minutes Medications reviewed and adjusted accordingly: Yes Anticipated Discharge Disposition: TBD Anticipated Discharge Timeframe: TBD
--- NOTE | 2020-06-06 17:00 | Progress Note ---
Provider Note Provider Note: Discussed patient's ticagrelor with patient and her sister who stated this medication was stopped. This is the reason why she has not had it filled in the past 2 months. Will be discontinued from her medication list here as well.
[2020-06-06] MEDS: ATORVASTATIN CALCIUM 80 MG TABLET PO SCH (22:04)
[2020-06-07] MEDS: MORPHINE SULFATE 10 MG/ML INJ IV PRN ×7 (00:12→22:32)
[2020-06-07] MEDS: ONDANSETRON HCL INJ/PF 4 MG/2 ML SDV IV PRN ×2 (00:12→08:09)
[2020-06-07] MEDS: HEPARIN SOD (PORCINE) 5,000 UNIT/ML 1 ML VIAL SUBCUT SCH ×3 (06:35→22:11)
[2020-06-07] MEDS: INSULIN LISPRO 100 UNIT/ML 3 ML VIAL SUBCUT SCH ×4 (08:14→22:22)
[2020-06-07] MEDS: LORAZEPAM INJ 2 MG/1 ML VIAL IV PRN ×3 (09:38→20:23)
[2020-06-07] MEDS: FAMOTIDINE 20 MG TABLET PO SCH ×2 (09:39→22:08)
[2020-06-07] MEDS: FUROSEMIDE 20 MG TABLET PO SCH (09:39)
[2020-06-07] MEDS: METOPROLOL TARTRATE 25 MG TABLET PO SCH ×2 (09:39→22:10)
[2020-06-07] MEDS: FENOFIBRATE NANOCRYSTALLIZED 145 MG TABLET PO SCH (09:39)
[2020-06-07] MEDS: ISOSORBIDE MONONITRATE 30 MG TAB.ER.24H PO SCH (09:39)
[2020-06-07] MEDS: ASPIRIN 81 MG TABLET, ENT COATED PO SCH (09:39)
[2020-06-07] MEDS: DOCUSATE SODIUM 100 MG CAPSULE PO SCH ×2 (09:39→17:52)
[2020-06-07] MEDS: TOPIRAMATE 100 MG TABLET PO SCH ×2 (09:42→22:47)
[2020-06-07] MEDS ORDERED: (PENDING PHARMACY ID) (Oxycodone Hcl/Acetaminophen [Oxycodone-Acetaminophen 10-325] 1 EACH PO PRN (19:16)
--- NOTE | 2020-06-07 19:25 | PDOC PROGRESS REPORT ---
Subjective Progress Note for:: 06/07/20 Subjective:: Patient remains a phasic but continues to write notes. No specific complaints other than intermittent headache Reason For Visit: CHEST PAIN,APHASIA,LYME,CELLULITIS Physical Exam Vital Signs: Temp Pulse Resp BP Pulse Ox 98.1 F 88 16 114/68 92 06/07/20 15:32 06/07/20 15:32 06/07/20 15:32 06/07/20 15:32 06/07/20 15:32 Intake & Output 06/06/20 06/07/20 06/08/20 06:59 06:59 06:59 Intake Total 1340 620 300 Output Total 850 800 300 Balance 490 -180 0 Weight 76.5 kg 76.1 kg General appearance: PRESENT: no acute distress, cooperative, well-developed, well-nourished Head exam: PRESENT: atraumatic, normocephalic Eye exam: PRESENT: conjunctiva pink. ABSENT: scleral icterus Mouth exam: PRESENT: moist, tongue midline Neck exam: ABSENT: JVD, thyromegaly Respiratory exam: PRESENT: clear to auscultation juma, symmetrical, unlabored. ABSENT: accessory muscle use Cardiovascular exam: PRESENT: RRR, +S1, +S2 Pulses: PRESENT: normal radial pulses, +1 pedal pulses bilateral Vascular exam: PRESENT: normal capillary refill GI/Abdominal exam: PRESENT: normal bowel sounds, soft. ABSENT: distended, tenderness Rectal exam: PRESENT: deferred Extremities exam: ABSENT: calf tenderness, pedal edema Neurological exam: PRESENT: alert, awake, aphasic, other - Intentional tremor noted of UE/LE. UE/LE strength 4/5 Psychiatric exam: PRESENT: anxious, other Skin exam: PRESENT: dry, normal color, warm Results Laboratory Results: 06/05/20 05:04 06/05/20 05:04 06/03/20 06/03/20 06/03/20 21:58 21:58 21:58 Creatine Kinase 74 75 CK-MB (CK-2) Troponin I < 0.012 06/04/20 06/04/20 06/04/20 02:14 02:14 09:00 Creatine Kinase 59 CK-MB (CK-2) 0.79 Troponin I < 0.012 Cancelled 06/04/20 06/04/20 06/04/20 09:00 15:16 15:16 Creatine Kinase 52 CK-MB (CK-2) 0.50 0.41 Troponin I < 0.012 < 0.012 Impressions: Chest X-Ray 06/03/20 23:21 IMPRESSION: Negative chest copyright 2010 [employer]- All Rights Reserved Head CT 06/03/20 23:21 IMPRESSION: 1. No acute intracranial abnormality identified. This exam was performed according to our departmental dose-optimization program, which includes automated exposure control, adjustment of the mA and/or kV according to patient size and/or use of iterative reconstruction technique. Brain MRI with MRA 06/04/20 00:00 IMPRESSION: NORMAL MRA OF THE [place]. Head MRI 06/04/20 00:00 IMPRESSION: No acute findings. EVIDENCE OF ACUTE STROKE: NO. Carotid Doppler Study 06/04/20 04:23 IMPRESSION: NO HEMODYNAMICALLY SIGNIFICANT STENOSIS. Assessment and Plan - Diagnosis (1) Expressive aphasia Is this a current diagnosis for this admission?: Yes Plan: Extensive neurological work-up negative Awaiting psychiatry input, according to nurse psychiatry did see the patient this afternoon however there still is no note available for review (2) Tremor Is this a current diagnosis for this admission?: Yes Plan: As noted above extensive neurological work-up negative Etiology of tremor unclear Patient will need an outpatient neurology work-up (3) Coronary artery disease Qualifiers: Coronary Disease-Associated Artery/Lesion type: [place] artery [place] vs. transplanted heart: [place] heart Associated angina: with unspecified angina Qualified Code(s): I25.119 - Atherosclerotic heart disease of [place] coronary artery with unspecified angina pectoris Is this a current diagnosis for this admission?: Yes Plan: Patient denies any chest pain/pressure or shortness of breath Continue ASA 81 mg p.o. daily Continue isosorbide mononitrate 30 mg p.o. daily Continue metoprolol tartrate 12.5 mg p.o. every 12 hours (4) Hypertension Qualifiers: Hypertension type: essential hypertension Qualified Code(s): I10 - Essential (primary) hypertension Is this a current diagnosis for this admission?: Yes Plan: Adequate BP control Medications as noted above (5) Dyslipidemia Is this a current diagnosis for this admission?: Yes Plan: Continue atorvastatin 80 mg p.o. daily Continue fenofibrate 130 mg p.o. daily (6) Bipolar depression Is this a current diagnosis for this admission?: Yes Plan: With patient's history of bipolar disorder there is most certainly question as to whether her aphasia could represent a conversion disorder It does not appear that there is an organic origin to her symptoms As noted above psychiatry has been consulted and we are awaiting their input - Time Time Spent with patient: 15-24 minutes Medications reviewed and adjusted accordingly: Yes Anticipated Discharge Disposition: TBD Anticipated Discharge Timeframe: TBD
[2020-06-07] MEDS ORDERED: OXYCODONE-ACETAMINOPHEN 5-325 MG TABLET PO PRN (20:15)
[2020-06-07] MEDS ORDERED: OXYCODONE HCL IR 5 MG TABLET PO PRN (20:16)
[2020-06-07] MEDS: ATORVASTATIN CALCIUM 80 MG TABLET PO SCH (22:08)
[2020-06-08] MEDS ORDERED: PRIMIDONE 250 MG TABLET ONE (00:01)
[2020-06-08] MEDS: PRIMIDONE 250 MG TABLET PO SCH ×3 (00:13→13:25)
[2020-06-08] MEDS: LORAZEPAM INJ 2 MG/1 ML VIAL IV PRN ×3 (00:41→11:06)
[2020-06-08] MEDS: HEPARIN SOD (PORCINE) 5,000 UNIT/ML 1 ML VIAL SUBCUT SCH ×2 (05:45→13:25)
[2020-06-08] MEDS: MORPHINE SULFATE 10 MG/ML INJ IV PRN ×3 (05:45→13:08)
[2020-06-08] MEDS: INSULIN LISPRO 100 UNIT/ML 3 ML VIAL SUBCUT SCH ×2 (08:15→11:49)
[2020-06-08] MEDS: FAMOTIDINE 20 MG TABLET PO SCH (09:34)
[2020-06-08] MEDS: ISOSORBIDE MONONITRATE 30 MG TAB.ER.24H PO SCH (09:34)
[2020-06-08] MEDS: FUROSEMIDE 20 MG TABLET PO SCH (09:34)
[2020-06-08] MEDS: DOCUSATE SODIUM 100 MG CAPSULE PO SCH (09:34)
[2020-06-08] MEDS: METOPROLOL TARTRATE 25 MG TABLET PO SCH (09:34)
[2020-06-08] MEDS: FENOFIBRATE NANOCRYSTALLIZED 145 MG TABLET PO SCH (09:34)
[2020-06-08] MEDS: ASPIRIN 81 MG TABLET, ENT COATED PO SCH (09:34)
[2020-06-08] MEDS: TOPIRAMATE 100 MG TABLET PO SCH (09:36)
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
[2020-06-08 15:34] VITALS: BP 109/72
--- NOTE | 2020-06-08 16:00 | PDOC DISCHARGE SUMMARY ---
Impression - Admit/DC Date/PCP Admission Date/Primary Care Provider: 06/07/20 16:23 ISA MUNOZ PA-C Discharge Date: 06/08/20 - Discharge Diagnosis (1) Expressive aphasia Is this a current diagnosis for this admission?: Yes (2) Tremor Is this a current diagnosis for this admission?: Yes (3) Coronary artery disease Is this a current diagnosis for this admission?: Yes (4) Hypertension Is this a current diagnosis for this admission?: Yes (5) Dyslipidemia Is this a current diagnosis for this admission?: Yes (6) Bipolar depression Is this a current diagnosis for this admission?: Yes - Additional Information Resuscitation Status: Full Code Discharge Diet: Cardiac Discharge Activity: Activity As Tolerated Referrals: ISA MUNOZ PA-C [Primary Care Provider] - Follow up as needed Prescriptions: Buspirone HCl [Buspar 10 mg Tablet] 5 mg PO Q12 #7 tablet Home Medications: Atorvastatin Calcium [Lipitor 80 mg Tablet] 80 mg PO QHS 09/23/18 Fenofibrate,Micronized [Fenofibrate] 130 mg PO DAILY 09/23/18 Furosemide [Lasix 20 mg Tablet] 20 mg PO DAILY 09/23/18 Isosorbide Mononitrate [Imdur 30 mg Tablet.er] 30 mg PO DAILY 09/23/18 Metoprolol Tartrate [Lopressor 25 mg Tablet] 12.5 mg PO Q12 09/23/18 Oxycodone HCl/Acetaminophen [Oxycodone-Acetaminophen 10-325] 1 each PO 5XDP PRN 09/23/18 Primidone [Mysoline 250 mg Tablet] 375 mg PO QID 09/23/18 Topiramate [Topamax 100 mg Tablet] 200 mg PO Q12 09/23/18 Aspirin [Ecotrin 81 mg EC Tablet] 81 mg PO DAILY 06/04/20 Buspirone HCl [Buspar 10 mg Tablet] 5 mg PO Q12 #7 tablet 06/08/20 History of Present Illiness History of Present Illness: RUDDY HAWK is a 50 year old female with PMH significant for CAD, HTN, dyslipidemia, asthma, bronchitis, migraine headaches, seizures, DM II, arthritis, bipolar disorder, and PTSD who presented to the ED with complaints of dysarthria, expressive aphasia, and tremors which had been ongoing for approximately 1 week's time. With the assistance of the person who was with her in the ED she was able to describe sudden onset severe pain in her left chest while in the car returning from [facility]. The chest pain was accompanied by nausea without emesis and radiated down her left arm. Additionally, she did report prior episodes of dysarthria with expressive aphasia and tremors. In the ED the patient had the initial of 3 negative troponins. She also had a CT of the head which revealed no acute intracranial abnormality. Hospitalist service was consulted with the patient for further evaluation and treatment. Hospital Course Hospital Course: The patient's symptoms did not manuela and on 06/04/2020 the patient underwent MRI/MRA of the head which revealed normal [place] and no acute findings. Additionally, carotid Dopplers were completed which revealed no hemodynamically significant stenosis. Given the patient's initial complaint of chest pain a cardiology consult was obtained. The recommendations were to continue her current medication regimen. Of note, the patient's initial [employer] medication reconciliation had her taking ticagrelor 90 mg p.o. twice daily however the patient stated that she had not been taking this for at least 2 months and it was discontinued. Given the extensive negative neurological work-up a psychiatry consult was obtained. Patient was seen by the psychiatry provider on 06/06/2020. They felt that the patient could be cleared from an acute psychiatric perspective. In the past she had been seen by a neurologist and was referred to a neuropsychologist. Psychiatry offered the patient referral to a women jail however she stated that she did not want to consider this at this time. The patient did express a desire for medication for anxiety. Per psychiatry's recommendation she was s tarted on BuSpar 5 mg p.o. twice daily. Once the psychiatry recommendations were obtained it was felt that the patient was medically stable and psychologically sound for discharge to home with outp atient follow-up. Physical Exam Vital Signs: Temp Pulse Resp BP Pulse Ox 97.8 F 93 15 112/74 94 06/08/20 11:20 06/08/20 14:00 06/08/20 11:20 06/08/20 11:20 06/08/20 11:20 Intake & Output 06/07/20 06/08/20 06/09/20 06:59 06:59 06:59 Intake Total 620 300 Output Total 800 300 Balance -180 0 Weight 76.1 kg 75.7 kg General appearance: PRESENT: no acute distress, cooperative, well-developed, well-nourished Head exam: PRESENT: atraumatic, normocephalic Eye exam: PRESENT: conjunctiva pink. ABSENT: scleral icterus Mouth exam: PRESENT: moist, tongue midline Neck exam: ABSENT: JVD Respiratory exam: PRESENT: clear to auscultation juma, symmetrical, unlabored. ABSENT: accessory muscle use Cardiovascular exam: PRESENT: RRR, +S1, +S2 Pulses: PRESENT: normal carotid pulses, normal radial pulses, +1 pedal pulses bilateral GI/Abdominal exam: PRESENT: normal bowel sounds, soft. ABSENT: distended, tenderness Rectal exam: PRESENT: deferred Extremities exam: ABSENT: calf tenderness, pedal edema Musculoskeletal exam: PRESENT: ambulatory Neurological exam: PRESENT: alert, aphasic, other - Patient types questions, answers to questions, and conversation on her phone and writes on paper with pencil. She continues to have an intentionasl tremor of all 4 extremities right slightly worse than the left Psychiatric exam: PRESENT: anxious. ABSENT: agitated Skin exam: PRESENT: dry, normal color, warm Results Laboratory Results: WBC 6.4 10^3/uL (4.0-10.5) 06/05/20 05:04 RBC 4.54 10^6/uL (3.72-5.28) 06/05/20 05:04 Hgb 13.5 g/dL (12.0-15.5) 06/05/20 05:04 Hct 40.3 % (36.0-47.0) 06/05/20 05:04 MCV 89 fl (80-97) 06/05/20 05:04 MCH 29.8 pg (27.0-33.4) 06/05/20 05:04 MCHC 33.6 g/dL (32.0-36.0) 06/05/20 05:04 RDW 14.7 % (11.5-14.0) H 06/05/20 05:04 Plt Count 176 10^3/uL (150-450) 06/05/20 05:04 Lymph % (Auto) 40.8 % (13-45) 06/03/20 21:58 [place] % (Auto) 6.6 % (3-13) 06/03/20 21:58 Eos % (Auto) 4.1 % (0-6) 06/03/20 21:58 Baso % (Auto) 0.9 % (0-2) 06/03/20 21:58 Absolute Neuts (auto) 3.3 10^3/uL (1.7-8.2) 06/03/20 21:58 Absolute Lymphs (auto) 2.8 10^3/uL (0.5-4.7) 06/03/20 21:58 Absolute Monos (auto) 0.5 10^3/uL (0.1-1.4) 06/03/20 21:58 Absolute Eos (auto) 0.3 10^3/uL (0.0-0.6) 06/03/20 21:58 Absolute Basos (auto) 0.1 10^3/uL (0.0-0.2) 06/03/20 21:58 Seg Neutrophils % 47.6 % (42-78) 06/03/20 21:58 PT 12.4 SEC (11.4-15.4) 06/03/20 21:58 INR 0.90 06/03/20 21:58 APTT 21.7 SEC (23.5-35.8) L 06/03/20 21:58 Sodium 138.5 mmol/L (137-145) 06/05/20 05:04 Potassium 3.9 mmol/L (3.6-5.0) 06/05/20 05:04 Chloride 106 mmol/L (98-107) 06/05/20 05:04 Carbon Dioxide 23 mmol/L (22-30) 06/05/20 05:04 Anion Gap 10 (5-19) 06/05/20 05:04 BUN 17 mg/dL (7-20) 06/05/20 05:04 Creatinine 0.64 mg/dL (0.52-1.25) 06/05/20 05:04 Est GFR ( Amer) > 60 (>60) 06/05/20 05:04 Est GFR (MDRD) Non-Af > 60 (>60) 06/05/20 05:04 Glucose 105 mg/dL (75-110) 06/05/20 05:04 POC Glucose 110 mg/dL (70-110) 06/08/20 07:51 Hemoglobin A1c % 5.2 % (4.7-6.0) 06/05/20 05:04 Calcium 9.6 mg/dL (8.4-10.2) 06/05/20 05:04 Magnesium 1.9 mg/dL (1.6-2.3) 06/05/20 05:04 Total Bilirubin 0.3 mg/dL (0.2-1.3) 06/03/20 21:58 Direct Bilirubin 0.1 mg/dL (0.0-0.4) 06/03/20 21:58 Neonat Total Bilirubin Not Reportable 06/03/20 21:58 Neonat Direct Bilirubin Not Reportable 06/03/20 21:58 Neonat Indirect Bili Not Reportable 06/03/20 21:58 AST 48 U/L (14-36) H 06/03/20 21:58 ALT 28 U/L (<35) 06/03/20 21:58 Alkaline Phosphatase 81 U/L (38-126) 06/03/20 21:58 Creatine Kinase 52 U/L (30-135) 06/04/20 15:16 CK-MB (CK-2) 0.41 ng/mL (<4.55) 06/04/20 15:16 Troponin I < 0.012 ng/mL 06/04/20 15:16 Total Protein 7.4 g/dL (6.3-8.2) 06/03/20 21:58 Albumin 4.2 g/dL (3.5-5.0) 06/03/20 21:58 Triglycerides 337 mg/dL (<150) H 06/05/20 05:04 Cholesterol 215.33 mg/dL (0-200) H 06/05/20 05:04 LDL Cholesterol Direct 110 mg/dL (<100) H 06/05/20 05:04 VLDL Cholesterol 67.4 mg/dL (10-31) H 06/05/20 05:04 HDL Cholesterol 59 mg/dL (>40) 06/05/20 05:04 TSH 3.27 uIU/mL (0.47-4.68) 06/05/20 05:04 Urine Color STRAW 06/03/20 21:34 Urine Appearance SLIGHTLY-CLOUDY 06/03/20 21:34 Urine pH 6.0 (5.0-9.0) 06/03/20 21:34 Ur Specific [place] 1.006 06/03/20 21:34 Urine Protein NEGATIVE mg/dL (NEGATIVE) 06/03/20 21:34 Urine Glucose (UA) NEGATIVE mg/dL (NEGATIVE) 06/03/20 21:34 Urine Ketones NEGATIVE mg/dL (NEGATIVE) 06/03/20 21:34 Urine Blood NEGATIVE (NEGATIVE) 06/03/20 21:34 Urine Nitrite NEGATIVE (NEGATIVE) 06/03/20 21:34 Urine Bilirubin NEGATIVE (NEGATIVE) 06/03/20 21:34 Urine Urobilinogen NEGATIVE mg/dL (<2.0) 06/03/20 21:34 Ur Leukocyte Esterase LARGE (NEGATIVE) H 06/03/20 21:34 Urine WBC (Auto) 24 /HPF 06/03/20 21:34 Squamous Epi Cells Auto 4 /HPF 06/03/20 21:34 Urine Mucus (Auto) RARE /LPF 06/03/20 21:34 Urine Ascorbic Acid NEGATIVE (NEGATIVE) 06/03/20 21:34 Urine Opiates Screen NEGATIVE 06/03/20 21:34 Urine Methadone Screen NEGATIVE 06/03/20 21:34 Ur Barbiturates Screen UNCONFIRMED POSITIVE 06/03/20 21:34 Ur Phencyclidine Scrn NEGATIVE 06/03/20 21:34 Ur Amphetamines Screen NEGATIVE 06/03/20 21:34 U Benzodiazepines Scrn NEGATIVE 06/03/20 21:34 Urine Cocaine Screen NEGATIVE 06/03/20 21:34 U Marijuana (THC) Screen NEGATIVE 06/03/20 21:34 06/03/20 06/04/20 06/04/20 21:58 02:14 02:14 CK-MB (CK-2) 0.79 Troponin I < 0.012 < 0.012 Cancelled 06/04/20 06/04/20 09:00 15:16 CK-MB (CK-2) 0.50 0.41 Troponin I < 0.012 < 0.012 Impressions: Chest X-Ray 06/03/20 23:21 IMPRESSION: Negative chest copyright 2011 [employer]- All Rights Reserved Head CT 06/03/20 23:21 IMPRESSION: 1. No acute intracranial abnormality identified. This exam was performed according to our departmental dose-optimization program, which includes automated exposure control, adjustment of the mA and/or kV according to patient size and/or use of iterative reconstruction technique. Brain MRI with MRA 06/04/20 00:00 IMPRESSION: NORMAL MRA OF THE [place] OF [place]. Head MRI 06/04/20 00:00 IMPRESSION: No acute findings. EVIDENCE OF ACUTE STROKE: NO. Carotid Doppler Study 06/04/20 04:23 IMPRESSION: NO HEMODYNAMICALLY SIGNIFICANT STENOSIS. Plan Plan of Treatment: Follow-up with PCP within 1 week of discharge Follow-up with outpatient neurology Return to hospital for any HI/SI Time Spent: Greater than 30 Minutes Stroke Is this a Stroke Patient?: No Acute Heart Failure - Is this a Heart Failure Patient?: No
[2020-06-08] MEDS ORDERED: BUSPIRONE HCL 10 MG TABLET PO SCH (22:00)
== END 2020-06-08 16:50 | disposition home or self-care (01) | DRG 880 ==
LOC: ER 21:24 → OBSVTOIN 06-04 03:51 → INTOOBSV 06-04 03:51 → EH 06-04 03:51 → 5 06-04 05:14 → OBSVTOIN 06-07 16:23
PROVIDERS: ADMIT Emergency Medicine; ATTEND Nurse Practitioner
DX: F41.9 Anxiety disorder, unspecified (principal); R47.1 Dysarthria and anarthria; R25.1 Tremor, unspecified; I10 Essential (primary) hypertension; E78.5 Hyperlipidemia, unspecified; F31.9 Bipolar disorder, unspecified; E11.9 Type 2 diabetes mellitus without complications; F43.10 Post-traumatic stress disorder, unspecified; I25.119 Atherosclerotic heart disease of native coronary artery with unspecified angina pectoris; K21.9 Gastro-esophageal reflux disease without esophagitis; R07.89 Other chest pain; E66.9 Obesity, unspecified; I25.2 Old myocardial infarction; Z79.82 Long term (current) use of aspirin; Z79.899 Other long term (current) drug therapy; Z95.5 Presence of coronary angioplasty implant and graft; Z82.61 Family history of arthritis; Z82.49 Family history of ischemic heart disease and other diseases of the circulatory system; Z82.3 Family history of stroke; Z80.9 Family history of malignant neoplasm, unspecified; Z88.8 Allergy status to other drugs, medicaments and biological substances
CPT/HCPCS: 36415; 70450; 70544; 70551; 71045; 80048; 80053; 80061; 80307; 81001; 82550; 82553; 82962; 83036; 83735; 84443; 84484; 85025; 85027; 85610; 85730; 93005; 93010; 93306; 93880; 96374; 99285; G0378; J1644; J2060; J2270; J2405; J3490

== ENCOUNTER → 2020-08-05 | Outpatient (CLI) | payer OTHER | LOC: OD 14:11 | PROVIDERS: ATTEND Obstetrics & Gynecology | DX: M13.0 Polyarthritis, unspecified (principal); Z79.899 Other long term (current) drug therapy | CPT/HCPCS: 36415; 85652 ==